=== PATIENT | male | born 1965 | race Caucasian/White ===

== ENCOUNTER → 2018-11-15 18:37 | Outpatient (CLI) | payer BC, SELFPAY ==
[2018-11-15 18:43] LABS: Adenovirus F 40/41, stool Not Detected (NotDetected); Astrovirus Not Detected (NotDetected); Campylobacter Not Detected (NotDetected); Clostridium Difficile A/B, PCR Not Detected (NotDetected); Cryptosporidium Not Detected (NotDetected); Cyclospora Cayetanesis Not Detected (NotDetected); Entamoeba histolytica Not Detected (NotDetected); Enteroaggregative E coli Not Detected (NotDetected); Enteropathogenic E coli Not Detected (NotDetected); Enterotoxigenic E coli Not Detected (NotDetected); Giardia lamblia Not Detected (NotDetected); Norovirus Not Detected (NotDetected); Plesimonas Shigalloides, PCR Not Detected (NotDetected); Rotavirus A Not Detected (NotDetected); Salmonella, PCR Not Detected (NotDetected); Sapovirus Not Detected (NotDetected); Shiga-like toxin E coli Not Detected (NotDetected); Shigella Enterovasive E coli Not Detected (NotDetected); Vibrio Cholerae Not Detected (NotDetected); Vibrio, PCR Not Detected (NotDetected); Yersinia Entercolitica, PCR Not Detected (NotDetected)
== END ==
PROVIDERS: Visit Provider Family Medicine
DX: R19.7 Diarrhea, unspecified (principal)
CPT/HCPCS: 87507

== ENCOUNTER → 2018-12-09 09:35 | Outpatient (CLI) | payer BC, SELFPAY ==
--- NOTE | 2018-12-09 09:41 | XR_ITS ---
XR chest 2V HISTORY: ITS.REASON: HIGH RISK MEDICATION THERAPHY ORDERING PHYSICIAN: Antonio Guzman MD PATIENT AGE: 53 years COMPARISON: 02/24/2011 FINDINGS: The cardiomediastinal silhouette and pulmonary vascularity are within normal limits. The lungs are clear without infiltrates, suspicious nodules, or pleural effusions. There are few calcified granulomas unchanged. No cavitating process evident. No acute bony abnormalities. IMPRESSION: No change with no acute finding
[2018-12-10 12:19] LABS: Hep Be Ag Negative (Negative)
[2018-12-10 13:50] LABS: Hep B Core Ab, Total Negative (Negative); Hepatitis B Surf Ab Quant 4.5 mIU/mL (Immunity>9.9); Hepatitis C Antibody <0.1 s/co ratio (0.0-0.9)
[2018-12-13 08:00] LABS: QuantiFERON-TB Gold Plus Negative (Negative)
== END ==
PROVIDERS: PCP Family Medicine; Visit Provider Internal Medicine Gastroenterology
DX: K50.812 Crohn's disease of both small and large intestine with intestinal obstruction (principal)
CPT/HCPCS: 36415; 71046; 86480; 86704; 86706; 87350; 87380

== ENCOUNTER → 2018-12-17 09:50 | Outpatient (POV) | payer BC, SELFPAY | PROVIDERS: Visit Provider Dermatology | DX: Z00.00 Encounter for general adult medical examination without abnormal findings (principal) ==

== ENCOUNTER 2018-12-25 10:20 | Outpatient (CLI) | payer BC, SELFPAY ==
[2018-12-25 10:59] VITALS: BP 154/78; PULSE 58; RESP 18; TEMP 36.6; O2SAT 100
[2018-12-25 11:29] VITALS: BP 151/80; PULSE 55; RESP 18; O2SAT 99
[2018-12-25 11:59] VITALS: BP 149/79; PULSE 56; RESP 18; O2SAT 98
[2018-12-25 12:10] VITALS: BP 138/72; PULSE 60; RESP 18; O2SAT 98
== END 2018-12-25 12:10 | disposition home or self-care (01) ==
LOC: INF 10:26
PROVIDERS: Visit Provider Internal Medicine Gastroenterology
DX: K50.812 Crohn's disease of both small and large intestine with intestinal obstruction (principal); R10.31 Right lower quadrant pain; R63.4 Abnormal weight loss
CPT/HCPCS: 96413; J3590

== ENCOUNTER → 2019-01-24 13:31 | Outpatient (CLI) | payer BC, SELFPAY ==
[2019-01-24 14:16] LABS: Basophils # 0.1 K/mm3 (0-0.2); Basophils % 0.4 % (0.1-2.0); Eosinophils # 0.1 K/mm3 (0.0-0.4); Eosinophils % 0.8 % (0.1-12.0); Hematocrit 42.4 % (42.0-52.0); Hemoglobin 12.2 g/dL (14.1-18.0); Lymphocytes # 3.6 K/mm3 (0.7-4.5); Mean Corpuscular HGB Conc 28.8 g/dL (31.8-35.4); Mean Corpuscular Hemoglobin 25.1 pg (27.0-31.2); Mean Corpuscular Volume 87.1 fl (80-94); Mean Platelet Volume 7.2 fl (7.4-10.4); Monocytes # 0.9 K/mm3 (0.1-1.0); Neutrophils # 8.1 K/mm3 (1.8-7.8); Neutrophils % 63.8 % (37.0-80.0); Platelet Count 297 K/mm3 (142-424); Red Blood Count 4.87 M/mm3 (4.60-6.20); Red Cell Distribution Width 19.2 % (11.5-17.5); White Blood Count 12.8 K/mm3 (4.8-10.8)
[2019-01-24 16:38] LABS: Erythrocyte Sedimentation Rate 9 mm/hr (0-20)
[2019-01-24 17:30] LABS: Alanine Aminotransferase 39 U/L (12-78); Albumin Level 3.2 gm/dL (3.4-5.0); Alkaline Phosphatase 78 U/L (46-116); Anion Gap 12.8 mEq/L (5-15); Aspartate Amino Transferase 13 U/L (15-37); Bilirubin,Total 0.3 mg/dL (0.2-1.0); Blood Urea Nitrogen 10 mg/dL (7-18); Calcium 8.8 mg/dL (8.5-10.1); Carbon Dioxide 28 mmol/L (21.0-32.0); Chloride 102 mmol/L (98-107); Creatinine,Serum 0.88 mg/dL (0.70-1.30); Estimated Glomerular Filt Rate 90 ml/min (>60); Ferritin 18 ng/mL (8-388); GFR (African American) 109 ML/MIN (>60); Globulin 3.2 gm/dl (1.3-3.2); Glucose 98 mg/dL (74-106); Potassium 3.8 mmoL/L (3.5-5.1); Sodium 139 mmol/L (136-145); Total Protein,Serum 6.4 gm/dL (6.4-8.2)
[2019-01-24 17:34] LABS: C-Reactive Protein < 0.2 mg/L (0.0-0.9)
[2019-01-26 06:40] LABS: Iron 65 ug/dL (38-169); UIBC 278 ug/dL (111-343)
[2019-01-27 03:13] LABS: Iron Saturation 19 % (15-55); Vitamin B12 278 pg/mL (232-1245)
[2019-01-29 06:22] LABS: Vitamin D 25 Hydroxy 20.9 ng/mL (30.0-100.0)
== END ==
PROVIDERS: Visit Provider Internal Medicine Gastroenterology
DX: K50.812 Crohn's disease of both small and large intestine with intestinal obstruction (principal)
CPT/HCPCS: 36415; 80053; 82607; 82652; 82728; 83540; 83550; 85025; 85651; 86140

== ENCOUNTER → 2019-02-17 12:57 | Outpatient (POV) | payer BC, SELFPAY | PROVIDERS: Visit Provider Nurse Practitioner Family | DX: Z00.00 Encounter for general adult medical examination without abnormal findings (principal) ==

== ENCOUNTER 2019-04-23 13:08 | Outpatient (CLI) | payer BC, SELFPAY ==
[2019-04-23 13:22] VITALS: BP 133/85; PULSE 75; RESP 18; TEMP 36.6; O2SAT 97
[2019-04-23 14:10] VITALS: BP 125/66; PULSE 65; RESP 20; TEMP 36.7; O2SAT 99
== END 2019-04-23 14:10 | disposition home or self-care (01) ==
LOC: INF 13:08
PROVIDERS: Visit Provider Internal Medicine Gastroenterology
DX: K50.90 Crohn's disease, unspecified, without complications (principal)
CPT/HCPCS: 96365; J1439

== ENCOUNTER 2019-04-30 12:58 | Outpatient (CLI) | payer BC, SELFPAY ==
[2019-04-30 13:18] VITALS: BP 137/75; PULSE 59; RESP 18; TEMP 36.6; O2SAT 98
[2019-04-30 13:48] VITALS: BP 149/80; PULSE 57; RESP 18; O2SAT 97
[2019-04-30 14:02] VITALS: BP 151/87; PULSE 58; RESP 18; O2SAT 98
== END 2019-04-30 14:07 | disposition home or self-care (01) ==
LOC: INF 12:58
PROVIDERS: Visit Provider Internal Medicine Gastroenterology
DX: D50.9 Iron deficiency anemia, unspecified (principal); K50.90 Crohn's disease, unspecified, without complications
CPT/HCPCS: 96365; J1439

== ENCOUNTER → 2019-05-05 10:38 | Outpatient (POV) | payer BC, SELFPAY | PROVIDERS: PCP Family Medicine; Visit Provider Nurse Practitioner Family | DX: Z00.00 Encounter for general adult medical examination without abnormal findings (principal) ==

== ENCOUNTER → 2019-06-20 14:26 | Outpatient (CLI) | payer BC, SELFPAY ==
[2019-06-20 14:52] LABS: Basophils # 0.1 K/mm3 (0-0.2); Basophils % 0.7 % (0.1-2.0); Eosinophils # 0.1 K/mm3 (0.0-0.4); Eosinophils % 1.6 % (0.1-12.0); Hematocrit 45.6 % (42.0-52.0); Hemoglobin 14.9 g/dL (14.1-18.0); Lymphocytes # 1.6 K/mm3 (0.7-4.5); Lymphocytes % 20.8 % (10-50); Mean Corpuscular HGB Conc 32.6 g/dL (31.8-35.4); Mean Corpuscular Hemoglobin 30.8 pg (27.0-31.2); Mean Corpuscular Volume 94.4 fl (80-94); Monocytes # 0.6 K/mm3 (0.1-1.0); Monocytes % 8.2 % (1.7-9.3); Neutrophils # 5.4 K/mm3 (1.8-7.8); Neutrophils % 68.7 % (37.0-80.0); Platelet Count 297 K/mm3 (142-424); Red Blood Count 4.83 M/mm3 (4.60-6.20); Red Cell Distribution Width 16.3 % (11.5-17.5); White Blood Count 7.9 K/mm3 (4.8-10.8)
[2019-06-20 17:56] LABS: Erythrocyte Sedimentation Rate 34 mm/hr (0-20)
[2019-06-20 20:49] LABS: Alanine Aminotransferase 26 U/L (12-78); Alkaline Phosphatase 75 U/L (46-116); Anion Gap 15.8 mEq/L (5-15); Aspartate Amino Transferase 12 U/L (15-37); Bilirubin,Total 0.3 mg/dL (0.2-1.0); Blood Urea Nitrogen 8 mg/dL (7-18); Calcium 9.1 mg/dL (8.5-10.1); Carbon Dioxide 28 mmol/L (21.0-32.0); Chloride 102 mmol/L (98-107); Creatinine,Serum 0.64 mg/dL (0.70-1.30); Estimated Glomerular Filt Rate 130 ml/min (>60); GFR (African American) 157 ML/MIN (>60); Globulin 3.1 gm/dl (1.3-3.2); Glucose 69 mg/dL (74-106); Potassium 3.8 mmoL/L (3.5-5.1); Sodium 142 mmol/L (136-145); Total Protein,Serum 6.1 gm/dL (6.4-8.2)
[2019-06-20 21:03] LABS: C-Reactive Protein 2.7 mg/dL (0.0-0.9)
[2019-06-21 14:31] LABS: Ferritin 310 ng/mL (8-388)
[2019-06-22 08:21] LABS: Iron 77 ug/dL (38-169); UIBC 145 ug/dL (111-343)
[2019-06-22 17:24] LABS: Iron Saturation 35 % (15-55); Vitamin B12 453 pg/mL (232-1245)
[2019-06-23 14:33] LABS: Vitamin D 25 Hydroxy 30.5 ng/mL (30.0-100.0)
== END ==
PROVIDERS: PCP Family Medicine; Visit Provider Nurse Practitioner Family
DX: K50.90 Crohn's disease, unspecified, without complications (principal); D50.9 Iron deficiency anemia, unspecified
CPT/HCPCS: 36415; 80053; 82607; 82652; 82728; 83540; 83550; 85025; 85651; 86140

== ENCOUNTER → 2019-06-23 13:57 | Outpatient (POV) | payer BC, SELFPAY | PROVIDERS: PCP Family Medicine; Visit Provider Nurse Practitioner Family | DX: Z00.00 Encounter for general adult medical examination without abnormal findings (principal) ==

== ENCOUNTER → 2019-12-20 10:25 | Outpatient (CLI) | payer BC, SELFPAY ==
[2019-12-20 10:43] LABS: Basophils # 0.1 K/mm3 (0-0.2); Basophils % 0.8 % (0.1-2.0); Eosinophils # 0.1 K/mm3 (0.0-0.4); Eosinophils % 1.6 % (0.1-12.0); Hematocrit 42.4 % (42.0-52.0); Hemoglobin 13.1 g/dL (14.1-18.0); Lymphocytes # 1.6 K/mm3 (0.7-4.5); Lymphocytes % 27.2 % (10-50); Mean Corpuscular Hemoglobin 28.4 pg (27.0-31.2); Mean Corpuscular Volume 91.5 fl (80-94); Mean Platelet Volume 7.4 fl (7.4-10.4); Monocytes # 0.5 K/mm3 (0.1-1.0); Monocytes % 7.9 % (1.7-9.3); Neutrophils # 3.7 K/mm3 (1.8-7.8); Neutrophils % 62.5 % (37.0-80.0); Platelet Count 391 K/mm3 (142-424); Red Blood Count 4.64 M/mm3 (4.60-6.20); Red Cell Distribution Width 14.1 % (11.5-17.5); White Blood Count 5.9 K/mm3 (4.8-10.8)
[2019-12-20 11:12] LABS: Erythrocyte Sedimentation Rate 28 mm/hr (0-20)
[2019-12-20 11:16] LABS: Chloride 102 mmol/L (98-107)
[2019-12-20 11:17] LABS: Potassium 4.4 mmoL/L (3.5-5.1); Sodium 137 mmol/L (136-145)
[2019-12-20 11:19] LABS: Alanine Aminotransferase 15 U/L (12-78); Alkaline Phosphatase 84 U/L (38-126); Aspartate Amino Transferase 16 U/L (17-59); Bilirubin,Total 0.3 mg/dl (0.2-1.3); Blood Urea Nitrogen 8 mg/dl (9-20); Estimated Glomerular Filt Rate 117 ml/min (>60); GFR (African American) 142 ML/MIN (>60)
[2019-12-20 11:20] LABS: Albumin Level 3.9 g/dl (3.5-5.0); Albumin/Globulin Ratio 1.4 (1.1-1.8); Anion Gap 8.4 mEq/L (5-15); Calcium 9.6 mg/dl (8.4-10.2); Carbon Dioxide 31 mmol/L (22.0-30.0); Globulin 2.8 g/dL (1.3-3.2); Glucose 98 mg/dl (74-100); Total Protein,Serum 6.7 g/dl (6.3-8.2)
[2019-12-20 11:25] LABS: C-Reactive Protein 26.3 mg/L (0-4)
[2019-12-20 11:54] LABS: Ferritin 179 ng/ml (17.9-464)
[2019-12-21 08:49] LABS: Iron 24 ug/dL (38-169); UIBC 235 ug/dL (111-343)
[2019-12-21 09:32] LABS: Iron Saturation 9 % (15-55); Vitamin B12 684 pg/mL (232-1245)
[2019-12-21 09:33] LABS: Vitamin D 25 Hydroxy 36.8 ng/mL (30.0-100.0)
== END ==
PROVIDERS: Visit Provider Internal Medicine Gastroenterology
DX: K50.012 Crohn's disease of small intestine with intestinal obstruction (principal); R10.30 Lower abdominal pain, unspecified; K59.00 Constipation, unspecified; R79.0 Abnormal level of blood mineral
CPT/HCPCS: 36415; 80053; 82607; 82652; 82728; 83540; 83550; 85025; 85651; 86140

== ENCOUNTER 2020-01-06 13:25 | Outpatient (CLI) | payer BC, SELFPAY ==
[2020-01-06 13:45] VITALS: BP 105/56; PULSE 65; RESP 18; O2SAT 97
[2020-01-06 14:26] VITALS: BP 133/67; PULSE 66; RESP 18; O2SAT 98
== END 2020-01-06 14:26 | disposition home or self-care (01) ==
LOC: INF 13:33
PROVIDERS: Visit Provider Internal Medicine Gastroenterology
DX: K50.90 Crohn's disease, unspecified, without complications (principal); D50.9 Iron deficiency anemia, unspecified
CPT/HCPCS: 96365; Q0138

== ENCOUNTER → 2020-01-08 14:19 | Outpatient (CLI) | payer BC, SELFPAY ==
[2020-01-08 15:18] LABS: Coronavirus 19 IgG Antibody Negative (Negative); Coronavirus 19 IgM Antibody Negative (Negative)
== END ==
PROVIDERS: Visit Provider Internal Medicine Gastroenterology
DX: Z01.818 Encounter for other preprocedural examination (principal)
CPT/HCPCS: 36415; 86328

== ENCOUNTER 2020-01-09 07:24 | Day surgery (SDC) | payer BC, SELFPAY ==
[2020-01-06 15:01] VITALS: BMI 20.9
--- NOTE | 2020-01-07 09:06 | SUR.PREOP ---
01/07/2020 @ 0905--PHONE CALL MADE TO PATIENT. PATIENT UNDERSTANDS THAT LAB WORK AND COVID TESTING NEEDS TO BE COMPLETED @ 0900 ON 01/08/2020. PATIENT UNDERSTANDS IF LAB WORK AND COVID-19 TESTS ARE NOT COMPLETED BY 12PM ON THAT DATE, THE SURGERY SCHEDULED WILL BE CANCELLED AND RESCHEDULED FOR ANOTHER TIME.
[2020-01-09] VITALS (7 sets, daily range): BP systolic 129–157; BP diastolic 74–86; PULSE 56–69; RESP 16–20; TEMP 36.1–36.3; O2SAT 87–98
--- NOTE | 2020-01-09 08:03 | HMH.PROC ---
[facility] Procedure Note Procedure Note:: Colonoscopy Procedure Report: Colonoscopy with cold biopsies and cold snare polypectomy Endoscopist: Antonio Guzman II, MD Referring physician: Darinel Murray MD Date of Procedure: January 09, 2020 Equipment: Olympus 180 variable stiffness pediatric colonoscope Sedation: MAC sedation Indication: Mr. Villagran is a 54-year-old gentleman with a history of Crohn's ileitis with stricturing and negative IBD serologic panel ([facility]). The patient did fail to improve with Stelara and had significant fibro-stenotic Crohn's. He had laparoscopic ileocecal resection with re-anastomosis (Meghan Byrne MD colorectal surgery [facility]) on September 04, 2019. The patient subsequently restarted Stelara on September 27, 2019 and diet was advanced. The patient has had obstipation/incomplete defecation with some intermittent rectal bleeding. He has had low energy levels. His lab work on December 20, 2019 revealed C-reactive protein 26.3 and iron deficiency (iron saturation 9% and serum iron 24). His hemoglobin and hematocrit were 13.1 and 42.4. He had normal B12 and vitamin D levels. Procedure: Prior to the procedure, a history and physical exam was performed, and patient's medications and allergies were reviewed. The risks, benefits and alternatives of the sedation and procedure were discussed with the patient. All questions were answered and informed consent was obtained. The patient was brought to the procedure room. Patient identification and proposed procedure were verified by the physician and the nurse. The patient was placed in a left lateral decubitus position and the scope was passed under direct vision. Throughout the procedure, the patient's blood pressure, pulse, and oxygen saturations were monitored continuously. The colonoscopy was accomplished without difficulty. The patient tolerated the procedure well. Findings: On digital rectal examination there was normal rectal tone. There were no external hemorrhoids. The colonoscope was introduced through the anal canal to the rectum and advanced to ileocolonic anastomosis. The scope was advanced approximately 25 cm into the ileum and there were multiple aphthous ulcerations and aphthous erosions consistent with moderately active Crohn's disease of the ileum. There was 1 area with mild stenosis but the scope could be easily advanced more proximally. Cold biopsies were taken x4 of the ileum. The scope was withdrawn and there was a side to side coloileal anastomosis. The remaining ascending and transverse colon and mucosa were grossly normal. There were scattered extensive diverticuli throughout the descending and sigmoid colon (LEFT colon). There was evidence of moderate sigmoid edema and a larger 12 mm polyp (probable inflammatory polyp/pseudopolyp). Removal was performed via piecemeal cold snare polypectomy and some cold biopsies were obtained. The remaining rectosigmoid was normal and the rectum itself was normal. Upon retroflexion within the rectum there were grade 1-2 internal hemorrhoids. The preparation was excellent throughout with [place] Preparation Score of 9. The cecal time was 15 minutes. Impression: 1. Moderately active Crohn's ileitis with extension of Crohn's to proximal of 25 cm into the neoterminal ileum (penetrating and mild stenosis) 2. Extensive left-sided diverticulosis with evidence of chronic sigmoid diverticulitis and 12 mm sigmoid pseudopolyp/inflammatory polyp 3. Grade 1-2 internal hemorrhoids Plan: Valdemar is failing in terms of maintenance of clinical colonoscopic and biochemical remission. I will follow-up the biopsies. I am going to have the patient initiate Humira. I would consider an iron infusion. I will also discuss his chronic diverticular disease and long-term fiber supplementation and dietary measures.
== END 2020-01-09 10:03 | disposition home or self-care (01) ==
LOC: OUTP 07:25
PROVIDERS: PCP Family Medicine; Visit Provider Internal Medicine Gastroenterology
PROC: 0DJD8ZZ Inspection of Lower Intestinal Tract, Via Natural or Artificial Opening Endoscopic (ICD-10-PCS; CPT 45378; principal; 2020-01-09 08:30)
DX: K50.011 Crohn's disease of small intestine with rectal bleeding (principal); K50.018 Crohn's disease of small intestine with other complication; K56.699 Other intestinal obstruction unspecified as to partial versus complete obstruction; R60.9 Edema, unspecified; K63.5 Polyp of colon; K57.32 Diverticulitis of large intestine without perforation or abscess without bleeding; K57.30 Diverticulosis of large intestine without perforation or abscess without bleeding; K64.0 First degree hemorrhoids; Z90.49 Acquired absence of other specified parts of digestive tract; I10 Essential (primary) hypertension; J44.9 Chronic obstructive pulmonary disease, unspecified; Z82.3 Family history of stroke
CPT/HCPCS: 45385; 45380; Q0138

== ENCOUNTER → 2020-01-21 12:59 | Outpatient (CLI) | payer BC, SELFPAY ==
[2020-01-21 13:26] LABS: Basophils % 0.2 % (0.1-2.0); Eosinophils % 0.3 % (0.1-12.0); Hematocrit 43.9 % (42.0-52.0); Hemoglobin 14.4 g/dL (14.1-18.0); Lymphocytes # 0.7 K/mm3 (0.7-4.5); Lymphocytes % 5.4 % (10-50); Mean Corpuscular HGB Conc 32.9 g/dL (31.8-35.4); Mean Corpuscular Hemoglobin 30.8 pg (27.0-31.2); Mean Corpuscular Volume 93.6 fl (80-94); Mean Platelet Volume 7.4 fl (7.4-10.4); Monocytes # 0.2 K/mm3 (0.1-1.0); Monocytes % 1.7 % (1.7-9.3); Neutrophils # 11.9 K/mm3 (1.8-7.8); Neutrophils % 92.4 % (37.0-80.0); Platelet Count 281 K/mm3 (142-424); Red Blood Count 4.69 M/mm3 (4.60-6.20); Red Cell Distribution Width 17.7 % (11.5-17.5); White Blood Count 12.8 K/mm3 (4.8-10.8)
[2020-01-21 13:27] LABS: MANUAL DIFFERENTIAL MANUAL DIFFERENTIAL (MANUAL DIFF)
[2020-01-21 13:59] LABS: Lymphocytes % 8 % (10-50); Neutrophils % 92 % (42-76); Platelet Estimate Normal; RBC Morphology Normal; Total Cells Counted 100
[2020-01-21 15:07] LABS: Chloride 100 mmol/L (98-107); Sodium 135 mmol/L (136-145)
[2020-01-21 15:10] LABS: Alanine Aminotransferase 25 U/L (12-78); Albumin Level 3.9 g/dl (3.5-5.0); Albumin/Globulin Ratio 1.4 (1.1-1.8); Alkaline Phosphatase 115 U/L (38-126); Aspartate Amino Transferase 18 U/L (17-59); Bilirubin,Total 0.7 mg/dl (0.2-1.3); Blood Urea Nitrogen 9 mg/dl (9-20); Carbon Dioxide 26 mmol/L (22.0-30.0); Estimated Glomerular Filt Rate 100 ml/min (>60); GFR (African American) 121 ML/MIN (>60); Globulin 2.8 g/dL (1.3-3.2); Total Protein,Serum 6.7 g/dl (6.3-8.2)
[2020-01-21 15:11] LABS: Calcium 8.8 mg/dl (8.4-10.2); Glucose 135 mg/dl (74-100)
[2020-01-27 11:54] LABS: QuantiFERON-TB Gold Plus Negative (Negative)
== END ==
PROVIDERS: Visit Provider Internal Medicine Gastroenterology
DX: K50.90 Crohn's disease, unspecified, without complications (principal)
CPT/HCPCS: 36415; 80053; 85007; 85025; 86480

== ENCOUNTER → 2020-05-04 11:21 | Outpatient (CLI) | payer BC, SELFPAY ==
[2020-05-04 12:14] LABS: Basophils # 0.1 K/mm3 (0-0.2); Basophils % 0.6 % (0.1-2.0); Eosinophils # 0.1 K/mm3 (0.0-0.4); Eosinophils % 1.1 % (0.1-12.0); Hematocrit 49.3 % (42.0-52.0); Hemoglobin 16.2 g/dL (14.1-18.0); Lymphocytes # 3.4 K/mm3 (0.7-4.5); Lymphocytes % 36.2 % (10-50); Mean Corpuscular HGB Conc 32.8 g/dL (31.8-35.4); Mean Corpuscular Volume 100.4 fl (80-94); Mean Platelet Volume 7.8 fl (7.4-10.4); Monocytes # 0.7 K/mm3 (0.1-1.0); Monocytes % 7.5 % (1.7-9.3); Neutrophils # 5.1 K/mm3 (1.8-7.8); Neutrophils % 54.7 % (37.0-80.0); Platelet Count 193 K/mm3 (142-424); Red Blood Count 4.91 M/mm3 (4.60-6.20); Red Cell Distribution Width 14.9 % (11.5-17.5); White Blood Count 9.3 K/mm3 (4.8-10.8)
[2020-05-04 13:08] LABS: Erythrocyte Sedimentation Rate 2 mm/hr (0-20)
[2020-05-04 13:37] LABS: Chloride 101 mmol/L (98-107); Potassium 4.2 mmoL/L (3.5-5.1); Sodium 137 mmol/L (136-145)
[2020-05-04 13:40] LABS: Alanine Aminotransferase 21 U/L (12-78); Alkaline Phosphatase 65 U/L (38-126); Anion Gap 10.2 mEq/L (5-15); Aspartate Amino Transferase 22 U/L (17-59); Bilirubin,Total 0.7 mg/dl (0.2-1.3); Blood Urea Nitrogen 10 mg/dl (9-20); Calcium 9.5 mg/dl (8.4-10.2); Carbon Dioxide 30 mmol/L (22.0-30.0); Estimated Glomerular Filt Rate 117 ml/min (>60); GFR (African American) 141 ML/MIN (>60); Glucose 90 mg/dl (74-100); Iron 136 ug/dL (49-181)
[2020-05-04 13:41] LABS: Albumin Level 3.8 g/dl (3.5-5.0); Albumin/Globulin Ratio 1.6 (1.1-1.8); Globulin 2.4 g/dL (1.3-3.2); Total Protein,Serum 6.2 g/dl (6.3-8.2)
[2020-05-04 13:46] LABS: C-Reactive Protein 2.5 mg/L (0-4)
[2020-05-04 13:50] LABS: Total Iron Binding Capacity 299 ug/dL (261-462)
[2020-05-04 13:58] LABS: 25-OH Vitamin D, Total 36.3 ng/mL (30-100)
[2020-05-04 14:17] LABS: Ferritin 276 ng/ml (17.9-464)
[2020-05-04 18:52] LABS: Vitamin B12 390 pg/mL (239-931)
== END ==
PROVIDERS: Visit Provider Internal Medicine Gastroenterology
DX: K50.012 Crohn's disease of small intestine with intestinal obstruction (principal); R10.30 Lower abdominal pain, unspecified; K59.00 Constipation, unspecified
CPT/HCPCS: 36415; 80053; 82306; 82607; 82728; 83540; 83550; 85025; 85651; 86140

== ENCOUNTER → 2020-06-30 12:10 | Outpatient (CLI) | payer BC, SELFPAY ==
[2020-06-30 12:35] LABS: Basophils % 0.6 % (0.1-2.0); Eosinophils # 0.1 K/mm3 (0.0-0.4); Eosinophils % 0.7 % (0.1-12.0); Hematocrit 53.5 % (42.0-52.0); Hemoglobin 17.6 g/dL (14.1-18.0); Lymphocytes # 2.5 K/mm3 (0.7-4.5); Lymphocytes % 36.8 % (10-50); Mean Corpuscular HGB Conc 32.9 g/dL (31.8-35.4); Mean Corpuscular Hemoglobin 33.1 pg (27.0-31.2); Mean Corpuscular Volume 100.5 fl (80-94); Monocytes # 0.5 K/mm3 (0.1-1.0); Monocytes % 7.5 % (1.7-9.3); Neutrophils # 3.7 K/mm3 (1.8-7.8); Neutrophils % 54.4 % (37.0-80.0); Platelet Count 214 K/mm3 (142-424); Red Blood Count 5.32 M/mm3 (4.60-6.20); Red Cell Distribution Width 14.5 % (11.5-17.5); White Blood Count 6.7 K/mm3 (4.8-10.8)
[2020-06-30 13:51] LABS: Chloride 102 mmol/L (98-107); Potassium 4.7 mmoL/L (3.5-5.1); Sodium 137 mmol/L (136-145)
[2020-06-30 13:53] LABS: Alanine Aminotransferase 25 U/L (12-78); Aspartate Amino Transferase 22 U/L (17-59); Blood Urea Nitrogen 14 mg/dl (9-20); Estimated Glomerular Filt Rate 100 ml/min (>60); GFR (African American) 121 ML/MIN (>60)
[2020-06-30 13:54] LABS: Albumin Level 4.2 g/dl (3.5-5.0); Albumin/Globulin Ratio 1.7 (1.1-1.8); Alkaline Phosphatase 57 U/L (38-126); Anion Gap 8.7 mEq/L (5-15); Bilirubin,Total 0.7 mg/dl (0.2-1.3); Calcium 9.7 mg/dl (8.4-10.2); Carbon Dioxide 31 mmol/L (22.0-30.0); Globulin 2.5 g/dL (1.3-3.2); Glucose 81 mg/dl (74-100); Total Protein,Serum 6.7 g/dl (6.3-8.2)
[2020-06-30 13:59] LABS: C-Reactive Protein 2.7 mg/L (0-4)
[2020-06-30 14:15] LABS: Erythrocyte Sedimentation Rate 5 mm/hr (0-20)
== END ==
PROVIDERS: Visit Provider Nurse Practitioner Family
DX: K50.011 Crohn's disease of small intestine with rectal bleeding (principal); K59.00 Constipation, unspecified; R10.9 Unspecified abdominal pain
CPT/HCPCS: 36415; 80053; 85025; 85651; 86140

== ENCOUNTER → 2020-07-21 12:14 | Outpatient (CLI) | payer BC, SELFPAY ==
[2020-07-21 12:37] LABS: Basophils # 0.1 K/mm3 (0-0.2); Basophils % 0.7 % (0.1-2.0); Eosinophils # 0.1 K/mm3 (0.0-0.4); Eosinophils % 1.5 % (0.1-12.0); Hematocrit 50.3 % (42.0-52.0); Hemoglobin 16.7 g/dL (14.1-18.0); Lymphocytes # 2.2 K/mm3 (0.7-4.5); Lymphocytes % 29.4 % (10-50); Mean Corpuscular HGB Conc 33.2 g/dL (31.8-35.4); Mean Corpuscular Hemoglobin 33.5 pg (27.0-31.2); Mean Corpuscular Volume 100.7 fl (80-94); Mean Platelet Volume 7.8 fl (7.4-10.4); Monocytes # 0.5 K/mm3 (0.1-1.0); Monocytes % 7.1 % (1.7-9.3); Neutrophils # 4.5 K/mm3 (1.8-7.8); Neutrophils % 61.2 % (37.0-80.0); Platelet Count 213 K/mm3 (142-424); Red Cell Distribution Width 14.2 % (11.5-17.5); White Blood Count 7.4 K/mm3 (4.8-10.8)
[2020-07-21 14:16] LABS: Chloride 103 mmol/L (98-107); Sodium 138 mmol/L (136-145)
[2020-07-21 14:17] LABS: Potassium 4.3 mmoL/L (3.5-5.1)
[2020-07-21 14:19] LABS: Alanine Aminotransferase 22 U/L (12-78); Anion Gap 9.3 mEq/L (5-15); Aspartate Amino Transferase 21 U/L (17-59); Blood Urea Nitrogen 8 mg/dl (9-20); Carbon Dioxide 30 mmol/L (22.0-30.0); Estimated Glomerular Filt Rate 100 ml/min (>60); GFR (African American) 121 ML/MIN (>60)
[2020-07-21 14:20] LABS: Albumin Level 4.2 g/dl (3.5-5.0); Albumin/Globulin Ratio 1.8 (1.1-1.8); Alkaline Phosphatase 64 U/L (38-126); Bilirubin,Total 0.4 mg/dl (0.2-1.3); Calcium 9.5 mg/dl (8.4-10.2); Globulin 2.4 g/dL (1.3-3.2); Glucose 97 mg/dl (74-100); Total Protein,Serum 6.6 g/dl (6.3-8.2)
== END ==
PROVIDERS: Visit Provider Nurse Practitioner Family
DX: R10.9 Unspecified abdominal pain (principal); K50.90 Crohn's disease, unspecified, without complications; K59.00 Constipation, unspecified
CPT/HCPCS: 36415; 80053; 85025

== ENCOUNTER → 2020-07-26 11:51 | Outpatient (CLI) | payer BC, SELFPAY ==
[2020-07-29 02:29] LABS: Calprotectin, Fecal 48 ug/g (0-120)
== END ==
PROVIDERS: Visit Provider Nurse Practitioner Family
DX: K50.90 Crohn's disease, unspecified, without complications (principal); R10.9 Unspecified abdominal pain; K59.00 Constipation, unspecified
CPT/HCPCS: 83993

== ENCOUNTER → 2020-10-18 09:25 | Outpatient (CLI) | payer BC, SELFPAY ==
--- NOTE | 2020-10-18 09:29 | XR_ITS ---
PROCEDURE: XR DEXA AXIAL SKELETON CLINICAL HISTORY: CROHN'S DISEASE OF SMALL INTESTINE W/ COMPLICATION COMPARISON: No exams were available for comparison FINDINGS: The right hip BMD is 0.626 with a T-score of -2.2. The left hip BMD is 0.670 with a T-score of -2.4. The lumbar spine BMD is 0.948 with a T-score of -1.3. IMPRESSION: This patient is considered osteopenic according to the World Health Organization criteria. Bone density is between 10 and 25 percent below young normal. Fracture risk is moderate. Treatment is advised. Based on these results a follow-up exam is recommended in 2 year. Dictated by: Roland Mcdowell MD 10/18/2020 19:33 Roland Mcdowell MD in [place] 10/19/2020 13:31
== END ==
PROVIDERS: PCP Family Medicine; Visit Provider Family Medicine
DX: K50.019 Crohn's disease of small intestine with unspecified complications (principal); M85.89 Other specified disorders of bone density and structure, multiple sites
CPT/HCPCS: 77080

== ENCOUNTER 2020-12-19 13:02 | Emergency (ER) | payer BC, SELFPAY ==
[2020-12-19 13:36] VITALS: BP 177/83; PULSE 63; RESP 17; TEMP 36.8; O2SAT 100; BMI 70.3
--- NOTE | 2020-12-19 14:04 | XR_ITS ---
PROCEDURE INFORMATION: Exam: XR Left Hand Exam date and time: 12/19/2020 2:04 PM Age: 55 years old Clinical indication: Other: Laceration; Additional info: Wood hit hand cut finger TECHNIQUE: Imaging protocol: XR Left hand. Views: 3 or more views. COMPARISON: No relevant prior studies available. FINDINGS: Bones/joints: There is no evidence of acute fracture. There is no evidence of joint malalignment or dislocation. Soft tissues: No evidence of radiopaque foreign bodies. There are no soft tissue masses or fluid collections. IMPRESSION: 1. No evidence of radiopaque foreign bodies. 2. No evidence of acute fracture. 3. No evidence of acute dislocation.
--- NOTE | 2020-12-19 14:04 | HMH.EDUTC ---
[facility] [place] Clinical Impression: Laceration Disposition: Home, Self-Care Condition on Discharge: Good Instructions: Laceration Repair, DI for Laceration Repair, Amoxicillin and Clavulanic Acid Additional Instructions: Suture instructions: You have required stitches today. Please read the following instructions so you know how to care for them: 1. Keep wound area dry for the first 24 hours. 2 May clean gently with mild soap and water, after 48 hours to prevent crusting over suture knots. 3. You may shower if your provider gives permission but do not take a bath until the skin is healed.. 4. Never leave a wet dressing or Band-Aid on your stitches as this allows bacteria to reach the area and may cause infection. Band-aids can cause the wound to sweat and not recommended to wear for long periods of time Watch for signs of infection: Increasing redness, tenderness or warmth around the suture site Unusual swelling around the site Appearance of pus around each suture or any red streaks Fever If you develop any of the above signs or symptoms of infection, Follow up with Family Physician immediately 5. Suture removal in _7-10___days 6. Return to [facility] or follow up with family doctor for removal. This can be done by any medical provider during regular hours on Sunday through Sunday, by appointment. Prescriptions: Amoxicillin/Potassium Clav [Augmentin 875-125 Tablet] 1 tab PO Q12H 5 Days #10 tab Transmission Status: Pending to [id number] - [facility] Rx Referrals: Tara Murray MD [Primary Care Provider] - As needed Time of Disposition: 15:29 Medical Decision Making - Kody Inquiry Pt receiving controlled substance: No Kody was queried for this patient: No Vital Signs: 12/19/20 13:36 Temperature 98.2 F Temperature Source Oral Pulse Rate [Left] 63 Respiratory Rate 17 Blood Pressure [Right Arm] 177/83 H Blood Pressure Mean [Right Arm] 114 02 Sat by Pulse Oximetry 100 Oxygen Delivery Method Room Air Orders (Tests/Meds): ED MEDICATIONS Discontinued Medications Generic Name Dose Route Start Last Admin Trade Name Freq PRN Reason Stop Dose Admin Lidocaine HCl 5 ml 12/19/20 14:49 12/19/20 14:51 Lidocaine 1% 5ml Pf Vial SQ 12/19/20 14:50 5 ml ONCE ONE Administration Tetanus/Reduced Diphtheria/Acell Pertussis 0.5 ml 12/19/20 14:31 12/19/20 14:52 Tet/Diphth/Pert-Adult 0.5ml Syringe IM 12/19/20 14:32 0.5 ml .ONCE ONE Administration - Radiology Data #1 Image(s): Hand Image Reviewed: Yes I reviewed the patient's radiology image Preliminary Findings: No Fracture Seen [facility] [place] HPI - General Stated complaint: Cut middle finger on left hand Time Seen by Provider: 12/19/20 14:04 Mode of Arrival: Ambulatory Source of Information: Patient Limitations: No Limitations Description of Symptoms (Recalled from Triage Doc. by RN): Laceration on left finger HEENT Symptoms (Recalled from RN notes): No Resp Symptoms (Recalled from RN notes): No Skin Symptoms (Recalled from RN notes): Yes MS Symptoms (Recalled from RN notes): No Functional Status (Recalled from RN notes): wnl - History of Present Illness Provider Complaint: Patient states that he was cutting wood on saw earlier when the wood flew up and hit him in the left middle finger causing laceration State that he immediately applied pressure and looked at the cut and noticed it looked deep so he came in State that unsure of last tetanus - Related Data Home Medications Medication Instructions Recorded Confirmed Tamsulosin HCl [Flomax 0.4mg 0.4 mg PO HS 11/27/18 09/02/20 capsule] Ustekinumab [Stelara] 45 mg SQ DAILY 01/06/20 09/02/20 adalimumab 40 mg/0.4 mL mg SQ 09/02/20 09/02/20 subcutaneous pen kit azathioprine 50 mg tablet 50 mg PO tab 09/02/20 09/02/20 prednisone 10 mg tablet 10 mg PO tab 09/02/20 09/02/20 Previous Rx's Medication Instructions Recorded ciclopirox 8 % topical solution
[2020-12-19 15:25] VITALS: BP 177/83; PULSE 63; RESP 17; TEMP 36.8; O2SAT 100
== END 2020-12-19 15:33 | disposition home or self-care (01) ==
PROVIDERS: Emergency Provider Nurse Practitioner; PCP Family Medicine
DX: S61.213A Laceration without foreign body of left middle finger without damage to nail, initial encounter (principal); W27.8XXA Contact with other nonpowered hand tool, initial encounter; Y92.018 Other place in single-family (private) house as the place of occurrence of the external cause; Z23 Encounter for immunization; K21.9 Gastro-esophageal reflux disease without esophagitis; J44.9 Chronic obstructive pulmonary disease, unspecified; I10 Essential (primary) hypertension; F17.210 Nicotine dependence, cigarettes, uncomplicated
CPT/HCPCS: 12001; 73130; 90471; 90715; 96372; 99202; G0463

== ENCOUNTER → 2021-01-21 17:30 | Outpatient (CLI) | payer BC, SELFPAY ==
[2021-01-21 17:42] LABS: Basophils # 0.1 K/mm3 (0-0.2); Eosinophils # 0.2 K/mm3 (0.0-0.4); Eosinophils % 3.5 % (0.1-12.0); Hematocrit 45.9 % (42.0-52.0); Hemoglobin 15.3 g/dL (14.1-18.0); Lymphocytes # 2.5 K/mm3 (0.7-4.5); Lymphocytes % 39.6 % (10-50); Mean Corpuscular HGB Conc 33.3 g/dL (31.8-35.4); Mean Corpuscular Hemoglobin 31.7 pg (27.0-31.2); Mean Corpuscular Volume 95.1 fl (80-94); Monocytes # 0.5 K/mm3 (0.1-1.0); Monocytes % 7.7 % (1.7-9.3); Neutrophils # 3.1 K/mm3 (1.8-7.8); Neutrophils % 48.2 % (37.0-80.0); Platelet Count 183 K/mm3 (142-424); Red Blood Count 4.83 M/mm3 (4.60-6.20); Red Cell Distribution Width 14.1 % (11.5-17.5); White Blood Count 6.4 K/mm3 (4.8-10.8)
[2021-01-21 18:08] LABS: Erythrocyte Sedimentation Rate 9 mm/hr (0-20)
[2021-01-21 18:21] LABS: Alanine Aminotransferase 16 U/L (12-78); Albumin Level 3.8 g/dl (3.5-5.0); Albumin/Globulin Ratio 1.6 (1.1-1.8); Alkaline Phosphatase 65 U/L (38-126); Anion Gap 7.2 mEq/L (5-15); Aspartate Amino Transferase 20 U/L (17-59); Bilirubin,Total 0.6 mg/dl (0.2-1.3); Blood Urea Nitrogen 10 mg/dl (9-20); Calcium 8.7 mg/dl (8.4-10.2); Carbon Dioxide 30 mmol/L (22.0-30.0); Chloride 105 mmol/L (98-107); Estimated Glomerular Filt Rate 100 ml/min (>60); GFR (African American) 121 ML/MIN (>60); Globulin 2.4 g/dL (1.3-3.2); Glucose 85 mg/dl (74-100); Potassium 4.2 mmoL/L (3.5-5.1); Sodium 138 mmol/L (136-145); Total Protein,Serum 6.2 g/dl (6.3-8.2)
[2021-01-21 18:38] LABS: 25-OH Vitamin D, Total 30.4 ng/mL (30-100)
[2021-01-21 19:11] LABS: Vitamin B12 529 pg/mL (239-931)
[2021-01-21 19:14] LABS: Iron 85 ug/dL (49-181)
[2021-01-21 19:49] LABS: Ferritin 151 ng/ml (17.9-464)
== END ==
PROVIDERS: Visit Provider Nurse Practitioner Family
DX: K50.90 Crohn's disease, unspecified, without complications (principal); R10.9 Unspecified abdominal pain; R19.4 Change in bowel habit
CPT/HCPCS: 36415; 80053; 82306; 82607; 82728; 83540; 85025; 85651; 86140

== ENCOUNTER → 2021-01-24 15:58 | Outpatient (POV) | payer BC, SELFPAY | PROVIDERS: Visit Provider Nurse Practitioner Family | DX: Z00.00 Encounter for general adult medical examination without abnormal findings (principal) ==

== ENCOUNTER → 2021-02-28 14:15 | Outpatient (CLI) | payer BC, SELFPAY ==
--- NOTE | 2021-02-28 14:20 | XR_ITS ---
PROCEDURE: XR KNEE LT 3V CLINICAL INDICATION: SPRAIN OF COLLATERAL LIGAMENT OF LT KNEE,SUBSEQUENT ENCOUNTE COMPARISON: No exams were available for comparison FINDINGS: No acute fractures or dislocations. Bone density is normal. The joint spaces are maintained. Incidental note is made of fabella. No suprapatellar joint effusion. Vascular calcification is noted. Soft tissues are otherwise IMPRESSION: No acute abnormality. Dictated by: Stacey Almazan 02/28/2021 16:10 Stacey Almazan in [place] 02/28/2021 16:10
== END ==
PROVIDERS: PCP Family Medicine; Visit Provider Family Medicine
DX: S83.402D Sprain of unspecified collateral ligament of left knee, subsequent encounter (principal)
CPT/HCPCS: 73562

== ENCOUNTER 2021-03-10 15:00 | Outpatient (RCR) | payer BC, SELFPAY ==
--- NOTE | 2021-03-03 08:50 | HMH.PTOPEV ---
PT Outpatient Evaluation Rehab PT Outpatient Evaluation Start: 03/03/21 07:57 Freq: Status: Active Protocol: Document 03/03/21 08:31 ATIF (Rec: 03/03/21 08:50 PHORMICHAEL [id number]) Electronically Signed By Orlando Monique, PT 03/03/21 08:31 Outpatient Therapy Subjective History Subjective History Pt is 56 yowm who presents with c/o L knee pain and swelling x ~ 2-3 wks. He reports, I stepped off of a trailer and twisted my knee a little. He reports he felt ok after the injury, but worse the next day. He also reports he subsequently strained his groin in the R [place] which hade his walking more difficult. He had x-rays performed without abnormalities noted. He reports PMH of crohn's disease . Chief Complaint Pain,Swelling Symptom Type Ache Symptoms Relieved By Rest/Positioning Symptoms Aggravated By Walking Prior Functional Limitations None Current Functional Limitations Walking Symptom Description Activity Dependent Level of pain today (0-10) 2 Pain scale - at its worst (0-10) 4 Hip/Knee Eval Gait Observation General Gait Pattern Observation Antalgic Gait Palpation Tenderness left Knee Palpation Finding Tenderness Knee Palpation Overall Comment popliteal space MMT Hip Flexion Strength Grade 5 Normal Hip Abduction Strength Grade 5 Normal Hip Adduction Strength Grade 5 Normal Hip Extension Strength Grade 5 Normal Knee Extension Strength Grade 5 Normal Knee Flexion Strength Grade 4 Good ROM Knee Extension Active Range of Motion ( 0 degrees) Knee Flexion Active Range of Motion ( 0-138 degrees) Special Tests Knee Anterior Drawer Test Negative Left,Negative Right Vigil 90/90 Test (PCL) Negative Left,Negative Right Knee Anterior Brody Test Negative Left,Negative Right Knee Valgus Stress Test Negative Left,Negative Right Knee Varus Stress Test Negative Left,Negative Right Knee Lucero Test Negative Left,Negative Right Outpatient Therapy Assessment Impairments Problems/Impairmments Palpation Tenderness,Impaired Strength,Impaired Gait Pattern ,Impaired Walking,Increased Edema,Subjective C/O Pain, Impaired Self Care/Self
== END 2021-03-10 15:05 | disposition home or self-care (01) ==
LOC: PT 15:00
PROVIDERS: PCP Family Medicine; Visit Provider Family Medicine
DX: S83.402D Sprain of unspecified collateral ligament of left knee, subsequent encounter (principal)
CPT/HCPCS: 97033; 97035; 97110; 97163

== ENCOUNTER → 2021-10-20 17:06 | Outpatient (CLI) | payer BC, SELFPAY ==
[2021-10-20 17:39] LABS: Basophils # 0.1 K/mm3 (0-0.2); Eosinophils # 0.2 K/mm3 (0.0-0.4); Eosinophils % 3.9 % (0.1-12.0); Hematocrit 51.3 % (42.0-52.0); Hemoglobin 16.3 g/dL (14.1-18.0); Lymphocytes % 34.2 % (10-50); Mean Corpuscular HGB Conc 31.8 g/dL (31.8-35.4); Mean Corpuscular Hemoglobin 31.6 pg (27.0-31.2); Mean Corpuscular Volume 99.4 fl (80-94); Mean Platelet Volume 8.6 fl (7.4-10.4); Monocytes # 0.4 K/mm3 (0.1-1.0); Monocytes % 6.9 % (1.7-9.3); Neutrophils % 52.9 % (37.0-80.0); Platelet Count 220 K/mm3 (142-424); Red Blood Count 5.16 M/mm3 (4.60-6.20); Red Cell Distribution Width 13.8 % (11.5-17.5); White Blood Count 5.7 K/mm3 (4.8-10.8)
[2021-10-20 17:40] LABS: Alanine Aminotransferase 31 U/L (12-78); Albumin Level 4.5 g/dl (3.5-5.0); Albumin/Globulin Ratio 1.6 (1.1-1.8); Alkaline Phosphatase 72 U/L (38-126); Anion Gap 10.5 mEq/L (5-15); Aspartate Amino Transferase 27 U/L (17-59); Bilirubin,Total 0.6 mg/dl (0.2-1.3); Blood Urea Nitrogen 11 mg/dl (9-20); Calcium 9.3 mg/dl (8.4-10.2); Carbon Dioxide 30 mmol/L (22.0-30.0); Chloride 100 mmol/L (98-107); Estimated Glomerular Filt Rate 100 ml/min (>60); GFR (African American) 121 ML/MIN (>60); Globulin 2.9 g/dL (1.3-3.2); Glucose 95 mg/dl (74-100); Potassium 4.5 mmoL/L (3.5-5.1); Sodium 136 mmol/L (136-145); Total Protein,Serum 7.4 g/dl (6.3-8.2)
[2021-10-20 17:45] LABS: C-Reactive Protein 1.1 mg/L (0-4)
[2021-10-20 18:29] LABS: Vitamin B12 379 pg/mL (239-931)
[2021-10-20 18:34] LABS: 25-OH Vitamin D, Total < 12.8 ng/mL (30-100)
[2021-10-20 18:40] LABS: Iron 87 ug/dL (49-181)
[2021-10-20 19:07] LABS: Erythrocyte Sedimentation Rate 8 mm/hr (0-20)
[2021-10-20 19:16] LABS: Ferritin 126 ng/ml (17.9-464)
[2021-10-24 16:07] LABS: Total Iron Binding Capacity 319 ug/dL (261-462)
== END ==
PROVIDERS: Visit Provider Nurse Practitioner Family
DX: R10.9 Unspecified abdominal pain (principal); R10.30 Lower abdominal pain, unspecified; R19.4 Change in bowel habit; R63.4 Abnormal weight loss; K50.812 Crohn's disease of both small and large intestine with intestinal obstruction; K59.00 Constipation, unspecified; K58.9 Irritable bowel syndrome, unspecified; E55.9 Vitamin D deficiency, unspecified
CPT/HCPCS: 36415; 80053; 82306; 82607; 82728; 83540; 83550; 85025; 85651; 86140

== ENCOUNTER → 2022-04-18 17:06 | Outpatient (CLI) | payer BC, SELFPAY ==
[2022-04-18 18:38] LABS: MANUAL DIFFERENTIAL MANUAL DIFFERENTIAL (MANUAL DIFF)
[2022-04-18 18:50] LABS: Basophils # 0.1 K/mm3 (0-0.2); Basophils % 1.7 % (0.1-2.0); Eosinophils # 0.3 K/mm3 (0.0-0.4); Hematocrit 48.8 % (42.0-52.0); Hemoglobin 15.2 g/dL (14.1-18.0); Lymphocytes % 31.5 % (10-50); Mean Corpuscular HGB Conc 31.2 g/dL (31.8-35.4); Mean Corpuscular Hemoglobin 31.6 pg (27.0-31.2); Mean Corpuscular Volume 101.3 fl (80-94); Mean Platelet Volume 9.2 fl (7.4-10.4); Monocytes # 0.5 K/mm3 (0.1-1.0); Monocytes % 7.3 % (1.7-9.3); Neutrophils # 3.5 K/mm3 (1.8-7.8); Neutrophils % 54.5 % (37.0-80.0); Platelet Count 221 K/mm3 (142-424); Red Blood Count 4.82 M/mm3 (4.60-6.20); Red Cell Distribution Width 13.3 % (11.5-17.5); White Blood Count 6.4 K/mm3 (4.8-10.8)
[2022-04-18 18:54] LABS: Alanine Aminotransferase 22 U/L (12-78); Albumin/Globulin Ratio 1.3 (1.1-1.8); Alkaline Phosphatase 82 U/L (38-126); Anion Gap 6.2 mEq/L (5-15); Aspartate Amino Transferase 27 U/L (17-59); Bilirubin,Total 0.2 mg/dl (0.2-1.3); Blood Urea Nitrogen 12 mg/dl (9-20); Calcium 9.2 mg/dl (8.4-10.2); Carbon Dioxide 30 mmol/L (22.0-30.0); Chloride 104 mmol/L (98-107); Estimated Glomerular Filt Rate 99 ml/min (>60); GFR (African American) 120 ML/MIN (>60); Glucose 86 mg/dl (74-100); Potassium 4.2 mmoL/L (3.5-5.1); Sodium 136 mmol/L (136-145)
[2022-04-18 18:59] LABS: C-Reactive Protein 3.3 mg/L (0-4)
[2022-04-18 19:12] LABS: 25-OH Vitamin D, Total 46.6 ng/mL (30-100)
[2022-04-18 19:44] LABS: Erythrocyte Sedimentation Rate 21 mm/hr (0-20); Vitamin B12 285 pg/mL (239-931)
[2022-04-18 20:02] LABS: Iron 65 ug/dL (49-181)
[2022-04-18 20:12] LABS: Total Iron Binding Capacity 257 ug/dL (261-462)
[2022-04-18 20:38] LABS: Ferritin 114 ng/ml (17.9-464)
[2022-04-19 02:43] LABS: Eosinophils % 2 % (0-3); Lymphocytes % 22 % (10-50); Monocytes % 5 % (2-9); Neutrophils % 71 % (42-76); Total Cells Counted 100
[2022-04-19 02:44] LABS: Hypochromasia 2+; Platelet Estimate Normal
== END ==
PROVIDERS: PCP Family Medicine; Visit Provider Nurse Practitioner Family
DX: K50.812 Crohn's disease of both small and large intestine with intestinal obstruction (principal); K58.9 Irritable bowel syndrome, unspecified; E55.9 Vitamin D deficiency, unspecified; Z79.899 Other long term (current) drug therapy
CPT/HCPCS: 36415; 80053; 82306; 82607; 82728; 83540; 83550; 85007; 85014; 85018; 85048; 85049; 85651; 86140

== ENCOUNTER → 2022-07-26 15:42 | Outpatient (CLI) | payer BC, SELFPAY ==
[2022-07-26 16:55] LABS: Blood Urea Nitrogen 11 mg/dl (9-20); Estimated Glomerular Filt Rate 99 ml/min (>60); GFR (African American) 120 ML/MIN (>60)
== END ==
PROVIDERS: PCP Family Medicine; Visit Provider Family Medicine
DX: R93.0 Abnormal findings on diagnostic imaging of skull and head, not elsewhere classified (principal)
CPT/HCPCS: 36415; 82565; 84520

== ENCOUNTER → 2022-07-27 12:35 | Outpatient (CLI) | payer BC, SELFPAY ==
--- NOTE | 2022-07-27 12:50 | MR_ITS ---
FINAL REPORT CLINICAL HISTORY: ABNORMAL CT SCAN. CONSTANT HEADACHE AND DIZIZNESS. BLURRED VISION. 12ML PROHANCE GIVEN. FINDINGS: Multiplanar MR imaging of the brain was performed without and with contrast. A focus of encephalomalacia is noted in the left cerebellar hemisphere likely representing sequela of a prior infarct. Mild chronic ischemic/gliotic changes are noted involving the artur. There is no evidence of intracranial hemorrhage or mass. No abnormal extra-axial fluid collection is seen. The ventricular size is within normal limits. There is no evidence of shift of the midline structures. The posterior fossa and brainstem have an unremarkable appearance. No area of abnormal restricted diffusion is identified. No abnormal contrast enhancement is seen. Normal major vessel vascular flow voids are noted. IMPRESSION: Left cerebellar focus of encephalomalacia consistent with a prior infarct. Mild chronic ischemic/gliotic changes. No acute intracranial abnormality. Authenticated and ERN
--- NOTE | 2022-07-27 14:03 | CA_ITS ---
FINAL REPORT TECHNIQUE: Color Doppler, duplex Doppler and barrera scale sonography of the bilateral neck arterial vasculature was performed. Velocities were measured in the carotid arteries. Stenosis evaluation based on the validated velocity criteria. CLINICAL HISTORY: COPD, HTN,Smoker FINDINGS: The peak systolic velocity of the right common carotid artery is 67 cm/s. The peak systolic velocity of the right internal carotid artery is 74 cm/s and end diastolic velocity 30 cm/s. The ICA/CCA ratio is 1.1. A mild amount of plaque is present. The right external carotid artery is patent. The right vertebral artery is patent with antegrade flow. The peak systolic velocity of the left common carotid artery is 75 cm/s. The peak systolic velocity of the left internal carotid artery is 81 cm/s and end diastolic velocity 32 cm/s. The ICA/CCA ratio is 1.1. A mild amount of plaque is present. The left external carotid artery is patent.The left vertebral artery is patent with antegrade flow. IMPRESSION: Less than 50% bilateral carotid stenoses. Bilateral patent vertebral arteries with antegrade flow. If indicated, CTA or MRA could further evaluate. Reviewed, Interpreted and Dictated by Jose Lui III, MD Transcribed by Serenity Mai Authenticated and [facility]
== END ==
PROVIDERS: PCP Family Medicine; Visit Provider Family Medicine
DX: R93.0 Abnormal findings on diagnostic imaging of skull and head, not elsewhere classified (principal); R51.9 Headache, unspecified
CPT/HCPCS: 70553; 93880; A9576

== ENCOUNTER → 2022-08-23 07:17 | Outpatient (CLI) | payer BC, SELFPAY ==
--- NOTE | 2022-08-23 07:17 | NM_ITS ---
APPROVED REPORT Exam: Nuclear Stress Test Indication: Abnormal EKG, Dizziness, HTN, Tobacco use, Family history Patient Location: Outpatient Stress Tech: Aislinn Ho NC Tech:Loretta Puri, ARRT, RT (R)(N) Ht: 5 ft 6 in Wt: 140 lbs HR: 60 bpm BP: 149/98 mmHg BSA: 1.72 m2 TID: 1.22 BMI: 22.5 History: Abnormal EKG, Dizziness, HTN, Tobacco use, Family history Procedure: Patient received a 0.4 mg of intravenous Lexiscan, resting heart rate 60 bpm, resting blood pressure 149/87 mmHg, with Lexiscan maximum heart rate achived was 108 bpm which is Less than 85 % of the maximum predicted heart rate and blood pressure was 167/96 mmHg. With Lexiscan, patient denied any complaint of chest pain. Electrocardiogram Resting electrocardiogram shows sinus rhythm, with Lexiscan less than 1.[address] segment depression noted from the baseline EKG. The EKG portion of the Lexiscan is nondiagnostic. Cardiac Stress and Resting SPECT Images: Cardiac Stress and Resting SPECT images were obtained using technetium 99m Myoview 32.0 mCi stress and 10.82 mCi at rest. Gated SPECT analysis of segmental wall motion and calculation of the ejection fraction also done. Prone images were also obtained. Cardiac prone images show uniform myocardial activity without segmental perfusion abnormality, computer derived ejection fraction 49% with no regional wall motion abnormality, right ventricle is normal size and contractility. Conclusion: 1. The EKG portion of the Lexiscan is nondiagnostic. 2. No scintigraphic evidence of reversible ischemia seen based on prone images, computer derived ejection fraction is 49% with no regional wall motion abnormality, right ventricle is normal size and contractility 3. Normal Lexiscan Myoview study. Electronically signed by : Claude Spangler MD 08/23/2022 11:13:50
--- NOTE | 2022-08-23 08:41 | CA_ITS ---
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 2D Dimensions LVOT 2.19 cm (M/F) 1.5-2.5 LVEF (Perkins's) 59.70 % M: 52 - 72 LV Volume 103.10 mL M: 62 - 150 LV Volume Index 58.58 mL/m2 M: 34 - 74 M-Mode Dimensions RVDd 1.57 cm (0.9-2.6) LA Diam 2.55 cm (1.9-4.0) LVDd 3.59 cm (3.5-5.7) Ao Diam 2.83 cm (2.0-3.7) LVDs 2.70 cm (3.5-5.7) IVSd 0.82 cm (0.6-1.1) PWd 0.75 cm (0.6-1.1) EF (Teich) 50.10% FS 24.80% EDV (Teich) 54.10 mL ESV (Teich) 27.00 mL LV Diastology E Decel Time 233.00 (160-240 msec) E/A Ratio 1.02 MED E' 11.00 (< 7 cm/sec) E'/MED E' Ratio 14.36 (>14) LAT E' 12.20 (<10 cm/sec) E/LAT E' Ratio 12.95 (>14) Mitral Valve MV A Velocity 155.00 (40-130 cm/s) E/A Ratio 1.02 MV Decel. Time 233.00 (160-240 ms) Left Ventricle Left atrium is normal size, left ventricle is normal size, estimated ejection fraction 55% with no regional wall motion abnormality, diastolic parameters are within normal range. Right Ventricle Right atrium and right ventricle are normal size and contractility. Aortic Valve Aortic valve is minimally thickened and fibrosed there is no aortic stenosis or aortic insufficiency. Mitral Valve Mitral valve grossly normal, there is trace mitral regurgitation. Tricuspid Valve Tricuspid valve is grossly normal, there is trace tricuspid regurgitation tricuspid regurgitation jet velocity is inadequate for calculation of the right ventricular systolic pressure. Pulmonic Valve Pulmonic valve is poorly visualized. Great Vessels Aortic root is normal size. Inferior vena cava is poorly visualized. Pericardium No significant pericardial effusion noted. Conclusion 1. Normal left ventricular size, estimated ejection fraction 55% with no regional wall motion abnormality. Diastolic parameters are within normal range for 2. Trace mitral and tricuspid regurgitation. 3. No significant pericardial effusion. 4. Inferior vena cava is poorly visualized. Electronically signed by : Claude Spangler MD 08/23/2022 14:30:58
--- NOTE | 2022-08-23 08:53 | HMH.ITSHM ---
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 []ROSUVASTATIN LISINOPRIL ASA ADALIMUMAB
--- NOTE | 2022-08-23 09:49 | CA_ITS ---
APPROVED REPORT Exam: Pharmacologic Technologist: Aislinn Ho Ht: 5 ft 6 in Wt: 147 lbs BSA: 1.75 m2 HR: 59 bpm BP: 149/87 mmHg Indications: Dyspnea , Abnormal EKG Medical History Medications: Lisinopril,,,,, Aspirin,,,,, TAMSULOSIN,,,,, Prednisone,,,,, RoSUVASTATIN,,,,, AZATHIoprine,,,,, AmOXICILLIN,,,,, ADALimumab,,,,, Ciclopirox,,,,, Ustekinumab,,,,, Stress Test Details Test: LEXISCAN Reason for pharmacologic stress test: changed from exercise stress test due to inability to reach target heart rate. HR Resting HR: 60 bpm Max Heart Rate (APMHR): 162.539209 bpm Max HR Achieved: 108 bpm Target HR (85% APMHR): 137.525123 bpm % of APMHR: 66.67 Recovery HR: 72 bpm BP Resting BP: 149.0/87.0 mmHg Max BP: 167.0/96.0 mmHg Recovery BP: 126.0/79.0 mmHg ECG Resting ECG: Normal sinus rhythm, NS ST abnormalities. Clinical Exercise duration: 04:00 min Highest Stage Achieved: Exercise capacity: 1.0 METs Stress ECG Conclusion Switched from exercise due to inadequate heart rate response. No EKG changes while walking. Symptoms: Chest heaviness, shortness of air, stomach discomfort. Arrhythmias/Ectopy: Rare PAC ST-T Changes: NS ST-T changes inferiorly and laterally. Conclusion: Non-diagnostic Lexiscan stress. Myoview images reported separately. Test Summary REST . . . . . . . Resting REST 04:13 . . 60 . 149/ 87 . . Stage 1 . . . . . . . Myoview Injected Stage 1 01:00 . . 91 . . . . Stage 2 01:00 . . 103 . 165/ 95 . . Stage 3 01:00 . . 85 . 167/ 96 . . Stage 4 . . . . . . . chest pressure Stage 4 01:00 . . 84 . 153/ 90 . Stop exercise at 04:00 RECOVERY 01:00 . . 74 . 145/ 87 . . RECOVERY 02:00 . . 73 . 145/ 87 . . RECOVERY . . . . . . . chest pressure RECOVERY 03:00 . . 74 . 145/ 87 . . RECOVERY 04:00 . . 85 . 141/ 77 . . RECOVERY 05:00 . . 73 . 126/ 79 . . RECOVERY 05:37 . . 78 . 126/ 79 . . Electronically signed by : Claude Spangler MD 08/23/2022 11:11:31
== END ==
PROVIDERS: PCP Family Medicine; Visit Provider Nurse Practitioner Family
DX: R06.00 Dyspnea, unspecified (principal); R42 Dizziness and giddiness; R94.31 Abnormal electrocardiogram [ECG] [EKG]; I65.29 Occlusion and stenosis of unspecified carotid artery; Z72.0 Tobacco use; Z86.73 Personal history of transient ischemic attack (TIA), and cerebral infarction without residual deficits
CPT/HCPCS: 78452; 93017; 93306; A9502; J2785

== ENCOUNTER → 2022-10-23 09:14 | Outpatient (CLI) | payer BC, SELFPAY ==
[2022-10-23 09:53] LABS: Basophils # 0.1 K/mm3 (0-0.2); Basophils % 1.4 % (0.1-2.0); Eosinophils # 0.4 K/mm3 (0.0-0.4); Eosinophils % 6.1 % (0.1-12.0); Hematocrit 48.5 % (42.0-52.0); Hemoglobin 15.7 g/dL (14.1-18.0); Lymphocytes # 1.9 K/mm3 (0.7-4.5); Lymphocytes % 26.6 % (10-50); Mean Corpuscular HGB Conc 32.3 g/dL (31.8-35.4); Mean Corpuscular Hemoglobin 30.4 pg (27.0-31.2); Mean Corpuscular Volume 94.2 fl (80-94); Mean Platelet Volume 8.3 fl (7.4-10.4); Monocytes # 0.4 K/mm3 (0.1-1.0); Monocytes % 6.1 % (1.7-9.3); Neutrophils # 4.3 K/mm3 (1.8-7.8); Neutrophils % 59.8 % (37.0-80.0); Platelet Count 222 K/mm3 (142-424); Red Blood Count 5.15 M/mm3 (4.60-6.20); Red Cell Distribution Width 13.6 % (11.5-17.5); White Blood Count 7.2 K/mm3 (4.8-10.8)
[2022-10-23 10:18] LABS: Alanine Aminotransferase 21 U/L (12-78); Albumin Level 4.1 g/dl (3.5-5.0); Albumin/Globulin Ratio 1.6 (1.1-1.8); Alkaline Phosphatase 76 U/L (38-126); Anion Gap 9.8 mEq/L (5-15); Aspartate Amino Transferase 24 U/L (17-59); Bilirubin,Total 0.6 mg/dl (0.2-1.3); Blood Urea Nitrogen 13 mg/dl (9-20); Calcium 8.9 mg/dl (8.4-10.2); Carbon Dioxide 27 mmol/L (22.0-30.0); Chloride 102 mmol/L (98-107); Estimated Glomerular Filt Rate 87 ml/min (>60); GFR (African American) 105 ML/MIN (>60); Globulin 2.5 g/dL (1.3-3.2); Glucose 82 mg/dl (74-100); Iron 64 ug/dL (49-181); Potassium 4.8 mmoL/L (3.5-5.1); Sodium 134 mmol/L (136-145); Total Protein,Serum 6.6 g/dl (6.3-8.2)
[2022-10-23 10:27] LABS: Total Iron Binding Capacity 306 ug/dL (261-462)
[2022-10-23 10:34] LABS: 25-OH Vitamin D, Total 27.8 ng/mL (30-100)
[2022-10-23 10:52] LABS: Erythrocyte Sedimentation Rate 9 mm/hr (0-20)
[2022-10-23 10:55] LABS: Ferritin 81.9 ng/ml (17.9-464)
[2022-10-23 11:06] LABS: Vitamin B12 279 pg/mL (239-931)
[2022-10-25 12:19] LABS: C-Reactive Protein 2.6 mg/L (0-4)
== END ==
PROVIDERS: PCP Family Medicine; Visit Provider Nurse Practitioner Family
DX: K50.90 Crohn's disease, unspecified, without complications (principal); R10.9 Unspecified abdominal pain; E55.9 Vitamin D deficiency, unspecified; R25.2 Cramp and spasm; Z79.899 Other long term (current) drug therapy
CPT/HCPCS: 36415; 80053; 82306; 82607; 82728; 83540; 83550; 85025; 85651; 86140

== ENCOUNTER → 2022-12-28 07:38 | Outpatient (CLI) | payer BC, SELFPAY ==
[2022-12-28 08:06] LABS: Basophils # 0.1 K/mm3 (0-0.2); Basophils % 1.3 % (0.1-2.0); Eosinophils # 0.4 K/mm3 (0.0-0.4); Eosinophils % 6.4 % (0.1-12.0); Hematocrit 49.6 % (42.0-52.0); Lymphocytes # 1.8 K/mm3 (0.7-4.5); Lymphocytes % 29.8 % (10-50); Mean Corpuscular HGB Conc 32.2 g/dL (31.8-35.4); Mean Corpuscular Hemoglobin 30.5 pg (27.0-31.2); Mean Corpuscular Volume 94.6 fl (80-94); Mean Platelet Volume 8.4 fl (7.4-10.4); Monocytes # 0.4 K/mm3 (0.1-1.0); Monocytes % 7.4 % (1.7-9.3); Neutrophils # 3.3 K/mm3 (1.8-7.8); Neutrophils % 55.1 % (37.0-80.0); Platelet Count 201 K/mm3 (142-424); Red Blood Count 5.24 M/mm3 (4.60-6.20); Red Cell Distribution Width 13.6 % (11.5-17.5); White Blood Count 5.9 K/mm3 (4.8-10.8)
[2022-12-28 09:06] LABS: Chloride 97 mmol/L (98-107); Potassium 4.9 mmoL/L (3.5-5.1); Sodium 138 mmol/L (136-145)
[2022-12-28 09:08] LABS: Alanine Aminotransferase 23 U/L (12-78); Aspartate Amino Transferase 26 U/L (17-59); Blood Urea Nitrogen 9 mg/dl (9-20); Estimated Glomerular Filt Rate 87 ml/min (>60); GFR (African American) 105 ML/MIN (>60)
[2022-12-28 09:09] LABS: Albumin/Globulin Ratio 1.5 (1.1-1.8); Alkaline Phosphatase 74 U/L (38-126); Anion Gap 14.9 mEq/L (5-15); Bilirubin,Total 0.5 mg/dl (0.2-1.3); Calcium 9.5 mg/dl (8.4-10.2); Carbon Dioxide 31 mmol/L (22.0-30.0); Globulin 2.7 g/dL (1.3-3.2); Glucose 86 mg/dl (74-100); Iron 69 ug/dL (49-181); Total Protein,Serum 6.7 g/dl (6.3-8.2)
[2022-12-28 09:18] LABS: Total Iron Binding Capacity 292 ug/dL (261-462)
[2022-12-28 09:45] LABS: Ferritin 97.1 ng/ml (17.9-464)
[2022-12-28 10:22] LABS: Vitamin B12 229 pg/mL (239-931)
[2022-12-28 10:54] LABS: Erythrocyte Sedimentation Rate 23 mm/hr (0-20)
== END ==
PROVIDERS: PCP Family Medicine; Visit Provider Nurse Practitioner Family
DX: K50.90 Crohn's disease, unspecified, without complications (principal); R19.4 Change in bowel habit; K59.00 Constipation, unspecified; R19.7 Diarrhea, unspecified; K58.9 Irritable bowel syndrome, unspecified; L98.9 Disorder of the skin and subcutaneous tissue, unspecified
CPT/HCPCS: 36415; 80053; 82306; 82607; 82728; 83540; 83550; 85025; 85651; 86140

== ENCOUNTER → 2023-02-07 08:25 | Outpatient (CLI) | payer BC, SELFPAY ==
--- NOTE | 2023-02-07 08:35 | CT_ITS ---
FINAL REPORT TECHNIQUE: Thin section axial CT with IV contrast supplemented with multiplanar reconstruction under CT angiogram protocol. 3-D reconstructions were performed. This study was performed with techniques to keep radiation doses as low as reasonably achievable (ALARA). Individualized dose reduction techniques using automated exposure control or adjustment of mA and/or kV according to the patient''s size were employed. CLINICAL HISTORY: H/O STROKE,HYPERLIPIDEMIA,HEADACHE COMPARISON: none FINDINGS: The distal vertebral, basilar and distal internal carotid arteries have an unremarkable appearance. No aneurysm is seen. Major intracranial vessels are patent without significant stenosis. IMPRESSION: No evidence of significant stenosis or major branch occlusion. Reviewed, Interpreted and Dictated by Jose Lui III, MD Transcribed by Baylee Knox Authenticated and . [facility]
[2023-02-07 09:25] LABS: Chloride 103 mmol/L (98-107)
[2023-02-07 09:26] LABS: Potassium 4.8 mmoL/L (3.5-5.1); Sodium 139 mmol/L (136-145)
[2023-02-07 09:28] LABS: Alanine Aminotransferase 31 U/L (12-78); Anion Gap 13.8 mEq/L (5-15); Aspartate Amino Transferase 30 U/L (17-59); Blood Urea Nitrogen 7 mg/dl (9-20); Carbon Dioxide 27 mmol/L (22.0-30.0); Estimated Glomerular Filt Rate 116 ml/min (>60); GFR (African American) 140 ML/MIN (>60)
[2023-02-07 09:29] LABS: Albumin Level 4.1 g/dl (3.5-5.0); Albumin/Globulin Ratio 1.5 (1.1-1.8); Alkaline Phosphatase 76 U/L (38-126); Bilirubin,Total 0.5 mg/dl (0.2-1.3); Cholesterol 132 mg/dl (140-200); Globulin 2.8 g/dL (1.3-3.2); Glucose 85 mg/dl (74-100); HDL Cholesterol 66 mg/dl (40-60); Total Protein,Serum 6.9 g/dl (6.3-8.2); Triglycerides 62 mg/dl (30-150); VLDL Cholesterol 12 mg/dL (0-40)
[2023-02-07 09:40] LABS: Direct LDL Cholesterol 56.29 mg/dL (100-129)
[2023-02-07 09:50] LABS: Hemoglobin A1C 5.5 % (4.0-6.0)
== END ==
PROVIDERS: PCP Family Medicine; Visit Provider Nurse Practitioner Acute Care
DX: R51.9 Headache, unspecified (principal); I10 Essential (primary) hypertension; E78.5 Hyperlipidemia, unspecified; Z86.73 Personal history of transient ischemic attack (TIA), and cerebral infarction without residual deficits
CPT/HCPCS: 36415; 70496; 80053; 80061; 83036; Q9967

== ENCOUNTER → 2023-05-18 16:48 | Outpatient (CLI) | payer BC, SELFPAY ==
[2023-05-18 17:40] LABS: Basophils # 0.1 K/mm3 (0-0.2); Basophils % 0.8 % (0.1-2.0); Eosinophils # 0.4 K/mm3 (0.0-0.4); Eosinophils % 6.1 % (0.1-12.0); Hematocrit 45.8 % (42.0-52.0); Hemoglobin 14.3 g/dL (14.1-18.0); Lymphocytes # 1.9 K/mm3 (0.7-4.5); Lymphocytes % 26.7 % (10-50); Mean Corpuscular HGB Conc 31.2 g/dL (31.8-35.4); Mean Corpuscular Volume 96.4 fl (80-94); Mean Platelet Volume 8.6 fl (7.4-10.4); Monocytes # 0.5 K/mm3 (0.1-1.0); Monocytes % 6.6 % (1.7-9.3); Neutrophils # 4.3 K/mm3 (1.8-7.8); Neutrophils % 59.8 % (37.0-80.0); Platelet Count 216 K/mm3 (142-424); Red Blood Count 4.75 M/mm3 (4.60-6.20); White Blood Count 7.2 K/mm3 (4.8-10.8)
[2023-05-18 18:47] LABS: Erythrocyte Sedimentation Rate 17 mm/hr (0-20)
[2023-05-18 19:15] LABS: Alanine Aminotransferase 28 U/L (12-78); Albumin Level 3.7 g/dl (3.5-5.0); Albumin/Globulin Ratio 1.3 (1.1-1.8); Alkaline Phosphatase 68 U/L (38-126); Anion Gap 8.4 mEq/L (5-15); Aspartate Amino Transferase 29 U/L (17-59); Bilirubin,Total 0.4 mg/dl (0.2-1.3); Blood Urea Nitrogen 10 mg/dl (9-20); Carbon Dioxide 29 mmol/L (22.0-30.0); Chloride 107 mmol/L (98-107); Estimated Glomerular Filt Rate 99 ml/min (>60); GFR (African American) 120 ML/MIN (>60); Globulin 2.9 g/dL (1.3-3.2); Glucose 95 mg/dl (74-100); Potassium 4.4 mmoL/L (3.5-5.1); Sodium 140 mmol/L (136-145); Total Protein,Serum 6.6 g/dl (6.3-8.2)
[2023-05-18 19:16] LABS: Iron 58 ug/dL (49-181)
[2023-05-18 19:35] LABS: 25-OH Vitamin D, Total 32.2 ng/mL (30-100)
[2023-05-18 19:38] LABS: Total Iron Binding Capacity 305 ug/dL (261-462)
[2023-05-18 20:04] LABS: Vitamin B12 783 pg/mL (239-931)
[2023-05-20 10:10] LABS: C-Reactive Protein 2.8 mg/L (0-4)
== END ==
PROVIDERS: PCP Family Medicine; Visit Provider Nurse Practitioner Family
DX: K50.90 Crohn's disease, unspecified, without complications (principal); E55.9 Vitamin D deficiency, unspecified; E53.8 Deficiency of other specified B group vitamins; Z79.899 Other long term (current) drug therapy; Z68.25 Body mass index [BMI] 25.0-25.9, adult
CPT/HCPCS: 36415; 80053; 82306; 82607; 82728; 83540; 83550; 85025; 85651; 86140

== ENCOUNTER 2024-06-02 08:33 | Outpatient (CLI) | payer BC, SELFPAY ==
--- NOTE | 2024-06-02 08:36 | CT_ITS ---
FINAL REPORT CLINICAL HISTORY: SCREENING CURRENT SMOKER 1.5PPD X45 YEARS COMPARISON: No prior FINDINGS: Axial images were obtained from the lung apex to the mid abdomen by computed tomography. Low-dose protocol was utilized. CTDl vol(mGy): 2.90 DLP (mGy-cm): 95.08 FINDINGS: There is no axillary adenopathy. There is no hilar or mediastinal adenopathy. Moderate coronary artery calcifications are noted. The heart size is normal. There is no pericardial or pleural effusion. There is a large, thick-walled, irregular, cavitary mass in the left upper lobe measuring 7.0 x 5.4 cm. A second lesion in the left lower lobe measures 7 mm and is well-seen on image 34 of series 3. There is a 3 mm nodule in the posterior right lower lobe on image 39 of series 3. A density in the right upper lobe measures 9 mm on image 14 of series 3. Limited images of the upper abdomen are unremarkable. IMPRESSION: Multiple bilateral pulmonary nodules with a dominant left upper lobe cavitary mass. Lung RADS category 4B. Recommend PET/CT and/or tissue sampling. Correlation with any prior imaging may be of benefit. Reviewed, Interpreted and Dictated by Rosales Carreon MD Transcribed by Dorcas York Authenticated and [facility]
== END 2024-06-02 23:59 | disposition home or self-care (01) ==
LOC: RAD 08:34
PROVIDERS: PCP Family Medicine; Visit Provider Family Medicine
DX: Z87.891 Personal history of nicotine dependence (principal)
CPT/HCPCS: 71271

== ENCOUNTER 2024-06-10 12:28 | Outpatient (CLI) | payer BC, SELFPAY ==
[2024-06-10 13:08] LABS: Basophils # 0.1 K/mm3 (0-0.2); Basophils % 1.2 % (0.1-2.0); Eosinophils # 0.3 K/mm3 (0.0-0.4); Eosinophils % 4.3 % (0.1-12.0); Hematocrit 42.6 % (42.0-52.0); Hemoglobin 14.6 g/dL (14.1-18.0); Lymphocytes # 1.9 K/mm3 (0.7-4.5); Lymphocytes % 25.3 % (10-50); Mean Corpuscular HGB Conc 34.3 g/dL (31.8-35.4); Mean Corpuscular Hemoglobin 31.2 pg (27.0-31.2); Mean Corpuscular Volume 91.1 fl (80-94); Mean Platelet Volume 7.7 fl (7.4-10.4); Monocytes # 0.4 K/mm3 (0.1-1.0); Monocytes % 5.2 % (1.7-9.3); Neutrophils # 4.8 K/mm3 (1.8-7.8); Platelet Count 233 K/mm3 (142-424); Red Blood Count 4.68 M/mm3 (4.60-6.20); Red Cell Distribution Width 13.9 % (11.5-17.5); White Blood Count 7.5 K/mm3 (4.8-10.8)
[2024-06-10 13:29] LABS: Alanine Aminotransferase 28 U/L (12-78); Albumin Level 3.9 g/dl (3.5-5.0); Alkaline Phosphatase 72 U/L (38-126); Aspartate Amino Transferase 23 U/L (17-59); Bilirubin,Direct 0.3 mg/dl (0.0-0.4); Bilirubin,Indirect 0.2 mg/dL (0.0-0.9); Bilirubin,Total 0.5 mg/dl (0.2-1.3); Bilirubin,Unconjugated 0.2 mg/dL (0.0-1.1); Chol/HDL Ratio 2.3 (1-3.5); Cholesterol 165 mg/dl (140-200); HDL Cholesterol 72 mg/dl (40-60); Total Protein,Serum 6.8 g/dl (6.3-8.2); Triglycerides 90 mg/dl (30-150); VLDL Cholesterol 18 mg/dL (0-40)
[2024-06-10 13:30] LABS: Alanine Aminotransferase 29 U/L (12-78); Albumin/Globulin Ratio 1.3 (1.1-1.8); Alkaline Phosphatase 75 U/L (38-126); Anion Gap 12.7 mEq/L (5-15); Aspartate Amino Transferase 23 U/L (17-59); Bilirubin,Total 0.5 mg/dl (0.2-1.3); Blood Urea Nitrogen 8 mg/dl (9-20); Calcium 9.5 mg/dl (8.4-10.2); Carbon Dioxide 30 mmol/L (22.0-30.0); Chloride 101 mmol/L (98-107); Estimated Glomerular Filt Rate 115 ml/min (>60); GFR (African American) 139 ML/MIN (>60); Glucose 86 mg/dl (74-100); Potassium 4.7 mmoL/L (3.5-5.1); Sodium 139 mmol/L (136-145)
[2024-06-10 13:36] LABS: C-Reactive Protein 8.7 mg/L (0-4); Erythrocyte Sedimentation Rate 21 mm/hr (0-20)
[2024-06-10 13:40] LABS: Direct LDL Cholesterol 94.01 mg/dL (100-129)
[2024-06-10 13:46] LABS: 25-OH Vitamin D, Total 29.3 ng/mL (30-100)
[2024-06-10 14:19] LABS: Vitamin B12 706 pg/mL (239-931)
[2024-06-10 18:17] LABS: Iron 48 ug/dL (49-181)
[2024-06-10 18:26] LABS: Total Iron Binding Capacity 313 ug/dL (261-462)
[2024-06-10 18:56] LABS: Ferritin 80.9 ng/ml (17.9-464)
[2024-06-12 20:06] LABS: QuantiFERON-TB Gold Plus Negative (Negative)
== END 2024-06-10 23:59 | disposition home or self-care (01) ==
PROVIDERS: Nurse Practitioner; PCP Family Medicine; Visit Provider Nurse Practitioner Family
DX: E78.5 Hyperlipidemia, unspecified (principal); K50.919 Crohn's disease, unspecified, with unspecified complications
CPT/HCPCS: 36415; 80053; 80061; 80076; 82306; 82607; 82728; 83540; 83550; 85025; 85651; 86140; 86480

== ENCOUNTER 2024-07-14 12:09 | Outpatient (CLI) | payer BC, SELFPAY ==
[2024-07-14 13:29] LABS: C-Reactive Protein 8.4 mg/L (0-4)
[2024-07-16 20:31] LABS: QuantiFERON-TB Gold Plus Negative (Negative)
[2024-07-17 11:14] LABS: Clinical Relevance Notes (.); Disclaimer Notes (.); Fungitell Value < 31.25 pg/mL (.); Interpretation Notes (.)
[2024-07-17 20:13] LABS: Aspergillus flavus Negative (Neg:<1:1); Aspergillus fumigatus Negative (Neg:<1:1); Aspergillus niger Negative (Neg:<1:1); Blastomyces Antibody Negative (Neg:<1:1)
[2024-07-18 16:13] LABS: Histoplasma Antibody Quant Negative (Neg:<1:1)
== END 2024-07-14 23:59 | disposition home or self-care (01) ==
LOC: LAB 12:10
PROVIDERS: PCP Family Medicine; Visit Provider Internal Medicine Pulmonary Disease
DX: R91.1 Solitary pulmonary nodule (principal); J18.9 Pneumonia, unspecified organism; J98.4 Other disorders of lung; R91.8 Other nonspecific abnormal finding of lung field; J84.10 Pulmonary fibrosis, unspecified; R06.09 Other forms of dyspnea; Z87.891 Personal history of nicotine dependence
CPT/HCPCS: 36415; 86140; 86480; 86606; 86612; 86698; 87449

== ENCOUNTER 2024-07-21 09:33 | Day surgery (SDC) | payer BC, SELFPAY ==
[2024-07-17 14:36] VITALS: BMI 22.5
[2024-07-21] VITALS (9 sets, daily range): BP systolic 144–182; BP diastolic 78–94; PULSE 59–66; RESP 14–18; TEMP 36.1–36.3; O2SAT 93–99
--- NOTE | 2024-07-21 10:05 | P.PNANES_ITS ---
[facility] Disclaimer: The information contained in this section may have been updated after the patient was seen, as this information can be updated by other users. Medical History Enlarged prostate Skin cancer Crohn's disease History of gastroesophageal reflux (GERD) History of anemia Lung mass Pneumonia with cavity of lung History of CVA (cerebrovascular accident) Dyspnea Tobacco use Abnormal electrocardiogram [ECG] [EKG] Stenosis of carotid artery Dizziness Surgical History History of cholecystectomy History of colon resection Family History Other Heart attack Stroke Social History Smoking Status: Former smoker tobacco type: cigarettes packs per day: 1 how long ago did patient quit smokin06/19/24 second hand exposure: No alcohol intake: never substance use type: denies use current occupational status: retired Travel in the last 8 weeks: None household members: none housing: house current occupation: [employer] caffeine: Yes [facility] Anesthesia Checklist Patient Identification Patient Identification: Arm Band and Verbal (Name & ) Structural Data Admitted From: Home Planned Operative Procedure/s: Bronch w/BX & EBUS Consent for Planned Operative Procedure(s) Verified: Yes Verified Documents: Surgical Consent and History and Physical NPO Status Verified Time NPO: 08:00 Chart Verification Results Verified: CBC, BMP, ECG and Chest Xray Additional verifications Patient : No Anesthesia Reactions: No Cardiovascular Assessment Heart Sounds: S1 & S2 Pulse Rhythm: Irregular Peripheral Edema: No Airway Assessment Mallampati Score:: Class II C-Spine Mobility Assessed: Yes (FROM demonstrated) TMJ Mobility Assessed: Yes Dentition: Good Dentition (Upper permanent Bridge in situ. Nothing loose per pt.) Neurological Assessment Level of Consciousness: Awake, Alert and Appropriate Hx Seizures: No Numbness or tingling in extremities: No Anesthesia Plan Anesthesia Risk discussed: Yes Anesthesia Plan: Verified ASA Class: III Anesthesia Type: General
[2024-07-21] MEDS: LACTATED RINGERS 1000ML 1,000 ML 25 ML IV (10:06)
--- NOTE | 2024-07-21 11:52 | XR_ITS ---
FINAL REPORT CLINICAL HISTORY: BRONCH/BIOPSY 30.88 dap 3.2 fluoro time FINDINGS: FLUOROSCOPY LESS THAN 1 HOUR HISTORY: Fluoroscopy guidance. Fluoroscopic guidance was provided for bronchoscopy/biopsy. 4 spot films were obtained. A total of 3.2 seconds of fluoroscopy time were used. Total DAP: 30.88 mGy IMPRESSION: As above. Reviewed, Interpreted and Dictated by Jose Lui III, MD Transcribed by Baylee Knox Authenticated and [facility]
--- NOTE | 2024-07-21 12:03 | P.PNANES_ITS ---
[facility] Anesthesia Record Part I Anesthesia Record I Intake, IV Amount: 1,000 Hydration: Adequate Estimated blood loss (mL): 5 Urine output (mL): 0 Blood Pressure: 157/93 SaO2: 94 Pulse Rate: 66 Airway Patency: Patent Respiratory Rate: 14 Temperature: 97.2 F Patient is:: Awake Stable to PACU at:: 12:00
--- NOTE | 2024-07-21 12:08 | XR_ITS ---
FINAL REPORT CLINICAL HISTORY: post bronch COMPARISON: None FINDINGS: A single portable view of the chest was obtained. The heart size and pulmonary vascularity are within normal limits. The mediastinum is within normal limits. Right lung opacities are worrisome for pneumonia. No pneumothorax. The bony thorax is intact. IMPRESSION: No pneumothorax post bronchoscopy. Right lung opacities worrisome for pneumonia. Reviewed, Interpreted and Dictated by Jose Lui III, MD Transcribed by Byalee Knox Authenticated and [facility]
--- NOTE | 2024-07-21 12:22 | EXP.BRONCH.N ---
Procedure: Date: 07/21/24 Patient Date of :: 1965 Procedure Performed:: Bronchoscopy airway examination bronchoalveolar lavage, transbronchial lung biopsy, endobronchial ultrasound-guided fine-needle aspiration of lymph node Indications:: Cavitary pneumonia. Lymphadenopathy. Performing Provider:: Joseph Moreno MD Referring Provider:: Dr. Murray Sedation:: General anesthesia Procedure:: Bronchoscopy airway examination, bronchoalveolar lavage and transbronchial lung biopsy, endobronchial ultrasound-guided fine-needle aspiration of lymph node: Clean EBUS bronchoscopy to advance the ET tube a lymph node surveillance was performed. Patient noted lymphadenopathy at station 7 and station 10L. A tota of six passes were performed at least lymph node station. The sample from 5 passes were sent separately in CytoLyt for cytopathologic examination. Sample from the last pass was sent labeled as lymph node for bacterial AFB fungal stain and cultures. EBUS bronchoscopy was retracted and A clean DIAGNOSTIC bronchoscopy was advanced through the ET tube and airways were examined up to subsegmental bronchi. Airways appeared grossly normal except for endobronchial lesion in the left upper lobe segmental bronchi. Three endobronchial biopsies were performed and were sent in formalin for cytological examination of this notification. No evidence of mucoid secretions, mucous plugging active bleeding/old blood clots noted. Bronchoalveolar lavage was performed in the LEFT UPPER LOBE with instillation of 60 cc normal saline with return of 30 cc back. BAL fluid was sent for cell count and differential along with bacterial fungal and AFB stain and cultures. Transbronchial biopsy was performed in the LEFT UPPER LOBE with a total of 7 biopsies performed, 5 biopsy specimens were sent in formalin for cytopathologic examination. The other 2 biopsy samples, were sent one each in two separate normal saline specimen cups for bacterial fungal and AFB stain cultures. Special request was also made for the pathologist to evaluate for AFB and fungal organisms on the cytopathologic examination. Patient tolerated the procedure with no immediate acute complications. We will follow the patient in pulmonary clinic in 7 to 10 days. Findings:: Please see the procedure note Recommendations:: Postoperative bronchoscopy instructions. Follow in pulmonary clinic in 5 to 7 days Complications:: No acute immediate complications Estimated blood obtained (mL): 15
[2024-07-21] MEDS: KETOROLAC 30MG/ML VIAL 15 MG IV (13:15)
--- NOTE | 2024-07-28 10:30 | EXP.ANES.II ---
[facility] Anesthesia Record Part II Anesthesia Record Part II Discharge Time: 12:30 Destination: Surgical Day Care (OP Surgery) PACU nurse assessment reviewed?: Yes Patient Condition:: Good Anesthesia Complications:: None Swallowing reflex intact?: Yes Airway Patency: Patent Cyanosis?: No Blood Pressure: 166/85 SaO2: 95 Respiratory Rate: 16 Pulse Rate: 62 Temperature: 97 F Mental Status: Alert & Oriented Pain level:: 0 Nausea and/or vomitting:: None Intake, IV Amount: 0 Hydration: Adequate
[2024-07-28 10:31] VITALS: BP 166/85; PULSE 62; RESP 16; TEMP 36.1; O2SAT 95
[2024-07-28 17:39] LABS: Aspergillus Antigen, BAL/Serum 0.65 Index (0.00-0.49)
[2024-07-29 13:39] LABS: PDF: SCANNED IMAGE
== END 2024-07-21 14:07 | disposition home or self-care (01) ==
PROVIDERS: PCP Family Medicine; Visit Provider Internal Medicine Pulmonary Disease
PROC: (CPT 31624; principal; 2024-07-21 10:45)
DX: J18.9 Pneumonia, unspecified organism (principal); R91.8 Other nonspecific abnormal finding of lung field; J98.4 Other disorders of lung; R59.0 Localized enlarged lymph nodes; A15.0 Tuberculosis of lung; D49.1 Neoplasm of unspecified behavior of respiratory system
CPT/HCPCS: 31624; 31628; 31652; 71045; 76000; 87070; 87102; 87116; 87186; 87205; 87206; 87305; 89051; J3490; J1100; J1885; J2250; J2405; J3010; J7120

== ENCOUNTER 2024-07-25 12:07 | Outpatient (CLI) | payer BC, SELFPAY ==
[2024-07-25 12:53] LABS: Blood Urea Nitrogen 10 mg/dl (9-20); Estimated Glomerular Filt Rate 99 ml/min (>60); GFR (African American) 119 ML/MIN (>60)
== END 2024-07-25 23:59 | disposition home or self-care (01) ==
LOC: LAB 12:07
PROVIDERS: PCP Family Medicine; Visit Provider Internal Medicine Medical Oncology
DX: C34.12 Malignant neoplasm of upper lobe, left bronchus or lung (principal)
CPT/HCPCS: 36415; 82565; 84520

== ENCOUNTER 2024-07-28 06:19 | Outpatient (CLI) | payer BC, SELFPAY ==
--- NOTE | 2024-07-28 06:39 | MR_ITS ---
FINAL REPORT TECHNIQUE: Multiplanar MR, without and with gadolinium enhancement CLINICAL HISTORY: Malignancy lung cancer x 1 week ago 13 ml prohance COMPARISON: 02/07/2023 FINDINGS: Diffusion sequences show no signal abnormality to indicate acute infarct. Cystic focus is seen in the left cerebellum without abnormal enhancement likely due to old lacunar infarct. No mass, hemorrhage or edema is seen. Ventricles are normal. Major vascular flow voids are intact. Following contrast administration, no mass or abnormal enhancement is seen. IMPRESSION: Unremarkable exam, without evidence of metastatic disease. Reviewed, Interpreted and Dictated by Tara Swain MD Transcribed by Oneida Denson Authenticated and [facility]
[2024-07-28] MEDS: SODIUM CHLORIDE 0.9% 10ML SYR (RAD ONLY) 10 ML IV (08:04)
[2024-07-28] MEDS: GADOTERIDOL INJ 20ML SYRINGE 13 ML IV (08:04)
== END 2024-07-28 23:59 | disposition home or self-care (01) ==
LOC: RAD 06:20
PROVIDERS: PCP Family Medicine; Visit Provider Internal Medicine Medical Oncology
DX: C34.92 Malignant neoplasm of unspecified part of left bronchus or lung (principal)
CPT/HCPCS: 70553; A9576

== ENCOUNTER 2024-08-20 08:29 | Outpatient (CLI) | payer BC, SELFPAY ==
[2024-08-20 08:59] LABS: Basophils # 0.1 K/mm3 (0-0.2); Basophils % 0.8 % (0.1-2.0); Eosinophils # 0.4 K/mm3 (0.0-0.4); Hematocrit 43.5 % (42.0-52.0); Hemoglobin 14.2 g/dL (14.1-18.0); Lymphocytes # 1.7 K/mm3 (0.7-4.5); Mean Corpuscular HGB Conc 32.6 g/dL (31.8-35.4); Mean Corpuscular Hemoglobin 29.3 pg (27.0-31.2); Mean Corpuscular Volume 89.9 fl (80-94); Monocytes # 0.7 K/mm3 (0.1-1.0); Monocytes % 8.3 % (1.7-9.3); Neutrophils # 5.5 K/mm3 (1.8-7.8); Neutrophils % 65.7 % (37.0-80.0); Platelet Count 222 K/mm3 (142-424); Red Blood Count 4.84 M/mm3 (4.60-6.20); Red Cell Distribution Width 12.9 % (11.5-17.5); White Blood Count 8.4 K/mm3 (4.8-10.8)
[2024-08-20 09:52] LABS: Alanine Aminotransferase 46 U/L (12-78); Albumin Level 4.3 g/dl (3.5-5.0); Albumin/Globulin Ratio 1.5 (1.1-1.8); Alkaline Phosphatase 97 U/L (38-126); Aspartate Amino Transferase 28 U/L (17-59); Bilirubin,Total 0.6 mg/dl (0.2-1.3); Blood Urea Nitrogen 13 mg/dl (9-20); Calcium 10.4 mg/dl (8.4-10.2); Carbon Dioxide 31 mmol/L (22.0-30.0); Chloride 98 mmol/L (98-107); Estimated Glomerular Filt Rate 99 ml/min (>60); GFR (African American) 119 ML/MIN (>60); Globulin 2.8 g/dL (1.3-3.2); Glucose 93 mg/dl (74-100); Sodium 135 mmol/L (136-145); Total Protein,Serum 7.1 g/dl (6.3-8.2)
[2024-08-20 09:58] LABS: C-Reactive Protein 11.1 mg/L (0-4)
[2024-08-20 10:11] LABS: Iron 79 ug/dL (49-181)
[2024-08-20 10:20] LABS: Total Iron Binding Capacity 337 ug/dL (261-462)
[2024-08-20 10:47] LABS: Ferritin 117 ng/ml (17.9-464)
[2024-08-20 10:49] LABS: Erythrocyte Sedimentation Rate 46 mm/hr (0-20)
[2024-08-22 07:10] LABS: Calprotectin, Fecal 147 ug/g (0-120)
== END 2024-08-20 23:59 | disposition home or self-care (01) ==
LOC: LAB 08:31
PROVIDERS: PCP Family Medicine; Visit Provider Internal Medicine Gastroenterology
DX: K74.69 Other cirrhosis of liver (principal); B19.20 Unspecified viral hepatitis C without hepatic coma; K50.919 Crohn's disease, unspecified, with unspecified complications
CPT/HCPCS: 36415; 80053; 82728; 83540; 83550; 83993; 85025; 85651; 86140

== ENCOUNTER 2024-09-09 08:01 | Outpatient (CLI) | payer BC, SELFPAY ==
[2024-09-09] VITALS (8 sets, daily range): BP systolic 154–174; BP diastolic 70–99; PULSE 54–68; RESP 18; TEMP 36.7; O2SAT 99; BMI 23.2
[2024-09-09 08:34] LABS: Basophils # 0.1 K/mm3 (0-0.2); Eosinophils # 0.3 K/mm3 (0.0-0.4); Eosinophils % 4.7 % (0.1-12.0); Hematocrit 38.1 % (42.0-52.0); Hemoglobin 12.8 g/dL (14.1-18.0); Lymphocytes # 1.3 K/mm3 (0.7-4.5); Lymphocytes % 18.6 % (10-50); Mean Corpuscular HGB Conc 33.6 g/dL (31.8-35.4); Mean Corpuscular Hemoglobin 29.6 pg (27.0-31.2); Mean Corpuscular Volume 88.2 fl (80-94); Monocytes # 0.7 K/mm3 (0.1-1.0); Monocytes % 10.2 % (1.7-9.3); Neutrophils # 4.6 K/mm3 (1.8-7.8); Neutrophils % 65.2 % (37.0-80.0); Platelet Count 229 K/mm3 (142-424); Red Blood Count 4.32 M/mm3 (4.60-6.20); Red Cell Distribution Width 12.8 % (11.5-17.5); White Blood Count 7.1 K/mm3 (4.8-10.8)
[2024-09-09 08:52] LABS: Alanine Aminotransferase 83 U/L (12-78); Albumin/Globulin Ratio 1.3 (1.1-1.8); Alkaline Phosphatase 96 U/L (38-126); Anion Gap 11.2 mEq/L (5-15); Aspartate Amino Transferase 47 U/L (17-59); Bilirubin,Total 0.2 mg/dl (0.2-1.3); Blood Urea Nitrogen 14 mg/dl (9-20); Calcium 9.2 mg/dl (8.4-10.2); Carbon Dioxide 30 mmol/L (22.0-30.0); Chloride 101 mmol/L (98-107); Creatinine Clearance Estimated 104 mL/min (50-200); Estimated Glomerular Filt Rate 115 ml/min (>60); GFR (African American) 139 ML/MIN (>60); Globulin 3.2 g/dL (1.3-3.2); Glucose 93 mg/dl (74-100); Potassium 4.2 mmoL/L (3.5-5.1); Sodium 138 mmol/L (136-145); Total Protein,Serum 7.2 g/dl (6.3-8.2)
[2024-09-09] MEDS: 0.9 % SODIUM CHLORIDE 50 ML 25 ML IV (09:03)
[2024-09-09] MEDS: FAMOTIDINE 20MG TABLET 20 MG (09:04)
[2024-09-09] MEDS: DEXAMETHASONE 4MG TABLET 12 MG (09:04)
[2024-09-09] MEDS: LORATADINE 10MG TABLET 10 MG PO (09:04)
[2024-09-09] MEDS: ONDANSETRON 4MG ODT 16 MG (09:04)
[2024-09-09] MEDS: WATER IV (09:27)
[2024-09-09] MEDS: DEXTROSE 5% IV (09:27)
[2024-09-09] MEDS: PACLITAXEL IV (09:27)
[2024-09-09] MEDS: CARBOPLATIN IV (10:49)
[2024-09-09] MEDS: SODIUM CHLORIDE 0.9% IV (10:49)
--- NOTE | 2024-09-09 13:07 | DIET.NUTRFU ---
This RD called patient at start of chemo, he felt like he is eating well. Reviewing wt hx he has gained weight since 02/2024 was 60.78kg now 65kg. Family was going to pickup ensure to help meet nutritional needs. Offer handouts- protein foods and milkshake recipes he declined at this time. Provided contact information for future needs
== END 2024-09-09 11:30 | disposition home or self-care (01) ==
LOC: INF 08:02
PROVIDERS: PCP Family Medicine; Visit Provider Internal Medicine Medical Oncology
DX: I65.29 Occlusion and stenosis of unspecified carotid artery (principal)
CPT/HCPCS: 80053; 85025; 96413; 96415; 96417; J7060; J8540; J9045; J9267; Q0162

== ENCOUNTER 2024-09-16 10:39 | Outpatient (CLI) | payer BC, SELFPAY ==
[2024-09-16 10:48] VITALS: BMI 22.5
[2024-09-16 11:07] LABS: Basophils # 0.1 K/mm3 (0-0.2); Basophils % 0.9 % (0.1-2.0); Eosinophils # 0.2 K/mm3 (0.0-0.4); Eosinophils % 3.6 % (0.1-12.0); Hematocrit 38.2 % (42.0-52.0); Hemoglobin 12.4 g/dL (14.1-18.0); Lymphocytes # 0.8 K/mm3 (0.7-4.5); Lymphocytes % 11.1 % (10-50); Mean Corpuscular HGB Conc 32.5 g/dL (31.8-35.4); Mean Corpuscular Hemoglobin 29.1 pg (27.0-31.2); Mean Corpuscular Volume 89.7 fl (80-94); Mean Platelet Volume 10.1 fl (7.4-10.4); Monocytes # 0.4 K/mm3 (0.1-1.0); Monocytes % 6.5 % (1.7-9.3); Neutrophils # 5.2 K/mm3 (1.8-7.8); Neutrophils % 77.2 % (37.0-80.0); Platelet Count 221 K/mm3 (142-424); Red Blood Count 4.26 M/mm3 (4.60-6.20); Red Cell Distribution Width 12.6 % (11.5-17.5); White Blood Count 6.8 K/mm3 (4.8-10.8)
[2024-09-16 11:08] LABS: Albumin Level 4.1 g/dl (3.5-5.0); Chloride 98 mmol/L (98-107); Potassium 3.9 mmoL/L (3.5-5.1); Sodium 138 mmol/L (136-145)
[2024-09-16 11:10] LABS: Blood Urea Nitrogen 17 mg/dl (9-20); Creatinine Clearance Estimated 104 mL/min (50-200); Estimated Glomerular Filt Rate 115 ml/min (>60); GFR (African American) 139 ML/MIN (>60)
[2024-09-16 11:11] LABS: Alanine Aminotransferase 68 U/L (12-78); Albumin/Globulin Ratio 1.3 (1.1-1.8); Alkaline Phosphatase 106 U/L (38-126); Anion Gap 12.9 mEq/L (5-15); Aspartate Amino Transferase 40 U/L (17-59); Bilirubin,Total 0.4 mg/dl (0.2-1.3); Calcium 9.4 mg/dl (8.4-10.2); Carbon Dioxide 31 mmol/L (22.0-30.0); Globulin 3.2 g/dL (1.3-3.2); Glucose 90 mg/dl (74-100); Total Protein,Serum 7.3 g/dl (6.3-8.2)
[2024-09-16] MEDS: ONDANSETRON 4MG ODT 16 MG (11:21)
[2024-09-16] MEDS: LORATADINE 10MG TABLET 10 MG PO (11:22)
[2024-09-16] MEDS: FAMOTIDINE 20MG TABLET 20 MG (11:22)
[2024-09-16] MEDS: DEXAMETHASONE 4MG TABLET 12 MG (11:22)
[2024-09-16] MEDS: SODIUM CHLORIDE 0.9% 50ML BAG 50 ML IV (11:25)
[2024-09-16] MEDS: PACLITAXEL IV (11:57)
[2024-09-16] MEDS: WATER IV (11:57)
[2024-09-16] MEDS: DEXTROSE 5% IV (11:57)
[2024-09-16 12:00] VITALS: BP 149/78; PULSE 66; RESP 18; O2SAT 96
[2024-09-16 12:30] VITALS: BP 168/74; PULSE 66; RESP 18; O2SAT 97
[2024-09-16] MEDS: SODIUM CHLORIDE 0.9% IV (13:08)
[2024-09-16] MEDS: CARBOPLATIN IV (13:08)
[2024-09-16 13:10] VITALS: BP 165/81; PULSE 59; RESP 18; O2SAT 96
[2024-09-16 13:53] VITALS: BP 159/83; PULSE 57; RESP 18; O2SAT 97
== END 2024-09-16 13:53 | disposition home or self-care (01) ==
LOC: INF 10:39
PROVIDERS: PCP Family Medicine; Visit Provider Internal Medicine Medical Oncology
DX: Z51.11 Encounter for antineoplastic chemotherapy (principal); Z79.899 Other long term (current) drug therapy; C34.12 Malignant neoplasm of upper lobe, left bronchus or lung
CPT/HCPCS: 80053; 85025; 96413; 96415; J7060; J8540; J9045; J9267; Q0162

== ENCOUNTER 2024-09-23 10:56 | Outpatient (CLI) | payer BC, SELFPAY ==
[2024-09-23 11:05] VITALS: BMI 24.7
[2024-09-23 11:19] LABS: Basophils # 0.1 K/mm3 (0-0.2); Eosinophils # 0.2 K/mm3 (0.0-0.4); Eosinophils % 2.4 % (0.1-12.0); Hematocrit 38.4 % (42.0-52.0); Hemoglobin 12.6 g/dL (14.1-18.0); Lymphocytes # 0.7 K/mm3 (0.7-4.5); Lymphocytes % 10.5 % (10-50); Mean Corpuscular HGB Conc 32.8 g/dL (31.8-35.4); Mean Corpuscular Hemoglobin 29.4 pg (27.0-31.2); Mean Corpuscular Volume 89.5 fl (80-94); Mean Platelet Volume 9.9 fl (7.4-10.4); Monocytes # 0.5 K/mm3 (0.1-1.0); Monocytes % 7.9 % (1.7-9.3); Neutrophils # 4.8 K/mm3 (1.8-7.8); Neutrophils % 77.6 % (37.0-80.0); Platelet Count 201 K/mm3 (142-424); Red Blood Count 4.29 M/mm3 (4.60-6.20); White Blood Count 6.2 K/mm3 (4.8-10.8)
[2024-09-23 11:24] LABS: Albumin Level 4.2 g/dl (3.5-5.0); Chloride 101 mmol/L (98-107)
[2024-09-23 11:25] LABS: Sodium 136 mmol/L (136-145)
[2024-09-23 11:27] LABS: Blood Urea Nitrogen 15 mg/dl (9-20); Creatinine Clearance Estimated 104 mL/min (50-200); Estimated Glomerular Filt Rate 115 ml/min (>60); GFR (African American) 139 ML/MIN (>60)
[2024-09-23 11:28] LABS: Alanine Aminotransferase 97 U/L (12-78); Albumin/Globulin Ratio 1.4 (1.1-1.8); Alkaline Phosphatase 102 U/L (38-126); Aspartate Amino Transferase 47 U/L (17-59); Bilirubin,Total 0.3 mg/dl (0.2-1.3); Calcium 8.8 mg/dl (8.4-10.2); Carbon Dioxide 30 mmol/L (22.0-30.0); Globulin 3.1 g/dL (1.3-3.2); Glucose 95 mg/dl (74-100); Total Protein,Serum 7.3 g/dl (6.3-8.2)
[2024-09-23] MEDS: LORATADINE 10MG TABLET 10 MG PO (11:40)
[2024-09-23] MEDS: ONDANSETRON 4MG ODT 16 MG SL (11:40)
[2024-09-23] MEDS: FAMOTIDINE 20MG TABLET 20 MG PO (11:40)
[2024-09-23] MEDS: DEXAMETHASONE 4MG TABLET 12 MG PO (11:40)
[2024-09-23] MEDS: SODIUM CHLORIDE 0.9% 50ML BAG 50 ML IV (11:41)
[2024-09-23] MEDS: DEXTROSE 5% IV (12:14)
[2024-09-23] MEDS: PACLITAXEL IV (12:14)
[2024-09-23] MEDS: WATER IV (12:14)
[2024-09-23 12:20] VITALS: BP 150/70; PULSE 57; RESP 18; TEMP 36.8; O2SAT 100
[2024-09-23 12:50] VITALS: BP 155/79; PULSE 55; RESP 18; O2SAT 100
[2024-09-23] MEDS: SODIUM CHLORIDE 0.9% IV (13:23)
[2024-09-23] MEDS: CARBOPLATIN IV (13:23)
[2024-09-23 13:30] VITALS: BP 132/79; PULSE 64; RESP 18; O2SAT 100
[2024-09-23 14:11] VITALS: BP 120/78; PULSE 61; RESP 18; O2SAT 100
== END 2024-09-23 14:11 | disposition home or self-care (01) ==
LOC: INF 10:57
PROVIDERS: PCP Family Medicine; Visit Provider Internal Medicine Medical Oncology
DX: C34.00 Malignant neoplasm of unspecified main bronchus (principal)
CPT/HCPCS: 80053; 85025; 96413; 96415; 96417; J7060; J8540; J9045; J9267; Q0162

== ENCOUNTER 2024-09-30 11:02 | Outpatient (CLI) | payer BC, SELFPAY ==
[2024-09-30 11:19] VITALS: BMI 23.2
[2024-09-30 11:36] LABS: Albumin Level 4.5 g/dl (3.5-5.0); Chloride 101 mmol/L (98-107); Sodium 138 mmol/L (136-145)
[2024-09-30 11:37] LABS: Basophils % 0.6 % (0.1-2.0); Eosinophils # 0.1 K/mm3 (0.0-0.4); Eosinophils % 1.3 % (0.1-12.0); Hematocrit 37.2 % (42.0-52.0); Hemoglobin 12.3 g/dL (14.1-18.0); Lymphocytes # 0.5 K/mm3 (0.7-4.5); Mean Corpuscular HGB Conc 33.1 g/dL (31.8-35.4); Mean Corpuscular Hemoglobin 29.7 pg (27.0-31.2); Mean Corpuscular Volume 89.9 fl (80-94); Mean Platelet Volume 9.9 fl (7.4-10.4); Monocytes # 0.4 K/mm3 (0.1-1.0); Neutrophils # 3.6 K/mm3 (1.8-7.8); Neutrophils % 77.7 % (37.0-80.0); Platelet Count 198 K/mm3 (142-424); Potassium 4.4 mmoL/L (3.5-5.1); Red Blood Count 4.14 M/mm3 (4.60-6.20); Red Cell Distribution Width 13.2 % (11.5-17.5); White Blood Count 4.7 K/mm3 (4.8-10.8)
[2024-09-30 11:39] LABS: Alanine Aminotransferase 104 U/L (12-78); Albumin/Globulin Ratio 1.4 (1.1-1.8); Alkaline Phosphatase 92 U/L (38-126); Anion Gap 11.4 mEq/L (5-15); Aspartate Amino Transferase 55 U/L (17-59); Bilirubin,Total 0.4 mg/dl (0.2-1.3); Blood Urea Nitrogen 15 mg/dl (9-20); Carbon Dioxide 30 mmol/L (22.0-30.0); Creatinine Clearance Estimated 121 mL/min (50-200); Estimated Glomerular Filt Rate 137 ml/min (>60); GFR (African American) 166 ML/MIN (>60); Globulin 3.3 g/dL (1.3-3.2); Total Protein,Serum 7.8 g/dl (6.3-8.2)
[2024-09-30 11:40] LABS: Calcium 9.5 mg/dl (8.4-10.2); Glucose 96 mg/dl (74-100)
[2024-09-30] MEDS: ONDANSETRON 4MG ODT 16 MG (12:20)
[2024-09-30] MEDS: FAMOTIDINE 20MG TABLET 20 MG (12:20)
[2024-09-30] MEDS: 0.9 % SODIUM CHLORIDE 50 ML 25 ML IV (12:20)
[2024-09-30] MEDS: LORATADINE 10MG TABLET 10 MG PO (12:20)
[2024-09-30] MEDS: DEXAMETHASONE 4MG TABLET 12 MG (12:21)
[2024-09-30] MEDS: WATER IV (12:50)
[2024-09-30] MEDS: PACLITAXEL IV (12:50)
[2024-09-30] MEDS: DEXTROSE 5% IV (12:50)
[2024-09-30 13:00] VITALS: BP 130/65; PULSE 73; RESP 18; TEMP 36.6; O2SAT 100
[2024-09-30 13:30] VITALS: BP 142/73; PULSE 76
[2024-09-30] MEDS: SODIUM CHLORIDE 0.9% IV (13:59)
[2024-09-30] MEDS: CARBOPLATIN IV (13:59)
[2024-09-30 14:00] VITALS: BP 154/65; PULSE 71
[2024-09-30 14:05] VITALS: BP 142/70; PULSE 76
[2024-09-30 14:35] VITALS: BP 136/65; PULSE 72
== END 2024-09-30 14:45 | disposition home or self-care (01) ==
LOC: INF 11:03
PROVIDERS: PCP Family Medicine; Visit Provider Internal Medicine Medical Oncology
DX: C34.12 Malignant neoplasm of upper lobe, left bronchus or lung (principal)
CPT/HCPCS: 80053; 85025; 96413; 96415; 96417; J7060; J8540; J9045; J9267; Q0162

== ENCOUNTER 2024-10-07 10:51 | Outpatient (CLI) | payer BC, SELFPAY ==
[2024-10-07 10:57] VITALS: BMI 23.2
[2024-10-07 11:13] LABS: Basophils % 0.6 % (0.1-2.0); Eosinophils # 0.1 K/mm3 (0.0-0.4); Eosinophils % 0.9 % (0.1-12.0); Hematocrit 38.7 % (42.0-52.0); Hemoglobin 12.8 g/dL (14.1-18.0); Lymphocytes # 0.4 K/mm3 (0.7-4.5); Lymphocytes % 7.9 % (10-50); Mean Corpuscular HGB Conc 33.1 g/dL (31.8-35.4); Mean Corpuscular Hemoglobin 29.9 pg (27.0-31.2); Mean Corpuscular Volume 90.4 fl (80-94); Monocytes # 0.5 K/mm3 (0.1-1.0); Monocytes % 8.9 % (1.7-9.3); Neutrophils # 4.3 K/mm3 (1.8-7.8); Neutrophils % 80.8 % (37.0-80.0); Platelet Count 181 K/mm3 (142-424); Red Blood Count 4.28 M/mm3 (4.60-6.20); Red Cell Distribution Width 14.1 % (11.5-17.5); White Blood Count 5.3 K/mm3 (4.8-10.8)
[2024-10-07 11:30] LABS: Alanine Aminotransferase 63 U/L (12-78); Albumin Level 4.2 g/dl (3.5-5.0); Albumin/Globulin Ratio 1.4 (1.1-1.8); Alkaline Phosphatase 86 U/L (38-126); Aspartate Amino Transferase 28 U/L (17-59); Bilirubin,Total 0.3 mg/dl (0.2-1.3); Blood Urea Nitrogen 13 mg/dl (9-20); Calcium 9.4 mg/dl (8.4-10.2); Carbon Dioxide 32 mmol/L (22.0-30.0); Chloride 102 mmol/L (98-107); Creatinine Clearance Estimated 104 mL/min (50-200); Estimated Glomerular Filt Rate 115 ml/min (>60); GFR (African American) 139 ML/MIN (>60); Globulin 3.1 g/dL (1.3-3.2); Glucose 87 mg/dl (74-100); Sodium 136 mmol/L (136-145); Total Protein,Serum 7.3 g/dl (6.3-8.2)
[2024-10-07] MEDS: FAMOTIDINE 20MG TABLET 20 MG (11:52)
[2024-10-07] MEDS: LORATADINE 10MG TABLET 10 MG PO (11:52)
[2024-10-07] MEDS: DEXAMETHASONE 4MG TABLET 12 MG (11:52)
[2024-10-07] MEDS: ONDANSETRON 4MG ODT 16 MG (11:53)
[2024-10-07] MEDS: WATER IV (12:19)
[2024-10-07] MEDS: PACLITAXEL IV (12:19)
[2024-10-07] MEDS: DEXTROSE 5% IV (12:19)
[2024-10-07] MEDS: SODIUM CHLORIDE 0.9% 50ML BAG 50 ML IV (12:20)
[2024-10-07 12:25] VITALS: BP 165/77; PULSE 83; RESP 18; TEMP 36.8; O2SAT 100
[2024-10-07 12:55] VITALS: BP 152/80; PULSE 64; RESP 18; O2SAT 100
[2024-10-07] MEDS: SODIUM CHLORIDE 0.9% IV (13:28)
[2024-10-07] MEDS: CARBOPLATIN IV (13:28)
[2024-10-07 13:33] VITALS: BP 160/85; PULSE 70; RESP 18; O2SAT 100
[2024-10-07 14:16] VITALS: BP 154/67; PULSE 66; RESP 18; O2SAT 100
== END 2024-10-07 14:16 ==
LOC: INF 10:52
PROVIDERS: PCP Family Medicine; Visit Provider Internal Medicine Medical Oncology
DX: C34.12 Malignant neoplasm of upper lobe, left bronchus or lung (principal)
CPT/HCPCS: 80053; 85025; 96413; 96415; 96417; J7060; J8540; J9045; J9267; Q0162

== ENCOUNTER 2024-10-14 10:50 | Outpatient (CLI) | payer BC, SELFPAY ==
[2024-10-14 10:58] VITALS: BMI 23.1
[2024-10-14 11:15] LABS: Basophils % 0.4 % (0.1-2.0); Eosinophils % 0.8 % (0.1-12.0); Hematocrit 36.1 % (42.0-52.0); Hemoglobin 11.7 g/dL (14.1-18.0); Lymphocytes # 0.4 K/mm3 (0.7-4.5); Lymphocytes % 7.8 % (10-50); Mean Corpuscular HGB Conc 32.4 g/dL (31.8-35.4); Mean Corpuscular Hemoglobin 29.6 pg (27.0-31.2); Mean Corpuscular Volume 91.4 fl (80-94); Mean Platelet Volume 9.9 fl (7.4-10.4); Monocytes # 0.5 K/mm3 (0.1-1.0); Monocytes % 9.1 % (1.7-9.3); Neutrophils # 4.2 K/mm3 (1.8-7.8); Neutrophils % 81.3 % (37.0-80.0); Platelet Count 147 K/mm3 (142-424); Red Blood Count 3.95 M/mm3 (4.60-6.20); Red Cell Distribution Width 14.5 % (11.5-17.5); White Blood Count 5.1 K/mm3 (4.8-10.8)
[2024-10-14 11:22] LABS: Albumin Level 4.1 g/dl (3.5-5.0); Chloride 103 mmol/L (98-107); Potassium 3.9 mmoL/L (3.5-5.1); Sodium 135 mmol/L (136-145)
[2024-10-14 11:25] LABS: Alanine Aminotransferase 67 U/L (12-78); Albumin/Globulin Ratio 1.5 (1.1-1.8); Alkaline Phosphatase 83 U/L (38-126); Anion Gap 6.9 mEq/L (5-15); Aspartate Amino Transferase 30 U/L (17-59); Bilirubin,Total 0.3 mg/dl (0.2-1.3); Blood Urea Nitrogen 15 mg/dl (9-20); Carbon Dioxide 29 mmol/L (22.0-30.0); Creatinine Clearance Estimated 90 mL/min (50-200); Estimated Glomerular Filt Rate 99 ml/min (>60); GFR (African American) 119 ML/MIN (>60); Globulin 2.7 g/dL (1.3-3.2); Glucose 96 mg/dl (74-100); Total Protein,Serum 6.8 g/dl (6.3-8.2)
[2024-10-14] MEDS: ONDANSETRON 4MG ODT 16 MG (11:44)
[2024-10-14] MEDS: FAMOTIDINE 20MG TABLET 20 MG (11:45)
[2024-10-14] MEDS: LORATADINE 10MG TABLET 10 MG PO (11:45)
[2024-10-14] MEDS: DEXAMETHASONE 4MG TABLET 12 MG (11:45)
[2024-10-14] MEDS: PACLITAXEL IV (12:22)
[2024-10-14] MEDS: DEXTROSE 5% IV (12:22)
[2024-10-14] MEDS: WATER IV (12:22)
[2024-10-14 12:30] VITALS: BP 142/71; PULSE 67; RESP 18; O2SAT 100
[2024-10-14 13:00] VITALS: BP 153/90; PULSE 59; RESP 18; O2SAT 100
[2024-10-14] MEDS: CARBOPLATIN IV (13:40)
[2024-10-14] MEDS: SODIUM CHLORIDE 0.9% IV (13:40)
[2024-10-14 13:45] VITALS: BP 156/76; PULSE 61; RESP 18; O2SAT 100
[2024-10-14 14:21] VITALS: BP 131/73; PULSE 60; RESP 18; O2SAT 100
== END 2024-10-14 14:21 | disposition home or self-care (01) ==
LOC: INF 10:50
PROVIDERS: PCP Family Medicine; Visit Provider Internal Medicine Medical Oncology
DX: Z51.11 Encounter for antineoplastic chemotherapy (principal); C34.12 Malignant neoplasm of upper lobe, left bronchus or lung
CPT/HCPCS: 80053; 85025; 96413; 96415; 96417; J7060; J8540; J9045; J9267; Q0162

== ENCOUNTER 2024-10-21 11:05 | Outpatient (CLI) | payer BC, SELFPAY ==
[2024-10-21 11:10] VITALS: BMI 23.1
[2024-10-21 11:21] LABS: Hematocrit 36.9 % (42.0-52.0); Hemoglobin 12.4 g/dL (14.1-18.0); Lymphocytes # 0.2 K/mm3 (0.7-4.5); Mean Corpuscular HGB Conc 33.6 g/dL (31.8-35.4); Mean Corpuscular Hemoglobin 30.5 pg (27.0-31.2); Mean Corpuscular Volume 90.9 fl (80-94); Mean Platelet Volume 10.7 fl (7.4-10.4); Monocytes # 0.2 K/mm3 (0.1-1.0); Monocytes % 6.6 % (1.7-9.3); Neutrophils # 3.2 K/mm3 (1.8-7.8); Neutrophils % 88.1 % (37.0-80.0); Platelet Count 178 K/mm3 (142-424); Red Blood Count 4.06 M/mm3 (4.60-6.20); Red Cell Distribution Width 14.6 % (11.5-17.5); White Blood Count 3.6 K/mm3 (4.8-10.8)
[2024-10-21 11:26] LABS: Albumin Level 4.3 g/dl (3.5-5.0); Chloride 103 mmol/L (98-107); Sodium 137 mmol/L (136-145)
[2024-10-21 11:29] LABS: Alanine Aminotransferase 64 U/L (12-78); Albumin/Globulin Ratio 1.4 (1.1-1.8); Alkaline Phosphatase 80 U/L (38-126); Aspartate Amino Transferase 27 U/L (17-59); Bilirubin,Total 0.3 mg/dl (0.2-1.3); Blood Urea Nitrogen 13 mg/dl (9-20); Calcium 9.3 mg/dl (8.4-10.2); Carbon Dioxide 29 mmol/L (22.0-30.0); Creatinine Clearance Estimated 103 mL/min (50-200); Estimated Glomerular Filt Rate 115 ml/min (>60); GFR (African American) 139 ML/MIN (>60); Glucose 110 mg/dl (74-100); Total Protein,Serum 7.3 g/dl (6.3-8.2)
[2024-10-21] MEDS: LORATADINE 10MG TABLET 10 MG PO (11:39)
[2024-10-21] MEDS: 0.9 % SODIUM CHLORIDE 50 ML IV (11:39)
[2024-10-21] MEDS: ONDANSETRON 4MG ODT 16 MG (11:39)
[2024-10-21] MEDS: FAMOTIDINE 20MG TABLET 20 MG (11:39)
[2024-10-21] MEDS: DEXAMETHASONE 4MG TABLET 12 MG (11:39)
[2024-10-21] MEDS: WATER IV (12:11)
[2024-10-21] MEDS: DEXTROSE 5% IV (12:11)
[2024-10-21] MEDS: PACLITAXEL IV (12:11)
[2024-10-21 12:20] VITALS: BP 132/86; PULSE 71; RESP 18; TEMP 36.7; O2SAT 98
[2024-10-21 12:50] VITALS: BP 136/79; PULSE 75
[2024-10-21] MEDS: CARBOPLATIN IV (13:19)
[2024-10-21] MEDS: SODIUM CHLORIDE 0.9% IV (13:19)
[2024-10-21 13:20] VITALS: BP 141/77; PULSE 73
[2024-10-21 13:35] VITALS: BP 155/72; PULSE 76
[2024-10-21 14:10] VITALS: BP 126/69; PULSE 75
== END 2024-10-21 14:15 | disposition home or self-care (01) ==
LOC: INF 11:05
PROVIDERS: PCP Family Medicine; Visit Provider Internal Medicine Medical Oncology
DX: Z51.11 Encounter for antineoplastic chemotherapy (principal); C34.12 Malignant neoplasm of upper lobe, left bronchus or lung
CPT/HCPCS: 80053; 85025; 96413; 96415; 96417; J7060; J8540; J9045; J9267; Q0162

== ENCOUNTER 2024-10-28 11:23 | Outpatient (CLI) | payer BC, SELFPAY ==
[2024-10-28 11:29] VITALS: BMI 23.2
--- NOTE | 2024-10-28 11:39 | PC.NURSE ---
1130 Labs obtained as ordered via venipuncture to R AC with butterfly needle x 1 stick. Patient tolerated well. Patient has appointment with Dr. Rizvi this am.
[2024-10-28 11:41] LABS: Basophils % 0.3 % (0.1-2.0); Hematocrit 34.8 % (42.0-52.0); Hemoglobin 11.6 g/dL (14.1-18.0); Lymphocytes # 0.2 K/mm3 (0.7-4.5); Lymphocytes % 6.8 % (10-50); Mean Corpuscular HGB Conc 33.3 g/dL (31.8-35.4); Mean Corpuscular Hemoglobin 30.3 pg (27.0-31.2); Mean Corpuscular Volume 90.9 fl (80-94); Monocytes # 0.3 K/mm3 (0.1-1.0); Neutrophils # 2.7 K/mm3 (1.8-7.8); Neutrophils % 83.4 % (37.0-80.0); Platelet Count 265 K/mm3 (142-424); Red Blood Count 3.83 M/mm3 (4.60-6.20); Red Cell Distribution Width 15.6 % (11.5-17.5); White Blood Count 3.3 K/mm3 (4.8-10.8)
[2024-10-28 12:05] LABS: Alanine Aminotransferase 48 U/L (12-78); Albumin Level 4.1 g/dl (3.5-5.0); Albumin/Globulin Ratio 1.5 (1.1-1.8); Alkaline Phosphatase 68 U/L (38-126); Anion Gap 11.1 mEq/L (5-15); Aspartate Amino Transferase 30 U/L (17-59); Bilirubin,Total 0.6 mg/dl (0.2-1.3); Blood Urea Nitrogen 15 mg/dl (9-20); Calcium 9.2 mg/dl (8.4-10.2); Carbon Dioxide 26 mmol/L (22.0-30.0); Chloride 102 mmol/L (98-107); Creatinine Clearance Estimated 91 mL/min (50-200); Estimated Glomerular Filt Rate 99 ml/min (>60); GFR (African American) 119 ML/MIN (>60); Globulin 2.8 g/dL (1.3-3.2); Glucose 103 mg/dl (74-100); Potassium 4.1 mmoL/L (3.5-5.1); Sodium 135 mmol/L (136-145); Total Protein,Serum 6.9 g/dl (6.3-8.2)
== END 2024-10-28 11:35 | disposition home or self-care (01) ==
LOC: INF 11:24
PROVIDERS: PCP Family Medicine; Visit Provider Internal Medicine Medical Oncology
DX: C34.12 Malignant neoplasm of upper lobe, left bronchus or lung (principal)
CPT/HCPCS: 36415; 80053; 85025

== ENCOUNTER 2024-11-11 09:16 | Outpatient (CLI) | payer BC, SELFPAY ==
--- NOTE | 2024-11-11 09:30 | CT_ITS ---
FINAL REPORT TECHNIQUE: After the administration of intravenous contrast, axial images through the chest were performed by computed tomography.This study was performed with techniques to keep radiation doses as low as reasonably achievable, (ALARA). Individualized dose reduction techniques using automated exposure control or adjustment of mA and/or kV according to the patient''s size were employed. CLINICAL HISTORY: lung cancer F/U 3 WEEKS POST CHEMO COMPARISON: 06/02/2024 FINDINGS: There is redemonstration of a cavitary mass within the left upper lobe measuring 59 x 53 mm on axial imaging. Previously this measured 69 x 60 mm. Mass is thick walled measuring up to 9 mm along the medial aspect, previously measured 15 mm. There is new airspace opacity along the superior aspect of the mass which could represent postobstructive change or tumor. Density is best seen on axial image 24. There is a lateral component of the soft tissue density measuring 30 x 21 mm. There is an 8 mm left lower lobe nodule which is unchanged. Vague airspace opacities are seen within the right lung suggestive of inflammatory etiology. No discrete left right lung nodule is identified. There is no adenopathy. A trace left pleural effusion is noted. IMPRESSION: Improvement of cavitary mass in the left upper lobe. New soft tissue density at the superior aspect of this mass which may represent posttreatment change or postobstructive pneumonia. Tumor considered less likely. Left lower lobe nodule, unchanged. Diffuse groundglass opacities throughout the right lung, favor inflammatory. Reviewed, Interpreted and Dictated by Tara Swain MD Transcribed by Oneida Denson Authenticated and [facility]
[2024-11-11] MEDS: IOPAMIDOL-370 (76%);100ML BOTTLE 75 ML IV (09:44)
[2024-11-11] MEDS: SODIUM CHLORIDE 0.9% 10ML SYR (RAD ONLY) 10 ML IV (09:45)
== END 2024-11-11 23:59 | disposition home or self-care (01) ==
LOC: RAD 09:18
PROVIDERS: PCP Family Medicine; Visit Provider Internal Medicine Medical Oncology
DX: C34.12 Malignant neoplasm of upper lobe, left bronchus or lung (principal)
CPT/HCPCS: 71260; Q9967

== ENCOUNTER 2024-11-19 12:28 | Outpatient (CLI) | payer BC, SELFPAY ==
[2024-11-19 12:46] LABS: Basophils # 0.1 K/mm3 (0-0.2); Basophils % 0.8 % (0.1-2.0); Eosinophils # 0.1 K/mm3 (0.0-0.4); Eosinophils % 1.8 % (0.1-12.0); Hematocrit 38.2 % (42.0-52.0); Hemoglobin 12.4 g/dL (14.1-18.0); Lymphocytes # 0.8 K/mm3 (0.7-4.5); Lymphocytes % 10.8 % (10-50); Mean Corpuscular HGB Conc 32.5 g/dL (31.8-35.4); Mean Corpuscular Hemoglobin 30.2 pg (27.0-31.2); Mean Corpuscular Volume 92.9 fl (80-94); Monocytes # 0.9 K/mm3 (0.1-1.0); Monocytes % 11.9 % (1.7-9.3); Neutrophils # 5.3 K/mm3 (1.8-7.8); Neutrophils % 73.7 % (37.0-80.0); Platelet Count 317 K/mm3 (142-424); Red Blood Count 4.11 M/mm3 (4.60-6.20); Red Cell Distribution Width 16.2 % (11.5-17.5); White Blood Count 7.2 K/mm3 (4.8-10.8)
[2024-11-19 12:52] LABS: Chloride 101 mmol/L (98-107)
[2024-11-19 12:53] LABS: Albumin Level 4.5 g/dl (3.5-5.0); Potassium 4.1 mmoL/L (3.5-5.1); Sodium 139 mmol/L (136-145)
[2024-11-19 12:55] LABS: Alanine Aminotransferase 86 U/L (12-78); Anion Gap 12.1 mEq/L (5-15); Aspartate Amino Transferase 47 U/L (17-59); Blood Urea Nitrogen 9 mg/dl (9-20); Carbon Dioxide 30 mmol/L (22.0-30.0); Estimated Glomerular Filt Rate 115 ml/min (>60); GFR (African American) 139 ML/MIN (>60)
[2024-11-19 12:56] LABS: Albumin/Globulin Ratio 1.1 (1.1-1.8); Alkaline Phosphatase 120 U/L (38-126); Bilirubin,Total 0.5 mg/dl (0.2-1.3); Calcium 9.7 mg/dl (8.4-10.2); Globulin 4.2 g/dL (1.3-3.2); Glucose 93 mg/dl (74-100); Total Protein,Serum 8.7 g/dl (6.3-8.2)
== END 2024-11-19 12:35 | disposition home or self-care (01) ==
LOC: INF 12:28
PROVIDERS: PCP Family Medicine; Visit Provider Internal Medicine Medical Oncology
DX: C34.12 Malignant neoplasm of upper lobe, left bronchus or lung (principal)
CPT/HCPCS: 36415; 80053; 85025

== ENCOUNTER 2024-11-24 08:53 | Outpatient (CLI) | payer BC, SELFPAY ==
[2024-11-24] VITALS (9 sets, daily range): BP systolic 109–140; BP diastolic 59–79; PULSE 70–77; RESP 18; TEMP 36.7; O2SAT 99
--- OUTSIDE RECORDS SUMMARY | 2024-11-24 08:55 | XMS_ITS | Data Portability ---
Author Organization [facility] mar[facility] [place] Address [address] [facility] [address] [place] [address] Care Team Providers Care Substation Electrician Supervisor Name Role Phone TIANA RIOJAS Heart Surgeon [phone] TESSA HORAN Primary Care Provider [phone] Assessment No assessment recorded. Plan of Treatment Reminders Order Date Submit Date Provider Last Modified By Organization Details Last Modified Time Details Appointments FOLLOW UP DAK 2024 11:30A M TIANA RIOJAS PA-C Not available Not available Not available Lab surgica l patholo gy study - R/O BCC vs Irritat ed nevus 2023 024 [facility], [address] [place] [address], [id number], 08/24/2023 16:14:58 Referral None recorde d. Procedures None recorde d. Surgeries None recorde d. Imaging None recorde d. Medication Orders None recorde d. Patient TargetsNo targets recorded. Patient InstructionsNo instructions recorded. Reason for Referral None Reported. Results Created Date Observation Date Name Description Value Unit Range Abnormal Flag Note LastModifiedBy Organization Detail LastModifiedTime Result Notes None recorded. 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 Procedures Surgical History Date Name Laterality Status Provider Name and Address Organization Details Recorded Time 11/10/2024 DAK - Cryo AK completed Mikayla Leach [facility] 11/10/2024 10:59:34 03/12/2024 DAK - Cryo AK completed Wojciech Sparks [facility] 03/12/2024 13:39:18 08/22/2023 Blade Biopsy completed Rhea Perez [facility] 08/22/2023 13:17:27 Imaging Results None recorded. Procedure Notes None recorded. Medical Equipment None Reported. Allergies No known drug allergies Medications Name Sig Start Date Stop Date Status Note LastModified by Organization Details LastModified Time cyclobenza trell 10 mg tablet TAKE 1 TABLET BY MOUTH THREE TIMES DAILY NEEDED BACK PAIN active no longer taking Not Available Not Available Not Available ondansetro n HCl 4 mg tablet TAKE 2 TABLETS BY MOUTH TWICE DAILY active Not Available Not Available No t Available prednisone 20 mg tablet TAKE 2 TABLETS BY MOUTH ONCE DAILY FOR 5 DAYS 08/22 completed Not Available Not Available Not Available fluorourac il 5 % topical cream APPLY TWICE DAILY TO SCALP, FOREHEAD , TEMPLES, AND CHEEKS FOR 2 WEEKS. WILL CAUSE SEVERE IRRITATI ON. 08/22 completed Not Available Not Available Not Available aspirin 81 mg tablet,del ayed release TAKE 1 TABLET BY MOUTH ONCE DAILY active Not Available Not Available No t Available tramadol 50 mg tablet TAKE 1 TABLET BY MOUTH THREE TIMES DAILY NEEDED active Not Available Not Available No t Available ondansetro n 8 mg disintegra ting tablet DISSOLVE 1 TABLET IN MOUTH EVERY 8 HOURS FOR CHEMOTHE RAPY. TAKE 1 TABLET TWICE DAILY FOR 2 DAYS POST CHEMOTHE RAPY. active Not Available Not Available No t Available oxycodone- acetaminop hen 5 mg-325 mg tablet TAKE 1 TO 2 TABLETS BY MOUTH EVERY 6 HOURS NEEDED FOR PAIN active Not Available Not Available No t Available tamsulosin 0.4 mg capsule TAKE 1 CAPSULE BY MOUTH AT BEDTIME active Not Available Not Available No t Available baclofen 10 mg tablet TAKE 1 TABLET BY MOUTH ONCE DAILY FOR 5 DAYS active no longer taking Not Available Not Available Not Available cyanocobal barraza (vit B-12) 1,000 mcg/mL injection solution INJECT 1 ML (CC) INTRAMUS CULARLY ONCE EVERY MONTH active Not Available Not Available No t Available tobramycin 0.3 % eye drops INSTILL 1 DROP INTO RIGHT EYE 4 TIMES DAILY FOR 7 DAYS 08/22 completed Not Available Not Available Not Available dexamethas one 4 mg tablet TAKE 1 TABLET BY MOUTH TWICE DAILY FOR 5 DAYS active no longer taking Not Available Not Available Not Available lisinopril 10 mg tablet TAKE 1 TABLET BY MOUTH ONCE DAILY active no longer taking Not Available Not Available Not Available triamcinol one acetonide 0.025 % topical ointment APPLY TWICE DAILY TO AFFECTED AREA ON SCALP, FOREHEAD ,TEMPLES , AND CHEEKS FOR 10 DAYS. 08/22 completed Not Available Not Available Not Available magnesium 500 mg (as magnesium oxide) tablet TAKE 1 TABLET BY MOUTH ONCE DAILY AT NIGHT 08/22 completed Not Available Not Available Not Available mometasone 0.1 % topical ointment APPLY OINTMENT TOPICALL Y ONCE DAILY active Not Available Not Available No t Available mupirocin 2 % topical ointment 08/22 completed Not Available Not Available Not Available methylpred nisolone 4 mg tablets in a dose pack TAKE BY MOUTH DIRECTED ON INSIDE OF PACKAGE active no longer taking Not Available Not Available Not Available albuterol sulfate HFA 90 mcg/actuat ion aerosol inhaler INHALE 2 PUFFS BY MOUTH 4 TIMES DAILY NEEDED FOR SHORTNES S OF BREATH OR WHEEZING active Not Available Not Available No t Available oxycodone 5 mg tablet TAKE 1 TABLET BY MOUTH EVERY 4 HOURS FOR 10 DAYS active Not Available Not Available No t Available rosuvastat in 10 mg tablet TAKE 1 TABLET BY MOUTH ONCE DAILY active Not Available Not Available No t Available rosuvastat in 20 mg tablet TAKE 1 TABLET BY MOUTH ONCE DAILY active Not Available Not Available No t Available cholecalci ferol (vitamin D3) 1,250 mcg (50,000 unit) capsule TAKE 1 CAPSULE BY MOUTH ONCE WEEKLY FOR 8 WEEKS. active Not Available Not Available No t Available mesalamine 400 mg capsule (with delayed release tablets inside) TAKE 2 CAPSULES BY MOUTH TWICE DAILY active Not Available Not Available No t Available Humira(CF) Pen 40 mg/0.4 mL subcutaneo us kit active no longer taking Not Available Not Available Not Available Plenvu 140 gram-9 gram-5.2 gram powder packs USE DIRECTED 08/22 completed Not Available Not Available Not Available Vitals None Recorded Social History Question Answer Notes LastModified by Organizat ion Details LastModified Time Tobacco Smoking Status Smoker, Current Status Unknown Lucina Watts [facility] 08/22/2023 13:11:09 What Is Your Level Of Alcohol Consumption? Occasional Information not available 08/22/2023 Sunscreen Use? No Informatio n not available 08/22/2023 Tanning Bed Use No Information not available 08/22/2023 What Was The Date Of Your Most Recent Tobacco Screening? 11/10/2024 [email or web address] Information not available 11/10/2024 Sex: Male Functional Status None recorded. Mental Status None recorded. Family History Relationship Description Onset Age of this Age Resolved Age Notes LastModified by Organization Details LastModified Time Father No current problems or disability [email or web address] Not available 11/10 10:51:53 Mother No current problems or disability [email or web address] Not available 11/10 10:51:53 Medical History Condition Response Skin Cancer Y Squamous Cell Carcinoma Y Past Encounters Encounter ID Performer Location Encounter Start Date Encounter Closed Date Diagnosis/Indication Diagnosis SNOMED-CT Code Diagnosis ICD10 Code Diagnosis Note [id number] [address] [address] 07/17/2023 10:19:30 07/18/2023 10:04:40 [id number] TIANA RIOJAS PA-C [address] [address] 08/22/2023 12:56:39 08/23/2023 14:33:10 Actinic keratosis 610437724 L57.0 Actinic keratoses are precancero us lesions that may progress to squamous cell carcinoma if untreated. UV light and genetics may increase risk. Pt to treat face and scalp with Efudex 5% cream - pt has Rx at home Neoplasm o f uncertain behavior of skin 92152474 D48.5 Biopsy rec'd [id number] TIANA RIOJAS PA-C [address] [address] 03/12/2024 13:04:24 03/17/2024 15:48:00 Actinic keratosis 977123133 L57.0 Actinic keratoses are precancero us lesions that may progress to squamous cell carcinoma if untreated. UV light and genetics may increase risk. Pt prescribed Efudex last visit to treat face and scalp - pt notes he did not use rx.Pt opts to treat with LN2 rather than efudex.Ez l treat the larger lesions but discussed may still need 5fu in winter to blanket treat due to so many AKs present. Plan to recheck in 6 mos and will revisit 5fu at that time. [id number] TIANA RIOJAS PA-C [address] [address] 11/10/2024 10:31:35 11/10/2024 11:03:04 Actinic keratosis 845229288 L57.0 Actinic keratoses are precancero us lesions that may progress to squamous cell carcinoma if untreated. UV light and genetics may increase risk. Treated lesions should blister, scab over, and heal within a few weeks. If treated lesion(s) does not resolve within 1-2 months, patient agrees to follow up for re-evaluat ion. Asteatosis cutis 4125349 0 L85.3 Use fragrance free/dye free soaps or non-soap cleansers. Recommend moisturizi ng cream daily. Creams are thicker than lotions. Cetaphil is a good OTC cream. Health Concerns Section Related Observation LastModified by Organization Detai ls LastModified Time None Recorded Concern Status LastModified by Organization Details LastModified Time None Recorded Advance Directives Directive None Recorded Payers Encounter Date Sequence Insurance Name Policy Number Policy Alejandre Covered Member ID Alejandre Member ID Guarantor Name 07/17/2023 1 [place] [id number] Mary Jo Villagran [id number] 08/22/2023 1 [place] [id number] Mary Jo Villagran [id number] U[address] Villagran 03/12/2024 1 [place] [id number] R Ubaldo Villagran [id number] U[address] Villagran 11/10/2024 1 [place] [employer] ([place]) [id number] R Ubaldo Villagran [id number] Altmanlins Notes Date Note Type Note Provider Name and Address Organization Details Recorded Time 08/22/2023 text/html 1. Follow up for: Actinic Keratosis - Location: Scalp. Face.- Duration: Six months.- Prior Treatments: LN2.- Reports: Pt reports that he did not use the Efudex. 2. I have a spot on my neck. - Location: Right neck.- Duration: Three months.- Prior treatments: None.- REPORTS: Raised, rough spot. TIANA RIOJAS PA-C [address] [place], [address], [facility] 08/22/2023 13:24:15 03/12/2024 text/html 1. Follow up for: Actinic Keratosis - Location: Scalp. Face.- Duration: Six months.- Prior Treatments: LN2.. 2. I have a spot on my neck. - Location: Right neck.- Duration: Three months.- Prior treatments: None.- REPORTS: Raised, rough spot. TIANA RIOJAS PA-C [address] [place], [address], [facility] 03/12/2024 13:51:23 11/10/2024 text/html Follow up for: Actinic Keratosis - Location: Scalp. Face.- Duration: 1 year- Prior Treatments: LN2. Reports: Pt noticed a new spot on left cheek Pt finished radiation treatment October 24 and is currently on chemo for lung cancer TIANA RIOJAS PA-C [address] [place], [address], [facility] 11/10/2024 12:22:15
[2024-11-24] MEDS: ONDANSETRON 4MG ODT 16 MG (09:33)
[2024-11-24] MEDS: FAMOTIDINE 20MG TABLET 20 MG (09:33)
[2024-11-24] MEDS: DEXAMETHASONE 4MG TABLET 12 MG (09:33)
[2024-11-24] MEDS: LORATADINE 10MG TABLET 10 MG PO (09:33)
[2024-11-24] MEDS: WATER IV (10:06)
[2024-11-24] MEDS: DEXTROSE 5% IV (10:06)
[2024-11-24] MEDS: PACLITAXEL IV (10:06)
[2024-11-24] MEDS: SODIUM CHLORIDE 0.9% 50ML BAG 50 ML IV (10:06)
[2024-11-24] MEDS: SODIUM CHLORIDE 0.9% IV (13:17)
[2024-11-24] MEDS: CARBOPLATIN IV (13:17)
== END 2024-11-24 14:10 | disposition home or self-care (01) ==
LOC: INF 08:53
PROVIDERS: PCP Family Medicine; Visit Provider Internal Medicine Medical Oncology
DX: C34.12 Malignant neoplasm of upper lobe, left bronchus or lung (principal)
CPT/HCPCS: 96413; 96415; 96417; J7060; J8540; J9045; J9267; Q0162

== ENCOUNTER 2024-12-16 09:12 | Outpatient (CLI) | payer BC, SELFPAY ==
[2024-12-16] VITALS (10 sets, daily range): BP systolic 116–133; BP diastolic 59–77; PULSE 65–72; RESP 18; TEMP 36.7; O2SAT 99; BMI 23.2
--- OUTSIDE RECORDS SUMMARY | 2024-12-16 09:19 | XMS_ITS | Data Portability ---
Author Organization [facility] Clinbeto marley [place] [place] [facility]OS[facility] Address [address] [facility] [place] [address] Care Team Providers Care Cutter Machine Tender Name Role Phone TIANA RIOJAS Humanities And Languages Professor [phone] TESSA HORAN Primary Care Provider [phone] Assessment No assessment recorded. Plan of Treatment Reminders Order Date Submit Date Provider Last Modified By Organization Details Last Modified Time Details Appointments FOLLOW UP DAK 2024 11:30A M TIANA RIOJAS PA-C Not available Not available Not available Lab surgica l patholo gy study - R/O BCC vs Irritat ed nevus 2023 024 [facility], [address] [place] [address], [address], 08/24/2023 16:14:58 Referral None recorde d. 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 Procedures Surgical History Date Name Laterality Status Provider Name and Address Organization Details Recorded Time 11/10/2024 DAK - Cryo AK completed Mikayla Leach [facility] 11/10/2024 10:59:34 03/12/2024 DAK - Cryo AK completed Wojciech Bridger [facility] 03/12/2024 13:39:18 08/22/2023 Blade Biopsy completed Rhea Perez [facility] 08/22/2023 13:17:27 Imaging Results None recorded. [...] Status Smoker, Current Status Unknown Lucina Watts [facility] 08/22/2023 13:11:09 What Is Your Level Of [...] SNOMED-CT Code Diagnosis ICD10 Code Diagnosis Note [id number] OLIVER EPPERSON AN, DO [address] [address] 07/17/2023 10:19:30 07/18/2023 10:04:40 [id number] TIANA RIOJAS PA-C [facility] [address] [place] [address] 08/22/2023 12:56:39 08/23/2023 14:33:10 Actinic keratosis 633743444 L57.0 Actinic keratoses are precancero us lesions that may progress to squamous cell carcinoma if untreated. UV light and genetics may increase risk. 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 [id number] TIANA RIOJAS PA-C [address] [address] 11/10/2024 10:31:35 11/10/2024 11:03:04 Actinic keratosis 418178143 L57.0 Actinic keratoses are precancero us lesions that may progress to squamous cell carcinoma if untreated. UV light and genetics may increase risk. Treated lesions should blister, scab over, and heal within a few weeks. If treated lesion(s) does not resolve within 1-2 months, patient agrees to follow up for re-evaluat ion. Asteatosis cutis 0017702 0 L85.3 Use fragrance free/dye free soaps [...] Member ID Guarantor Name 07/17/2023 1 [place] [id number] Mary Jo Villagran [id number] Ubaldo Villagran 08/22/2023 1 [place] [id number] Mary Jo Villagran [id number] Ubaldo Villagran 03/12/2024 1 [place] (PPO) [id number] R Ubaldo Villagran [id number] Ubaldo Whittens 11/10/2024 1 [place] ([place]) [id number] R Ubaldo Villagran [id number] Ubaldo Villagran Notes Date Note Type Note Provider Name [...] Raised, rough spot. TIANA RIOJAS PA-C [address] [place], [address], [facility] 08/22/2023 13:24:15 03/12/2024 text/html 1. Follow up for: Actinic Keratosis - Location: Scalp. Face.- Duration: Six months.- Prior Treatments: LN2.. 2. I have a spot on my neck. - Location: Right neck.- Duration: Three months.- Prior treatments: None.- REPORTS: Raised, rough spot. TIANA RIOJAS PA-C [address] [place], [address], [facility] 03/12/2024 13:51:23 11/10/2024 text/html Follow up for: Actinic Keratosis - Location: Scalp. Face.- Duration: 1 year- Prior Treatments: LN2. Reports: Pt noticed a new spot on left cheek Pt finished radiation treatment October 24 and is currently on chemo for lung cancer TIANA RIOJAS PA-C [address] [place], [address], [facility] 11/10/2024 12:22:15
[2024-12-16 09:29] LABS: Basophils % 0.2 % (0.1-2.0); Eosinophils % 0.6 % (0.1-12.0); Hemoglobin 10.8 g/dL (14.1-18.0); Lymphocytes % 20.6 % (10-50); Mean Corpuscular HGB Conc 32.7 g/dL (31.8-35.4); Mean Corpuscular Hemoglobin 31.6 pg (27.0-31.2); Mean Corpuscular Volume 96.5 fl (80-94); Mean Platelet Volume 10.2 fl (7.4-10.4); Monocytes # 0.5 K/mm3 (0.1-1.0); Monocytes % 11.2 % (1.7-9.3); Neutrophils # 3.1 K/mm3 (1.8-7.8); Neutrophils % 66.5 % (37.0-80.0); Nucleated Red Blood Cells # 0 10^3/uL; Nucleated Red Blood Cells % 0 %; Platelet Count 159 K/mm3 (142-424); Red Blood Count 3.42 M/mm3 (4.60-6.20); Red Cell Distribution Width 17.2 % (11.5-17.5); Red Cell Distribution Width-SD 61.1 fL; White Blood Count 4.7 K/mm3 (4.8-10.8)
[2024-12-16 09:46] LABS: Alanine Aminotransferase 47 U/L (12-78); Albumin Level 3.9 g/dl (3.5-5.0); Albumin/Globulin Ratio 1.3 (1.1-1.8); Alkaline Phosphatase 74 U/L (38-126); Anion Gap 5.6 mEq/L (5-15); Aspartate Amino Transferase 29 U/L (17-59); Bilirubin,Total 0.4 mg/dl (0.2-1.3); Blood Urea Nitrogen 15 mg/dl (9-20); Calcium 9.4 mg/dl (8.4-10.2); Carbon Dioxide 29 mmol/L (22.0-30.0); Chloride 108 mmol/L (98-107); Creatinine Clearance Estimated 104 mL/min (50-200); Estimated Glomerular Filt Rate 115 ml/min (>60); GFR (African American) 139 ML/MIN (>60); Glucose 91 mg/dl (74-100); Potassium 4.6 mmoL/L (3.5-5.1); Sodium 138 mmol/L (136-145); Total Protein,Serum 6.9 g/dl (6.3-8.2)
[2024-12-16] MEDS: ONDANSETRON 4MG ODT 16 MG (10:30)
[2024-12-16] MEDS: DEXAMETHASONE 4MG TABLET 12 MG (10:31)
[2024-12-16] MEDS: 0.9 % SODIUM CHLORIDE 50 ML 25 ML IV (10:31)
[2024-12-16] MEDS: FAMOTIDINE 20MG TABLET 20 MG (10:31)
[2024-12-16] MEDS: LORATADINE 10MG TABLET 10 MG PO (10:31)
[2024-12-16] MEDS: WATER IV (11:01)
[2024-12-16] MEDS: PACLITAXEL IV (11:01)
[2024-12-16] MEDS: DEXTROSE 5% IV (11:01)
[2024-12-16] MEDS: CARBOPLATIN IV (14:09)
[2024-12-16] MEDS: SODIUM CHLORIDE 0.9% IV (14:09)
== END 2024-12-16 15:15 | disposition home or self-care (01) ==
LOC: INF 09:13
PROVIDERS: PCP Family Medicine; Visit Provider Internal Medicine Medical Oncology
DX: C34.12 Malignant neoplasm of upper lobe, left bronchus or lung (principal)
CPT/HCPCS: 80053; 85025; 96413; 96415; 96417; J7060; J8540; J9045; J9267; Q0162

== ENCOUNTER 2025-01-06 12:53 | Outpatient (CLI) | payer BC, SELFPAY ==
--- NOTE | 2025-01-06 13:00 | CT_ITS ---
FINAL REPORT TECHNIQUE: After the administration of intravenous contrast, axial images were obtained through the abdomen and pelvis by computed tomography. The study was performed with techniques to keep radiation dose as low as reasonably achievable, (ALARA). Individual dose reduction techniques using automated exposure control or adjustment of mA and/or kV according to the patient's size were employed. CLINICAL HISTORY: Lung Cancer COMPARISON: CT chest 11/11/2024 FINDINGS: Abdomen: The liver parenchyma is homogeneous. The gallbladder is surgically absent. The spleen appears unremarkable. There is a nodule in the right adrenal gland measuring 11 mm, stable. The left adrenal gland is unremarkable. Is a corticated calcification in the superior pole of the left kidney. The aorta is normal in caliber. There is no free fluid or adenopathy. Pelvis: A large amount of stool is noted throughout the colon. There are postoperative changes of the base of the cecum. Extensive sigmoid diverticulosis is noted without evidence of diverticulitis. The urinary bladder is unremarkable. There is no free fluid or adenopathy. IMPRESSION: 11 mm right adrenal gland nodule, probable adenoma. Large amount of stool consistent with constipation. Reviewed, Interpreted and Dictated by Rosales Carreon MD Transcribed by Baylee Knox Authenticated and [facility]
--- NOTE | 2025-01-06 13:00 | CT_ITS ---
FINAL REPORT TECHNIQUE: Routine axial images were obtained from the lung apices to below the diaphragm following IV contrast administration. Individualized dose reduction techniques using automated exposure control or adjustment of the mA and/or kV according to the patient size were employed. CLINICAL HISTORY: lung cancer COMPARISON: 11/11/2024 FINDINGS: The mediastinum is adequately opacified. No mediastinal mass identified. No pleural or pericardial effusion is seen. The ascending aorta measures 3.5 cm in diameter. There is a cavitary focus in the anterior left upper lobe measuring 5.1 x 3.7 cm, slightly smaller than the previous study. Surrounding pleural thickening is noted. The previously noted soft tissue density in the superior aspect of the cavitary region is less evident and significantly smaller. There are 2 densities in the superior right upper lobe which are irregularly marginated, well seen on image 14 of series 4. Density in the posterior left lower lobe on image 34 of series 4 is stable compared to the previous exam. IMPRESSION: Cavitary lesion left upper lobe with adjacent pleural-based density, both smaller than the previous study. Stable densities right upper lobe and posterior left lower lobe. Reviewed, Interpreted and Dictated by Rosales Carreon MD Transcribed by Baylee Knox Authenticated and [facility]
[2025-01-06] MEDS: IOPAMIDOL-370 (76%);100ML BOTTLE 75 ML IV (14:09)
[2025-01-06] MEDS: SODIUM CHLORIDE 0.9% 10ML SYR (RAD ONLY) 10 ML IV (14:09)
== END 2025-01-06 23:59 | disposition home or self-care (01) ==
LOC: RAD 12:54
PROVIDERS: PCP Family Medicine; Visit Provider Internal Medicine Medical Oncology
DX: C34.12 Malignant neoplasm of upper lobe, left bronchus or lung (principal); C34.11 Malignant neoplasm of upper lobe, right bronchus or lung; C34.32 Malignant neoplasm of lower lobe, left bronchus or lung; E27.8 Other specified disorders of adrenal gland; K59.00 Constipation, unspecified
CPT/HCPCS: 71260; 74177; Q9967

== ENCOUNTER 2025-01-08 12:44 | Outpatient (CLI) | payer BC, SELFPAY ==
--- OUTSIDE RECORDS SUMMARY | 2025-01-08 12:46 | XMS_ITS | Continuity of Care Document ---
Author Organization [facility] REGINE Wang DOTHAN Address [address] [place] [address] Care Team Providers Care Software Developer Name Role Phone TIANA RIOJAS Radio Equipment Installer TESSA HORAN Primary Care Provider Assessment No assessment recorded. Plan of Treatment Reminders Order Date Submit Date Provider Last Modified By Organization Details Last Modified Time Details Appointments FOLLOW UP [facility], [facility] 2024 11:30A M TIANA RIOJAS PA-C Not available Not available Not available Lab None recorde d. Referral None recorde d. Procedures None recorde d. Surgeries None recorde d. Imaging None recorde d. Medication Orders None recorde d. Patient TargetsNo targets recorded. Patient InstructionsNo instructions recorded. Reason for Referral None Reported. Problems Name Problem SNOMED Code Status Onset Date Resolution Date Notes Provider Name and Address Organization Details Recorded Time Actinic keratosis 673511461 Active 024 Rhea Perez [facility] 4 13:16:04 Neoplasm of uncertain behavior of skin 80635254 Active 024 Rhea Perez [facility] 4 13:17:31 Malignant neoplasm of lung 631423519 Active 025 Gabriela Palomo [facility] 5 10:52:19 Problem Notes None recorded. Procedures Surgical History Date Name Laterality Status Provider Name and Address Organization Details Recorded Time 11/10/2024 DAK - Cryo AK completed Mikayla Leach [facility] 11/10/2024 10:59:34 03/12/2024 DAK - Cryo AK completed Wojciech Sparks [facility] 03/12/2024 13:39:18 08/22/2023 Blade Biopsy completed Rhea Perez [facility] 08/22/2023 13:17:27 Imaging Results None recorded. [...] Status Smoker, Current Status Unknown Lucina Watts [facility], [facility] 08/22/2023 13:11:09 Sunscreen Use? No amber Informatio n not available 08/22/2023 Tanning Bed Use No Informati on not available 08/22/2023 What Was The Date Of Your Most Recent Tobacco Screening? 11/10/2024 [email or web address] Information not available 11/10/2024 Sex: Male Functional Status Question Answer Note LastModified by Organizat ion Details LastModified Time What is your level of alcohol consumption? Occasional Information not available 08/22/2023 Mental Status None recorded. Family History Relationship [...] SNOMED-CT Code Diagnosis ICD10 Code Diagnosis Note [id number] TIANA RIOJAS PA-C [address] [address] 11/10/2024 10:31:35 11/10/2024 11:03:04 Actinic keratosis 622633340 L57.0 Actinic keratoses are precancero us lesions that may progress to squamous cell carcinoma if untreated. UV light and genetics may increase risk. Treated lesions should blister, scab over, and heal within a few weeks. If treated lesion(s) does not resolve within 1-2 months, patient agrees to follow up for re-evaluat ion. Asteatosis cutis 7501717 0 L85.3 Use fragrance free/dye free soaps or non-soap cleansers. Recommend moisturizi ng cream daily. Creams are thicker than lotions. Cetaphil is a good OTC cream. Health Concerns Section Related Observation LastModified by Organization Detai ls LastModified Time None Recorded Concern Status LastModified by Organization Details LastModified Time None Recorded Payers Encounter Date Sequence Insurance Name Policy Number Policy Alejandre Covered Member ID Alejandre Member ID Guarantor Name 11/10/2024 1 [place] [id number] R Ubaldo Villagran [id number] Ubaldo Villagran Notes Date Note Type Note Provider Name and Address Organization Details Recorded Time 11/10/2024 text/html Follow up for: Actinic Keratosis - Location: Scalp. Face.- Duration: 1 year- Prior Treatments: LN2. Reports: Pt noticed a new spot on left cheek Pt finished radiation treatment October 24 and is currently on chemo for lung cancer TIANA RIOJAS PA-C [address] [place], [address], [facility] 11/10/2024 12:22:15
--- OUTSIDE RECORDS SUMMARY | 2025-01-08 12:46 | XMS_ITS | Data Portability ---
Author Organization [facility] Clinbeto marley [facility] [place] CLOSED Address [address] [facility] [address] [place] [address] Care Team Providers Care German Professor Name Role Phone TIANA RIOJAS Order Takers Supervisor TESSA HORAN Primary Care Provider Assessment No assessment recorded. Plan of Treatment Reminders Order Date Submit Date Provider Last Modified By Organization Details Last Modified Time Details Appointments FOLLOW UP DAK 2024 11:30A M TIANA RIOJAS PA-C Not available Not available Not available Lab surgica l patholo gy study - R/O BCC vs Irritat ed nevus 2023 024 [facility], [address] [place] [address], [phone], 08/24/2023 16:14:58 Referral None recorde d. Procedures [...] Recorded Time [facility]inic [facility]atosis [facility] 13:16:04 Neoplasm of uncertain behavior of skin 49298448 Active 024 [facility] 4 13:17:31 Malignant neoplasm of lung 378499282 Active 025 Gabriela driver [facility] 10:52:19 Problem Notes None recorded. Procedures Surgical History Date Name Laterality Status Provider Name and Address Organization Details Recorded Time 11/10/2024 DAK - Cryo AK completed Mikayla Leach [facility] 11/10/2024 10:59:34 03/12/2024 DAK - Cryo AK completed Wojciech Bridger [facility] 03/12/2024 13:39:18 08/22/2023 Blade Biopsy completed Rhea Perez [facility] 08/22/2023 13:17:27 Imaging Results None recorded. [...] Smoking Status Smoker, Current Status Unknown Lucina Farmerharlan [facility] 08/22/2023 13:11:09 Sunscreen Use? No Informatio n not available [...] available 11/10 10:51:53 Medical History Condition Response Squamous Cell Carcinoma Y Skin Cancer Y Past Encounters Encounter ID Performer Location Encounter Start Date Encounter Closed Date Diagnosis/Indication Diagnosis SNOMED-CT Code Diagnosis ICD10 Code Diagnosis Note [id number] OLIVER PAINTER, [facility] [address] [place] [address] 07/17/2023 10:19:30 07/18/2023 10:04:40 [id number] TIANA RIOJAS PA-C [facility] [address] [place] [address] 08/22/2023 12:56:39 08/23/2023 14:33:10 Actinic keratosis 471087643 L57.0 Actinic keratoses are precancero us lesions that may progress to squamous cell carcinoma if untreated. UV light and genetics may increase risk. 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 [id number] TIANA RIOJAS PA-C [address] [address] 11/10/2024 10:31:35 11/10/2024 11:03:04 Actinic keratosis 050225170 L57.0 Actinic keratoses are precancero us lesions that may progress to squamous cell carcinoma if untreated. UV light and genetics may increase risk. Treated lesions should blister, scab over, and heal within a few weeks. If treated lesion(s) does not resolve within 1-2 months, patient agrees to follow up for re-evaluat ion. Asteatosis cutis 6404632 0 L85.3 Use fragrance free/dye free soaps or non-soap cleansers. Recommend moisturizi ng cream daily. Creams are thicker than lotions. Cetaphil is a good OTC cream. Health Concerns Section Related Observation LastModified by Organization Detai ls LastModified Time None Recorded Concern Status LastModified by Organization Details LastModified Time None Recorded Advance Directives Directive None Recorded Payers Insurance Date Sequence Insurance Name Policy Number Policy Alejandre Covered Member ID Alejandre Member ID Guarantor Name 11/12/2024 1 [place] [id number] R Ubaldo Villagran [id number] Ubaldo Villagran Notes Date Note Type [...] Raised, rough spot. TIANA RIOJAS PA-C [address] [place], [address], [facility] 08/22/2023 13:24:15 03/12/2024 text/html 1. Follow up for: Actinic Keratosis - Location: Scalp. Face.- Duration: Six months.- Prior Treatments: LN2.. 2. I have a spot on my neck. - Location: Right neck.- Duration: Three months.- Prior treatments: None.- REPORTS: Raised, rough spot. TIANA RIOJAS PA-C [address] [place], [address], [facility] 03/12/2024 13:51:23 11/10/2024 text/html Follow up for: Actinic Keratosis - Location: Scalp. Face.- Duration: 1 year- Prior Treatments: LN2. Reports: Pt noticed a new spot on left cheek Pt finished radiation treatment October 24 and is currently on chemo for lung cancer TIANA RIOJAS PA-C [address] [place], [address], [facility] 11/10/2024 12:22:15
--- NOTE | 2025-01-08 13:48 | PC.NURSE ---
1348-collected labs via venipuncture stick in left ac with butterfly needle;pt to oncology appt.
[2025-01-08 14:35] LABS: Basophils % 0.8 % (0.1-2.0); Eosinophils % 0.4 % (0.1-12.0); Hematocrit 31.5 % (42.0-52.0); Hemoglobin 10.1 g/dL (14.1-18.0); Immature Granulocytes # 0.05 10^3uL; Lymphocytes # 0.9 K/mm3 (0.7-4.5); Lymphocytes % 17.9 % (10-50); Mean Corpuscular HGB Conc 32.1 g/dL (31.8-35.4); Mean Corpuscular Hemoglobin 31.9 pg (27.0-31.2); Mean Corpuscular Volume 99.4 fl (80-94); Mean Platelet Volume 10.7 fl (7.4-10.4); Monocytes # 0.8 K/mm3 (0.1-1.0); Monocytes % 15.2 % (1.7-9.3); Neutrophils # 3.2 K/mm3 (1.8-7.8); Neutrophils % 64.7 % (37.0-80.0); Nucleated Red Blood Cells # 0 10^3/uL; Nucleated Red Blood Cells % 0 %; Platelet Count 257 K/mm3 (142-424); Red Blood Count 3.17 M/mm3 (4.60-6.20); Red Cell Distribution Width 16.5 % (11.5-17.5); Red Cell Distribution Width-SD 59.9 fL; White Blood Count 4.9 K/mm3 (4.8-10.8)
[2025-01-08 14:42] LABS: Alanine Aminotransferase 29 U/L (12-78); Albumin Level 4.1 g/dl (3.5-5.0); Albumin/Globulin Ratio 1.4 (1.1-1.8); Alkaline Phosphatase 69 U/L (38-126); Anion Gap 4.6 mEq/L (5-15); Aspartate Amino Transferase 24 U/L (17-59); Bilirubin,Total 0.4 mg/dl (0.2-1.3); Blood Urea Nitrogen 10 mg/dl (9-20); Calcium 8.9 mg/dl (8.4-10.2); Carbon Dioxide 29 mmol/L (22.0-30.0); Chloride 103 mmol/L (98-107); Estimated Glomerular Filt Rate 115 ml/min (>60); GFR (African American) 139 ML/MIN (>60); Glucose 78 mg/dl (74-100); Potassium 3.6 mmoL/L (3.5-5.1); Sodium 133 mmol/L (136-145); Total Protein,Serum 7.1 g/dl (6.3-8.2)
== END 2025-01-08 13:52 | disposition home or self-care (01) ==
LOC: RT 12:45 → INF 13:45
PROVIDERS: Internal Medicine Medical Oncology; PCP Family Medicine; Visit Provider Internal Medicine Pulmonary Disease
DX: C34.12 Malignant neoplasm of upper lobe, left bronchus or lung (principal)
CPT/HCPCS: 36415; 80053; 85025; 94618

== ENCOUNTER 2025-01-27 14:53 | Outpatient (CLI) | payer BC, SELFPAY ==
--- OUTSIDE RECORDS SUMMARY | 2025-01-27 14:57 | XMS_ITS | Encounter Summary ---
Author Organization Healthcare Address [address] [place] [address] Care Team Providers Care Publication Director Name Role Phone None, None Primary Care Provider Pcp, No Primary Care Provider Unavailabl e Encounter Details Date Type Department Care Team ([facility] st Contact Info) Description 02/07/2023 Orders Only External Location [address] [place] [address] Provider, External Social History Tobacco Use Types Packs/Day Years Used Date Smoking Tobacco: Every Day Alcohol Use Standard Drinks/Week Comments No 0 (1 standard drink = 0.6 oz pur e alcohol) Sex and Gender Information Value Date Recorded Sex Assigned at Male 08/11/2024 10:43 AM EST Legal Sex Male 7:39 PM EDT Gender Identity Not on file Sexual Orientation Not on file documented as of this encounter Plan of Treatment Not on file documented as of this encounter Procedures Procedure Name Priority Date/Time Associated Diagnosis Comments CT ANGIO HEAD 02/07/2023 9:40 AM EDT documented in this encounter Results * CT Angio Head (02/07/2023 9:40 AM EDT) Anatomical Region Laterality Modality [place] Computed Tomogr aphy 02/07/2023 9:40 AM EDT us External Provider IMG CT PROCEDURES Final Result documented in this encounter Visit Diagnoses Not on filedocumented in this encounter Care Teams Publication Director Relationship Specialty Start Date End Date None, None [address] [place] [address] PCP - General NONE FOUND 07/12/23 03/06/24 Pcp, [place] [address] PCP - General Family Medicine 07/13/24 documented as of this encounter
--- OUTSIDE RECORDS SUMMARY | 2025-01-27 14:57 | XMS_ITS | Encounter Summary ---
Author Organization Healthcare Address [address] [place] [address] Care Team Providers Care Mimeographer Name Role Phone None, None Primary Care Provider [phone] Pcp, No Primary Care Provider Unavailabl e Encounter Details Date Type Department Care Team (Late st Contact Info) Description 08/23/2022 Orders Only External Location [address] [place] [address] Jillian Ortiz, MEDICAL LIBRARY ASSISTANT [address] [facility] [address] [place] [address] Social History Tobacco Use Types Packs/Day Years [...] Procedure Name Priority Date/Time Associated Diagnosis Comments US OUTSIDE IMAGES 08/23/2022 8:58 AM EST documented in this encounter Results * US OUTSIDE IMAGES (08/23/2022 8:58 AM EST) Anatomical Region Laterality Modality Ultrasound 08/23/2022 8:58 AM EST us Jillian Ortiz MEDICAL LIBRARY ASSISTANT IMG US PROCEDURES Final Resu lt documented in this encounter Visit Diagnoses Not on filedocumented in this encounter Care Teams Mimeographer Relationship Specialty Start Date End Date None, None [address] [place] [address] PCP - General NONE FOUND 07/12/23 03/06/[place] [address] PCP - General Family Medicine 07/13/24 documented as of this encounter
--- OUTSIDE RECORDS SUMMARY | 2025-01-27 14:57 | XMS_ITS | Encounter Summary ---
Author Organization Healthcare Address [address] [place] [address] Care Team Providers Care Merchandise Handler Name Role Phone None, None Primary Care Provider Pcp, No Primary Care Provider Unavailabl e Encounter Details Date Type Department Care Team ([facility] st Contact Info) Description 12/19/2020 Orders Only External Location [address] [place] [address] Provider, External Social History Tobacco Use Types [...] Procedure Name Priority Date/Time Associated Diagnosis Comments XR OUTSIDE IMAGES 12/19/2020 2:01 PM EDT documented in this encounter Results * XR OUTSIDE IMAGES (12/19/2020 2:01 PM EDT) Anatomical Region Laterality Modality Radiographic Nohemy ging 12/19/2020 2:01 PM EDT us External Provider IMG XR PROCEDURES Final Result documented in this encounter Visit Diagnoses Not on filedocumented in this encounter Care Teams Merchandise Handler Relationship Specialty Start Date End Date None, None [address] [place] [address] PCP - General NONE FOUND 07/12/23 03/06/24 Pcp, No [address] [place] [address] PCP - General Family Medicine 07/13/24 documented as of this encounter
--- OUTSIDE RECORDS SUMMARY | 2025-01-27 14:57 | XMS_ITS | Encounter Summary ---
Author Organization Healthcare Address [address] [place] [address] Care Team Providers Care Social Services Specialist Name Role Phone None, None Primary Care Provider Pcp, No Primary Care Provider Unavailabl e Encounter Details Date Type Department Care Team ([facility] st Contact Info) Description 02/28/2021 Orders Only External Location [address] [place] [address] Provider, External Social History Tobacco Use Types [...] Date/Time Associated Diagnosis Comments XR OUTSIDE IMAGES 02/28/2021 2:22 PM EDT documented in this encounter Results * XR OUTSIDE IMAGES (02/28/2021 2:22 PM EDT) Anatomical Region Laterality Modality Radiographic Nohemy ging 02/28/2021 2:22 PM EDT us External Provider IMG XR PROCEDURES Final Result documented in this encounter Visit Diagnoses Not on filedocumented in this encounter Care Teams Social Services Specialist Relationship Specialty Start Date End Date None, None [address] [place] [address] PCP - General NONE FOUND 07/12/23 03/06/24 Pcp, No [address] [place] [address] PCP - General Family Medicine 07/13/24 documented as of this encounter
--- OUTSIDE RECORDS SUMMARY | 2025-01-27 14:57 | XMS_ITS | Encounter Summary ---
Author Organization Healthcare Address [address] [place] [address] Care Team Providers Care Local Tanker Truck Driver Name Role Phone None, None Primary Care Provider Pcp, No Primary Care Provider Unavailabl e Encounter Details Date Type Department Care Team ([facility] st Contact Info) Description 12/04/2016 Orders Only External Location [address] [place] [address] Provider, External Social History Tobacco Use Types Packs/Day Years Used Date Smoking Tobacco: Never Assessed Sex and Gender Information Value Date Recorded Sex Assigned at Male 08/11/2024 10:43 AM EST Legal Sex Male 7:39 PM EDT Gender Identity Not on file Sexual Orientation Not on file documented as of this encounter Plan of Treatment Not on file documented as of this encounter Procedures Procedure Name Priority Date/Time Associated Diagnosis Comments CT OUTSIDE IMAGES 12/04/2016 5:14 PM EDT documented in this encounter Results * CT OUTSIDE IMAGES (12/04/2016 5:14 PM EDT) Anatomical Region Laterality Modality Computed Tomogra phy 12/04/2016 5:14 PM EDT us External Provider IMG CT PROCEDURES Final Result documented in this encounter Visit Diagnoses Not on filedocumented in this encounter Care Teams Local Tanker Truck Driver Relationship Specialty Start Date End Date None, None [address] [place] [address] PCP - General NONE FOUND 07/12/23 03/06/24 Pcp, No [address] [place] [address] PCP - General Family Medicine 07/13/24 documented as of this encounter
--- OUTSIDE RECORDS SUMMARY | 2025-01-27 14:57 | XMS_ITS | Encounter Summary ---
Author Organization Healthcare Address [address] [place] [address] Care Team Providers Care Grease Maker Head Name Role Phone None, None Primary Care Provider Pcp, No Primary Care Provider Unavailabl e Encounter Details Date Type Department Care Team ([facility] st Contact Info) Description 07/27/2022 Orders Only External Location [address] [place] [id number] Provider, External Social History Tobacco Use Types [...] Procedure Name Priority Date/Time Associated Diagnosis Comments MR OUTSIDE IMAGES 07/27/2022 12:56 PM EST documented in this encounter Results * MR transfer of outside films (07/27/2022 12:56 PM EST) Anatomical Region Laterality Modality Magnetic Resonan ce 07/27/2022 12:5 6 PM EST us External Provider IMG MRI PROCEDURES Final Resul t documented in this encounter Visit Diagnoses Not on filedocumented in this encounter Care Teams Grease Maker Head Relationship Specialty Start Date End Date None, None [address] [place] [address] PCP - General NONE FOUND 07/12/23 03/06/24 Pcp, No [address] [place] [address] PCP - General Family Medicine 07/13/24 documented as of this encounter
--- OUTSIDE RECORDS SUMMARY | 2025-01-27 14:57 | XMS_ITS | Encounter Summary ---
Author Organization Healthcare Address [address] [place] [address] Care Team Providers Care Scleroscope Tester Name Role Phone None, None Primary Care Provider [phone] Pcp, No Primary Care Provider Unavailabl e Encounter Details Date Type Department Care Team ([facility] st Contact Info) Description 07/27/2022 Orders Only External Location [address] [place] [phone] Provider, External Social History Tobacco Use Types [...] Date/Time Associated Diagnosis Comments US OUTSIDE IMAGES 07/27/2022 2:10 PM EST documented in this encounter Results * US OUTSIDE IMAGES (07/27/2022 2:10 PM EST) Anatomical Region Laterality Modality Ultrasound 07/27/2022 2:10 PM EST us External Provider IMG US PROCEDURES Final Result documented in this encounter Visit Diagnoses Not on filedocumented in this encounter Care Teams Scleroscope Tester Relationship Specialty Start Date End Date None, None [address] [place] [address] PCP - General NONE FOUND 07/12/23 03/06/24 Pcp, No [address] [place] [address] PCP - General Family Medicine 07/13/24 documented as of this encounter
--- OUTSIDE RECORDS SUMMARY | 2025-01-27 14:57 | XMS_ITS | Encounter Summary ---
Author Organization Healthcare Address [address] [place] [address] Care Team Providers Care Endodontic Assistant Name Role Phone Pcp, No Primary Care Provider Unavailabl e Encounter Details Date Type Department Care Team (Late st Contact Info) Description 08/07/2024 Lab Requisition [facility] [address] [place] [address] Neli Ventura MD [address] [place] [address] Solitary pulmonary nodule Social History Tobacco Use Types Packs/Day Years [...] Procedure Name Priority Date/Time Associated Diagnosis Comments CYTOLOGY CONSULT 08/07/2024 11:5 4 AM EST Solitary pulmonary nodule documented in this encounter Results * Cytology Consult (08/07/2024 11:54 AM EST) Case Report Cytology Case: [id number] Authorizing Provider: Neli Ventura MD Collected: 08/07/2024 1154 Ordering Location: [facility] Received: 08/07/2024 1154 Pathologist: Anne Marie Keita MD Specimen: Lymph Node, [id number] 08/14/2024 3:30 PM EST [facility] Final Diagnosis OUTSIDE CASE: [id number] COLLECTED ON 07/21/2024: A. LYMPH NODE, STATION 7, FINE NEEDLE ASPIRATION: - LYMPHOID TISSUE, NEGATIVE FOR MALIGNANCY. B. LYMPH NODE, STATION 10L, FINE NEEDLE ASPIRATION: - RARE ATYPICAL CELLS PRESENT (SEE COMMENT). C. LUNG, LEFT UPPER LOBE, BRONCHIAL LAVAGE: - RARE ATYPICAL CELLS PRESENT. 08/14/2024 3:30 PM EST [facility] at 1530 EST Comment The atypical cells are scant and present in a background of markedly reactive bronchial epithelial cells. A more definitive diagnosis cannot be rendered on the current specimen. Dr. Dc Stephens has reviewed this case, and concurs with the diagnosis. Dr. Bryn Guerra was notified of the diagnosis by Dr. Keita via secure message on 08/14/24 at 3:30 PM. 08/14/2024 3:30 PM EST [facility] Clinical Information R91.1 - Solitary pulmonary nodule [ICD-10-CM] 08/14/2024 3:30 PM EST [facility] Gross Description A. [id number] Received along with a corresponding pathology report from [facility] are 6 slide(s) labeled outside case: [id number] collected on 07/21/2024. 08/14/2024 3:30 PM EST [facility] Fine Needle Aspirate Lymph node specimen / Unknown 08/07/2024 11:54 AM EST 08/07/2024 11:54 AM EST us Neli Ventura MD LAB PATHOLOGY ORDERABLES Final Result [facility] [address] [place] [address] documented in this encounter Visit Diagnoses Diagnosis Solitary pulmonary nodule documented in this encounter Care Teams Endodontic Assistant Relationship Specialty Start Date End Date Pcp, No [address] [place] [address] PCP - General Family Medicine 07/13/24 documented as of this encounter
--- OUTSIDE RECORDS SUMMARY | 2025-01-27 14:57 | XMS_ITS | Encounter Summary ---
Author Organization Healthcare Address [address] [place] [address] Care Team Providers Care Dental Scheduling Coordinator Name Role Phone None, None Primary Care Provider Pcp, No Primary Care Provider Unavailabl e Encounter Details Date Type Department Care Team ([facility] st Contact Info) Description 08/23/2022 Orders Only External Location [address] [place] [address] Jillian Ortiz ELECTRICAL FOREMAN [address] [facility] [address] [place] [address] Social History Tobacco Use Types [...] Procedure Name Priority Date/Time Associated Diagnosis Comments NM OUTSIDE IMAGES 08/23/2022 7:57 AM EST documented in this encounter Results * NM OUTSIDE IMAGES (08/23/2022 7:57 AM EST) Anatomical Region Laterality Modality Nuclear Medicine 08/23/2022 7:57 AM EST Jillian Ortiz ELECTRICAL FOREMAN IMG NM PROCEDURES Final Resu lt documented in this encounter Visit Diagnoses Not on filedocumented in this encounter Care Teams Dental Scheduling Coordinator Relationship Specialty Start Date End Date None, None [address] [place] [address] PCP - General NONE FOUND 07/12/23 03/06/24 [place] [address] PCP - General Family Medicine 07/13/24 documented as of this encounter
--- OUTSIDE RECORDS SUMMARY | 2025-01-27 14:57 | XMS_ITS | Clinical Summary ---
Author Organization [facility] Address [address] [place] [address] Phone [email or web address] Care Team Providers Care Provider Relations Coordinator Name Role Phone Unavailable Primary Care Provider Unavailabl e Allergies No known active allergies Medications sulfaSALAzine (AZULFIDINE) 500 MG tablet Take 500 mg by mouth twice a day. Active tamsulosin (FLOMAX) 0.4 MG 24 hr capsule Take 0.4 mg by mouth 1 (one) time each day. Active citalopram (CeleXA) 10 MG tablet Take 10 mg by mouth 1 (one) time each day. Active ferrous sulfate 325 (65 Fe) MG tablet Take 325 mg by mouth 1 (one) time each day with breakfast. Active cyanocobalamin (VITAMIN B-12) 1000 MCG tablet Take 100 mcg by mouth 1 (one) time each day. Active saccharomyces boulardii (FLORASTOR) 250 MG capsule Take 250 mg by mouth 2 (two) times a day. Active cholestyramine light 4 g packet Take 1-2 packets by mouth. 9 Active hydrocortisone (PROCTOSOL HC) 2.5 % rectal cream Apply 1 Tube topically 2 times daily as needed. 9 Active ondansetron (ZOFRAN) 4 MG tablet Take 1 tablet by mouth. 9 Active pantoprazole (PROTONIX) 40 MG EC tablet Take 1 tablet by mouth. 9 Active ustekinumab (STELARA) injection Inject 90 mg under the skin every 3 (three) months. Active hydroCHLOROthia zide (MICROZIDE) 12.5 MG capsule Take 12.5 mg by mouth 1 (one) time each day. Active Active Problems No known active problems Social History Tobacco Use Types Packs/Day Years Used Date Smoking Tobacco: Every Day Smokeless Tobacco: Never Intimate Partner Violence Answer Date R ecorded Insults You Not on file 11/23/2020 Threatens You Not on file 11/23/2020 Screams at You Not on file 11/23/2020 Physically Hurt Not on file 11/23/2020 Intimate Partner Violence Score Not on file 11/23/2020 Depression Answer Date Recorded PHQ-9 Total Score 0 10/10/2019 Stress Answer Date Recorded Stress in your Life Not on file 06/16/2024 Dealing with Stress 3 06/16/2024 Sex and Gender Information Value Date Recorded Sex Assigned at Not on file Legal Sex Male 7:30 AM CDT Gender Identity Not on file Sexual Orientation Not on file Last Filed Vital Signs Vital Sign Reading Time Taken Comments Blood Pressure 117/78 10/10/2019 3:44 PM EST Pulse 85 10/10/2019 3:44 PM EST Temperature 36.7 C (98 F) 08/04/2021 11:34 AM EST Respiratory Rate 16 10/10/2019 3:44 PM EST Oxygen Saturation 99% 10/10/2019 3:44 PM EST Inhaled Oxygen Concentration - - Weight 56.2 kg (124 lb) 11/22/2018 7:31 AM CDT Height - - Body Mass Index - - Plan of Treatment Health Maintenance Due Date Last Done Comments Dental Cleaning/Exam 1965 HIV Screening 1965 Hepatitis C Screening 1965 Annual Preventive Exam 02/10/1982 Hep B Infection Screening - Triple Screen 02/10/1982 Pneumococcal: Ped (0 to 5 Yrs) and At-Risk Member (6 to 64 Yrs) (1 of 2 - PCV) 02/10/1983 Tetanus Diphtheria and Pertussis Immunization (1 - Tdap) 02/10/1983 Colorectal Cancer Screening 02/10/1994 Zoster Immunization (1 of 2) 02/10/2014 Covid-19 Immunization (3 - season) 2024 11/09/2020, 10/19/2020 Influenza Immunization (Season Ended) 2025 07/31/2018 HIB Immunization Aged Out No longer e ligible based on patient's age to complete this topic HPV Immunization Aged Out No longer e ligible based on patient's age to complete this topic Hepatitis A Immunization Aged Out No longer eligible based on patient's age to complete this topic Hepatitis B Immunization Aged Out No longer eligible based on patient's age to complete this topic Polio Immunization Aged Out No longer eligible based on patient's age to complete this topic Insurance ANTHEM IN COPAY 5 ANTHSAMANTHA IN COPAY 5
--- OUTSIDE RECORDS SUMMARY | 2025-01-27 14:57 | XMS_ITS | Encounter Summary ---
Author Organization Healthcare Address [address] [place] [address] Care Team Providers Care Strike Plate Attacher Name Role Phone None, None Primary Care Provider [phone] Pcp, No Primary Care Provider Unavailabl e Encounter Details Date Type Department Care Team ([facility] st Contact Info) Description 10/18/2020 Orders Only External Location [address] [place] [id number] Provider, External Social History Tobacco Use Types [...] Date/Time Associated Diagnosis Comments XR OUTSIDE IMAGES 10/18/2020 10:05 AM EST documented in this encounter Results * XR OUTSIDE IMAGES (10/18/2020 10:05 AM EST) Anatomical Region Laterality Modality Radiographic Nohemy ging 10/18/2020 10:0 5 AM EST us External Provider IMG XR PROCEDURES Final Result documented in this encounter Visit Diagnoses Not on filedocumented in this encounter Care Teams Strike Plate Attacher Relationship Specialty Start Date End Date None, None [address] [place] [address] PCP - General NONE FOUND 07/12/23 03/06/24 Pcp, No [address] [place] [address] PCP - General Family Medicine 07/13/24 documented as of this encounter
--- OUTSIDE RECORDS SUMMARY | 2025-01-27 14:57 | XMS_ITS | Clinical Summary ---
Author Organization [employer] Address [address] [place] [address] Care Team Providers Care Cops Name Role Phone Unavailable Primary Care Provider Unavailabl e Social History Tobacco Use Types Packs/Day Years Used Date Smoking Tobacco: Never Assessed Sex and Gender Information Value Date Recorded Sex Assigned at Male 02/07/2022 8:30 PM CDT Legal Sex Male 8:30 PM CDT Gender Identity Male 02/07/2022 8:30 PM CDT Sexual Orientation Not on file Plan of Treatment Health Maintenance Due Date Last Done Comments CT Colonography 1964 Colonoscopy 1964 Colorectal Cancer Screening 1964 FOBT/FIT 1964 Fit-DNA (Cologuard) 1965 Sigmoidoscopy 1964 Depression Screening (12+) 1976 Tobacco Cessation Counseling and Screening (12+) 1976 HIV Screening 02/10/1979 Hepatitis C Screening 02/10/1982 Pneumococcal 50+ years (1 of 2 - PCV) 02/10/1983 Lipid Panel 02/10/1999 Shingles Vaccine (Zoster) (1 of 2) 02/10/2014 COVID-19 VACCINE ( season) 2024 09/14/2021, 11/09/2020, 10/19/2020 Influenza Vaccine (Season Ended) 2025 DTAP/TDAP/TD VACCINES (2 - T d or Tdap) 12/19/2030 12/19/2020
--- OUTSIDE RECORDS SUMMARY | 2025-01-27 14:57 | XMS_ITS | Encounter Summary ---
Author Organization Healthcare Address [address] [place] [address] Care Team Providers Care Abstract Checker Name Role Phone None, None Primary Care Provider Pcp, No Primary Care Provider Unavailabl e Encounter Details Date Type Department Care Team (Late st Contact Info) Description 12/09/2018 Orders Only External Location [address] [place] [address] Antonio Guzman MD [address] [facility] [address] [place] [address] Social History Tobacco Use Types Packs/Day Years [...] Date/Time Associated Diagnosis Comments XR OUTSIDE IMAGES 12/09/2018 10:10 AM EDT documented in this encounter Results * XR OUTSIDE IMAGES (12/09/2018 10:10 AM EDT) Anatomical Region Laterality Modality Radiographic Nohemy ging 12/09/2018 10:1 0 AM EDT Antonio INFANTEG XR PROCEDURES Final Result documented in this encounter Visit Diagnoses Not on filedocumented in this encounter Care Teams Abstract Checker Relationship Specialty Start Date End Date None, None [address] [place] [address] PCP - General NONE FOUND 07/12/23 03/06/24 Pcp, [place] [address] PCP - General Family Medicine 07/13/24 documented as of this encounter
--- OUTSIDE RECORDS SUMMARY | 2025-01-27 14:57 | XMS_ITS | Encounter Summary ---
Author Organization Healthcare Address [address] [place] [address] Care Team Providers Care Sample Book Maker Name Role Phone Pcp, No Primary Care Provider Unavailabl e Encounter Details Date Type Department Care Team ([facility] st Contact Info) Description 07/21/2024 Orders Only External Location [address] [place] [address] Provider, External Social History Tobacco Use Types [...] Date/Time Associated Diagnosis Comments XR OUTSIDE IMAGES 07/21/2024 11:52 AM EST documented in this encounter Results * XR OUTSIDE IMAGES (07/21/2024 11:52 AM EST) Anatomical Region Laterality Modality Radiographic Nohemy ging 07/21/2024 11:5 2 AM EST us External Provider IMG XR PROCEDURES Final Result documented in this encounter Visit Diagnoses Not on filedocumented in this encounter Care Teams Sample Book Maker Relationship Specialty Start Date End Date Pcp, No [address] [place] [address] PCP - General Family Medicine 07/13/24 documented as of this encounter
--- OUTSIDE RECORDS SUMMARY | 2025-01-27 14:57 | XMS_ITS | Encounter Summary ---
Author Organization Healthcare Address [address] [place] [address] Care Team Providers Care Technical Instructor Course Developer Name Role Phone Pcp, No Primary Care Provider Unavailabl e Encounter Details Date Type Department Care Team ([facility] st Contact Info) Description 07/28/2024 Orders Only External Location [address] [place] [address] Provider, External Social History Tobacco Use Types [...] Date/Time Associated Diagnosis Comments MR OUTSIDE IMAGES 07/28/2024 6:48 AM EST documented in this encounter Results * MR transfer of outside films (07/28/2024 6:48 AM EST) Anatomical Region Laterality Modality Magnetic Resonan ce 07/28/2024 6:48 AM EST us External Provider IMG MRI PROCEDURES Final Resul t documented in this encounter Visit Diagnoses Not on filedocumented in this encounter Care Teams Technical Instructor Course Developer Relationship Specialty Start Date End Date Pcp, No [address] [place] [address] PCP - General Family Medicine 07/13/24 documented as of this encounter
--- OUTSIDE RECORDS SUMMARY | 2025-01-27 14:57 | XMS_ITS | Encounter Summary ---
Author Organization Healthcare Address [address] [place] [address] Care Team Providers Care School Office Manager Name Role Phone Pcp, No Primary Care Provider Unavailabl e Encounter Details Date Type Department Care Team (Late st Contact Info) Description 08/07/2024 Lab Requisition [facility] [address] [place] [address] Neli Ventura MD [address] [place] [address] Solitary pulmonary nodule Social History Tobacco Use [...] Procedure Name Priority Date/Time Associated Diagnosis Comments SURGICAL PATHOLOGY CONSULT Routine 08/07/2024 11:26 AM EST Solitary pulmonary nodule documented in this encounter Results * Surgical Pathology Consult (08/07/2024 11:26 AM EST) Case Report Sugical Pathology Consult Case: [id number] Authorizing Provider: Neli Ventura MD Collected: 08/07/2024 1126 Ordering Location: [facility] Received: 08/07/2024 1126 Pathologist: Haroldo Laura DO Specimen: Lung, Left, [id number] 08/07/2024 2:47 PM [facility] Final Diagnosis OUTSIDE SLIDES; [id number], A-B; 07/21/2024 A. LUNG, LEFT, UPPER LOBE, ENDOBRONCHIAL BIOPSY: - POSITIVE FOR NON-SMALL CELL CARCINOMA, FAVOR SQUAMOUS CELL CARCINOMA (SEE COMMENT). B. LUNG, LEFT, UPPER LOBE, TRANSBRONCHIAL BIOPSY: - SCANT LUNG TISSUE; NEGATIVE FOR MALIGNANCY WITHIN THE BIOPSIED MATERIAL. 08/07/2024 2:47 PM [facility] at 1447 EST Comment Sections from the endobronchial biopsy show it to be involved by a malignant epithelioid tumor with solid architecture which on the provided immunostains show the tumor cells to stain diffuse and strongly positive for p40. The TTF-1 stain provided for review shows the tumor to stain weakly positive, though it is favored to represent non-specific background staining. Given only one tumor morphology is present and the strong p40 staining, the tumor is favored to represent a squamous cell carcinoma. Clinical and radiographic correlation is required to ensure this represents a pulmonary primary. 08/07/2024 2:47 PM [facility] Clinical Information R91.1 - Solitary pulmonary nodule [ICD-10-CM] 08/07/2024 2:47 PM [facility] Gross Description A. [id number] Received along with a corresponding pathology report from [facility] are 5 slide(s) labeled outside case: [id number] collected on 07/21/2024. 08/07/2024 2:47 PM [facility] Intradepartmental Consultation with Agreement Dr. Xiao (tumor classification) 08/07/2024 2:47 PM [facility] Note: A resident was involved in the service. I attest I examined the relevant preparations for the specimens and confirmed the diagnosis or interpretation. 08/07/2024 2:47 PM [facility] Tissue Left lung structure / Unknown 08/07/2024 11:26 AM EST 08/07/2024 11:26 AM EST us Neli Ventura MD LAB PATHOLOGY ORDERABLES Final Result [facility] [address] [place] [address] documented in this encounter Visit Diagnoses Diagnosis Solitary pulmonary nodule documented in this encounter Care Teams School Office Manager Relationship Specialty Start Date End Date Pcp, No [address] [place] [address] PCP - General Family Medicine 07/13/24 documented as of this encounter
--- OUTSIDE RECORDS SUMMARY | 2025-01-27 14:57 | XMS_ITS | Referral Summary ---
Author Organization [employer] Address [address] [place] [address] Care Team Providers Care Aquaculture Worker Name Role Phone Unavailable Primary Care Provider Unavailabl e Social History Tobacco Use Types Packs/Day Years Used Date Smoking Tobacco: Never Assessed Sex and Gender Information Value Date Recorded Sex Assigned at Male 02/07/2022 8:30 PM CDT Legal Sex Male 8:30 PM CDT Gender Identity Male 02/07/2022 8:30 PM CDT Sexual Orientation Not on file Plan of Treatment Not on file
--- OUTSIDE RECORDS SUMMARY | 2025-01-27 14:57 | XMS_ITS | Encounter Summary ---
Author Organization Healthcare Address [address] [place] [id number] Care Team Providers Care Front Edger Name Role Phone Pcp, No Primary Care Provider Unavailabl e Encounter Details Date Type Department Care Team ([facility] st Contact Info) Description 06/02/2024 Orders Only External Location [address] [place] [address] Provider, External Social History Tobacco Use Types [...] Date/Time Associated Diagnosis Comments CT OUTSIDE IMAGES 06/02/2024 8:36 AM EDT documented in this encounter Results * CT OUTSIDE IMAGES (06/02/2024 8:36 AM EDT) Anatomical Region Laterality Modality Computed Tomogra phy 06/02/2024 8:36 AM EDT us External Provider IMG CT PROCEDURES Final Result documented in this encounter Visit Diagnoses Not on filedocumented in this encounter Care Teams Front Edger Relationship Specialty Start Date End Date Pcp, No [address] [place] [address] PCP - General Family Medicine 07/13/24 documented as of this encounter
--- OUTSIDE RECORDS SUMMARY | 2025-01-27 14:57 | XMS_ITS | Clinical Summary ---
Author Organization Healthcare Address [address] [place] [address] Care Team Providers Care Dry Can Tender Name Role Phone Pcp, No Primary Care Provider Unavailabl e Allergies No known active allergies Medications acetaminophen (Tylenol) 325 MG tablet 0 Active albuterol 108 (90 Base) MCG/ACT inhaler INHALE 2 PUFFS BY MOUTH 4 TIMES DAILY NEEDED FOR SHORTNESS OF BREATH OR WHEEZING 4 Active aspirin 81 MG EC tablet Take 1 tablet (81 mg) by mouth Daily. Active Cholecalciferol 250 MCG (30049 UT) capsule Weekly 4 Active rosuvastatin (Crestor) 20 MG tablet 1 tablet (20 mg). 4 Active tamsulosin (Flomax) 0.4 MG 24 hr capsule TAKE 1 CAPSULE BY MOUTH AT BEDTIME FOR 90 DAYS Active traMADol (Ultram) 50 MG tablet 1 tablet as needed Orally three times a day as needed 4 Active Family History Medical History Relation Name Comments Heart attack Mother Stroke Mother Relation Name Status Comments Mother Social History Tobacco Use Types Packs/Day Years Used Date Smoking Tobacco: Former Cigarettes 1.5 45.9 S tarted: 1979 Smokeless Tobacco: Never Tobacco Cessation:Counseling Given: No Alcohol Use Standard Drinks/Week Comments No 0 (1 standard drink = 0.6 oz pur e alcohol) Sex and Gender Information Value Date Recorded Sex Assigned at Male 08/11/2024 10:43 AM EST Legal Sex Male 7:39 PM EDT Gender Identity Not on file Sexual Orientation Not on file Last Filed Vital Signs Vital Sign Reading Time Taken Comments Blood Pressure 170/83 08/11/2024 10:57 AM EST pt states he is a little light headed Pulse 51 08/11/2024 10:57 AM EST Temperature 36.4 C (97.5 F) 08/11/2024 10:57 AM EST Respiratory Rate 18 08/11/2024 10:5 7 AM EST Oxygen Saturation 98% 08/11/2024 10: 57 AM EST Inhaled Oxygen Concentration - - Weight 65.4 kg (144 lb 2.9 oz) 08/11/2024 10:57 AM EST Height 168.9 cm (5' 6.5 ) 08/11/2024 10 :57 AM EST Body Mass Index 22.92 08/11/2024 10:57 AM EST Plan of Treatment Health Maintenance Due Date Last Done Comments [facility]-Depression Screening 1964 [facility]-HIV Screening 1964 [facility]-Hepatitis C Screening 1964 [facility]-/Child/Adol SDOH Screenings 1964 [facility]- SDOH Screenings 02/10/1982 [facility]-Adult SDOH Screenings 02/10/1982 [facility]-Pneumococcal Vaccine: 50+ Years (1 of 2 - PCV) 02/10/1983 [facility]-Zoster Vaccines (1 of 2) 02/10/1983 CT Colonography 02/10/2009 Colonoscopy 02/10/2009 FIT-DNA 02/10/2009 FIT 02/10/2009 FOBT 02/10/2009 Sigmoidoscopy 02/10/2009 [facility]-Colorectal Cancer Screening 02/10/2009 [id number] Vaccine ( season) 2024 05/30/2023, 09/14/2021, 11/09/2020, Additional history exists [facility]-Influenza Vaccine (Season Ended) 2025 05/22/2022, 05/17/2021, 06/02/2019, Additional history exists [facility]-DTaP,Tdap,and Td Vaccines (2 - Td or Tdap) 12/19/2030 12/19/2020 [facility]-RSV Vaccine: 60+ Years or (1 - 1-dose 75+ series) 02/10/2039 HPV Vaccines Aged Out No longer eligi ble based on patient's age to complete this topic [facility]-HIB Vaccines Aged Out No longer e ligible based on patient's age to complete this topic [facility]-Hepatitis A Vaccines Aged Out No longer eligible based on patient's age to complete this topic [facility]-IPV Vaccines Aged Out No longer e ligible based on patient's age to complete this topic [facility]-Rotavirus Vaccines Aged Out No lo nger eligible based on patient's age to complete this topic Insurance ANTH Care Teams Dry Can Tender Relationship Specialty Start Date [place] [address] PCP - General Family Medicine 07/13/24
--- OUTSIDE RECORDS SUMMARY | 2025-01-27 14:57 | XMS_ITS | Encounter Summary ---
Author Organization Healthcare Address [address] [place] [address] Care Team Providers Care Chopped Strand Operator Name Role Phone Pcp, No Primary Care Provider Unavailabl e Encounter Details Date Type Department Care Team ([facility] st Contact Info) Description 07/21/2024 Orders Only External Location [address] [place] [address] Provider, External Social History Tobacco Use Types [...] Associated Diagnosis Comments XR OUTSIDE IMAGES 07/21/2024 12:11 PM EST documented in this encounter Results * XR OUTSIDE IMAGES (07/21/2024 12:11 PM EST) Anatomical Region Laterality Modality Radiographic Nohemy ging 07/21/2024 12:1 1 PM EST us External Provider IMG XR PROCEDURES Final Result documented in this encounter Visit Diagnoses Not on filedocumented in this encounter Care Teams Chopped Strand Operator Relationship Specialty Start Date End Date Pcp, No [address] [place] [address] PCP - General Family Medicine 07/13/24 documented as of this encounter
[2025-01-27 15:52] LABS: Iron 50 ug/dL (49-181)
[2025-01-27 16:37] LABS: Ferritin 161 ng/ml (17.9-464)
[2025-01-27 16:58] LABS: Total Iron Binding Capacity 281 ug/dL (261-462)
== END 2025-01-27 15:13 | disposition home or self-care (01) ==
LOC: LAB 14:55 → INF 14:57
PROVIDERS: PCP Family Medicine; Visit Provider Internal Medicine Medical Oncology
DX: D64.9 Anemia, unspecified (principal)
CPT/HCPCS: 36415; 82728; 83540; 83550

== ENCOUNTER 2025-02-06 09:03 | Outpatient (CLI) | payer BC, SELFPAY ==
--- OUTSIDE RECORDS SUMMARY | 2024-07-14 10:15 | XMS_ITS ---
Author Organization [place] Address 12[address] [facility] [address] [place] [phone] Care Team Providers Care Chiropractic Doctor Name Role Phone Flo Murray Primary Care Provider [phone] Allergies No Known Allergies REASON FOR VISIT [...] Encounter Location Date Provider Diagnosis [facility] [facility] [address] [place] [phone] 07/14/2024 Flo Murray Abnormal chest CT R93.89 [...] 2 Months, Reason: Provider Name:Flo Lowe er, 02/16/2025 01:45:00 PM, [address], [address], [place], [place], [id number], Progress Notes * ASHLEY CADENADOB: 4 (59 yo M)Acc No.[id number]:07/14/2024 Progress Notes Patient: ASHLEY JUNIOR Provider: Flo Murray M.D. :1965 A ge:59 Y S ex:Male Date:07/14/2024 Address:[address] [place], [place] [address] [address], [facility] Subjective: * Chief Complaints: * 1 . [...] * Medical History: D epression, 10/24/07 Adacel [facility], Diverticulitis, Crohn's disease, Pfizer Covid vaccine x2 October 2020. * Surgical History: a bnormal CT of the head , fx of heel left foot, Dr. South 05/2010, cholecystectomy 08-11-10, [facility] - colon resection 08/2019. * Hospitalization/Major Diagno stic Procedure: w ound infection 1983, Infection, Admitted at [facility] transfer to [facility] 02-28 to 03-05-10, [facility] 07/14/10 to 07/15/10, [facility] - colon [...] * Images: Billing Information: * Visit Code: 78394 Office Visit, Est Pt., Level 3. * Procedure Codes: 66513 PULSE OX. * Electronic signature of Flo Murray MD on 02/06/2025 at 09:07 AM EDT Sign off status: Pending * Provider: Flo Murray M.D. Date: 1 09/14/2023 Generated for [employer]/eTransmitting on: 0 02/06/2025 09:07 AM EDT History and Physical Notes * Examination Category [...]
--- OUTSIDE RECORDS SUMMARY | 2024-09-22 11:15 | XMS_ITS ---
Author Organization Sury Address 1210 [facility] [address] [place] [phone] Care Team Providers Care Crew Foreman Name Role Phone Flo Murray Primary Care Provider [phone] Allergies No Known Allergies REASON FOR VISIT [...] Notes Problem Malignant neoplasm of respiratory system (541978750) Carcinoma of left lung (C34.92) Active confirmed Vital Signs Blood pressure systolic 150 mm Hg 09/22/19 25 Blood pressure diastolic 80 mm Hg 025 Heart Rate 64 /min 09/22/2024 Height 66.25 in 09/22/2024 Weight 143.6 lbs 09/22/2024 BMI 23.00 kg/m2 09/22/2024 Encounters Encounter Location Date Provider Diagnosis [facility] [facility] [address] [place] [phone] 09/22/2024 Flo Murray Carcinoma of left lung [...] [address], [place], [phone], Progress Notes * CADENAASHLEYDOB: 4 (59 yo M)Acc No.[id number]:09/22/2024 Progress Notes Patient: Yamile CORDOBAELOISAASHLEY Provider: Flo Murray M.D. :1965 A ge:59 Y S ex:Male Date:09/22/2024 Address:[address] [place] [address] [address], [id number] Subjective: * Chief Complaints: * 1 . [...] Dmitri Yeboah. Also getting the radiation in [place] from Dr. Toro. Has Percocet for pain, [...] History: D epression, 10/24/07 Adacel [facility], Diverticulitis, Crohn's disease, Pfizer Covid vaccine x2 October 2020. * Surgical History: a bnormal CT of the head , fx of heel left foot, Dr. South 05/2010, cholecystectomy 08-11-10, [facility] - [facility] resection 08/2019. * Hospitalization/Major Diagno stic Procedure: w ound infection 1983, Infection, Admitted at [facility] transfer to [facility] 02-28 to 03-05-10, [facility] 07/14/10 to 07/15/10, [facility] - colon resection [...] * Images: Billing Information: * Visit Code: 79085 Office Visit, Est Pt., Level 4. * Procedure Codes: 42423 PULSE OX. 3077F SYST BP = 140 MM HG6 IT. 3079F DIAST BP 80-89 MM HG. * Electronic signature of Flo Murray MD on 02/06/2025 at 09:06 AM EDT Sign off status: Pending * Provider: Flo Murray M.D. Date: 0 09/22/2024 Generated for Corey grant/Kevin/Amandaitting on: 0 02/06/2025 09:06 AM EDT History and Physical Notes * [...]
--- OUTSIDE RECORDS SUMMARY | 2024-11-24 10:00 | XMS_ITS ---
Author Organization [facility] Address [facility] [facility] [address] [place] [phone] Care Team Providers Care Hand Bookbinder Name Role Phone Flo Murray Primary Care [...] Encounter Location Date Provider Diagnosis [place] [facility] [address] [place] [phone] 11/24/2024 Flo Murray Crohn''s disease of small [...] 3 Months, Reason: Provider Name:Flo Lowe er, 02/16/2025 01:45:00 PM, [address], [address], [place], [place], [phone], Progress Notes * ASHLEY CADENADOB: 4 (59 yo M)Acc No.[id number]:11/24/2024 Progress Notes Patient: ASHLEY JUNIOR Provider: Flo Murray M.D. :1965 A ge:59 Y S ex:Male Date:11/24/2024 Address:[address] [place] [address] , [facility] Subjective: * Chief Complaints: * 1 . [...] * Medical History: D epression, 10/24/07 Adacel [facility], Diverticulitis, Crohn's disease, Pfizer Covid vaccine x2 October 2020. * Surgical History: a bnormal CT of the head , fx of heel left foot, Dr. South 05/2010, cholecystectomy 08-11-10, [facility] - colon resection 08/2019. * Hospitalization/Major Diagno stic Procedure: w ound infection 1983, Infection, Admitted at [facility] transfer to [facility] 02-28 to 03-05-10, [facility] 07/14/10 to 07/15/10, [facility] - colon [...] H eart: R SR, S4. L ungs: clear to auscultation, breath sounds seem decreased ., [...] in remission - K50.90 5 . B [place] 23.0-23.9, adult - Z68.23 Plan: * Treatment: * Procedure Codes: 3 074F SYST BP LT 130 MM HG, 3079F DIAST BP 80-89 MM HG * Follow Up: 3 Months * Images: Billing Information: * Visit Code: 38841 Office Visit, Est Pt., Level 3. * Procedure Codes: 3074F SYST BP LT 130 MM HG. 3079F DIAST BP 80-89 MM HG. * Electronic signature of Flo Murray MD on 02/06/2025 at 09:06 AM EDT Sign off status: Pending * Provider: Flo Murray M.D. Date: 0 11/24/2024 Generated for Corey grant/Kevin/Carlysmitting on: 0 02/06/2025 09:06 AM EDT History [...]
--- OUTSIDE RECORDS SUMMARY | 2025-02-06 09:06 | XMS_ITS | Encounter Summary ---
Author Organization Healthcare Address [address] [place] [address] Care Team Providers Care Hospital Unit Coordinator Name Role Phone None, None Primary Care Provider Pcp, No Primary Care Provider Unavailabl e Encounter Details Date Type Department Care Team ([facility] st Contact Info) Description 08/23/2022 Orders Only External Location [address] [place] [address] Jillian Ortiz OUTREACH AND EDUCATION SOCIAL WORKER [address] [facility] [address] [place] [address] Social History Tobacco Use Types [...] Medicine 08/23/2022 7:57 AM EST Jillian Ortiz OUTREACH AND EDUCATION SOCIAL WORKER IMG NM PROCEDURES Final Resu lt documented in this encounter Visit Diagnoses Not on filedocumented in this encounter Care Teams Hospital Unit Coordinator Relationship Specialty Start Date End Date None, None [address] [place] [address] PCP - General NONE FOUND 07/12/23 03/06/24 [place] [address] PCP - General Family Medicine 07/13/24 documented as of this encounter
--- OUTSIDE RECORDS SUMMARY | 2025-02-06 09:06 | XMS_ITS | Encounter Summary ---
Author Organization Healthcare Address [address] [place] [address] Care Team Providers Care Armament Repairer Name Role Phone None, None Primary Care Provider [phone] Pcp, No Primary Care Provider Unavailabl e Encounter Details Date Type Department Care Team ([facility] st Contact Info) Description 07/27/2022 Orders Only External Location [address] [place] [phone] Provider, External Social History Tobacco Use Types [...] on filedocumented in this encounter Care Teams Armament Repairer Relationship Specialty Start Date End Date None, None [address] [place] [address] PCP - General NONE FOUND 07/12/23 03/06/24 Pcp, No [address] [place] [address] PCP - General Family Medicine 07/13/24 documented as of this encounter
--- OUTSIDE RECORDS SUMMARY | 2025-02-06 09:06 | XMS_ITS | Encounter Summary ---
Author Organization Healthcare Address [address] [place] [address] Care Team Providers Care Conditioning Room Worker Name Role Phone None, None Primary Care Provider [phone] Pcp, No Primary Care Provider Unavailabl e Encounter Details Date Type Department Care Team ([facility] st Contact Info) Description 12/19/2020 Orders Only External Location [address] [place] [address] Provider, External Social History Tobacco Use Types [...] on filedocumented in this encounter Care Teams Conditioning Room Worker Relationship Specialty Start Date End Date None, None [address] [place] [address] PCP - General NONE FOUND 07/12/23 03/06/24 Pcp, No [address] [place] [address] PCP - General Family Medicine 07/13/24 documented as of this encounter
--- OUTSIDE RECORDS SUMMARY | 2025-02-06 09:06 | XMS_ITS | Patient Health Record ---
[facility] Address [address] [facility] [address] [place] [id number] Care Team Providers Care Clerical Methods Analyst Name Role Phone Flo Murray Primary Care Provider Laureano García Unavailable [phone] Allergies No Known Allergies Results Component Value Reference Range Notes CT Scan : Chest, low dose Reviewed date:06/19/2024 07:43:55 AM Interpretation:Abnormal Performing Lab: Notes/Report: Abnormal P-PSA Reviewed date:05/21/2024 10:34:53 AM Interpretation:Normal Performing Lab: Notes/Report: Test performed by [facility] [address] [place], [place] [address] [address] , [address], [place] [address] Cipriano Renee MD, Technology Resource Teacher CLIA: [id number] PSA 0.36 <4.00 ng/mL Please note this is an ultrasensitive PSA assay with a lower limit of detection of 0.014 ng/mL. This test is performed by the [employer] ECLIA methodology. Values obtained with different assay methods or kits cannot be directly compared. P-Basic Metabolic Panel (BMP ) Reviewed date:05/21/2024 10:34:53 AM Interpretation:Normal Performing Lab: Notes/Report: Test performed by [facility] [facility] [address] , [address], [place] [address] Cipriano Renee MD, Technology Resource Teacher CLIA: [id number] Sodium 136 135-145 mmol/L Potassium 4.5 3.5-5.3 [...] mg/dL eGFR by Creatinine 104 >59 mL/min/1.73m2 Medications Medication SIG (Take, Route, Frequency, Duration) Notes Start Date End Date Status Tamsulosin HCl 0.4 MG 1 capsule Orally a t bedtime; Duration: 90 days Active Vitamin B-12 1000 MCG 1 tab(s) [...] times a day as needed 07/01/2024 Active Mometasone Furoate 0.1 % 1 application Externally Once a day 09/17/2023 Active Immunizations Vaccine Route Administration Date Status Comme nts COVID 19 Pfizer Unknown 10/19/2020 Administered COVID 19 Pfizer Unknown 11/09/2020 Administered Fluzone PF Quad (6-35 months) Unknown 05/22/2022 Administered Fluzone Quad (6months&older) IM Intramuscular 06/02/2019 Administered Fluzone Quad (6months&older) Unknown 05/17/2021 Administered Fluzone Quad (6months&older) IM Intramuscular 05/17/2023 Administered Fluzone Quad (6months&older) IM Intramuscular 05/19/2024 Pending Tetanus Tdap-Adacel (over 7yrs) IM Intramuscular 01/24/2019 Administered Tetanus Tdap-Adacel (over 7yrs) Unknown 12/19/2020 Administered Problems Problem Type SNOMED Code ICD Code Onset Dates Problem Status W/U Status Risk Notes Problem Mixed anxiety and depressive disorder (610682031) Depression with anxiety (300.4) Active confirmed Problem Vitamin B12 deficiency (095156717) Vitamin B12 deficiency (E53.8) Active confirmed Problem Essential hypertension (53479285) Essential hypertension (I10) Active confirmed Problem Osteopenia (675762418) Osteopenia (M85.80) Active confirmed Problem Sprain of lateral collateral ligament of knee (61942811) Sprain of lateral collateral ligament of left knee, initial encounter (S83.422A) Active confirmed Problem Colitis (44870879) Colitis (K52.9) Active confi rmed Problem Disorder of prostate (25505002) Benign prostatic disease (N42.9) Active confirmed Problem Gastroesophageal reflux disease with esophagitis (120853555) Gastroesophageal reflux disease with esophagitis (K21.0) Active confirmed Problem New daily persistent headache (145818651852949) New daily persistent headache (G44.52) Active confirmed Problem Lower abdominal pain (90266505) Lower abdominal pain (R10.30) Active confirmed Problem Multiple actinic keratoses (disorder) (894401868) Actinic keratoses (L57.0) Active confirmed Problem Iron deficiency anemia due to chronic blood loss (710524019) Iron deficiency anemia due to chronic blood loss (D50.0) Active confirmed Problem Occlusion and stenosis of multiple and bilateral cerebral arteries (850536447) Carotid stenosis, bilateral (I65.23) Active confirmed Problem Enterocolitis (16232732) Enterocolitis (K52.9) Active confirmed Problem Neoplasm of neck (314865328) Neoplasm of neck (D49.89) Active confirmed Problem Benign prostatic hypertrophy without outflow obstruction (604820519) Benign prostatic hyperplasia without lower urinary tract symptoms (N40.0) Active confirmed Problem Squamous cell carcinoma of skin (134861039) Squamous cell skin cancer (C44.92) Active confirmed Problem Malignant neoplasm of respiratory system (930011565) Carcinoma of left lung (C34.92) Active confirmed Problem Abnormal findings on diagnostic imaging of skull and head (031268800) Abnormal CT scan of head (R93.0) Active confirmed Problem 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) Active confirmed Problem Radiology result abnormal (509076410) Abnormal chest CT (R93.89) Active confirmed Problem History of excision of intestinal structure (094448157) Status post small bowel resection (Z90.49) Active confirmed Problem Crohn's disease of small intestine (07335311) Crohn''s disease of small intestine with complication (K50.019) Active confirmed Problem Sprain of collateral ligament of left knee, subsequent encounter (S83.402D) Active confirmed Problem Crohn's disease in remission (067219310) Crohn's disease in remission (K50.90) Active confirmed Vital Signs Heart Rate 80 /min 11/24/2024 Blood pressure diastolic 80 mm Hg 11/24/2024 Height 66.25 in 11/24/2024 Blood pressure systolic 124 mm Hg 11/24/2024 Weight 145.6 lbs 11/24/2024 BMI 23.32 kg/m2 11/24/2024 Encounters Encounter Location Date Provider Diagnosis [facility] 0 [facility] [address] [place] [id number] 05/19/2024 Flo Murray Essential hypertensi on I10 ; Crohn's disease in remission K50.90 ; History of tobacco use Z87.891 ; Right groin pain R10.31 ; Strain of right psoas muscle, initial encounter S76.011A ; Actinic keratosis L57.0 ; Encounter for immunization Z23 and Benign prostatic hyperplasia without lower urinary tract symptoms N40.0 [facility] [address] [facility] [address] [place] [id number] 06/27/2024 Flo Murray Actinic keratoses L5 7.[address] R93.89 [facility] [address] [facility] [address] [place] [id number] 07/14/2024 Flo Murray Abnormal chest CT R93.89 and Skin lesion of hand L98.9 [facility] [address] [place] [id number] 09/22/2024 Flo Murray Carcinoma of left ari ng C34.92 and Crohn's disease in remission K50.90 [facility] [address] [facility] [address] [place], [place] [id number] 11/24/2024 Flo Murray Crohn''s disease of small intestine with complication K50.019 ; Carcinoma of left lung C34.92 ; Status post small bowel resection Z90.49 ; Crohn's disease in remission K50.90 and BMI 23.0-23.9, adult Z68.23 [facility] [facility] [facility] [address] [place], [place] [id number] 06/19/2024 Laureano García Abnormal CT scan R93 .89 [facility] [address] [place] [id number] 06/30/2024 Flo Murray [facility] [address] [place], [place] [id number] 11/03/2024 Flo Murray Assessments Encounter Date Diagnosis (ICD Code) Assessment Notes Treatment Notes Treatment Clinical Notes Section Notes 05/19/2024 Essential hypertension (ICD-10 - I10) 05/19/2024 Crohn's disease in remission (ICD-10 - K50.90) 06/19/[address] scan (ICD-10 - R93.89) 06/27/2024 Actinic keratoses (ICD-10 - L57.0) 06/27/[address] (ICD-10 - R93.89) I spoke with Dr. Moreno who will see him soon. Will hold on CT/PET 07/14/2024 Skin lesion of hand (ICD-10 - L98.9) 07/14/[address] (ICD-10 - R93.89) continue current therapy 09/22/2024 Carcinoma of left lung (ICD-10 - C34.92) continue current therapy 09/22/2024 Crohn's disease in remission (ICD-10 - K50.90) 11/24/2024 Carcinoma of left lung (ICD-10 - C34.92) 11/24/2024 Crohn''s disease of small intestine with complication (ICD-10 - K50.019) 05/19/2024 History of tobacco use (ICD-10 - Z87.891) 11/24/2024 Status post small bowel resection (ICD-10 - Z90.49) 05/19/2024 Right groin pain (ICD-10 - R10.31) 11/24/2024 Crohn's disease in remission (ICD-10 - K50.90) 05/19/2024 Strain of right psoas muscle, initial encounter (ICD-10 - S76.011A) single daily dose of Ibuprofen 600mg recommended, unless it causes GI side effects. 11/24/2024 BMI 23.0-23.9, adult (ICD-10 - Z68.23) 05/19/2024 Actinic keratosis (ICD-10 - L57.0) 05/19/2024 Encounter for immunization (ICD-10 - Z23) 05/19/2024 Benign prostatic hyperplasia without lower urinary tract symptoms (ICD-10 - N40.0) Plan Of Treatment Pending Test Test Name Order Date PET-CT 06/19/2024 Next Appt Details Provider Name:Flo Lowe er, 02/16/2025 01:45:00 PM, [address], [address], [place], [place], [id number], Insurance Providers Payer Name Payer Address Payer Phone Subscriber Number Group Number Insured Name Patient Relationship to Insured Coverage Start Date Coverage End Date [employer] [address] [place] [address] [phone] [id number] 1ER ASHLEY CADENA Self - patient is the insured Medications Administered Medication Instructions Date of Administration Dosage Notes B-12 11/15/2018 1 mL B-12 01/03/2023 1 mL Morphine 07/14/2010 2 mg Vistaril 50 mg 01/04/2012 Medical (General) History Medical History History ICD Code depression 10/24/07 Adacel [facility] diverticulitis Crohn's disease Pfizer Covid vaccine x2 October 2020 Surgical History Surgery Date(Month/Year) abnormal CT of the head fx of heel left foot, Dr. South 05/2010 cholecystectomy 08-11-10 [facility] - colon resection 08/2019 Hospitalization History Reason Date(Month/Year) wound infection 1984 Infection, Admitted at [facility] transfer to [facility] 02-28 to 03-05-10 [facility] 07/14/10 to 07/15/10 [facility] - colon resection 09/04/2019-09/09/19 20
--- OUTSIDE RECORDS SUMMARY | 2025-02-06 09:06 | XMS_ITS | Encounter Summary ---
Author Organization Healthcare Address [address] [place] [address] Care Team Providers Care Agency Operator Name Role Phone None, None Primary Care Provider Pcp, No Primary Care Provider Unavailabl e Encounter Details Date Type Department Care Team ([facility] st Contact Info) Description 02/28/2021 Orders Only External Location [address] [place] [phone] Provider, External Social History Tobacco Use Types [...] on filedocumented in this encounter Care Teams Agency Operator Relationship Specialty Start Date End Date None, None [address] [place] [address] PCP - General NONE FOUND 07/12/23 03/06/24 Pcp, No [address] [place] [address] PCP - General Family Medicine 07/13/24 documented as of this encounter
--- OUTSIDE RECORDS SUMMARY | 2025-02-06 09:06 | XMS_ITS | Encounter Summary ---
Author Organization Healthcare Address [address] [place] [address] Care Team Providers Care Refractory Tile Helper Name Role Phone None, None Primary Care Provider [phone] Pcp, No Primary Care Provider Unavailabl e Encounter Details Date Type Department Care Team ([facility] st Contact Info) Description 07/27/2022 Orders Only External Location [address] [place] [address] Provider, External Social History Tobacco Use Types [...] on filedocumented in this encounter Care Teams Refractory Tile Helper Relationship Specialty Start Date End Date None, None [address] [place] [address] PCP - General NONE FOUND 07/12/23 03/06/24 Pcp, No [address] [place] [address] PCP - General Family Medicine 07/13/24 documented as of this encounter
--- OUTSIDE RECORDS SUMMARY | 2025-02-06 09:06 | XMS_ITS | Clinical Summary ---
Author Organization Healthcare Address [address] [place] [address] Care Team Providers Care Airport Utility Worker Name Role Phone Pcp, No Primary Care Provider Unavailabl e Allergies No known active allergies Medications acetaminophen (Tylenol) 325 MG tablet 0 Active albuterol 108 (90 Base) MCG/ACT inhaler INHALE 2 PUFFS BY MOUTH 4 TIMES DAILY NEEDED FOR SHORTNESS OF BREATH OR WHEEZING 4 Active aspirin 81 MG EC tablet Take 1 tablet (81 mg) by mouth Daily. Active Cholecalciferol 250 MCG (27348 UT) capsule Weekly 4 Active rosuvastatin (Crestor) [...] 02/10/2009 Sigmoidoscopy 02/10/2009 [facility]-Colorectal Cancer Screening 02/10/2009 [id number] Vaccine ( season) 2024 05/30/2023, 09/14/2021, 11/09/2020, [...] complete this topic Insurance ANTH Care Teams Airport Utility Worker Relationship Specialty Start [place] [address] PCP - General Family Medicine 07/13/24
--- OUTSIDE RECORDS SUMMARY | 2025-02-06 09:06 | XMS_ITS | Encounter Summary ---
Author Organization Healthcare Address [address] [place] [address] Care Team Providers Care Board Setter Name Role Phone None, None Primary Care Provider [phone] Pcp, No Primary Care Provider Unavailabl e Encounter Details Date Type Department Care Team (Late st Contact Info) Description 08/23/2022 Orders Only External Location [address] [place] [address] Jillian Ortiz, MUSIC BOX MECHANIC [address] [facility] [address] [place] [address] Social History Tobacco Use Types [...] 08/23/2022 8:58 AM EST us Jillian Ortiz MUSIC BOX MECHANIC IMG US PROCEDURES Final Resu lt documented in this encounter Visit Diagnoses Not on filedocumented in this encounter Care Teams Board Setter Relationship Specialty Start Date End Date None, None [address] [place] [address] PCP - General NONE FOUND 07/12/23 03/06/24 [place] [address] PCP - General Family Medicine 07/13/24 documented as of this encounter
--- OUTSIDE RECORDS SUMMARY | 2025-02-06 09:06 | XMS_ITS | Encounter Summary ---
Author Organization Healthcare Address [address] [place] [address] Care Team Providers Care Pre Billing Specialist Name Role Phone None, None Primary Care Provider [phone] Pcp, No Primary Care Provider Unavailabl e Encounter Details Date Type Department Care Team ([facility] st Contact Info) Description 10/18/2020 Orders Only External Location [address] [place] [id number] Provider, External Social History Tobacco Use Types [...] on filedocumented in this encounter Care Teams Pre Billing Specialist Relationship Specialty Start Date End Date None, None [address] [place] [address] PCP - General NONE FOUND 07/12/23 03/06/24 Pcp, No [address] [place] [address] PCP - General Family Medicine 07/13/24 documented as of this encounter
--- OUTSIDE RECORDS SUMMARY | 2025-02-06 09:06 | XMS_ITS | Clinical Summary ---
Author Organization [facility] Address [address] [place] [address] Phone [email or web address] Care Team Providers Care Sprayer Machine Name Role Phone Unavailable Primary Care Provider [...]
--- OUTSIDE RECORDS SUMMARY | 2025-02-06 09:07 | XMS_ITS | Referral Summary ---
Author Organization [facility] Address [address] [place] [address] Care Team Providers Care Hair Cutter Name Role Phone Unavailable Primary Care Provider [...]
--- OUTSIDE RECORDS SUMMARY | 2025-02-06 09:07 | XMS_ITS | Encounter Summary ---
Author Organization Healthcare Address [address] [place] [address] Care Team Providers Care Product Safety Coordinator Name Role Phone Pcp, No Primary Care Provider Unavailabl e Encounter Details Date Type Department Care Team ([facility] st Contact Info) Description 07/21/2024 Orders Only External Location [address] [place] [address] Provider, External Social History Tobacco Use Types [...] on filedocumented in this encounter Care Teams Product Safety Coordinator Relationship Specialty Start Date End Date Pcp, No [address] [place] [address] PCP - General Family Medicine 07/13/24 documented as of this encounter
--- OUTSIDE RECORDS SUMMARY | 2025-02-06 09:07 | XMS_ITS | Encounter Summary ---
Author Organization Healthcare Address [address] [place] [address] Care Team Providers Care Lead Process Engineer Name Role Phone Pcp, No Primary Care Provider Unavailabl e Encounter Details Date Type Department Care Team ([facility] st Contact Info) Description 07/21/2024 Orders Only External Location [address] [place] [address] Provider, External Social History Tobacco Use Types [...] on filedocumented in this encounter Care Teams Lead Process Engineer Relationship Specialty Start Date End Date Pcp, No [address] [place] [address] PCP - General Family Medicine 07/13/24 documented as of this encounter
--- OUTSIDE RECORDS SUMMARY | 2025-02-06 09:07 | XMS_ITS | Encounter Summary ---
Author Organization Healthcare Address [address] [place] [address] Care Team Providers Care Molder Foam Rubber Name Role Phone Pcp, No Primary Care Provider Unavailabl e Encounter Details Date Type Department Care Team (Late st Contact Info) Description 08/07/2024 Lab Requisition [facility] [address] [place] [address] Neli Ventura MD [address] [place] [address] Solitary pulmonary nodule Social History Tobacco Use [...] EST) Case Report Sugical Pathology Consult Case: [id number] Authorizing Provider: Neli Ventura MD Collected: 08/07/2024 1126 Ordering Location: [facility] Received: 08/07/2024 1126 Pathologist: Haroldo Laura DO Specimen: Lung, Left, [id number] 08/07/2024 2:47 PM [facility] Final Diagnosis OUTSIDE SLIDES; [id number], A-B; 07/21/2024 A. LUNG, LEFT, UPPER LOBE, ENDOBRONCHIAL BIOPSY: - POSITIVE FOR NON-SMALL CELL CARCINOMA, FAVOR SQUAMOUS CELL CARCINOMA (SEE COMMENT). B. LUNG, LEFT, UPPER LOBE, TRANSBRONCHIAL BIOPSY: - SCANT LUNG TISSUE; NEGATIVE FOR MALIGNANCY WITHIN THE BIOPSIED MATERIAL. 08/07/2024 2:47 PM [facility] at 1447 EST Comment Sections from [...] represents a pulmonary primary. 08/07/2024 2:47 PM [facility] Clinical Information R91.1 - Solitary pulmonary nodule [ICD-10-CM] 08/07/2024 2:47 PM [facility] Gross Description A. [id number] Received along with a corresponding pathology report from [facility] are 5 slide(s) labeled outside case: [id number] collected on 07/21/2024. 08/07/2024 2:47 PM [facility] Intradepartmental Consultation with Agreement Dr. Xiao (tumor classification) 08/07/2024 2:47 PM [facility] Note: A resident was involved in the service. I attest I examined the relevant preparations for the specimens and confirmed the diagnosis or interpretation. 08/07/2024 2:47 PM [facility] Tissue Left lung structure / Unknown 08/07/2024 11:26 AM EST 08/07/2024 11:26 AM EST us Neli Ventura MD LAB PATHOLOGY ORDERABLES Final Result [facility] [address] [place] [address] documented in this encounter Visit Diagnoses Diagnosis Solitary pulmonary nodule documented in this encounter Care Teams Molder Foam Rubber Relationship Specialty Start Date End Date Pcp, No [address] [place] [address] PCP - General Family Medicine 07/13/24 documented as of this encounter
--- OUTSIDE RECORDS SUMMARY | 2025-02-06 09:07 | XMS_ITS | Encounter Summary ---
Author Organization Healthcare Address [address] [place] [address] Care Team Providers Care Senior Programmer Name Role Phone None, None Primary Care Provider [phone] Pcp, No Primary Care Provider Unavailabl e Encounter Details Date Type Department Care Team ([facility] st Contact Info) Description 12/04/2016 Orders Only External Location [address] [place] [address] Provider, External Social History Tobacco Use Types [...] on filedocumented in this encounter Care Teams Senior Programmer Relationship Specialty Start Date End Date None, None [address] [place] [address] PCP - General NONE FOUND 07/12/23 03/06/24 Pcp, No [address] [place] [address] PCP - General Family Medicine 07/13/24 documented as of this encounter
--- OUTSIDE RECORDS SUMMARY | 2025-02-06 09:07 | XMS_ITS | Clinical Summary ---
Author Organization [employer] [employer] Address [address] [place] [address] Care Team Providers Care Fuels Sales Representative Name Role Phone Unavailable Primary Care Provider [...]
--- OUTSIDE RECORDS SUMMARY | 2025-02-06 09:07 | XMS_ITS | Encounter Summary ---
Author Organization Healthcare Address [address] [place] [address] Care Team Providers Care Crystalizer Name Role Phone Pcp, No Primary Care Provider Unavailabl e Encounter Details Date Type Department Care Team (Late st Contact Info) Description 08/07/2024 Lab Requisition [facility] [address] [place] [address] Neli Ventura MD [address] [place] [address] Solitary pulmonary nodule Social History Tobacco Use [...] 11:54 AM EST) Case Report Cytology Case: [id number] Authorizing Provider: Neli Ventura MD Collected: 08/07/2024 1154 Ordering Location: [facility] Received: 08/07/2024 1154 Pathologist: Anne Marie Keita MD Specimen: Lymph Node, [id number] 08/14/2024 3:30 PM EST [facility] Final Diagnosis OUTSIDE CASE: [id number] COLLECTED ON 07/21/2024: A. LYMPH NODE, STATION 7, FINE NEEDLE ASPIRATION: - LYMPHOID TISSUE, NEGATIVE FOR MALIGNANCY. B. LYMPH NODE, STATION 10L, FINE NEEDLE ASPIRATION: - RARE ATYPICAL CELLS PRESENT (SEE COMMENT). C. LUNG, LEFT UPPER LOBE, BRONCHIAL LAVAGE: - RARE ATYPICAL CELLS PRESENT. 08/14/2024 3:30 PM EST [facility] at 1530 EST Comment The atypical [...] at 3:30 PM. 08/14/2024 3:30 PM EST [facility] Clinical Information R91.1 - Solitary pulmonary nodule [ICD-10-CM] 08/14/2024 3:30 PM EST [facility] Gross Description A. [id number] Received along with a corresponding pathology report from [facility] are 6 slide(s) labeled outside case: [id number] collected on 07/21/2024. 08/14/2024 3:30 PM EST [facility] Fine Needle Aspirate Lymph node specimen / Unknown 08/07/2024 11:54 AM EST 08/07/2024 11:54 AM EST us Neli Ventura MD LAB PATHOLOGY ORDERABLES Final Result [facility] [address] [place] [address] documented in this encounter Visit Diagnoses Diagnosis Solitary pulmonary nodule documented in this encounter Care Teams Crystalizer Relationship Specialty Start Date End Date Pcp, No [address] [place] [address] PCP - General Family Medicine 07/13/24 documented as of this encounter
--- OUTSIDE RECORDS SUMMARY | 2025-02-06 09:07 | XMS_ITS | Encounter Summary ---
Author Organization Healthcare Address [address] [place] [address] Care Team Providers Care Campaign Consultant Name Role Phone None, None Primary Care Provider Pcp, No Primary Care Provider Unavailabl e Encounter Details Date Type Department Care Team ([facility] st Contact Info) Description 02/07/2023 Orders Only External Location [address] [place] [address] Provider, External Social History Tobacco Use Types [...] 9:40 AM EDT) Anatomical Region Laterality Modality [place] Computed Tomogr aphy 02/07/2023 9:40 AM EDT us External Provider IMG CT PROCEDURES Final Result documented in this encounter Visit Diagnoses Not on filedocumented in this encounter Care Teams Campaign Consultant Relationship Specialty Start Date End Date None, None [address] [place] [address] PCP - General NONE FOUND 07/12/23 03/06/24 Pcp, [place] [address] PCP - General Family Medicine 07/13/24 documented as of this encounter
--- OUTSIDE RECORDS SUMMARY | 2025-02-06 09:07 | XMS_ITS | Encounter Summary ---
Author Organization Healthcare Address [address] [place] [address] Care Team Providers Care Spectacle Truer Name Role Phone None, None Primary Care Provider [phone] Pcp, No Primary Care Provider Unavailabl e Encounter Details Date Type Department Care Team (Late st Contact Info) Description 12/09/2018 Orders Only External Location [address] [place] [address] Antonio Guzman MD [address] [facility] [address] [place] [address] Social History Tobacco Use Types Packs/Day Years [...] on filedocumented in this encounter Care Teams Spectacle Truer Relationship Specialty Start Date End Date None, None [address] [place] [address] PCP - General NONE FOUND 07/12/23 03/06/24 Pcp, [place] [address] PCP - General Family Medicine 07/13/24 documented as of this encounter
--- OUTSIDE RECORDS SUMMARY | 2025-02-06 09:07 | XMS_ITS | Encounter Summary ---
Author Organization Healthcare Address [address] [place] [id number] Care Team Providers Care Business Representative Name Role Phone Pcp, No Primary Care Provider Unavailabl e Encounter Details Date Type Department Care Team ([facility] st Contact Info) Description 06/02/2024 Orders Only External Location [address] [place] [address] Provider, External Social History Tobacco Use Types [...] on filedocumented in this encounter Care Teams Business Representative Relationship Specialty Start Date End Date Pcp, No [address] [place] [address] PCP - General Family Medicine 07/13/24 documented as of this encounter
--- OUTSIDE RECORDS SUMMARY | 2025-02-06 09:07 | XMS_ITS | Data Portability ---
Author Organization [facility] María marley [employer]OSED Address [address] [facility] [address] [place] [address] Care Team Providers Care Board Runner Name Role Phone TIANA RIOJAS Public Address System Installer TESSA HORAN Primary Care Provider [phone] Assessment No assessment recorded. Plan of Treatment Reminders Order Date Submit Date Provider Last Modified By Organization Details Last Modified Time Details Appointments FOLLOW UP DAK 2024 11:30A M TIANA RIOJAS PA-C Not available Not available Not available Lab surgica l patholo gy study - R/O BCC vs Irritat ed nevus 2023 024 [facility], [address] [place] [address], [address], 08/24/2023 16:14:58 Referral None recorde d. 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 Procedures Surgical History Date Name Laterality Status Provider Name and Address Organization Details Recorded Time 11/10/2024 DAK - Cryo AK completed Mikayla Leach [facility] 11/10/2024 10:59:34 03/12/2024 DAK - Cryo AK completed Wojciech Sparks [facility] 03/12/2024 13:39:18 08/22/2023 Blade Biopsy completed Rhea Perez [facility] 08/22/2023 13:17:27 Imaging Results None recorded. [...] Status Smoker, Current Status Unknown Lucina Farmerharlan [facility] 08/22/2023 13:11:09 Sunscreen Use? No Informatio [...] SNOMED-CT Code Diagnosis ICD10 Code Diagnosis Note [id number] OLIVER PAINTER, [facility] [address] [place] [address] 07/17/2023 10:19:30 07/18/2023 10:04:40 [id number] TIANA RIOJAS PA-C [facility] [address] [place] [address] 08/22/2023 12:56:39 08/23/2023 14:33:10 Actinic keratosis 833915055 L57.0 Actinic keratoses are precancero us lesions that may progress to squamous cell carcinoma if untreated. UV light and genetics may increase risk. 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 [id number] TIANA RIOJAS PA-C [address] [address] 11/10/2024 10:31:35 11/10/2024 11:03:04 Actinic keratosis L57.0 Actinic keratoses are precancero us lesions that may progress to squamous cell carcinoma if untreated. UV light and genetics may increase risk. Treated lesions should blister, scab over, and heal within a few weeks. If treated lesion(s) does not resolve within 1-2 months, patient agrees to follow up for re-evaluat ion. Asteatosis cutis [id number] L85.3 Use fragrance free/dye free soaps [...] ID Guarantor Name 11/12/2024 1 [place] [id number] R Ubaldo Villagran [id number] Ubaldo Villagran Notes Date Note Type [...] Raised, rough spot. TIANA RIOJAS PA-C [address] [place], [address], [facility] [place] [facility] 08/22/2023 13:24:15 03/12/2024 text/html 1. Follow up for: Actinic Keratosis - Location: Scalp. Face.- Duration: Six months.- Prior Treatments: LN2.. 2. I have a spot on my neck. - Location: Right neck.- Duration: Three months.- Prior treatments: None.- REPORTS: Raised, rough spot. TIANA RIOJAS PA-C [address] [place], [address], [facility] 03/12/2024 13:51:23 11/10/2024 text/html Follow up for: Actinic Keratosis - Location: Scalp. Face.- Duration: 1 year- Prior Treatments: LN2. Reports: Pt noticed a new spot on left cheek Pt finished radiation treatment October 24 and is currently on chemo for lung cancer TIANA RIOJAS PA-C [address] [place], [address], [facility] 11/10/2024 12:22:15
--- OUTSIDE RECORDS SUMMARY | 2025-02-06 09:07 | XMS_ITS | Encounter Summary ---
Author Organization Healthcare Address [address] [place] [address] Care Team Providers Care Marketing Secretary Name Role Phone Pcp, No Primary Care Provider Unavailabl e Encounter Details Date Type Department Care Team ([facility] st Contact Info) Description 07/28/2024 Orders Only External Location [address] [place] [address] Provider, External Social History Tobacco Use Types [...] on filedocumented in this encounter Care Teams Marketing Secretary Relationship Specialty Start Date End Date Pcp, No [address] [place] [address] PCP - General Family Medicine 07/13/24 documented as of this encounter
[2025-02-06 10:50] LABS: Vitamin B12 452 pg/mL (239-931)
== END 2025-02-06 23:59 | disposition home or self-care (01) ==
LOC: LAB 09:04
PROVIDERS: PCP Family Medicine; Visit Provider Internal Medicine Medical Oncology
DX: C34.12 Malignant neoplasm of upper lobe, left bronchus or lung (principal); D64.9 Anemia, unspecified
CPT/HCPCS: 36415; 82607; 82746

== ENCOUNTER 2025-03-20 10:51 | Outpatient (CLI) | payer BC, SELFPAY ==
--- OUTSIDE RECORDS SUMMARY | 2025-03-20 10:53 | XMS_ITS | Clinical Summary ---
Author Organization [employer] ([place], [place], [place], [place]) Address [address] [place] [address] Care Team Providers Care Sky Line Yarder Name Role Phone Unavailable Primary Care Provider [...] Shingles Vaccine (Zoster) (1 of 2) 02/10/2014 Respiratory Syncytial Virus (RSV) Adult or (1 - Risk 60-74 years 1-dose series) 2024 COVID-19 VACCINE (2023- season) 2024 09/14/2021, 11/09/2020, 10/19/2020 Influenza Vaccine (#1) 2025 DTAP/TDAP/TD VACCINES (2 - T d or Tdap) 12/19/2030 12/19/2020
--- OUTSIDE RECORDS SUMMARY | 2025-03-20 10:53 | XMS_ITS | Clinical Summary ---
Author Organization Healthcare Address [address] [place] [address] Care Team Providers Care Clinical Implementation Specialist Name Role Phone Pcp, No Primary Care Provider Unavailabl e Allergies No known active allergies Medications acetaminophen (Tylenol) 325 MG tablet 0 Active albuterol 108 (90 Base) MCG/ACT inhaler INHALE 2 PUFFS BY MOUTH 4 TIMES DAILY NEEDED FOR SHORTNESS OF BREATH OR WHEEZING 4 Active aspirin 81 MG EC tablet Take 1 tablet (81 mg) by mouth Daily. Active Cholecalciferol 250 MCG (84143 UT) capsule Weekly 4 Active rosuvastatin (Crestor) [...] [facility]-HIV Screening 1965 [facility]-Hepatitis C Screening 1965 [facility]-Infant/Child/Adol SDOH Screenings 1965 [facility]- SDOH Screenings 02/10/1982 [facility]-Adult SDOH Screenings 02/10/1982 [facility]-Pneumococcal Vaccine: 50+ Years (1 of 2 - PCV) 02/10/1983 [facility]-Zoster Vaccines (1 of 2) 02/10/1983 CT Colonography 02/10/2009 Colonoscopy 02/10/2009 FIT-DNA 02/10/2009 FIT 02/10/2009 FOBT 02/10/2009 Sigmoidoscopy 02/10/2009 [facility]-Colorectal Cancer Screening 02/10/2009 [id number] Vaccine ( season) 2024 05/30/2023, 09/14/2021, 11/09/2020, Additional history exists [facility]-Influenza Vaccine (#1) 04/13/202505/22, 05/17/2021, 06/02/2019, Additional history exists [facility]-DTaP,Tdap,and Td [...] complete this topic Insurance ANTH Care Teams Clinical Implementation Specialist Relationship Specialty Start Date [place] [address] PCP - General Family Medicine 07/13/24
--- OUTSIDE RECORDS SUMMARY | 2025-03-20 10:53 | XMS_ITS | Referral Summary ---
Author Organization [employer] ([place], [place], [place], [place]) Address [address] [place] [address] Care Team Providers Care Court Supervisor Name Role Phone Unavailable Primary Care Provider [...]
--- OUTSIDE RECORDS SUMMARY | 2025-03-20 10:53 | XMS_ITS | Encounter Summary ---
Author Organization Healthcare Address [address] [place] [address] Care Team Providers Care Conveyor Belt Installer Name Role Phone None, None Primary Care Provider [phone] Pcp, No Primary Care Provider Unavailabl e Encounter Details Date Type Department Care Team ([facility] st Contact Info) Description 07/27/2022 Orders Only External Location [address] [place] [id number] Provider, External Social History Tobacco Use Types [...] on filedocumented in this encounter Care Teams Conveyor Belt Installer Relationship Specialty Start Date End Date None, None [address] [place] [address] PCP - General NONE FOUND 07/12/23 03/06/24 Pcp, No [address] [place] [address] PCP - General Family Medicine 07/13/24 documented as of this encounter
--- OUTSIDE RECORDS SUMMARY | 2025-03-20 10:53 | XMS_ITS | Encounter Summary ---
Author Organization Healthcare Address [address] [place] [address] Care Team Providers Care General Counselor Name Role Phone None, None Primary Care Provider Pcp, No Primary Care Provider Unavailabl e Encounter Details Date Type Department Care Team ([facility] st Contact Info) Description 07/27/2022 Orders Only External Location [address] [place] [phone] Provider, External Social History Tobacco Use Types [...] on filedocumented in this encounter Care Teams General Counselor Relationship Specialty Start Date End Date None, None [address] [place] [address] PCP - General NONE FOUND 07/12/23 03/06/24 Pcp, No [address] [place] [address] PCP - General Family Medicine 07/13/24 documented as of this encounter
--- OUTSIDE RECORDS SUMMARY | 2025-03-20 10:53 | XMS_ITS | Clinical Summary ---
Author Organization [facility] Address [address] [place] [address] Phone [email or web address] Care Team Providers Care Rounder And Backer Name Role Phone Unavailable Primary Care Provider [...] Colonography 1965 Colonoscopy 1965 Colorectal Cancer Screening Combo 1965 DNA Cologuard 1965 Dental Cleaning/Exam 1965 FIT or FOBT Test 1965 HIV Screening 1965 Hepatitis C Screening 1965 Sigmoidoscopy 1965 Annual Preventive Exam 02/10/1982 Hep B Infection Screening - Triple Screen 02/10/1982 Pneumococcal: Ped (0 to 5 Yr s) and At-Risk Member (6 to 64 Yrs) (1 of 2 - PCV) 02/10/1983 Tetanus Diphtheria and Pertussis Immunization (1 - Tdap) 02/10/1983 Zoster Immunization (1 of 2) 02/10/2014 Covid-19 Immunization (3 - season) 2024 11/09/2020, 10/19/2020 Influenza Immunization (#1) 2025 07/31/2018 HIB Immunization Aged Out No [...] patient's age to complete this topic Insurance [employer] IN [place] 5 [employer] [place] 5
--- OUTSIDE RECORDS SUMMARY | 2025-03-20 10:53 | XMS_ITS | Encounter Summary ---
Author Organization Healthcare Address [address] [place] [address] Care Team Providers Care Weld Engineer Name Role Phone None, None Primary Care Provider Pcp, No Primary Care Provider Unavailabl e Encounter Details Date Type Department Care Team (Late st Contact Info) Description 08/23/2022 Orders Only External Location [address] [place] [address] Jillian Ortiz DEVELOPMENT REPRESENTATIVE [address] [facility] [address] [place] [address] Social History Tobacco Use Types [...] Medicine 08/23/2022 7:57 AM EST Jillian Ortiz DEVELOPMENT REPRESENTATIVE IMG NM PROCEDURES Final Resu lt documented in this encounter Visit Diagnoses Not on filedocumented in this encounter Care Teams Weld Engineer Relationship Specialty Start Date End Date None, None [address] [place] [address] PCP - General NONE FOUND 07/12/23 03/06/24 [place] [address] PCP - General Family Medicine 07/13/24 documented as of this encounter
--- OUTSIDE RECORDS SUMMARY | 2025-03-20 10:54 | XMS_ITS | Encounter Summary ---
Author Organization Healthcare Address [address] [place] [address] Care Team Providers Care Laborer Wharf Name Role Phone None, None Primary Care Provider Pcp, No Primary Care Provider Unavailabl e Encounter Details Date Type Department Care Team ([facility] st Contact Info) Description 12/19/2020 Orders Only External Location [address] [place] [phone] Provider, External Social History Tobacco Use Types [...] on filedocumented in this encounter Care Teams Laborer Wharf Relationship Specialty Start Date End Date None, None [address] [place] [address] PCP - General NONE FOUND 07/12/23 03/06/24 Pcp, No [address] [place] [address] PCP - General Family Medicine 07/13/24 documented as of this encounter
--- OUTSIDE RECORDS SUMMARY | 2025-03-20 10:54 | XMS_ITS | Encounter Summary ---
Author Organization Healthcare Address [address] [place] [address] Care Team Providers Care Baggage Handler Name Role Phone Pcp, No Primary Care Provider Unavailabl e Encounter Details Date Type Department Care Team ([facility] st Contact Info) Description 07/28/2024 Orders Only External Location [address] [place] [address] Provider, External Social History Tobacco Use Types [...] on filedocumented in this encounter Care Teams Baggage Handler Relationship Specialty Start Date End Date Pcp, No [address] [place] [address] PCP - General Family Medicine 07/13/24 documented as of this encounter
--- OUTSIDE RECORDS SUMMARY | 2025-03-20 10:54 | XMS_ITS | Encounter Summary ---
Author Organization Healthcare Address [address] [place] [address] Care Team Providers Care Snowsport Instructor Name Role Phone None, None Primary Care Provider [phone] Pcp, No Primary Care Provider Unavailabl e Encounter Details Date Type Department Care Team ([facility] st Contact Info) Description 10/18/2020 Orders Only External Location [address] [place] [address] Provider, External Social History Tobacco Use Types [...] on filedocumented in this encounter Care Teams Snowsport Instructor Relationship Specialty Start Date End Date None, None [address] [place] [address] PCP - General NONE FOUND 07/12/23 03/06/24 Pcp, No [address] [place] [address] PCP - General Family Medicine 07/13/24 documented as of this encounter
--- OUTSIDE RECORDS SUMMARY | 2025-03-20 10:54 | XMS_ITS | Clinical Summary ---
Author Organization [facility] Address [address] [place] [address] Care Team Providers Care Automation Qtp Tester Name Role Phone Skip Murray MD Primary Care Provider [phone] Allergies No known active allergies Medications Humira Pen 40 MG/0.4ML Pen-injector Kit 3 Active Aspirin Low Dose 81 MG EC tablet Take 1 tablet by mouth Daily. 3 Active rosuvastatin (CRESTOR) 10 MG tablet Take 1 tablet by mouth Daily. 3 Active tamsulosin (FLOMAX) 0.4 MG capsule 24 hr capsule Take 1 capsule by mouth every night at bedtime. 3 Active Cholecalciferol (Vitamin D3) 1.25 MG (58700 UT) capsule 3 Active cyanocobalamin 1000 MCG/ML injection 3 Active Magnesium 500 MG tabletIndication s:Nonintractable headache, unspecified chronicity pattern, unspecified headache type Take 1 tablet by mouth Every Night. 30 tablet 3 3 Active fluorouracil (EFUDEX) 5 % cream Apply 1 application topically to the appropriate area as directed Daily. 3 Active triamcinolone (KENALOG) 0.025 % ointment Apply 1 application topically to the appropriate area as directed 2 (Two) Times a Day. 3 Active Active Problems Problem Noted Date Diagnosed Date History of stroke, left cerebellar 01/12/2023 Essential hypertension 01/12/2023 Hyperlipidemia LDL goal <70 01/12/2023 Tobacco abuse 01/12/2023 Mild recurrent major depression 01/12/2023 Nonintractable headache 01/12/2023 Immunizations Immunization Administration Dates Next Due COVID-19 (PFIZER) Purple Cap Monovalent 11/10/19 21,10/19/2020 Family History Medical History Relation Name Comments Stroke Mother Terri Mayer Relation Name Status Comments Mother Terri Mayer Social History Tobacco Use Types Packs/Day Years Used Date Smoking Tobacco: Every Day Cigarettes 1 43.1 Started: 02/10/1982 Passive Smoke Exposure: Current Smokeless Tobacco: Never Tobacco Cessation:Ready to Q uit: No; Counseling Given: No Comments:Daily smoker Alcohol Use Standard Drinks/Week Comments Not Currently 0 (1 standard drink = 0.6 oz pure alcohol) Quit drinking 2017 due to onset of crohns PHQ-2 Answer Date Recorded Retired PHQ-9: Brief Depression Severity Measure Score 0 04/20/2023 Abuse Screen Answer Date Recorded Unsafe at Home or Work/School Not on file Feels Threatened by Someone? Not on file 11/2023 Does Anyone Keep You from Co ntacting Others or Doint Things Outside the Home? Not on file 11/15/2023 Physical Sign of Abuse Present Not on file 0 11/15/2023 Housing Stability Answer Date Recorded Current Living Arrangements Not on file 04/2023 Potentially Unsafe Housing Conditions Not on milagros e 05/21/2023 Family and Community Support Answer Curt e Recorded Help with Day-to-Day Activities Not on file 05/21/2023 Lonely or Isolated Not on file 05/21/2023 Employment Answer Date Recorded Do you want help finding or keeping work or a gifty b? Not on file 05/21/2023 Disabilities Answer Date Recorded Concentrating, Remembering, or Making Decisions Difficulty Not on file 05/21/2023 Doing Errands Independently Difficulty Not on fi le 05/21/2023 Education Answer Date Recorded Help with school or training? Not on file Preferred Language Not on file 05/21/2023 PHQ-2 Answer Date Recorded Retired PHQ-9: Brief Depression Severity Measure Score 0 04/20/2023 Sex and Gender Information Value Date Recorded Sex Assigned at Not on file Legal Sex Male 12:14 PM EDT Gender Identity Not on file Sexual Orientation Not on file Last Filed Vital Signs Vital Sign Reading Time Taken Comments Blood Pressure 134/72 04/20/2023 1:17 PM EDT Pulse 56 04/20/2023 1:17 PM EDT Temperature 36.5 C (97.7 F) 04/20/2023 1:17 PM EDT Respiratory Rate 18 11/11/2022 10:54 AM EDT Oxygen Saturation 98% 04/20/2023 1:17 PM EDT Inhaled Oxygen Concentration - - Weight 63.5 kg (140 lb) 04/20/2023 1:17 PM EDT Height 167 cm (5' 5.75 ) 04/20/2023 1:17 PM EDT Body Mass Index 22.77 04/20/2023 1:17 PM EDT Plan of Treatment Health Maintenance Due Date Last Done Comments LIPID PANEL 1965 Pneumococcal Vaccine 50+ (1 of 2 - PCV) 02/10/1983 COLOGUARD 02/10/2009 COLON CANCER SCREENING 5 YEA R SIGMOIDOSCOPY 02/10/2009 CT COLONOGRAPHY 02/10/2009 FECAL OCCULT BLOOD TEST 02/10/2009 FIT Testing (1 year) 02/10/2009 ZOSTER VACCINE (1 of 2) 02/10/2014 ANNUAL PHYSICAL 11/07/2022 HEPATITIS C SCREENING 11/07/2022 COVID-19 Vaccine (4 - 2023-2 5 season) 2024 09/14/2021, 11/09/2020, 10/19/2020 INFLUENZA VACCINE 05/13/2025 05/22/2022, , 06/02/2019, Additional history exists COLONOSCOPY 10/28/2028 10/28/2018 COLORECTAL CANCER SCREENING 10/28/2028 TDAP/TD VACCINES (2 - Td or Tdap) 12/19/2030 021 Insurance REINA [facility] PPO Care Teams Automation Qtp Tester Relationship Specialty Start Date End Date Skip Murray MD [address] [facility] [address] [place] [address] PCP - General Family Medicine 11/08/22
--- OUTSIDE RECORDS SUMMARY | 2025-03-20 10:54 | XMS_ITS | Encounter Summary ---
Author Organization Healthcare Address [address] [place] [address] Care Team Providers Care Negative Turner Name Role Phone Pcp, No Primary Care Provider Unavailabl e Encounter Details Date Type Department Care Team (Late st Contact Info) Description 08/07/2024 Lab Requisition [facility] [address] [place] [address] Neli Ventura MD [address] [place] [address] Solitary pulmonary nodule Social History Tobacco Use [...] 11:54 AM EST) Case Report Cytology Case: [id number] Authorizing Provider: Neli Ventura MD Collected: 08/07/2024 1154 Ordering Location: [facility] Received: 08/07/2024 1154 Pathologist: Anne Marie Keita MD Specimen: Lymph Node, [id number] 08/14/2024 3:30 PM EST [facility] Final Diagnosis OUTSIDE CASE: [id number] COLLECTED ON 07/21/2024: A. LYMPH NODE, STATION 7, FINE NEEDLE ASPIRATION: - LYMPHOID TISSUE, NEGATIVE FOR MALIGNANCY. B. LYMPH NODE, STATION 10L, FINE NEEDLE ASPIRATION: - RARE ATYPICAL CELLS PRESENT (SEE COMMENT). C. LUNG, LEFT UPPER LOBE, BRONCHIAL LAVAGE: - RARE ATYPICAL CELLS PRESENT. 08/14/2024 3:30 PM EST [facility] at 1530 EST Comment The [...] at 3:30 PM. 08/14/2024 3:30 PM EST [facility] Clinical Information R91.1 - Solitary pulmonary nodule [ICD-10-CM] 08/14/2024 3:30 PM EST [facility] Gross Description A. [id number] Received along with a corresponding pathology report from [facility] Laboratory are 6 slide(s) labeled outside case: [id number] collected on 07/21/2024. 08/14/2024 3:30 PM EST [facility] Fine Needle Aspirate Lymph node specimen / Unknown 08/07/2024 11:54 AM EST 08/07/2024 11:54 AM EST us Neli Ventura MD LAB PATHOLOGY ORDERABLES Final Result [facility] [address] [place] [address] documented in this encounter Visit Diagnoses Diagnosis Solitary pulmonary nodule documented in this encounter Care Teams Negative Turner Relationship Specialty Start Date End Date Pcp, No [address] [place] [address] PCP - General Family Medicine 07/13/24 documented as of this encounter
--- OUTSIDE RECORDS SUMMARY | 2025-03-20 10:54 | XMS_ITS | Encounter Summary ---
Author Organization Healthcare Address [address] [place] [address] Care Team Providers Care Model Maker Name Role Phone Pcp, No Primary Care Provider Unavailabl e Encounter Details Date Type Department Care Team ([facility] st Contact Info) Description 07/21/2024 Orders Only External Location [address] [place] [address] Provider, External Social History Tobacco Use Types [...] on filedocumented in this encounter Care Teams Model Maker Relationship Specialty Start Date End Date Pcp, No [address] [place] [address] PCP - General Family Medicine 07/13/24 documented as of this encounter
--- OUTSIDE RECORDS SUMMARY | 2025-03-20 10:54 | XMS_ITS | Encounter Summary ---
Author Organization Healthcare Address [address] [place] [address] Care Team Providers Care Mill Hand Plate Mill Name Role Phone None, None Primary Care Provider Pcp, No Primary Care Provider Unavailabl e Encounter Details Date Type Department Care Team ([facility] st Contact Info) Description 02/28/2021 Orders Only External Location [address] [place] [address] Provider, External Social History Tobacco Use Types [...] on filedocumented in this encounter Care Teams Mill Hand Plate Mill Relationship Specialty Start Date End Date None, None [address] [place] [address] PCP - General NONE FOUND 07/12/23 03/06/24 Pcp, No [address] [place] [address] PCP - General Family Medicine 07/13/24 documented as of this encounter
--- OUTSIDE RECORDS SUMMARY | 2025-03-20 10:54 | XMS_ITS | Encounter Summary ---
Author Organization Healthcare Address [address] [place] [address] Care Team Providers Care Insurance Claims Assistant Name Role Phone Pcp, No Primary Care Provider Unavailabl e Encounter Details Date Type Department Care Team ([facility] st Contact Info) Description 07/21/2024 Orders Only External Location [address] [place] [address] Provider, External Social History Tobacco Use Types [...] on filedocumented in this encounter Care Teams Insurance Claims Assistant Relationship Specialty Start Date End Date Pcp, No [address] [place] [address] PCP - General Family Medicine 07/13/24 documented as of this encounter
--- OUTSIDE RECORDS SUMMARY | 2025-03-20 10:54 | XMS_ITS | Encounter Summary ---
Author Organization Healthcare Address [address] [place] [id number] Care Team Providers Care Substitute Bus Driver Name Role Phone Pcp, No Primary Care Provider Unavailabl e Encounter Details Date Type Department Care Team ([facility] st Contact Info) Description 06/02/2024 Orders Only External Location [address] [place] [address] Provider, External Social History Tobacco Use Types [...] on filedocumented in this encounter Care Teams Substitute Bus Driver Relationship Specialty Start Date End Date Pcp, No [address] [place] [address] PCP - General Family Medicine 07/13/24 documented as of this encounter
--- OUTSIDE RECORDS SUMMARY | 2025-03-20 10:54 | XMS_ITS | Encounter Summary ---
Author Organization Healthcare Address [address] [place] [address] Care Team Providers Care Eradicator Name Role Phone None, None Primary Care Provider Pcp, No Primary Care Provider Unavailabl e Encounter Details Date Type Department Care Team (Late st Contact Info) Description 12/09/2018 Orders Only External Location [address] [place] [address] Antonio Guzman MD [facility] [facility] [address] [place] [address] Social History Tobacco Use Types Packs/Day Years [...] on filedocumented in this encounter Care Teams Eradicator Relationship Specialty Start Date End Date None, None [address] [place] [address] PCP - General NONE FOUND 07/12/23 03/06/24 Pcp, [place] [address] PCP - General Family Medicine 07/13/24 documented as of this encounter
--- OUTSIDE RECORDS SUMMARY | 2025-03-20 10:54 | XMS_ITS | Encounter Summary ---
Author Organization Healthcare Address [address] [place] [address] Care Team Providers Care Progressive Assembler And Fitter Name Role Phone None, None Primary Care Provider [phone] Pcp, No Primary Care Provider Unavailabl e Encounter Details Date Type Department Care Team ([facility] st Contact Info) Description 12/04/2016 Orders Only External Location [address] [place] [address] Provider, External Social History Tobacco Use Types [...] on filedocumented in this encounter Care Teams Progressive Assembler And Fitter Relationship Specialty Start Date End Date None, None [address] [place] [address] PCP - General NONE FOUND 07/12/23 03/06/24 Pcp, No [address] [place] [address] PCP - General Family Medicine 07/13/24 documented as of this encounter
--- OUTSIDE RECORDS SUMMARY | 2025-03-20 10:54 | XMS_ITS | Encounter Summary ---
Author Organization Healthcare Address [address] [place] [address] Care Team Providers Care Sales Lead Name Role Phone None, None Primary Care Provider Pcp, No Primary Care Provider Unavailabl e Encounter Details Date Type Department Care Team ([facility] st Contact Info) Description 02/07/2023 Orders Only External Location [address] [place] [address] Provider, External Social History Tobacco Use Types [...] 9:40 AM EDT) Anatomical Region Laterality Modality [place] [facility] [place] Computed Tomogr aphy 02/07/2023 9:40 AM EDT us External Provider IMG CT PROCEDURES Final Result documented in this encounter Visit Diagnoses Not on filedocumented in this encounter Care Teams Sales Lead Relationship Specialty Start Date End Date None, None [address] [place] [address] PCP - General NONE FOUND 07/12/23 03/06/24 Pcp, [place] [address] PCP - General Family Medicine 07/13/24 documented as of this encounter
--- OUTSIDE RECORDS SUMMARY | 2025-03-20 10:54 | XMS_ITS | Encounter Summary ---
Author Organization Healthcare Address [address] [place] [address] Care Team Providers Care Bark Scaler Name Role Phone Pcp, No Primary Care Provider Unavailabl e Encounter Details Date Type Department Care Team (Late st Contact Info) Description 08/07/2024 Lab Requisition [facility] [address] [place] [address] Neli Ventura MD [address] [place] [address] Solitary pulmonary nodule Social History Tobacco Use [...] EST) Case Report Sugical Pathology Consult Case: [id number] Authorizing Provider: Neli Ventura MD Collected: 08/07/2024 1126 Ordering Location: [facility] Received: 08/07/2024 1126 Pathologist: Haroldo Laura DO Specimen: Lung, Left, [id number] 08/07/2024 2:47 PM [facility] Final Diagnosis OUTSIDE SLIDES; [id number], A-B; 07/21/2024 A. LUNG, LEFT, UPPER LOBE, ENDOBRONCHIAL BIOPSY: - POSITIVE FOR NON-SMALL CELL CARCINOMA, FAVOR SQUAMOUS CELL CARCINOMA (SEE COMMENT). B. LUNG, LEFT, UPPER LOBE, TRANSBRONCHIAL BIOPSY: - SCANT LUNG TISSUE; NEGATIVE FOR MALIGNANCY WITHIN THE BIOPSIED MATERIAL. 08/07/2024 2:[address] [facility] at 1447 EST Comment Sections [...] represents a pulmonary primary. 08/07/2024 2:47 PM [facility] Clinical Information R91.1 - Solitary pulmonary nodule [ICD-10-CM] 08/07/2024 2:47 PM [facility] Gross Description A. [id number] Received along with a corresponding pathology report from [facility] are 5 slide(s) labeled outside case: [id number] collected on 07/21/2024. 08/07/2024 2:47 PM [facility] Intradepartmental Consultation with Agreement Dr. Xiao (tumor classification) 08/07/2024 2:47 PM [facility] Note: A resident was involved in the service. I attest I examined the relevant preparations for the specimens and confirmed the diagnosis or interpretation. 08/07/2024 2:47 PM [facility] Tissue Left lung structure / Unknown 08/07/2024 11:26 AM EST 08/07/2024 11:26 AM EST us Neli Ventura MD LAB PATHOLOGY ORDERABLES Final Result [facility] [address] [place] [address] documented in this encounter Visit Diagnoses Diagnosis Solitary pulmonary nodule documented in this encounter Care Teams Bark Scaler Relationship Specialty Start Date End Date Pcp, No [address] [place] [address] PCP - General Family Medicine 07/13/24 documented as of this encounter
--- OUTSIDE RECORDS SUMMARY | 2025-03-20 10:54 | XMS_ITS | Encounter Summary ---
Author Organization Healthcare Address [address] [place] [address] Care Team Providers Care Purchasing And Claims Supervisor Name Role Phone None, None Primary Care Provider Pcp, No Primary Care Provider Unavailabl e Encounter Details Date Type Department Care Team (Late st Contact Info) Description 08/23/2022 Orders Only External Location [address] [place] [address] Jillian Ortiz, PLANNING SUPERVISOR [address] [facility] [address] [place] [address] Social History Tobacco Use Types [...] 08/23/2022 8:58 AM EST us Jillian Ortiz PLANNING SUPERVISOR IMG US PROCEDURES Final Resu lt documented in this encounter Visit Diagnoses Not on filedocumented in this encounter Care Teams Purchasing And Claims Supervisor Relationship Specialty Start Date End Date None, None [address] [place] [address] PCP - General NONE FOUND 07/12/23 03/06/24 [place] [address] PCP - General Family Medicine 07/13/24 documented as of this encounter
--- NOTE | 2025-03-20 11:00 | CT_ITS ---
FINAL REPORT TECHNIQUE: Routine axial images were obtained from the lung apices to below the diaphragm following IV contrast administration. Individualized dose reduction techniques using automated exposure control or adjustment of the mA and/or kV according to the patient size were employed. CLINICAL HISTORY: new symptoms, lung caner, swelling of the left chest COMPARISON: 01/06/2025 FINDINGS: Mediastinal vasculature is well opacified. No mediastinal mass or adenopathy. There is volume loss in the left hemithorax with shift of the mediastinal structures to the left. No pleural or pericardial effusion is seen. Cavitary focus in the left upper lobe is stable. There is circumferential pleural thickening. Densities of the right lung apex measure up to 6 mm on image 11 of series 2. These densities are stable. Small densities in the posterior left lower lobe measuring up to 10 mm also appear stable, well seen on image 29 of series 2. Limited images of the upper abdomen demonstrate the gallbladder is surgically absent. IMPRESSION: Large cavitary focus left upper lobe with associated volume loss. Stable densities right upper lobe and left lower lobe are indeterminate and may be postinflammatory versus neoplastic. Continued surveillance recommended.. Reviewed, Interpreted and Dictated by Rosales Carreon MD Transcribed by Baylee Knox Authenticated and [facility]
[2025-03-20 11:46] LABS: Hematocrit 36.1 % (42.0-52.0); Hemoglobin 11.5 g/dL (14.1-18.0); Immature Granulocytes % 0.4 %; Mean Corpuscular HGB Conc 31.9 g/dL (31.8-35.4); Mean Corpuscular Hemoglobin 29.6 pg (27.0-31.2); Mean Corpuscular Volume 92.8 fl (80-94); Nucleated Red Blood Cells % 0 %; Platelet Count 251 K/mm3 (142-424); Red Blood Count 3.89 M/mm3 (4.60-6.20); Red Cell Distribution Width-SD 47.4 fL; White Blood Count 4.7 K/mm3 (4.8-10.8)
[2025-03-20 12:04] LABS: Albumin Level 3.9 g/dl (3.5-5.0); Chloride 101 mmol/L (98-107); Sodium 135 mmol/L (136-145)
[2025-03-20 12:05] LABS: Potassium 4.4 mmoL/L (3.5-5.1)
[2025-03-20 12:07] LABS: Alanine Aminotransferase 40 U/L (12-78); Albumin/Globulin Ratio 1.3 (1.1-1.8); Alkaline Phosphatase 87 U/L (38-126); Anion Gap 7.4 mEq/L (5-15); Aspartate Amino Transferase 28 U/L (17-59); Bilirubin,Total 0.4 mg/dl (0.2-1.3); Blood Urea Nitrogen 11 mg/dl (9-20); Carbon Dioxide 31 mmol/L (22.0-30.0); Creatinine,Serum 0.60 mg/dl (0.66-1.25); Estimated Glomerular Filt Rate 137 ml/min (>60); GFR (African American) 166 ML/MIN (>60); Globulin 3.0 g/dL (1.3-3.2); Total Protein,Serum 6.9 g/dl (6.3-8.2)
[2025-03-20 12:08] LABS: Calcium 9.3 mg/dl (8.4-10.2); Glucose 93 mg/dl (74-100)
[2025-03-20] MEDS: SODIUM CHLORIDE 0.9% 10ML SYR (RAD ONLY) 10 ML IV (12:29)
[2025-03-20] MEDS: IOPAMIDOL-370 (76%);100ML BOTTLE 75 ML IV (12:29)
== END 2025-03-20 11:40 | disposition home or self-care (01) ==
LOC: INF 10:52
PROVIDERS: PCP Family Medicine; Visit Provider Internal Medicine Medical Oncology
DX: C34.12 Malignant neoplasm of upper lobe, left bronchus or lung (principal)
CPT/HCPCS: 36415; 71260; 80053; 85025; Q9967

== ENCOUNTER 2025-04-10 07:58 | Outpatient (CLI) | payer BC, SELFPAY ==
--- OUTSIDE RECORDS SUMMARY | 2024-07-14 10:15 | XMS_ITS ---
Author Organization [place] Address 1210 [facility] [address] [place] [phone] Care Team Providers Care Geothermal Operations Engineer Name Role Phone Flo Murray Primary Care [...] Encounter Location Date Provider Diagnosis [facility] [address] [place] [phone] 07/14/2024 Flo Murray Abnormal chest CT R93.89 [...] 2 Months, Reason: Provider Name:Flo Lowe er, 04/20/2025 11:45:00 AM, [address], [address], [place], [place], [id number], Progress Notes * ASHLEY CADENADOB: 4 (60 yo M)Acc No.[id number]:07/14/2024 Progress Notes Patient: ASHLEY JUNIOR Provider: Flo Murray M.D. :1965 A ge:59 Y S ex:Male Date:07/14/2024 Address:[address] [place] [address] [address] [facility] Subjective: * Chief Complaints: * 1 . [...] History: D epression, 10/24/07 Adacel [facility], Diverticulitis, Crohn's disease, Pfizer Covid vaccine x2 October 2020. * Surgical History: a bnormal CT of the head , fx of heel left foot, Dr. South 05/2010, cholecystectomy 08-11-10, [facility] - [facility] resection 08/2019. * Hospitalization/Major Diagno stic Procedure: w ound infection 1983, Infection, Admitted at [facility] transfer to [facility] 02-28 to 03-05-10, [facility] 07/14/10 to 07/15/10, [facility] - colon [...] * Images: Billing Information: * Visit Code: 04872 Office Visit, Est Pt., Level 3. * Procedure Codes: 23483 PULSE OX. * Electronic signature of Flo Murray MD on 04/10/2025 at 08:02 AM EDT Sign off status: Pending * Provider: Flo Murray M.D. Date: 09/14/2023 Generated for Printi ng/Faveronicag/eTransmitting on: 0 04/10/2025 08:02 AM EDT History and Physical Notes * [...]
--- OUTSIDE RECORDS SUMMARY | 2024-09-22 11:15 | XMS_ITS ---
Author Organization Sury Address 1210 [facility] [address] [place] [phone] Care Team Providers Care Proposal Consultant Name Role Phone Flo Murray Primary Care Provider [phone] Allergies No Known Allergies REASON FOR VISIT [...] Notes Problem Malignant neoplasm of respiratory system (671226087) Carcinoma of left lung (C34.92) Active confirmed Vital Signs Blood pressure systolic 150 mm Hg 09/22/19 25 Blood pressure diastolic 80 mm Hg 025 Heart Rate 64 /min 09/22/2024 Height 66.25 in 09/22/2024 Weight 143.6 lbs 09/22/2024 BMI 23.00 kg/m2 09/22/2024 Encounters Encounter Location Date Provider Diagnosis [place] [facility] 36 [facility] [address] [place] [phone] 09/22/2024 Flo Murray Carcinoma of left lung [...] [address], [place], [phone], Progress Notes * ASHLEY CADENADOB: 4 (60 yo M)Acc No.[id number]:09/22/2024 Progress Notes Patient: Yamile DRIVERASHLEY Provider: Flo Murray M.D. :1965 A ge:59 Y S ex:Male Date:09/22/2024 Address:[address] [place], [place] [address] [address], [id number] Subjective: * Chief Complaints: * 1 . [...] Dmitri Yeboah. Also getting the radiation in [place] from Dr. Toro. Has Percocet for pain, [...] * Medical History: D epression, 10/24/07 Adacel [facility], Diverticulitis, Crohn's disease, Pfizer Covid vaccine x2 October 2020. * Surgical History: a bnormal CT of the head , fx of heel left foot, Dr. South 05/2010, cholecystectomy 08-11-10, [facility] - [facility] resection 08/2019. * Hospitalization/Major Diagno stic Procedure: w ound infection 1983, Infection, Admitted at [facility] transfer to [facility] 02-28 to 03-05-10, [facility] 07/14/10 to 07/15/10, [facility] - colon resection [...] * Images: Billing Information: * Visit Code: 84234 Office Visit, Est Pt., Level 4. * Procedure Codes: 82596 PULSE OX. 3077F SYST BP = 140 MM HG6 IT. 3079F DIAST BP 80-89 MM HG. * Electronic signature of Flo Murray MD on 04/10/2025 at 08:01 AM EDT Sign off status: Pending * Provider: Flo Murray M.D. Date: 0 09/22/2024 Generated for Corey grant/Kevin/Amandaitting on: 0 04/10/2025 08:01 AM EDT History and Physical Notes * [...]
--- OUTSIDE RECORDS SUMMARY | 2024-11-24 10:00 | XMS_ITS ---
Author Organization [facility] Address [facility] [facility] [address] [place] [phone] Care Team Providers Care Senior Accounting Associate Name Role Phone Flo Murray Primary Care [...] Location Date Provider Diagnosis [place] [facility] [address] [place] [phone] 11/24/2024 Flo Murray Crohn''s disease of small [...] 3 Months, Reason: Provider Name:Flo Lowe er, 04/20/2025 11:45:00 AM, [address], [address], [place], [place], [id number], Progress Notes * ASHLEY CADENADOB: 4 (60 yo M)Acc No.[id number]:11/24/2024 Progress Notes Patient: ASHLEY JUNIOR Provider: Flo Murray M.D. :1965 A ge:59 Y S ex:Male Date:11/24/2024 Address:[address] [place] [address] [address], [facility] Subjective: * Chief Complaints: * 1 . [...] epression, 10/24/[address] [facility], Diverticulitis, Crohn's disease, Pfizer Covid vaccine x2 October 2020. * Surgical History: a bnormal CT of the head , fx of heel left foot, Dr. South 05/2010, cholecystectomy 08-11-10, [facility] - [facility] resection 08/2019. * Hospitalization/Major Diagno stic Procedure: w ound infection 1983, Infection, Admitted at [facility] transfer to [facility] 02-28 to 03-05-10, [facility] 07/14/10 to 07/15/10, [facility] - [...] in remission - K50.90 5 . B [place] 23.0-23.9, adult - Z68.23 Plan: * Treatment: * Procedure Codes: 3 074F SYST BP LT 130 MM HG, 3079F DIAST BP 80-89 MM HG * Follow Up: 3 Months * Images: Billing Information: * Visit Code: 83367 Office Visit, Est Pt., Level 3. * Procedure Codes: 3074F SYST BP LT 130 MM HG. 3079F DIAST BP 80-89 MM HG. * Electronic signature of Flo Murray MD on 04/10/2025 at 08:02 AM EDT Sign off status: Pending * Provider: Flo Murray M.D. Date: 0 11/24/2024 Generated for Corey grant/Kevin/Carlysmitting on: 0 04/10/2025 08:02 AM EDT History [...]
--- OUTSIDE RECORDS SUMMARY | 2025-02-16 09:45 | XMS_ITS ---
Author [facility] Address [address] [facility] [address] [place] [id number] Care Team Providers Care Audiology Doctor Name Role Phone Flo Murray Primary [...] Status W/U Status Risk Notes Problem Anxiety with depression (F41.8) Active confirmed Vital Signs Blood pressure systolic 120 mm Hg 07/07/20 25 Blood pressure diastolic 80 mm Hg 025 Heart Rate 71 /min 02/16/2025 Height 66.25 in 02/16/2025 Weight 145.2 lbs 02/16/2025 BMI 23.26 kg/m2 02/16/2025 Encounters Encounter Location Date Provider Diagnosis [place] [address] [facility] [address] [facility] [address] [place], [place] [id number] 02/16/2025 Flo Murray Carcinoma of left ari [...] Name:Flo Lowe er, 04/20/2025 11:45:00 AM, [address] [facility] [address] [facility], [address], [place], [place], [id number], Progress Notes * ASHLEY CADENADOB: 4 (60 yo M)Acc No.[id number]:02/16/2025 Progress Notes Patient: ASHLEY JUNIOR Provider: Flo Murray M.D. :1965 A ge:60 Y S ex:Male Date:02/16/2025 Address:[address] [place] [address], [place] [id number] Subjective: * Chief Complaints: * 1 . [...] * Medical History: D epression, 10/24/07 Adacel [facility], Diverticulitis, Crohn's disease, Pfizer Covid vaccine x2 October 2020. * Surgical History: a bnormal CT of the head , fx of heel left foot, Dr. South 05/2010, cholecystectomy 08-11-10, [place] - colon resection 08/2019. * Hospitalization/Major Diagno stic Procedure: w ound infection 1983, Infection, Admitted at [facility] transfer to [facility] 02-28 to 03-05-10, [facility] 07/14/10 to 07/15/10, - colon resection [...] with depression - F41.8 4 . B LA 23.0-23.9, adult - Z68.23 Plan: * Treatment: [...] * Images: Billing Information: * Visit Code: 86474 Office Visit, Est Pt., Level 4. * Procedure Codes: G8420 BMI<30 AND >=22 CALC & DOCU. G8783 BP SCR PRFRM RCMDD DEFIND SCR INTVL. G8752 MOST RECENT SYSTOLIC BP < 140MM HG. G8754 MOST RECENT DIASTOLIC BP < 90MM HG. * Electronic signature of Flo Murray MD on 04/10/2025 at 08:01 AM EDT Sign off status: Pending * Provider: Flo Murray M.D. Date: 02/16/2025 Generated for Corey grant/Kevin/eTransmitting on: 04/10/2025 08:01 AM EDT History and Physical [...]
--- NOTE | 2025-04-10 08:00 | NM_ITS ---
FINAL REPORT CLINICAL HISTORY: lung cancer back pain 8:20 am 24.9 [facility] mdp COMPARISON: CT of the chest 03/20/2025 FINDINGS: EXISTING RELEVANT IMAGING STUDIES: TECHNIQUE: The patient was injected with 24.9 mCi of technetium 99-MDP. 3 hour delayed images were obtained. FINDINGS: Soft tissue uptake is unremarkable. There is radiotracer uptake in the posterior left 10th rib. On CT there is a small lucent lesion with a thin sclerotic margin. No other abnormal tracer activity is identified to suggest occult fracture or metastatic disease. IMPRESSION: There is a small focus of radiotracer uptake in the posterior left 10th rib with a small lucent lesion seen on CT comparison. There is a lack of additional uptake elsewhere in the bony skeleton, which decreases the probability that this represents a metastatic lesion. Reviewed, Interpreted and Dictated by Alice Riojas MD Transcribed by Lizeth Malave Authenticated and [facility]
--- OUTSIDE RECORDS SUMMARY | 2025-04-10 08:01 | XMS_ITS | Patient Health Record ---
Author Organization [facility] Address [address] [place] [id number] Care Team Providers Care Order Puller Name Role Phone Flo Murray Primary Care Provider [phone] Laureano García Unavailable [phone] Allergies No Known Allergies Results Component Value Reference Range Notes P-Basic Metabolic Panel (BMP ) Reviewed date:05/21/2024 10:34:53 AM Interpretation:Normal Performing Lab: Notes/Report: CLIA: [id number] Cipriano Renee MD, Early Childhood Associate [address] [place] [address] , [address], [place] [address] Test performed by [facility] Sodium 136 135-145 mmol/L Potassium 4.5 3.5-5.3 [...] Interpretation:Normal Performing Lab: Notes/Report: Test performed by [facility] [address] [place], [place] [address], [address], [place] [address] Cipriano Renee MD, Early Childhood Associate CLIA: [id number] PSA 0.36 <4.00 ng/mL Please note this is an ultrasensitive PSA assay with a lower limit of detection of 0.014 ng/mL. This test is performed by the [employer] ECLIA methodology. Values obtained with different assay methods or kits cannot be directly compared. CT Scan : Chest, low dose Reviewed date:06/19/2024 07:43:55 AM Interpretation:Abnormal Performing Lab: Notes/Report: Abnormal Medications Medication SIG (Take, Route, Frequency, Duration) Notes Start Date End Date Status Humira Pen 40 MG/0.4ML as directed subcutaneously every other week Not-Taking Tamsulosin HCl 0.4 MG 1 capsule Orally a t bedtime; Duration: 90 days Active Mometasone Furoate 0.1 % 1 application Externally Once a day 09/17/2023 Not-Taking diazePAM 5 MG 1 tablet as needed O rally 3 times a day prn; Duration: 30 days 02/20/2025 Active Rosuvastatin Calcium 10 MG 1 tablet Orally Once a day; Duration: 30 day(s) Active Aspirin Low Dose 81 MG 1 tab(s) orally o nce a day; Duration: 30 day(s) Active Medrol 4 MG as directed Orally; Duration: 6 days 02/16/2025 Active Vitamin B-12 1000 MCG 1 tab(s) orally on ce a day; Duration: 30 day(s) 01/03/2023 Active traMADol HCl 50 MG 1 tablet as needed O rally three times a day as needed 07/01/2024 Active Escitalopram Oxalate 10 MG 1 tablet Orally Once a day; Duration: 30 days 02/16/2025 Active Percocet 5-325 MG 1 tablet as needed O rally hs Active Mesalamine 400 MG 2 capsule Orally twi ce a day Active Immunizations Vaccine Route Administration Date Status Comme nts Tetanus Tdap-Adacel (over 7yrs) IM Intramuscular 01/24/2019 Administered Tetanus Tdap-Adacel (over 7yrs) Unknown 12/19/2020 Administered Fluzone Quad (6months&older) IM Intramuscular 06/02/2019 Administered Fluzone Quad (6months&older) Unknown 05/17/2021 Administered Fluzone Quad (6months&older) IM Intramuscular 05/17/2023 Administered Fluzone Quad (6months&older) IM Intramuscular 05/19/2024 Pending Fluzone PF Quad (6-35 months) Unknown 05/22/2022 Administered COVID 19 Pfizer Unknown 10/19/2020 Administered COVID 19 Pfizer Unknown 11/09/2020 Administered Problems Problem Type SNOMED Code ICD Code Onset Dates Problem Status W/U Status Risk Notes Problem Mixed anxiety and depressive disorder (128696365) Depression with anxiety (300.4) Active confirmed Problem Vitamin B12 deficiency (544207102) Vitamin B12 deficiency (E53.8) Active confirmed Problem Essential hypertension (93508683) Essential hypertension (I10) Active confirmed Problem Osteopenia (248426544) Osteopenia (M85.80) Active confirmed Problem Sprain of lateral collateral ligament of knee (36162586) Sprain of lateral collateral ligament of left knee, initial encounter (S83.422A) Active confirmed Problem Colitis (16288816) Colitis (K52.9) Active confi rmed Problem Disorder of prostate (47846002) Benign prostatic disease (N42.9) Active confirmed Problem Gastroesophageal reflux disease with esophagitis (197829579) Gastroesophageal reflux disease with esophagitis (K21.0) Active confirmed Problem New daily persistent headache (996604858719245) New daily persistent headache (G44.52) Active confirmed Problem Lower abdominal pain (61334411) Lower abdominal pain (R10.30) Active confirmed Problem Multiple actinic keratoses (disorder) (830778982) Actinic keratoses (L57.0) Active confirmed Problem Iron deficiency anemia due to chronic blood loss (285944308) Iron deficiency anemia due to chronic blood loss (D50.0) Active confirmed Problem Occlusion and stenosis of multiple and bilateral cerebral arteries (479562708) Carotid stenosis, bilateral (I65.23) Active confirmed Problem Enterocolitis (10976766) Enterocolitis (K52.9) Active confirmed Problem Neoplasm of neck (412918094) Neoplasm of neck (D49.89) Active confirmed Problem Benign prostatic hypertrophy without outflow obstruction (430949427) Benign prostatic hyperplasia without lower urinary tract symptoms (N40.0) Active confirmed Problem Squamous cell carcinoma of skin (835252749) Squamous cell skin cancer (C44.92) Active confirmed Problem Anxiety depression (367921325) Anxiety with depression (F41.8) Active confirmed Problem Malignant neoplasm of respiratory system (112105386) Carcinoma of left lung (C34.92) Active confirmed Problem Abnormal findings on diagnostic imaging of skull and head (024806218) Abnormal CT scan of head (R93.0) Active confirmed Problem 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) Active confirmed Problem Radiology result abnormal (174500008) Abnormal chest CT (R93.89) Active confirmed Problem History of excision of intestinal structure (001173239) Status post small bowel resection (Z90.49) Active confirmed Problem Crohn's disease of small intestine (68093819) Crohn''s disease of small intestine with complication (K50.019) Active confirmed Problem Sprain of collateral ligament of left knee, subsequent encounter (S83.402D) Active confirmed Problem Crohn's disease in remission (598050462) Crohn's disease in remission (K50.90) Active confirmed Vital Signs Heart Rate 71 /min 02/16/2025 Blood pressure diastolic 80 mm Hg 02/16/2025 Height 66.25 in 02/16/2025 Blood pressure systolic 120 mm Hg 02/16/2025 Weight 145.2 lbs 02/16/2025 BMI 23.26 kg/m2 02/16/2025 Encounters Encounter Location Date Provider Diagnosis [facility] [place] [facility] [address] [id number] 05/19/2024 Flo Murray Essential hypertensi on I10 ; Crohn's disease in remission K50.90 ; History of tobacco use Z87.891 ; Right groin pain R10.31 ; Strain of right psoas muscle, initial encounter S76.011A ; Actinic keratosis L57.0 ; Encounter for immunization Z23 and Benign prostatic hyperplasia without lower urinary tract symptoms N40.0 [facility] [address] [facility] [address] [id number] 06/27/2024 Flo Murray Actinic keratoses L5 7.[address] R93.89 [facility] [place] [facility] [address] [id number] 07/14/2024 Flo Murray Abnormal chest CT R93.89 and Skin lesion of hand L98.9 [facility] [address] [place] [id number] 09/22/2024 Flo Murray Carcinoma of left ari ng C34.92 and Crohn's disease in remission K50.90 [facility] [address] [facility] [address] [place], [place] [id number] 11/24/2024 Flo Murray Crohn''s disease of small intestine with complication K50.019 ; Carcinoma of left lung C34.92 ; Status post small bowel resection Z90.49 ; Crohn's disease in remission K50.90 and BMI 23.0-23.9, adult Z68.23 [facility] [address] [place] [id number] 02/16/2025 Flo Murray Carcinoma of left ari ng C34.92 ; Crohn's disease in remission K50.90 ; Anxiety with depression F41.8 and BMI 23.0-23.9, adult Z68.23 [facility] [address] [place] [id number] 06/19/[address] [place] [place] scan R93 .89 [facility] [address] [facility] [address] [place] [id number] 06/30/2024 Flo Murray [facility] [address] [facility] [address] [place] [id number] 11/03/2024 Flo Murray [facility] [address] [facility] [address] [place] [id number] 02/18/2025 Flo Murray Anxiety with depress ion F41.8 [facility] [address] [facility] [address] [place] [id number] 03/02/2025 Flo Murray Assessments Encounter Date Diagnosis (ICD [...] small intestine with complication (ICD-10 - K50.019) 02/16/2025 Carcinoma of left lung (ICD-10 - C34.92) 02/16/2025 Crohn's disease in remission (ICD-10 - K50.90) 02/18/2025 Anxiety with depression (ICD-10 - F41.8) 02/16/2025 Anxiety with depression (ICD-10 - F41.8) 05/19/2024 History of tobacco use (ICD-10 - Z87.891) 11/24/2024 Status post small bowel resection (ICD-10 - Z90.49) 05/19/2024 Right groin pain (ICD-10 - R10.31) 02/16/2025 BMI 23.0-23.9, adult (ICD-10 - Z68.23) 11/24/2024 Crohn's disease in remission (ICD-10 - [...] 06/19/2024 Next Appt Details Provider Name:Flo Lowe , 04/20/2025 11:45:00 AM, [address], [place], [id number], Insurance Providers Payer Name Payer Address Payer Phone Subscriber Number Group Number Insured Name Patient Relationship to Insured Coverage Start Date Coverage End Date REINA MAYER [facility] [address] [place] [address] [id number] 1ER ASHLEY CADENA Self - patient is the insured Medications Administered Medication Instructions Date of Administration Dosage Notes B-12 11/15/2018 1 mL B-12 01/03/2023 1 mL Morphine 07/14/2010 2 mg Vistaril 50 mg 01/04/2012 Medical (General) History Medical History History ICD Code depression 10/24/[address] [facility] diverticulitis Crohn's disease Pfizer Covid vaccine x2 October 2020 Surgical History Surgery Date(Month/Year) abnormal CT of the head fx of heel left foot, Dr. South 05/2010 cholecystectomy 08-11-10 - colon resection 08/2019 Hospitalization History Reason Date(Month/Year) - colon resection 09/04/2019-09/09/[address] [facility] 07/14/10 to 07/15/10 [address], Admitted at [facility] transfer to [facility] 02-28 to 03-05-10 wound infection 1984
--- OUTSIDE RECORDS SUMMARY | 2025-04-10 08:01 | XMS_ITS | Clinical Summary ---
Author Organization Healthcare Address [address] [place] [address] Care Team Providers Care Clinical Practice Consultant Name Role Phone Pcp, No Primary Care Provider Unavailabl e Allergies No known active allergies Medications acetaminophen (Tylenol) 325 MG tablet 0 Active albuterol 108 (90 Base) MCG/ACT inhaler INHALE 2 PUFFS BY MOUTH 4 TIMES DAILY NEEDED FOR SHORTNESS OF BREATH OR WHEEZING 4 Active aspirin 81 MG EC tablet Take 1 tablet (81 mg) by mouth Daily. Active Cholecalciferol 250 MCG (32254 UT) capsule Weekly 4 Active rosuvastatin (Crestor) [...] 02/10/2009 Sigmoidoscopy 02/10/2009 [facility]-Colorectal Cancer Screening 02/10/2009 [id number] Vaccine ( season) 2024 05/30/2023, 09/14/2021, 11/09/2020, [...] this topic Insurance ANTH Care Teams Clinical Practice Consultant Relationship Specialty Start [place] [address] PCP - General Family Medicine 07/13/24
--- OUTSIDE RECORDS SUMMARY | 2025-04-10 08:01 | XMS_ITS | Referral Summary ---
Author Organization [employer] ([place], [place], [place], [place]) Address [address] [place] [address] Care Team Providers Care Architectural Design Professor Name Role Phone Unavailable Primary Care Provider [...]
--- OUTSIDE RECORDS SUMMARY | 2025-04-10 08:02 | XMS_ITS | Encounter Summary ---
Author Organization Healthcare Address [address] [place] [address] Care Team Providers Care Hot Mill Tin Roller Name Role Phone None, None Primary Care Provider [phone] Pcp, No Primary Care Provider Unavailabl e Encounter Details Date Type Department Care Team ([facility] st Contact Info) Description 07/27/2022 Orders Only External Location [address] [place] [address] Provider, External Social History Tobacco Use Types [...] on filedocumented in this encounter Care Teams Hot Mill Tin Roller Relationship Specialty Start Date End Date None, None [address] [place] [address] PCP - General NONE FOUND 07/12/23 03/06/24 Pcp, No [address] [place] [address] PCP - General Family Medicine 07/13/24 documented as of this encounter
--- OUTSIDE RECORDS SUMMARY | 2025-04-10 08:02 | XMS_ITS | Encounter Summary ---
Author Organization Healthcare Address [address] [place] [address] Care Team Providers Care Press Breaker Name Role Phone None, None Primary Care Provider [phone] Pcp, No Primary Care Provider Unavailabl e Encounter Details Date Type Department Care Team (Late st Contact Info) Description 08/23/2022 Orders Only External Location [address] [place] [address] Jillian Ortiz CAMPUS REP [address] [facility] [address] [place] [address] Social History Tobacco Use Types [...] Medicine 08/23/2022 7:57 AM EST Jillian Ortiz CAMP[facility] REP IMG NM PROCEDURES Final Resu lt documented in this encounter Visit Diagnoses Not on filedocumented in this encounter Care Teams Press Breaker Relationship Specialty Start Date End Date None, None [address] [place] [address] PCP - General NONE FOUND 07/12/23 03/06/24 [place] [address] PCP - General Family Medicine 07/13/24 documented as of this encounter
--- OUTSIDE RECORDS SUMMARY | 2025-04-10 08:02 | XMS_ITS | Encounter Summary ---
Author Organization Healthcare Address [address] [place] [address] Care Team Providers Care Cap Parts Cutter Name Role Phone None, None Primary Care Provider Pcp, No Primary Care Provider Unavailabl e Encounter Details Date Type Department Care Team ([facility] st Contact Info) Description 02/07/2023 Orders Only External Location [address] [place] [address] Provider, External Social History Tobacco Use Types [...] 9:40 AM EDT) Anatomical Region Laterality Modality [place] [facility] [place] Computed Tomogr aphy 02/07/2023 9:40 AM EDT us External Provider IMG CT PROCEDURES Final Result documented in this encounter Visit Diagnoses Not on filedocumented in this encounter Care Teams Cap Parts Cutter Relationship Specialty Start Date End Date None, None [address] [place] [address] PCP - General NONE FOUND 07/12/23 03/06/24 Pcp, [place] [address] PCP - General Family Medicine 07/13/24 documented as of this encounter
--- OUTSIDE RECORDS SUMMARY | 2025-04-10 08:02 | XMS_ITS | Encounter Summary ---
Author Organization Healthcare Address [address] [place] [address] Care Team Providers Care Electrician Helper Powerhouse Name Role Phone None, None Primary Care Provider [phone] Pcp, No Primary Care Provider Unavailabl e Encounter Details Date Type Department Care Team (Late st Contact Info) Description 08/23/2022 Orders Only External Location [address] [place] [address] Jillian Ortiz, MEDICAL RECORD TECHNICIAN [address] [facility] [address] [place] [address] Social History Tobacco Use Types [...] 8:58 AM EST us Jillian Ortiz MEDICAL RECORD TECHNICIAN IMG US PROCEDURES Final Resu lt documented in this encounter Visit Diagnoses Not on filedocumented in this encounter Care Teams Electrician Helper Powerhouse Relationship Specialty Start Date End Date None, None [address] [place] [address] PCP - General NONE FOUND 07/12/23 03/06/24 [place] [address] PCP - General Family Medicine 07/13/24 documented as of this encounter
--- OUTSIDE RECORDS SUMMARY | 2025-04-10 08:02 | XMS_ITS | Encounter Summary ---
Author Organization Healthcare Address [address] [place] [address] Care Team Providers Care Before School Name Role Phone Pcp, No Primary Care Provider Unavailabl e Encounter Details Date Type Department Care Team (Late st Contact Info) Description 08/07/2024 Lab Requisition [facility] [address] [place] [address] Neli Ventura MD [address] [place] [address] Solitary pulmonary nodule Social History Tobacco Use [...] 11:54 AM EST) Case Report Cytology Case: [id number] Authorizing Provider: Neli Ventura MD Collected: 08/07/2024 1154 Ordering Location: [facility] Received: 08/07/2024 1154 Pathologist: Anne Marie Keita MD Specimen: Lymph Node, [id number] 08/14/2024 3:30 PM EST [facility] Final Diagnosis OUTSIDE CASE: [id number] COLLECTED ON 07/21/2024: A. LYMPH NODE, STATION 7, FINE NEEDLE ASPIRATION: - LYMPHOID TISSUE, NEGATIVE FOR MALIGNANCY. B. LYMPH NODE, STATION 10L, FINE NEEDLE ASPIRATION: - RARE ATYPICAL CELLS PRESENT (SEE COMMENT). C. LUNG, LEFT UPPER LOBE, BRONCHIAL LAVAGE: - RARE ATYPICAL CELLS PRESENT. 08/14/2024 3:30 PM EST [facility] at 1530 EST Comment The atypical [...] at 3:30 PM. 08/14/2024 3:30 PM EST [facility] Clinical Information R91.1 - Solitary pulmonary nodule [ICD-10-CM] 08/14/2024 3:30 PM EST [facility] Gross Description A. [id number] Received along with a corresponding pathology report from [facility] Laboratory are 6 slide(s) labeled outside case: [id number] collected on 07/21/2024. 08/14/2024 3:30 PM EST [facility] Fine Needle Aspirate Lymph node specimen / Unknown 08/07/2024 11:54 AM EST 08/07/2024 11:54 AM EST us Neli Ventura MD LAB PATHOLOGY ORDERABLES Final Result [facility] [address] [place] [address] documented in this encounter Visit Diagnoses Diagnosis Solitary pulmonary nodule documented in this encounter Care Teams Before School Relationship Specialty Start Date End Date Pcp, No [address] [place] [address] PCP - General Family Medicine 07/13/24 documented as of this encounter
--- OUTSIDE RECORDS SUMMARY | 2025-04-10 08:02 | XMS_ITS | Encounter Summary ---
Author Organization Healthcare Address [address] [place] [address] Care Team Providers Care Property Staff Accountant Name Role Phone Pcp, No Primary Care Provider Unavailabl e Encounter Details Date Type Department Care Team ([facility] st Contact Info) Description 07/21/2024 Orders Only External Location [address] [place] [address] Provider, External Social History Tobacco Use Types [...] on filedocumented in this encounter Care Teams Property Staff Accountant Relationship Specialty Start Date End Date Pcp, No [address] [place] [address] PCP - General Family Medicine 07/13/24 documented as of this encounter
--- OUTSIDE RECORDS SUMMARY | 2025-04-10 08:02 | XMS_ITS | Encounter Summary ---
Author Organization Healthcare Address [address] [place] [address] Care Team Providers Care Wellness Guide Name Role Phone Pcp, No Primary Care Provider Unavailabl e Encounter Details Date Type Department Care Team ([facility] st Contact Info) Description 07/21/2024 Orders Only External Location [address] [place] [address] Provider, External Social History Tobacco Use Types [...] on filedocumented in this encounter Care Teams Wellness Guide Relationship Specialty Start Date End Date Pcp, No [address] [place] [address] PCP - General Family Medicine 07/13/24 documented as of this encounter
--- OUTSIDE RECORDS SUMMARY | 2025-04-10 08:02 | XMS_ITS | Encounter Summary ---
Author Organization Healthcare Address [address] [place] [address] Care Team Providers Care Campus Security Director Name Role Phone None, None Primary Care Provider [phone] Pcp, No Primary Care Provider Unavailabl e Encounter Details Date Type Department Care Team ([facility] st Contact Info) Description 12/04/2016 Orders Only External Location [address] [place] [address] Provider, External Social History Tobacco Use Types [...] on filedocumented in this encounter Care Teams Campus Security Director Relationship Specialty Start Date End Date None, None [address] [place] [address] PCP - General NONE FOUND 07/12/23 03/06/24 Pcp, No [address] [place] [address] PCP - General Family Medicine 07/13/24 documented as of this encounter
--- OUTSIDE RECORDS SUMMARY | 2025-04-10 08:02 | XMS_ITS | Encounter Summary ---
Author Organization Healthcare Address [address] [place] [address] Care Team Providers Care Whizzer Hand Name Role Phone None, None Primary Care Provider [phone] Pcp, No Primary Care Provider Unavailabl e Encounter Details Date Type Department Care Team ([facility] st Contact Info) Description 10/18/2020 Orders Only External Location [address] [place] [address] Provider, External Social History Tobacco Use Types [...] on filedocumented in this encounter Care Teams Whizzer Hand Relationship Specialty Start Date End Date None, None [address] [place] [address] PCP - General NONE FOUND 07/12/23 03/06/24 Pcp, No [address] [place] [address] PCP - General Family Medicine 07/13/24 documented as of this encounter
--- OUTSIDE RECORDS SUMMARY | 2025-04-10 08:02 | XMS_ITS | Encounter Summary ---
Author Organization Healthcare Address [address] [place] [address] Care Team Providers Care Supervisor Pipe Joints Name Role Phone None, None Primary Care Provider [phone] Pcp, No Primary Care Provider Unavailabl e Encounter Details Date Type Department Care Team ([facility] st Contact Info) Description 12/19/2020 Orders Only External Location [address] [place] [address] Provider, External Social History Tobacco Use Types [...] on filedocumented in this encounter Care Teams Supervisor Pipe Joints Relationship Specialty Start Date End Date None, None [address] [place] [address] PCP - General NONE FOUND 07/12/23 03/06/24 Pcp, No [address] [place] [address] PCP - General Family Medicine 07/13/24 documented as of this encounter
--- OUTSIDE RECORDS SUMMARY | 2025-04-10 08:02 | XMS_ITS | Encounter Summary ---
Author Organization Healthcare Address [address] [place] [id number] Care Team Providers Care Thermite Bomb Loader Name Role Phone Pcp, No Primary Care Provider Unavailabl e Encounter Details Date Type Department Care Team ([facility] st Contact Info) Description 06/02/2024 Orders Only External Location [address] [place] [address] Provider, External Social History Tobacco Use Types [...] on filedocumented in this encounter Care Teams Thermite Bomb Loader Relationship Specialty Start Date End Date Pcp, No [address] [place] [address] PCP - General Family Medicine 07/13/24 documented as of this encounter
--- OUTSIDE RECORDS SUMMARY | 2025-04-10 08:02 | XMS_ITS | Encounter Summary ---
Author Organization Healthcare Address [address] [place] [address] Care Team Providers Care Investments Manager Name Role Phone None, None Primary Care Provider Pcp, No Primary Care Provider Unavailabl e Encounter Details Date Type Department Care Team (Late st Contact Info) Description 12/09/2018 Orders Only External Location [address] [place] [address] Antonio Guzman MD [address] [facility] [address] [place] [address] Social History Tobacco Use Types Packs/Day Years [...] on filedocumented in this encounter Care Teams Investments Manager Relationship Specialty Start Date End Date None, None [address] [place] [address] PCP - General NONE FOUND 07/12/23 03/06/24 Pcp, [place] [address] PCP - General Family Medicine 07/13/24 documented as of this encounter
--- OUTSIDE RECORDS SUMMARY | 2025-04-10 08:02 | XMS_ITS | Clinical Summary ---
Author Organization [facility] Address [address] [place] [address] Phone [email or web address] Care Team Providers Care Grey Percher Name Role Phone Unavailable Primary Care Provider [...]
--- OUTSIDE RECORDS SUMMARY | 2025-04-10 08:02 | XMS_ITS | Clinical Summary ---
Author Organization [employer] ([place], [place], [place], [place]) Address [address] [place] [address] Care Team Providers Care Retail Analytics Manager Name Role Phone Unavailable Primary Care Provider [...]
--- OUTSIDE RECORDS SUMMARY | 2025-04-10 08:02 | XMS_ITS | Encounter Summary ---
Author Organization Healthcare Address [address] [place] [address] Care Team Providers Care Senior Courtroom Clerk Name Role Phone None, None Primary Care Provider Pcp, No Primary Care Provider Unavailabl e Encounter Details Date Type Department Care Team ([facility] st Contact Info) Description 07/27/2022 Orders Only External Location [address] [place] [address] Provider, External Social History Tobacco Use Types [...] filedocumented in this encounter Care Teams Senior Courtroom Clerk Relationship Specialty Start Date End Date None, None [address] [place] [address] PCP - General NONE FOUND 07/12/23 03/06/24 Pcp, No [address] [place] [address] PCP - General Family Medicine 07/13/24 documented as of this encounter
--- OUTSIDE RECORDS SUMMARY | 2025-04-10 08:02 | XMS_ITS | Encounter Summary ---
Author Organization Healthcare Address [address] [place] [address] Care Team Providers Care Getter Operator Name Role Phone Pcp, No Primary Care Provider Unavailabl e Encounter Details Date Type Department Care Team (Late st Contact Info) Description 08/07/2024 Lab Requisition [facility] [address] [place] [address] Neli Ventura MD [address] [place] [address] Solitary pulmonary nodule Social History Tobacco Use [...] EST) Case Report Sugical Pathology Consult Case: [id number] Authorizing Provider: Neli Ventura MD Collected: 08/07/2024 1126 Ordering Location: [facility] Received: 08/07/2024 1126 Pathologist: Haroldo Laura DO Specimen: Lung, Left, [id number] 08/07/2024 2:47 PM [facility] Final Diagnosis OUTSIDE SLIDES; [id number], A-B; 07/21/2024 A. LUNG, LEFT, UPPER LOBE, [...] represents a pulmonary primary. 08/07/2024 2:47 PM [facility] Clinical Information R91.1 - Solitary pulmonary nodule [ICD-10-CM] 08/07/2024 2:47 PM [facility] Gross Description A. [id number] Received along with a corresponding pathology report from [facility] are 5 slide(s) labeled outside case: [id number] collected on 07/21/2024. 08/07/2024 2:47 PM [facility] Intradepartmental Consultation with Agreement Dr. Xiao (tumor classification) 08/07/2024 2:47 PM [facility] Note: A resident was involved in the service. I attest I examined the relevant preparations for the specimens and confirmed the diagnosis or interpretation. 08/07/2024 2:47 PM [facility] Tissue Left lung structure / Unknown 08/07/2024 11:26 AM EST 08/07/2024 11:26 AM EST us Neli Ventura MD LAB PATHOLOGY ORDERABLES Final Result [facility] [address] [place] [address] documented in this encounter Visit Diagnoses Diagnosis Solitary pulmonary nodule documented in this encounter Care Teams Getter Operator Relationship Specialty Start Date End Date Pcp, No [address] [place] [address] PCP - General Family Medicine 07/13/24 documented as of this encounter
--- OUTSIDE RECORDS SUMMARY | 2025-04-10 08:02 | XMS_ITS | Clinical Summary ---
Author Organization [facility] Address [address] [place] [address] Care Team Providers Care Neonatal Intensive Care Nurse Name Role Phone Skip Murray MD Primary Care Provider [phone] Allergies No known active allergies Medications Humira [...] 3 Active Cholecalciferol (Vitamin D3) 1.25 MG (45729 UT) capsule 3 Active cyanocobalamin 1000 MCG/ML [...] Mayer Relation Name Status Comments Mother Terri aMyer Social History Tobacco Use Types Packs/Day Years Used Date Smoking Tobacco: Every Day Cigarettes 1 43.2 Started: 02/10/1982 Passive Smoke Exposure: Current Smokeless [...] 04/2023 Potentially Unsafe Housing Conditions Not on milargos e 05/21/2023 Family and Community Support Answer [...] Td or Tdap) 12/19/2030 021 Insurance [facility] PPO Care Teams Neonatal Intensive Care Nurse Relationship Specialty Start Date End Date Skip Murray MD [address] [facility] [address] [place] [address] PCP - General Family Medicine 11/08/22
--- OUTSIDE RECORDS SUMMARY | 2025-04-10 08:02 | XMS_ITS | Encounter Summary ---
Author Organization Healthcare Address [address] [place] [address] Care Team Providers Care Freelance Web Designer Name Role Phone None, None Primary Care Provider Pcp, No Primary Care Provider Unavailabl e Encounter Details Date Type Department Care Team ([facility] st Contact Info) Description 02/28/2021 Orders Only External Location [address] [place] [address] Provider, External Social History Tobacco Use Types [...] on filedocumented in this encounter Care Teams Freelance Web Designer Relationship Specialty Start Date End Date None, None [address] [place] [address] PCP - General NONE FOUND 07/12/23 03/06/24 Pcp, No [address] [place] [address] PCP - General Family Medicine 07/13/24 documented as of this encounter
--- OUTSIDE RECORDS SUMMARY | 2025-04-10 08:02 | XMS_ITS | Encounter Summary ---
Author Organization Healthcare Address [address] [place] [address] Care Team Providers Care Marketing And Promotions Manager Name Role Phone Pcp, No Primary Care Provider Unavailabl e Encounter Details Date Type Department Care Team ([facility] st Contact Info) Description 07/28/2024 Orders Only External Location [address] [place] [address] Provider, External Social History Tobacco Use Types [...] filedocumented in this encounter Care Teams Marketing And Promotions Manager Relationship Specialty Start Date End Date Pcp, No [address] [place] [address] PCP - General Family Medicine 07/13/24 documented as of this encounter
[2025-04-10] MEDS: SODIUM CHLORIDE 0.9% 10ML SYR (RAD ONLY) 10 ML IV (08:34)
[2025-04-10] MEDS: ISOTOPE MDP (BONE);1 DOSE VIAL IV (08:34)
== END 2025-04-10 23:59 | disposition home or self-care (01) ==
LOC: RAD 07:59
PROVIDERS: PCP Psychiatry & Neurology Psychiatry; Visit Provider Internal Medicine Medical Oncology
DX: C34.12 Malignant neoplasm of upper lobe, left bronchus or lung (principal); M54.9 Dorsalgia, unspecified
CPT/HCPCS: 78306; A9503

== ENCOUNTER 2025-04-21 10:06 | Outpatient (CLI) | payer BC, SELFPAY ==
--- OUTSIDE RECORDS SUMMARY | 2025-04-21 10:16 | XMS_ITS | Encounter Summary ---
Author Organization Healthcare Address [address] [place] [address] Care Team Providers Care Afloat Cryptologic Manager Name Role Phone None, None Primary Care Provider Pcp, No Primary Care Provider Unavailabl e Encounter Details Date Type Department Care Team ([facility] st Contact Info) Description 02/28/2021 Orders Only External Location [address] [place] [phone] Provider, External Social History Tobacco Use Types [...] on filedocumented in this encounter Care Teams Afloat Cryptologic Manager Relationship Specialty Start Date End Date None, None [address] [place] [address] PCP - General NONE FOUND 07/12/23 03/06/24 Pcp, No [address] [place] [address] PCP - General Family Medicine 07/13/24 documented as of this encounter
--- OUTSIDE RECORDS SUMMARY | 2025-04-21 10:16 | XMS_ITS | Encounter Summary ---
Author Organization Healthcare Address [address] [place] [address] Care Team Providers Care Change Lead Name Role Phone None, None Primary Care Provider Pcp, No Primary Care Provider Unavailabl e Encounter Details Date Type Department Care Team ([facility] st Contact Info) Description 07/27/2022 Orders Only External Location [address] [place] [phone] Provider, External Social History Tobacco Use Types [...] on filedocumented in this encounter Care Teams Change Lead Relationship Specialty Start Date End Date None, None [address] [place] [address] PCP - General NONE FOUND 07/12/23 03/06/24 Pcp, No [address] [place] [address] PCP - General Family Medicine 07/13/24 documented as of this encounter
--- OUTSIDE RECORDS SUMMARY | 2025-04-21 10:16 | XMS_ITS | Encounter Summary ---
Author Organization Healthcare Address [address] [place] [address] Care Team Providers Care Pharmacy Picking Tech Name Role Phone None, None Primary Care Provider [phone] Pcp, No Primary Care Provider Unavailabl e Encounter Details Date Type Department Care Team ([facility] st Contact Info) Description 12/04/2016 Orders Only External Location [address] [place] [address] Provider, External Social History Tobacco Use Types [...] on filedocumented in this encounter Care Teams Pharmacy Picking Tech Relationship Specialty Start Date End Date None, None [address] [place] [address] PCP - General NONE FOUND 07/12/23 03/06/24 Pcp, No [address] [place] [address] PCP - General Family Medicine 07/13/24 documented as of this encounter
--- OUTSIDE RECORDS SUMMARY | 2025-04-21 10:16 | XMS_ITS | Encounter Summary ---
Author Organization Healthcare Address [address] [place] [address] Care Team Providers Care Lining Repairer Name Role Phone Pcp, No Primary Care Provider Unavailabl e Encounter Details Date Type Department Care Team (Late st Contact Info) Description 08/07/2024 Lab Requisition [facility] [address] [place] [address] Neli Ventura MD [address] [place] [address] Solitary pulmonary nodule Social History Tobacco Use [...] EST) Case Report Sugical Pathology Consult Case: [id number] Authorizing Provider: Neli Ventura MD Collected: 08/07/2024 1126 Ordering Location: [facility] Received: 08/07/2024 1126 Pathologist: Haroldo Laura DO Specimen: Lung, Left, [id number] 08/07/2024 2:47 PM [facility] Final Diagnosis OUTSIDE SLIDES; [id number], A-B; 07/21/2024 A. LUNG, LEFT, UPPER LOBE, ENDOBRONCHIAL BIOPSY: - POSITIVE FOR NON-SMALL CELL CARCINOMA, FAVOR SQUAMOUS CELL CARCINOMA (SEE COMMENT). B. LUNG, LEFT, UPPER LOBE, TRANSBRONCHIAL BIOPSY: - SCANT LUNG TISSUE; NEGATIVE FOR MALIGNANCY WITHIN THE BIOPSIED MATERIAL. 08/07/2024 2:47 PM [facility] at 1447 EST Comment Sections from [...] represents a pulmonary primary. 08/07/2024 2:47 PM [facility] Clinical Information R91.1 - Solitary pulmonary nodule [ICD-10-CM] 08/07/2024 2:47 PM [facility] Gross Description A. [id number] Received along with a corresponding pathology report from [facility] are 5 slide(s) labeled outside case: [id number] collected on 07/21/2024. 08/07/2024 2:47 PM [facility] Intradepartmental Consultation with Agreement Dr. Xiao (tumor classification) 08/07/2024 2:47 PM [facility] Note: A resident was involved in the service. I attest I examined the relevant preparations for the specimens and confirmed the diagnosis or interpretation. 08/07/2024 2:47 PM [facility] Tissue Left lung structure / Unknown 08/07/2024 11:26 AM EST 08/07/2024 11:26 AM EST us Neli Ventura MD LAB PATHOLOGY ORDERABLES Final Result [facility] [address] [place] [address] documented in this encounter Visit Diagnoses Diagnosis Solitary pulmonary nodule documented in this encounter Care Teams Lining Repairer Relationship Specialty Start Date End Date Pcp, No [address] [place] [address] PCP - General Family Medicine 07/13/24 documented as of this encounter
--- OUTSIDE RECORDS SUMMARY | 2025-04-21 10:16 | XMS_ITS | Encounter Summary ---
Author Organization Healthcare Address [address] [place] [address] Care Team Providers Care School Custodian Name Role Phone None, None Primary Care Provider [phone] Pcp, No Primary Care Provider Unavailabl e Encounter Details Date Type Department Care Team (Late st Contact Info) Description 08/23/2022 Orders Only External Location [address] [place] [address] Jillian Ortiz CIRCULAR STUFFER [address] [facility] [address] [place] [address] Social History Tobacco Use Types [...] Medicine 08/23/2022 7:57 AM EST Jillian Ortiz CIRCULAR STUFFER IMG NM PROCEDURES Final Resu lt documented in this encounter Visit Diagnoses Not on filedocumented in this encounter Care Teams School Custodian Relationship Specialty Start Date End Date None, None [address] [place] [address] PCP - General NONE FOUND 07/12/23 03/06/24 [place] [address] PCP - General Family Medicine 07/13/24 documented as of this encounter
--- OUTSIDE RECORDS SUMMARY | 2025-04-21 10:16 | XMS_ITS | Encounter Summary ---
Author Organization Healthcare Address [address] [place] [address] Care Team Providers Care Corsage Maker Name Role Phone Pcp, No Primary Care Provider Unavailabl e Encounter Details Date Type Department Care Team ([facility] st Contact Info) Description 07/28/2024 Orders Only External Location [address] [place] [address] Provider, External Social History Tobacco Use Types [...] on filedocumented in this encounter Care Teams Corsage Maker Relationship Specialty Start Date End Date Pcp, No [address] [place] [address] PCP - General Family Medicine 07/13/24 documented as of this encounter
--- OUTSIDE RECORDS SUMMARY | 2025-04-21 10:16 | XMS_ITS | Encounter Summary ---
Author Organization Healthcare Address [address] [place] [address] Care Team Providers Care Bladder Cleaner Name Role Phone None, None Primary Care Provider [phone] Pcp, No Primary Care Provider Unavailabl e Encounter Details Date Type Department Care Team ([facility] st Contact Info) Description 10/18/2020 Orders Only External Location [address] [place] [address] Provider, External Social History Tobacco Use Types [...] on filedocumented in this encounter Care Teams Bladder Cleaner Relationship Specialty Start Date End Date None, None [address] [place] [address] PCP - General NONE FOUND 07/12/23 03/06/24 Pcp, No [address] [place] [address] PCP - General Family Medicine 07/13/24 documented as of this encounter
--- OUTSIDE RECORDS SUMMARY | 2025-04-21 10:16 | XMS_ITS | Encounter Summary ---
Author Organization Healthcare Address [address] [place] [address] Care Team Providers Care Paint Supervisor Name Role Phone None, None Primary Care Provider [phone] Pcp, No Primary Care Provider Unavailabl e Encounter Details Date Type Department Care Team ([facility] st Contact Info) Description 02/07/2023 Orders Only External Location [address] [place] [address] Provider, External Social History Tobacco Use Types [...] 9:40 AM EDT) Anatomical Region Laterality Modality [place] [facility] [place] Computed Tomogr aphy 02/07/2023 9:40 AM EDT us External Provider IMG CT PROCEDURES Final Result documented in this encounter Visit Diagnoses Not on filedocumented in this encounter Care Teams Paint Supervisor Relationship Specialty Start Date End Date None, None [address] [place] [address] PCP - General NONE FOUND 07/12/23 03/06/24 Pcp, [place] [address] PCP - General Family Medicine 07/13/24 documented as of this encounter
--- OUTSIDE RECORDS SUMMARY | 2025-04-21 10:16 | XMS_ITS | Encounter Summary ---
Author Organization Healthcare Address [address] [place] [address] Care Team Providers Care Domestic Violence Advocate Name Role Phone None, None Primary Care Provider [phone] Pcp, No Primary Care Provider Unavailabl e Encounter Details Date Type Department Care Team ([facility] st Contact Info) Description 07/27/2022 Orders Only External Location [address] [place] [address] Provider, External Social History Tobacco Use Types [...] on filedocumented in this encounter Care Teams Domestic Violence Advocate Relationship Specialty Start Date End Date None, None [address] [place] [address] PCP - General NONE FOUND 07/12/23 03/06/24 Pcp, No [address] [place] [address] PCP - General Family Medicine 07/13/24 documented as of this encounter
--- OUTSIDE RECORDS SUMMARY | 2025-04-21 10:16 | XMS_ITS | Clinical Summary ---
Author Organization Healthcare Address [address] [place] [address] Care Team Providers Care Granite Installer Name Role Phone Pcp, No Primary Care Provider Unavailabl e Allergies No known active allergies Medications acetaminophen (Tylenol) 325 MG tablet 0 Active albuterol 108 (90 Base) MCG/ACT inhaler INHALE 2 PUFFS BY MOUTH 4 TIMES DAILY NEEDED FOR SHORTNESS OF BREATH OR WHEEZING 4 Active aspirin 81 MG EC tablet Take 1 tablet (81 mg) by mouth Daily. Active Cholecalciferol 250 MCG (37031 UT) capsule Weekly 4 Active rosuvastatin (Crestor) [...] 02/10/2009 Sigmoidoscopy 02/10/2009 [facility]-Colorectal Cancer Screening 02/10/2009 [id number] Vaccine ( season) 2025 05/30/2023, 09/14/2021, 11/09/2020, Additional history exists [facility]-Influenza [...] complete this topic Insurance ANTH Care Teams Granite Installer Relationship Specialty Start [place] [address] PCP - General Family Medicine 07/13/24
--- OUTSIDE RECORDS SUMMARY | 2025-04-21 10:16 | XMS_ITS | Encounter Summary ---
Author Organization Healthcare Address [address] [place] [address] Care Team Providers Care Assistant Grocery Store Manager Name Role Phone None, None Primary Care Provider Pcp, No Primary Care Provider Unavailabl e Encounter Details Date Type Department Care Team (Late st Contact Info) Description 12/09/2018 Orders Only External Location [address] [place] [address] Antonio Guzman MD [facility] [address] [place] [address] Social History Tobacco Use Types Packs/Day Years [...] on filedocumented in this encounter Care Teams Assistant Grocery Store Manager Relationship Specialty Start Date End Date None, None [address] [place] [address] PCP - General NONE FOUND 07/12/23 03/06/24 Pcp, [place] [address] PCP - General Family Medicine 07/13/24 documented as of this encounter
--- OUTSIDE RECORDS SUMMARY | 2025-04-21 10:16 | XMS_ITS | Encounter Summary ---
Author Organization Healthcare Address [address] [place] [id number] Care Team Providers Care Greenhouse Or Nursery Transplanter Name Role Phone Pcp, No Primary Care Provider Unavailabl e Encounter Details Date Type Department Care Team ([facility] st Contact Info) Description 06/02/2024 Orders Only External Location [address] [place] [address] Provider, External Social History Tobacco Use Types [...] on filedocumented in this encounter Care Teams Greenhouse Or Nursery Transplanter Relationship Specialty Start Date End Date Pcp, No [address] [place] [address] PCP - General Family Medicine 07/13/24 documented as of this encounter
--- OUTSIDE RECORDS SUMMARY | 2025-04-21 10:16 | XMS_ITS | Clinical Summary ---
Author Organization [facility] Address [address] [place] [address] Phone [email or web address] Care Team Providers Care Machine Scallop Cutter Name Role Phone Unavailable Primary Care [...] 2) 02/10/2014 Covid-19 Immunization (3 - season) 2025 11/09/2020, 10/19/2020 Influenza Immunization (#1) 2025 07/31/2018 [...]
--- OUTSIDE RECORDS SUMMARY | 2025-04-21 10:16 | XMS_ITS | Encounter Summary ---
Author Organization Healthcare Address [address] [place] [address] Care Team Providers Care Hand Shaper Name Role Phone Pcp, No Primary Care Provider Unavailabl e Encounter Details Date Type Department Care Team ([facility] st Contact Info) Description 07/21/2024 Orders Only External Location [address] [place] [address] Provider, External Social History Tobacco Use Types [...] on filedocumented in this encounter Care Teams Hand Shaper Relationship Specialty Start Date End Date Pcp, No [address] [place] [address] PCP - General Family Medicine 07/13/24 documented as of this encounter
--- OUTSIDE RECORDS SUMMARY | 2025-04-21 10:16 | XMS_ITS | Encounter Summary ---
Author Organization Healthcare Address [address] [place] [address] Care Team Providers Care Automotive Heavy Mechanic Name Role Phone Pcp, No Primary Care Provider Unavailabl e Encounter Details Date Type Department Care Team (Late st Contact Info) Description 08/07/2024 Lab Requisition [facility] [address] [place] [address] Neli Ventura MD [address] [place] [address] Solitary pulmonary nodule Social History Tobacco Use [...] 11:54 AM EST) Case Report Cytology Case: [id number] Authorizing Provider: Neli Ventura MD Collected: 08/07/2024 1154 Ordering Location: [facility] Received: 08/07/2024 1154 Pathologist: Anne Marie Keita MD Specimen: Lymph Node, [id number] 08/14/2024 3:30 PM EST [facility] Final Diagnosis OUTSIDE CASE: [id number] COLLECTED ON 07/21/2024: A. LYMPH NODE, STATION [...] at 3:30 PM. 08/14/2024 3:30 PM EST [facility] Clinical Information R91.1 - Solitary pulmonary nodule [ICD-10-CM] 08/14/2024 3:30 PM EST [facility] Gross Description A. [id number] Received along with a corresponding pathology report from [facility] are 6 slide(s) labeled outside case: [id number] collected on 07/21/2024. 08/14/2024 3:30 PM EST [facility] Fine Needle Aspirate Lymph node specimen / Unknown 08/07/2024 11:54 AM EST 08/07/2024 11:54 AM EST us Neli Ventura MD LAB PATHOLOGY ORDERABLES Final Result [facility] [address] [place] [address] documented in this encounter Visit Diagnoses Diagnosis Solitary pulmonary nodule documented in this encounter Care Teams Automotive Heavy Mechanic Relationship Specialty Start Date End Date Pcp, No [address] [place] [address] PCP - General Family Medicine 07/13/24 documented as of this encounter
--- OUTSIDE RECORDS SUMMARY | 2025-04-21 10:16 | XMS_ITS | Encounter Summary ---
Author Organization Healthcare Address [address] [place] [address] Care Team Providers Care Company Accountant Name Role Phone Pcp, No Primary Care Provider Unavailabl e Encounter Details Date Type Department Care Team ([facility] st Contact Info) Description 07/21/2024 Orders Only External Location [address] [place] [address] Provider, External Social History Tobacco Use Types [...] on filedocumented in this encounter Care Teams Company Accountant Relationship Specialty Start Date End Date Pcp, No [address] [place] [address] PCP - General Family Medicine 07/13/24 documented as of this encounter
--- OUTSIDE RECORDS SUMMARY | 2025-04-21 10:16 | XMS_ITS | Clinical Summary ---
Author Organization [facility] Address [address] [place] [address] Care Team Providers Care Steam Fitter Helper Name Role Phone Skip Murray MD Primary Care Provider [phone] Allergies No known active allergies Medications Humira [...] 3 Active Cholecalciferol (Vitamin D3) 1.25 MG (71999 UT) capsule 3 Active cyanocobalamin 1000 MCG/ML [...] C SCREENING 11/07/2022 COVID-19 Vaccine (4 - 2024-2 6 season) 2025 09/14/2021, 11/09/2020, 10/19/2020 INFLUENZA VACCINE 05/13/2025 05/22/2022, , 06/02/2019, Additional history exists COLONOSCOPY 10/28/2028 10/28/2018 COLORECTAL CANCER SCREENING 10/28/2028 TDAP/TD VACCINES (2 - Td or Tdap) 12/19/2030 021 Insurance [facility] PPO Care Teams Steam Fitter Helper Relationship Specialty Start Date End Date Skip Murray MD [address] [facility] [address] [place] [address] PCP - General Family Medicine 11/08/22
--- OUTSIDE RECORDS SUMMARY | 2025-04-21 10:16 | XMS_ITS | Encounter Summary ---
Author Organization Healthcare Address [address] [place] [address] Care Team Providers Care Store Clerk Name Role Phone None, None Primary Care Provider Pcp, No Primary Care Provider Unavailabl e Encounter Details Date Type Department Care Team ([facility] st Contact Info) Description 12/19/2020 Orders Only External Location [address] [place] [address] Provider, External Social History Tobacco Use Types [...] on filedocumented in this encounter Care Teams Store Clerk Relationship Specialty Start Date End Date None, None [address] [place] [address] PCP - General NONE FOUND 07/12/23 03/06/24 Pcp, No [address] [place] [address] PCP - General Family Medicine 07/13/24 documented as of this encounter
--- OUTSIDE RECORDS SUMMARY | 2025-04-21 10:16 | XMS_ITS | Encounter Summary ---
Author Organization Healthcare Address [address] [place] [address] Care Team Providers Care Coat Examiner Name Role Phone None, None Primary Care Provider [phone] Pcp, No Primary Care Provider Unavailabl e Encounter Details Date Type Department Care Team (Late st Contact Info) Description 08/23/2022 Orders Only External Location [address] [place] [address] Jillian Ortiz, [employer] [address] [facility] [address] [place] [address] Social History Tobacco Use Types [...] 08/23/2022 8:58 AM EST us Jillian Ortiz [employer] IMG US PROCEDURES Final Resu lt documented in this encounter Visit Diagnoses Not on filedocumented in this encounter Care Teams Coat Examiner Relationship Specialty Start Date End Date None, None [address] [place] [address] PCP - General NONE FOUND 07/12/23 03/06/24 [place] [address] PCP - General Family Medicine 07/13/24 documented as of this encounter
[2025-04-21 11:47] LABS: C-Reactive Protein 34.6 mg/L (0-4)
== END 2025-04-21 23:59 | disposition home or self-care (01) ==
LOC: LAB 10:07
PROVIDERS: PCP Family Medicine; Visit Provider Internal Medicine Gastroenterology
DX: K50.00 Crohn's disease of small intestine without complications (principal)
CPT/HCPCS: 36415; 86140; 86480

== ENCOUNTER 2025-04-22 09:49 | Outpatient (CLI) | payer BC, SELFPAY ==
--- OUTSIDE RECORDS SUMMARY | 2024-07-14 10:15 | XMS_ITS ---
Author Organization [place] Address 1210 [facility] [address] [place] [id number] Care Team Providers Care Watch Engine Operator Name Role Phone Flo Murray Primary Care Provider Allergies No Known Allergies REASON FOR VISIT [...] Encounter Location Date Provider Diagnosis [facility] [address] [place] [phone] 07/14/2024 Flo Murray Abnormal chest CT R93.89 [...] [address], [address], [place], [place], [id number], Progress Notes * ASHLEY CADENADOB: 4 (60 yo M)Acc No.[id number]:07/14/2024 Progress Notes Patient: ASHLEY JUNIOR Provider: Flo Murray M.D. :1965 A ge:59 Y S ex:Male Date:07/14/2024 Address:[address] [place] [address] [address], [facility] Subjective: * Chief Complaints: * 1 . [...] * Medical History: D epression, 10/24/07 Adacel [facility], Diverticulitis, Crohn's disease, Pfizer Covid vaccine x2 October 2020. * Surgical History: a bnormal CT of the head , fx of heel left foot, Dr. South 05/2010, cholecystectomy 08-11-10, [facility] - [facility] resection 08/2019. * Hospitalization/Major Diagno stic Procedure: w ound infection 1983, Infection, Admitted at [facility] transfer to [facility] 02-28 to 03-05-10, [facility] 07/14/10 to 07/15/10, [facility] - colon resection [...] * Images: Billing Information: * Visit Code: 78530 Office Visit, Est Pt., Level 3. * Procedure Codes: 54375 PULSE OX. * Electronic signature of Flo Murray MD on 04/22/2025 at 09:55 AM EDT Sign off status: Pending * Provider: Flo Murray M.D. Date: 1 09/14/2023 Generated for Printi ng/Faxing/eTransmitting on: 0 04/22/2025 09:55 AM EDT History and Physical Notes * [...]
--- OUTSIDE RECORDS SUMMARY | 2024-09-22 11:15 | XMS_ITS ---
Author Organization Sury Address 1210 [facility] [address] [place] [phone] Care Team Providers Care Rug Cleaner Name Role Phone Flo Murray Primary Care [...] Notes Problem Malignant neoplasm of respiratory system (571585749) Carcinoma of left lung (C34.92) Active confirmed Vital Signs Blood pressure systolic 150 mm Hg 09/22/19 25 Blood pressure diastolic 80 mm Hg 025 Heart Rate 64 /min 09/22/2024 Height 66.25 in 09/22/2024 Weight 143.6 lbs 09/22/2024 BMI 23.00 kg/m2 09/22/2024 Encounters Encounter Location Date Provider Diagnosis [place] [facility] 36 [facility] [address] [place] [phone] 09/22/2024 Flo Murray Carcinoma of left lung [...] [address], [place], [phone], Progress Notes * ASHLEY CADENADOB: 4 (60 yo M)Acc No.[id number]:09/22/2024 Progress Notes Patient: Yamile DRIVERASHLEY Provider: Flo Murray M.D. :1965 A ge:59 Y S ex:Male Date:09/22/2024 Address:[address] [place], [place] [address] [address], [id number] Subjective: * Chief Complaints: * 1 . [...] Dmitri Yeboah. Also getting the radiation in [place] from Dr. Toro. Has Percocet for pain, [...] * Medical History: D epression, 10/24/[address] [facility], Diverticulitis, Crohn's disease, Pfizer Covid vaccine x2 October 2020. * Surgical History: a bnormal CT of the head , fx of heel left foot, Dr. South 05/2010, cholecystectomy 08-11-10, [facility] - colon resection 08/2019. * Hospitalization/Major Diagno stic Procedure: w ound infection 1983, Infection, Admitted at [facility] transfer to [facility] 02-28 to 03-05-10, [facility] 07/14/10 to 07/15/10, [facility] - colon resection [...] * Images: Billing Information: * Visit Code: 86722 Office Visit, Est Pt., Level 4. * Procedure Codes: 79352 PULSE OX. 3077F SYST BP = 140 MM HG6 IT. 3079F DIAST BP 80-89 MM HG. * Electronic signature of Flo Murray MD on 04/22/2025 at 09:54 AM EDT Sign off status: Pending * Provider: Flo Murray M.D. Date: 0 09/22/2024 Generated for Elizabethi rudy/Kevin/Amandaitting on: 0 04/22/2025 09:54 AM EDT History and Physical Notes * HPI (History [...]
--- OUTSIDE RECORDS SUMMARY | 2024-11-24 10:00 | XMS_ITS ---
Author Organization [facility] Address [facility] [facility] [address] [place] [phone] Care Team Providers Care Reconcilement Clerk Name Role Phone Flo Murray Primary Care Provider [phone] Allergies No Known Allergies REASON FOR VISIT [...] Encounter Location Date Provider Diagnosis [place] [facility] [address] [place] [phone] 11/24/2024 Flo Murray Crohn''s disease of small [...] [address], [place], [place], [phone], Progress Notes * ASHLEY CADENADOB: 4 (60 yo M)Acc No.[id number]:11/24/2024 Progress Notes Patient: ASHLEY JUNIOR Provider: Flo Murray M.D. :1965 A ge:59 Y S ex:Male Date:11/24/2024 Address:[address] [place] [address] , [facility] Subjective: * Chief Complaints: * 1 . [...] chemistry. Finishing a Medrol pack, per Dr. Rzivi. 59 year old male presents with c/o [...] * Medical History: D epression, 10/24/07 Adacel [facility], Diverticulitis, Crohn's disease, Pfizer Covid vaccine x2 October 2020. * Surgical History: a bnormal CT of the head , fx of heel left foot, Dr. South 05/2010, cholecystectomy 08-11-10, [facility] - [facility] resection 08/2019. * Hospitalization/Major Diagno stic Procedure: w ound infection 1983, Infection, Admitted at [facility] transfer to [facility] 02-28 to 03-05-10, [facility] 07/14/10 to 07/15/10, [facility] - colon [...] in remission - K50.90 5 . B [place] 23.0-23.9, adult - Z68.23 Plan: * Treatment: * Procedure Codes: 3 074F SYST BP LT 130 MM HG, 3079F DIAST BP 80-89 MM HG * Follow Up: 3 Months * Images: Billing Information: * Visit Code: 10762 Office Visit, Est Pt., Level 3. * Procedure Codes: 3074F SYST BP LT 130 MM HG. 3079F DIAST BP 80-89 MM HG. * Electronic signature of Flo Murray MD on 04/22/2025 at 09:54 AM EDT Sign off status: Pending * Provider: Flo Murray M.D. Date: 0 11/24/2024 Generated for Corey grant/Kevin/Carlysmitting on: 0 04/22/2025 09:54 AM EDT History [...]
--- OUTSIDE RECORDS SUMMARY | 2025-02-16 09:45 | XMS_ITS ---
[facility] Address [address] [facility] [address] [id number] Care Team Providers Care Civil Draftsman Name Role Phone Flo Murray Primary Care [...] W/U Status Risk Notes Problem Anxiety depression ([id number]) Anxiety with depression (F41.8) Active confirmed Vital Signs Blood pressure systolic 120 mm Hg 02/17/20 25 Blood pressure diastolic 80 mm Hg 025 Heart Rate 71 /min 02/16/2025 Height 66.25 in 02/16/2025 Weight 145.2 lbs 02/16/2025 BMI 23.26 kg/m2 02/16/2025 Encounters Encounter Location Date Provider Diagnosis [facility] [address] [facility] [address] [facility] [address] [place] [id number] 02/16/2025 Flo Murray Carcinoma of left ari [...] Name:Flo Lowe , 06/26/2025 11:15:00 AM, [address] [facility] [address] [facility], [address], [place] [id number], Progress Notes * ASHLEY CADENADOB: 4 (60 yo M)Acc No.[id number]:02/16/2025 Progress Notes Patient: ASHLEY JUNIOR Provider: Flo Murray M.D. :1965 A ge:60 Y S ex:Male Date:02/16/2025 Address:[address] [place] [address] [address] , [facility] Subjective: * Chief Complaints: * 1 . [...] Medical History: D epression, 10/24/[address] [facility], Diverticulitis, Crohn's disease, Pfizer Covid vaccine x2 October 2020. * Surgical History: a bnormal CT of the head , fx of heel left foot, Dr. South 05/2010, cholecystectomy 08-11-10, [facility] - colon resection 08/2019. * Hospitalization/Major Diagno stic Procedure: w ound infection 1983, Infection, Admitted at [facility] transfer to [facility] 02-28 to 03-05-10, [facility] 07/14/10 to 07/15/10, - colon resection [...] with depression - F41.8 4 . B OR 23.0-23.9, adult - Z68.23 Plan: * Treatment: [...] * Images: Billing Information: * Visit Code: 06061 Office Visit, Est Pt., Level 4. * [...] M.D. Date: 0 02/16/2025 Generated for Corey grant/Faveronicag/eTransmitting on: 0 04/22/2025 09:54 AM EDT History [...]
--- OUTSIDE RECORDS SUMMARY | 2025-04-20 07:45 | XMS_ITS ---
Author [facility] Address [address] [place] [id number] Care Team Providers Care Assistant Hall Director Name Role Phone Flo Murray Primary Care Provider [phone] Allergies No Known Allergies REASON FOR VISIT [...] Encounter Location Date Provider Diagnosis [facility] [facility] [address] [place] [id number] 04/20/2025 Flo Murray Plan Of Treatment Next Appt Details Follow Up: 2 M, Reason: Provider Name:Flo Lowe er, 06/26/2025 11:15:00 AM, [address], [place], [id number], Progress Notes * ASHLEY CADENADOB: 4 (60 yo M)Acc No.[id number]:04/20/2025 Progress Notes Patient: ASHLEY JUNIOR Provider: Flo Murray M.D. :1965 A ge:60 Y S ex:Male Date:04/20/2025 Address:[address] [place] [address] [address] [facility] [id number] Subjective: * Chief Complaints: * 1 . [...] * Medical History: D epression, 10/24/07 Adacel [facility], Diverticulitis, Crohn's disease, Pfizer Covid vaccine x2 October 2020. * Surgical History: a bnormal CT of the head , fx of heel left foot, Dr. South 05/2010, cholecystectomy 08-11-10, [facility] - colon resection 08/2019. * Hospitalization/Major Diagno stic Procedure: w ound infection 1983, Infection, Admitted at [facility] transfer to [facility] 02-28 to 03-05-10, [facility] 07/14/10 to 07/15/10, [facility] - colon resection [...] xtremities: n o leg edema. ? Assessment: Plan: * Treatment: * Follow Up: 2 M * Images: Billing Information: * Visit Code: * Procedure Codes: * Electronic signature of Flo Murray MD on 04/22/2025 at 09:55 AM EDT Sign off status: Pending * Provider: Flo Murray M.D. Date: 0 04/20/2025 Generated for Elizabethi rudy/Kevin/eTransmitting on: 0 04/22/2025 09:55 AM EDT History [...]
--- OUTSIDE RECORDS SUMMARY | 2025-04-22 09:54 | XMS_ITS | Clinical Summary ---
Author Organization Healthcare Address [address] [place] [address] Care Team Providers Care Technical Applications Specialist Name Role Phone Pcp, No Primary [...] by mouth Daily. Active Cholecalciferol 250 MCG (68321 UT) capsule Weekly 4 Active rosuvastatin (Crestor) [...] 02/10/2009 Sigmoidoscopy 02/10/2009 [facility]-Colorectal Cancer Screening 02/10/2009 [id number] Vaccine ( season) 2025 05/30/2023, 09/14/2021, 11/09/2020, [...] complete this topic Insurance ANTH Care Teams Technical Applications Specialist Relationship Specialty Start Date [place] [address] PCP - General Family Medicine 07/13/24
--- OUTSIDE RECORDS SUMMARY | 2025-04-22 09:54 | XMS_ITS | Patient Health Record ---
Author Organization [facility] Address [address] [place] [id number] Care Team Providers Care Wall Man Name Role Phone Flo Murray Primary Care Provider [phone] Laureano García Unavailable [phone] Allergies No Known Allergies Results Component Value Reference Range Notes P-Basic Metabolic Panel (BMP ) Reviewed date:05/21/2024 10:34:53 AM Interpretation:Normal Performing Lab: Notes/Report: Test performed by [facility] , [address], [place] [address] Cipriano Renee MD, Transmission Technician CLIA: [id number] Sodium 136 135-145 mmol/L Potassium 4.5 3.5-5.3 [...] Interpretation:Normal Performing Lab: Notes/Report: Test performed by [facility] , [address], [place] [address] Cipriano Renee MD, Transmission Technician CLIA: [id number] PSA 0.36 <4.00 ng/mL Please note this [...] times a day as needed 07/01/2024 Active diazePAM 5 MG 1 tablet as needed O rally 3 times a day prn; Duration: 30 days 02/20/2025 Active Mometasone Furoate 0.1 % 1 application Externally Once a day 09/17/2023 Not-Taking Percocet 5-325 MG 1 tablet as needed O rally hs Active Humira Pen 40 MG/0.4ML as directed subcutaneously every other week Not-Taking Mesalamine 400 MG 2 capsule Orally twi ce a day Active Tamsulosin HCl 0.4 MG 1 capsule Orally a t bedtime; Duration: 90 days Active Escitalopram Oxalate 10 MG 1 tablet Orally Once a day; Duration: 30 days 02/16/2025 Active Medrol 4 MG as directed Orally; Duration: 6 days 02/16/2025 Not-Taking Immunizations Vaccine Route Administration Date Status Comme [...] Notes Problem Mixed anxiety and depressive disorder (896396470) Depression with anxiety (300.4) Active confirmed Problem Vitamin B12 deficiency (019091478) Vitamin B12 deficiency (E53.8) Active confirmed Problem Essential hypertension (02618961) Essential hypertension (I10) Active confirmed Problem Osteopenia (263336885) Osteopenia (M85.80) Active confirmed Problem Sprain of lateral collateral ligament of knee (19658964) Sprain of lateral collateral ligament of left knee, initial encounter (S83.422A) Active confirmed Problem Colitis (39402676) Colitis (K52.9) Active confi rmed Problem Disorder of prostate (53796898) Benign prostatic disease (N42.9) Active confirmed Problem Gastroesophageal reflux disease with esophagitis (154282714) Gastroesophageal reflux disease with esophagitis (K21.0) Active confirmed Problem New daily persistent headache (419005295118720) New daily persistent headache (G44.52) Active confirmed Problem Lower abdominal pain (07962711) Lower abdominal pain (R10.30) Active confirmed Problem Multiple actinic keratoses (disorder) (143745354) Actinic keratoses (L57.0) Active confirmed Problem Iron deficiency anemia due to chronic blood loss (611704330) Iron deficiency anemia due to chronic blood loss (D50.0) Active confirmed Problem Occlusion and stenosis of multiple and bilateral cerebral arteries (867718758) Carotid stenosis, bilateral (I65.23) Active confirmed Problem Enterocolitis (39931177) Enterocolitis (K52.9) Active confirmed Problem Neoplasm of neck (688740475) Neoplasm of neck (D49.89) Active confirmed Problem Benign prostatic hypertrophy without outflow obstruction (107253056) Benign prostatic hyperplasia without lower urinary tract symptoms (N40.0) Active confirmed Problem Squamous cell carcinoma of skin (321483191) Squamous cell skin cancer (C44.92) Active confirmed Problem Anxiety depression (235633520) Anxiety with depression (F41.8) Active confirmed Problem Malignant neoplasm of respiratory system (432077835) Carcinoma of left lung (C34.92) Active confirmed Problem Abnormal findings on diagnostic imaging of skull and head (707321580) Abnormal CT scan of head (R93.0) Active confirmed Problem 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) Active confirmed Problem Radiology result abnormal (070670098) Abnormal chest CT (R93.89) Active confirmed Problem History of excision of intestinal structure (675463214) Status post small bowel resection (Z90.49) Active confirmed Problem Crohn's disease of small intestine (56770511) Crohn''s disease of small intestine with complication (K50.019) Active confirmed Problem Sprain of collateral ligament of left knee, subsequent encounter (S83.402D) Active confirmed Problem Crohn's disease in remission (076813311) Crohn's disease in remission (K50.90) Active confirmed Vital Signs Heart Rate 55 /min 04/20/2025 Blood pressure diastolic 80 mm Hg 04/20/2025 Height 66.25 in 04/20/2025 Blood pressure systolic 140 mm Hg 04/20/2025 Weight 146.6 lbs 04/20/2025 BMI 23.48 kg/m2 04/20/2025 Encounters Encounter Location Date Provider Diagnosis [facility] [facility] [facility] [address] [id number] 05/19/2024 Flo Murray Essential hypertensi on I10 ; Crohn's disease in remission K50.90 ; History of tobacco use Z87.891 ; Right groin pain R10.31 ; Strain of right psoas muscle, initial encounter S76.011A ; Actinic keratosis L57.0 ; Encounter for immunization Z23 and Benign prostatic hyperplasia without lower urinary tract symptoms N40.0 [facility] [address] [facility] [address], [place] [id number] 06/27/2024 Flo Murray Actinic keratoses L5 7.[address] R93.89 [facility] [address], [place] [id number] 07/14/2024 Flo Murray Abnormal chest CT R93.89 and Skin lesion of hand L98.9 [facility] 121 [facility] [address], [place] [id number] 09/22/2024 Flo Murray Carcinoma of left ari ng C34.92 and Crohn's disease in remission K50.90 [facility] [address] [place], [place] [id number] 11/24/2024 Flo Murray Crohn''s disease of small intestine with complication K50.019 ; Carcinoma of left lung C34.92 ; Status post small bowel resection Z90.49 ; Crohn's disease in remission K50.90 and BMI 23.0-23.9, adult Z68.23 [facility] [address] [place], [place] [id number] 02/16/2025 Flo Murray Carcinoma of left ari ng C34.92 ; Crohn's disease in remission K50.90 ; Anxiety with depression F41.8 and BMI 23.0-23.9, adult Z68.23 [facility] [address] [place] [id number] 04/20/2025 Flo Murray [facility] [address] [facility] [address] [place], [place] [id number] 06/19/2024 Laureano García Abnormal CT scan R93 .89 [facility] [address] [facility] [address] [place] [id number] 06/30/2024 Flo Murray [facility] [address] [facility] [address] [place], [place] [id number] 11/03/2024 Flo Murray [facility] [address] [facility] [address] [place] [id number] 02/18/2025 Flo Murray Anxiety with depress ion F41.8 [facility] [address] [facility] [address] [place] [id number] 03/02/2025 Flo Murray Assessments Encounter Date Diagnosis (ICD Code) Assessment Notes Treatment Notes Treatment Clinical Notes Section Notes 05/19/2024 Essential hypertension (ICD-10 - I10) 05/19/2024 Crohn's disease in remission (ICD-10 - K50.90) 06/27/2024 Actinic keratoses (ICD-10 - L57.0) 06/27/2024 [...] 02/18/2025 Anxiety with depression (ICD-10 - F41.8) 06/19/[address] scan (ICD-10 - R93.89) 02/16/2025 Anxiety with depression (ICD-10 - F41.8) [...] Next Appt Details Provider Name:Flo Lowe er, 06/26/2025 11:15:00 AM, [address], [address], [place], [id number], Insurance Providers Payer Name Payer Address Payer Phone Subscriber Number Group Number Insured Name Patient Relationship to Insured Coverage Start Date Coverage End Date [employer] [address] [place] [address] [id number] 1ER ASHLEY CADENA Self - patient is the insured Medications Administered Medication Instructions Date of Administration Dosage Notes B-12 11/15/2018 1 mL B-12 01/03/2023 1 mL Morphine 07/14/2010 2 mg Vistaril 50 mg 01/04/2012 Medical (General) History Medical History History ICD Code depression 10/24/07 Adacel [facility] diverticulitis Crohn's disease Pfizer Covid vaccine x2 October 2020 Surgical History Surgery Date(Month/Year) abnormal CT of the head fx of heel left foot, Dr. South 05/2010 cholecystectomy 08-11-10 - colon resection 08/2019 Hospitalization History Reason Date(Month/Year) [facility] - colon resection 09/04/2019-09/09/19 20 [facility] 07/14/10 to 07/15/10 Infection, Admitted at [facility] transfer to [facility] 02-28 to 03-05-10 wound infection 1983
--- OUTSIDE RECORDS SUMMARY | 2025-04-22 09:55 | XMS_ITS | Encounter Summary ---
Author Organization Healthcare Address [address] [place] [address] Care Team Providers Care Distribution Systems Serviceperson Name Role Phone Pcp, No Primary Care Provider Unavailabl e Encounter Details Date Type Department Care Team (Late st Contact Info) Description 08/07/2024 Lab Requisition [facility] [address] [place] [address] Neli Ventura MD [address] [place] [address] Solitary pulmonary nodule Social History Tobacco Use [...] EST) Case Report Sugical Pathology Consult Case: [id number] Authorizing Provider: Neli Ventura MD Collected: 08/07/2024 1126 Ordering Location: [facility] Received: 08/07/2024 1126 Pathologist: Haroldo Laura DO Specimen: Lung, Left, [id number] 08/07/2024 2:47 PM [facility] Final Diagnosis OUTSIDE SLIDES; [id number], A-B; 07/21/2024 A. LUNG, LEFT, UPPER LOBE, ENDOBRONCHIAL BIOPSY: - POSITIVE FOR NON-SMALL CELL CARCINOMA, FAVOR SQUAMOUS CELL CARCINOMA (SEE COMMENT). B. LUNG, LEFT, UPPER LOBE, TRANSBRONCHIAL BIOPSY: - SCANT LUNG TISSUE; NEGATIVE FOR MALIGNANCY WITHIN THE BIOPSIED MATERIAL. 08/07/2024 2:47 PM [facility] at 1447 EST Comment Sections from [...] represents a pulmonary primary. 08/07/2024 2:47 PM [facility] Clinical Information R91.1 - Solitary pulmonary nodule [ICD-10-CM] 08/07/2024 2:47 PM [facility] Gross Description A. [id number] Received along with a corresponding pathology report from [facility] are 5 slide(s) labeled outside case: [id number] collected on 07/21/2024. 08/07/2024 2:47 PM [facility] Intradepartmental Consultation with Agreement Dr. Xiao (tumor classification) 08/07/2024 2:47 PM [facility] Note: A resident was involved in the service. I attest I examined the relevant preparations for the specimens and confirmed the diagnosis or interpretation. 08/07/2024 2:47 PM [facility] Tissue Left lung structure / Unknown 08/07/2024 11:26 AM EST 08/07/2024 11:26 AM EST us Neli Ventura MD LAB PATHOLOGY ORDERABLES Final Result [facility] [address] [place] [address] documented in this encounter Visit Diagnoses Diagnosis Solitary pulmonary nodule documented in this encounter Care Teams Distribution Systems Serviceperson Relationship Specialty Start Date End Date Pcp, No [address] [place] [address] PCP - General Family Medicine 07/13/24 documented as of this encounter
--- OUTSIDE RECORDS SUMMARY | 2025-04-22 09:55 | XMS_ITS | Encounter Summary ---
Author Organization Healthcare Address [address] [id number] Care Team Providers Care Printer Slotter Feeder Name Role Phone Pcp, No Primary Care Provider Unavailabl e Encounter Details Date Type Department Care Team ([facility] st Contact Info) Description 06/02/2024 Orders Only External Location [address] [place] [address] Provider, External Social History Tobacco Use Types [...] on filedocumented in this encounter Care Teams Printer Slotter Feeder Relationship Specialty Start Date End Date Pcp, No [address] [place] [address] PCP - General Family Medicine 07/13/24 documented as of this encounter
--- OUTSIDE RECORDS SUMMARY | 2025-04-22 09:55 | XMS_ITS | Encounter Summary ---
Author Organization Healthcare Address [address] [place] [address] Care Team Providers Care Employee Relations Consultant Name Role Phone None, None Primary Care Provider [phone] Pcp, No Primary Care Provider Unavailabl e Encounter Details Date Type Department Care Team ([facility] st Contact Info) Description 07/27/2022 Orders Only External Location [address] [place] [address] Provider, External Social History Tobacco Use Types [...] on filedocumented in this encounter Care Teams Employee Relations Consultant Relationship Specialty Start Date End Date None, None [address] [place] [address] PCP - General NONE FOUND 07/12/23 03/06/24 Pcp, No [address] [place] [address] PCP - General Family Medicine 07/13/24 documented as of this encounter
--- OUTSIDE RECORDS SUMMARY | 2025-04-22 09:55 | XMS_ITS | Encounter Summary ---
Author Organization Healthcare Address [address] [place] [address] Care Team Providers Care Folding Machine Feeder Name Role Phone None, None Primary Care Provider [phone] Pcp, No Primary Care Provider Unavailabl e Encounter Details Date Type Department Care Team (Late st Contact Info) Description 12/09/2018 Orders Only External Location [address] [place] [address] Antonio Guzman MD [facility] [address] [place] [address] Social History Tobacco Use Types Packs/Day Years [...] on filedocumented in this encounter Care Teams Folding Machine Feeder Relationship Specialty Start Date End Date None, None [address] [place] [address] PCP - General NONE FOUND 07/12/23 03/06/24 Pcp, [place] [address] PCP - General Family Medicine 07/13/24 documented as of this encounter
--- OUTSIDE RECORDS SUMMARY | 2025-04-22 09:55 | XMS_ITS | Encounter Summary ---
Author Organization Healthcare Address [address] [place] [address] Care Team Providers Care Human Factors Specialist Name Role Phone None, None Primary Care Provider [phone] Pcp, No Primary Care Provider Unavailabl e Encounter Details Date Type Department Care Team ([facility] st Contact Info) Description 10/18/2020 Orders Only External Location [address] [place] [address] Provider, External Social History Tobacco Use Types [...] on filedocumented in this encounter Care Teams Human Factors Specialist Relationship Specialty Start Date End Date None, None [address] [place] [address] PCP - General NONE FOUND 07/12/23 03/06/24 Pcp, No [address] [place] [address] PCP - General Family Medicine 07/13/24 documented as of this encounter
--- OUTSIDE RECORDS SUMMARY | 2025-04-22 09:55 | XMS_ITS | Clinical Summary ---
Author Organization [facility] Address [address] [place] [address] Phone [email or web address] Care Team Providers Care Law Professor Name Role Phone Unavailable Primary Care [...]
--- OUTSIDE RECORDS SUMMARY | 2025-04-22 09:55 | XMS_ITS | Encounter Summary ---
Author Organization Healthcare Address [address] [place] [address] Care Team Providers Care Finish Production Manager Name Role Phone None, None Primary Care Provider [phone] Pcp, No Primary Care Provider Unavailabl e Encounter Details Date Type Department Care Team ([facility] st Contact Info) Description 07/27/2022 Orders Only External Location [address] [place] [address] Provider, External Social History Tobacco Use Types [...] on filedocumented in this encounter Care Teams Finish Production Manager Relationship Specialty Start Date End Date None, None [address] [place] [address] PCP - General NONE FOUND 07/12/23 03/06/24 Pcp, No [address] [place] [address] PCP - General Family Medicine 07/13/24 documented as of this encounter
--- OUTSIDE RECORDS SUMMARY | 2025-04-22 09:55 | XMS_ITS | Encounter Summary ---
Author Organization Healthcare Address [address] [place] [address] Care Team Providers Care Home Security Alarm Installer Name Role Phone None, None Primary Care Provider Pcp, No Primary Care Provider Unavailabl e Encounter Details Date Type Department Care Team ([facility] st Contact Info) Description 08/23/2022 Orders Only External Location [address] [place] [address] Jillian Ortiz CONCRETE FOREMAN [address] [facility] [address] [place] [address] Social History Tobacco Use Types [...] Medicine 08/23/2022 7:57 AM EST Jillian Ortiz CONCRETE FOREMAN IMG NM PROCEDURES Final Resu lt documented in this encounter Visit Diagnoses Not on filedocumented in this encounter Care Teams Home Security Alarm Installer Relationship Specialty Start Date End Date None, None [address] [place] [address] PCP - General NONE FOUND 07/12/23 03/06/24 [place] [address] PCP - General Family Medicine 07/13/24 documented as of this encounter
--- OUTSIDE RECORDS SUMMARY | 2025-04-22 09:55 | XMS_ITS | Encounter Summary ---
Author Organization Healthcare Address [address] [place] [address] Care Team Providers Care Stud Master/Mistress Name Role Phone None, None Primary Care Provider Pcp, No Primary Care Provider Unavailabl e Encounter Details Date Type Department Care Team (Late st Contact Info) Description 08/23/2022 Orders Only External Location [address] [place] [address] Jillian Ortiz, CRANE HOOKER [address] [facility] [address] [place] [address] Social History Tobacco Use Types [...] 08/23/2022 8:58 AM EST us Jillian Ortiz CRANE HOOKER IMG US PROCEDURES Final Resu lt documented in this encounter Visit Diagnoses Not on filedocumented in this encounter Care Teams Stud Master/Mistress Relationship Specialty Start Date End Date None, None [address] [place] [address] PCP - General NONE FOUND 07/12/23 03/06/24 [place] [address] PCP - General Family Medicine 07/13/24 documented as of this encounter
--- OUTSIDE RECORDS SUMMARY | 2025-04-22 09:55 | XMS_ITS | Encounter Summary ---
Author Organization Healthcare Address [address] [place] [address] Care Team Providers Care Impregnator Carbon Products Name Role Phone None, None Primary Care Provider Pcp, No Primary Care Provider Unavailabl e Encounter Details Date Type Department Care Team ([facility] st Contact Info) Description 12/04/2016 Orders Only External Location [address] [place] [address] Provider, External Social History Tobacco Use Types [...] on filedocumented in this encounter Care Teams Impregnator Carbon Products Relationship Specialty Start Date End Date None, None [address] [place] [address] PCP - General NONE FOUND 07/12/23 03/06/24 Pcp, No [address] [place] [address] PCP - General Family Medicine 07/13/24 documented as of this encounter
--- OUTSIDE RECORDS SUMMARY | 2025-04-22 09:55 | XMS_ITS | Encounter Summary ---
Author Organization Healthcare Address [address] [place] [address] Care Team Providers Care Mothercraft Nurse Name Role Phone Pcp, No Primary Care Provider Unavailabl e Encounter Details Date Type Department Care Team ([facility] st Contact Info) Description 07/28/2024 Orders Only External Location [address] [place] [address] Provider, External Social History Tobacco Use Types [...] on filedocumented in this encounter Care Teams Mothercraft Nurse Relationship Specialty Start Date End Date Pcp, No [address] [place] [address] PCP - General Family Medicine 07/13/24 documented as of this encounter
--- OUTSIDE RECORDS SUMMARY | 2025-04-22 09:55 | XMS_ITS | Encounter Summary ---
Author Organization Healthcare Address [address] [place] [address] Care Team Providers Care Cook Dessert Name Role Phone None, None Primary Care Provider Pcp, No Primary Care Provider Unavailabl e Encounter Details Date Type Department Care Team ([facility] st Contact Info) Description 12/19/2020 Orders Only External Location [address] [place] [address] Provider, External Social History Tobacco Use Types [...] on filedocumented in this encounter Care Teams Cook Dessert Relationship Specialty Start Date End Date None, None [address] [place] [address] PCP - General NONE FOUND 07/12/23 03/06/24 Pcp, No [address] [place] [address] PCP - General Family Medicine 07/13/24 documented as of this encounter
--- OUTSIDE RECORDS SUMMARY | 2025-04-22 09:55 | XMS_ITS | Encounter Summary ---
Author Organization Healthcare Address [address] [place] [address] Care Team Providers Care Gospel Singer Name Role Phone Pcp, No Primary Care Provider Unavailabl e Encounter Details Date Type Department Care Team (Late st Contact Info) Description 08/07/2024 Lab Requisition [facility] [address] [place] [address] Neli Ventura MD [address] [place] [address] Solitary pulmonary nodule Social History Tobacco Use [...] 11:54 AM EST) Case Report Cytology Case: [id number] Authorizing Provider: Neli Ventura MD Collected: 08/07/2024 1154 Ordering Location: [facility] Received: 08/07/2024 1154 Pathologist: Anne Marie Keita MD Specimen: Lymph Node, [id number] 08/14/2024 3:[address] [facility] Final Diagnosis OUTSIDE CASE: [id number] COLLECTED ON 07/21/2024: A. LYMPH NODE, STATION 7, FINE NEEDLE ASPIRATION: - LYMPHOID TISSUE, NEGATIVE FOR MALIGNANCY. B. LYMPH NODE, STATION 10L, FINE NEEDLE ASPIRATION: - RARE ATYPICAL CELLS PRESENT (SEE COMMENT). C. LUNG, LEFT UPPER LOBE, BRONCHIAL LAVAGE: - RARE ATYPICAL CELLS PRESENT. 08/14/2024 3:30 PM EST [facility] at 1530 EST Comment The [...] at 3:30 PM. 08/14/2024 3:[address] [facility] Clinical Information R91.1 - Solitary pulmonary nodule [ICD-10-CM] 08/14/2024 3:30 PM EST [facility] Gross Description A. [id number] Received along with a corresponding pathology report from [facility] are 6 slide(s) labeled outside case: [id number] collected on 07/21/2024. 08/14/2024 3:[address] [facility] Fine Needle Aspirate Lymph node specimen / Unknown 08/07/2024 11:54 AM EST 08/07/2024 11:54 AM EST us Neli Ventura MD LAB PATHOLOGY ORDERABLES Final Result [facility] [address] [place] [address] documented in this encounter Visit Diagnoses Diagnosis Solitary pulmonary nodule documented in this encounter Care Teams Gospel Singer Relationship Specialty Start Date End Date Pcp, No [address] [place] [address] PCP - General Family Medicine 07/13/24 documented as of this encounter
--- OUTSIDE RECORDS SUMMARY | 2025-04-22 09:55 | XMS_ITS | Encounter Summary ---
Author Organization Healthcare Address [address] [place] [address] Care Team Providers Care Manager Philosophy Name Role Phone Pcp, No Primary Care Provider Unavailabl e Encounter Details Date Type Department Care Team ([facility] st Contact Info) Description 07/21/2024 Orders Only External Location [address] [place] [address] Provider, External Social History Tobacco Use Types [...] on filedocumented in this encounter Care Teams Manager Philosophy Relationship Specialty Start Date End Date Pcp, No [address] [place] [address] PCP - General Family Medicine 07/13/24 documented as of this encounter
--- OUTSIDE RECORDS SUMMARY | 2025-04-22 09:55 | XMS_ITS | Clinical Summary ---
Author Organization [facility] Address [address] [place] [address] Care Team Providers Care Gluer Machine Operator Name Role Phone Skip Murray MD Primary Care Provider [phone] Allergies No known active allergies Medications Humira [...] 3 Active Cholecalciferol (Vitamin D3) 1.25 MG (17089 UT) capsule 3 Active cyanocobalamin 1000 MCG/ML [...] Td or Tdap) 12/19/2030 021 Insurance [employer]INA [facility] PPO Care Teams Gluer Machine Operator Relationship Specialty Start Date End Date Skip Murray MD [address] [place] [facility] [address] [place] [address] PCP - General Family Medicine 11/08/22
--- OUTSIDE RECORDS SUMMARY | 2025-04-22 09:55 | XMS_ITS | Encounter Summary ---
Author Organization Healthcare Address [address] [place] [address] Care Team Providers Care Cover Inspector Name Role Phone Pcp, No Primary Care Provider Unavailabl e Encounter Details Date Type Department Care Team ([facility] st Contact Info) Description 07/21/2024 Orders Only External Location [address] [place] [address] Provider, External Social History Tobacco Use Types [...] on filedocumented in this encounter Care Teams Cover Inspector Relationship Specialty Start Date End Date Pcp, No [address] [place] [address] PCP - General Family Medicine 07/13/24 documented as of this encounter
--- OUTSIDE RECORDS SUMMARY | 2025-04-22 09:55 | XMS_ITS | Encounter Summary ---
Author Organization Healthcare Address [address] [place] [address] Care Team Providers Care Lime Mixer Name Role Phone None, None Primary Care Provider Pcp, No Primary Care Provider Unavailabl e Encounter Details Date Type Department Care Team ([facility] st Contact Info) Description 02/07/2023 Orders Only External Location [address] [place] [address] Provider, External Social History Tobacco Use Types [...] 9:40 AM EDT) Anatomical Region Laterality Modality [place] Computed Tomogr aphy 02/07/2023 9:40 AM EDT us External Provider IMG CT PROCEDURES Final Result documented in this encounter Visit Diagnoses Not on filedocumented in this encounter Care Teams Lime Mixer Relationship Specialty Start Date End Date None, None [address] [place] [address] PCP - General NONE FOUND 07/12/23 03/06/24 Pcp, [place] [address] PCP - General Family Medicine 07/13/24 documented as of this encounter
--- OUTSIDE RECORDS SUMMARY | 2025-04-22 09:55 | XMS_ITS | Encounter Summary ---
Author Organization Healthcare Address [address] [place] [address] Care Team Providers Care Embossing Clerk Name Role Phone None, None Primary Care Provider [phone] Pcp, No Primary Care Provider Unavailabl e Encounter Details Date Type Department Care Team ([facility] st Contact Info) Description 02/28/2021 Orders Only External Location [address] [place] [address] Provider, External Social History Tobacco Use Types [...] on filedocumented in this encounter Care Teams Embossing Clerk Relationship Specialty Start Date End Date None, None [address] [place] [address] PCP - General NONE FOUND 07/12/23 03/06/24 Pcp, No [address] [place] [address] PCP - General Family Medicine 07/13/24 documented as of this encounter
[2025-04-25 13:19] LABS: Calprotectin, Fecal 57 ug/g (0-120)
== END 2025-04-22 23:59 | disposition home or self-care (01) ==
LOC: LAB.DROPOF 09:50
PROVIDERS: PCP Family Medicine; Visit Provider Internal Medicine Gastroenterology
DX: K50.919 Crohn's disease, unspecified, with unspecified complications (principal)
CPT/HCPCS: 83993

== ENCOUNTER 2025-06-24 08:27 | Outpatient (CLI) | payer BC, SELFPAY ==
--- OUTSIDE RECORDS SUMMARY | 2024-01-14 06:30 | XMS_ITS ---
Author Organization [facility] Address [address] [place] [id number] Care Team Providers Care [employer]ent [employer]quisition Lead Name Role Phone Flo Murray Primary Care Provider Allergies No Known Allergies Results Component Value Reference Range Notes CBC Venipuncture (in house) Reviewed date:01/14/2024 02:21:46 PM Interpretation: Performing Lab: Notes/Report: wbc 7.2 3.5 - 10 lymph 26.4 15 - 50 mid 6.6 2 - 15 gran 67.0 35 - 80 rbc 4.74 3.5 - 5.5 hgb 14.3 11.5 - 16.5 hct 45.1 35 - 55 mcv 95.1 75 - 100 mch 30.2 25 - 35 mchc 31.7 31 - 38 platlet 221 100 - 400 P-Comprehensive Metabolic Pa ed (CMP) Reviewed date:01/15/2024 09:37:35 AM Interpretation:creat 0.69 Performing Lab: Notes/Report: Test performed by [employer] [address] [place] [address] , [address], [place] [address] Cipriano Renee MD, Banquet Chef CLIA: [id number] Sodium 138 135-145 mEq/L Potassium 4.6 3.5-5.3 mEq/L Chloride 105 97-108 mEq/L CO2 26 22-32 mEq/L Glucose 96 65-99 mg/dL BUN 7 6-20 mg/dL Creatinine 0.69 0.70-1.30 mg/dL Calcium 9.3 8.6-10.4 mg/dL eGFR by Creatinine 106 >59 mL/min/1.73m2 Protein 6.2 6.0-8.3 g/dL Albumin 4.0 3.5-5.3 g/dL Alkaline Phosphatase 71 40-129 IU/L ALT (SGPT) 21 <5-55 IU/L AST (SGOT) 24 <5-46 IU/L Bilirubin, Total 0.4 <0.2-1.2 mg/dL A/G Ratio 1.8 1.1-2.5 mg/dL REASON FOR VISIT 4 months, Needs labs, low dose chest CT, & shingles vaccine Medications Medication SIG (Take, Route, Frequency, Duration) Notes Start Date End Date Status Tamsulosin HCl 0.4 MG 1 cap(s) orally At Bed Time Active Mometasone Furoate 0.1 % 1 application E xternally Once a day 09/17/2023 Active Vitamin B-12 1000 MCG 1 tab(s) orally on ce a day; Duration: 30 day(s) 01/03/2023 Active Humira Pen 40 MG/0.4ML as directed subcu taneously every other week Active Aspirin Low Dose 81 MG 1 tab(s) orally o nce a day; Duration: 30 day(s) Active Rosuvastatin Calcium 10 MG 1 tablet Orally Once a day; Duration: 30 day(s) Active Vital Signs Blood pressure systolic 140 mm Hg 01/14/20 24 Blood pressure diastolic 90 mm Hg 024 Heart Rate 56 /min 01/14/2024 Height 66.25 in 01/14/2024 Weight 140.0 lbs 01/14/2024 BMI 22.42 kg/m2 01/14/2024 Encounters Encounter Location Date Provider Diagnosis [facility] [address] [facility] [address] [facility] [address] [place] [id number] 01/14/2024 Flo Murray Crohn's disease in remission K50.90 ; Status post small bowel resection Z90.49 and Callus of foot L84 Assessments Encounter Date Diagnosis (ICD Code) Assessment Notes Treatment Notes Treatment Clinical Notes Section Notes 01/14/2024 Crohn's disease in remission (ICD-10 - K50.90) 01/14/2024 Status post small bowel resection (ICD-10 - Z90.49) 01/14/2024 Callus of foot (ICD-10 - L84) Plan Of Treatment Next Appt Details Follow Up: 4 Months, Reason: Provider Name:Flo Lowe er, 06/26/2025 11:15:00 AM, [address], [address], [place], [id number], Progress Notes * ASHLEY CADENADOB: 4 (60 yo M)Acc No.[id number]:01/14/2024 Progress Notes Patient: ASHLEY JUNIOR Provider: Flo Murray M.D. :1965 A ge:58 Y S ex:Male Date:01/14/2024 Address:[address] [place] [address] [address], [place] , [id number] Subjective: * Chief Complaints: * 1 . 4 months. 2. Needs labs, low dose chest CT, & shingles vaccine. * HPI: C ardiology: The patient is here for a check up on Hypertension. Pt states he does not check his BP at home. Pt states he is doing good except for a spot on the left foot he would like checked out. Pt is not fasting. Denies : Chest Pain. D enies : Short of Breath. D enies : Dizziness. D enies : Palpitations. * ROS: D ERMATOLOGY: no R arabella. n o H ron. G ASTROENTEROLOGY: no N ausea. n o V omiting. n o D iarrhea.? U ROLOGY: no D ifficulty urinating. n o B lood in urine. * Medical History: D epression, 10/24/07 Adacel [facility], Diverticulitis, Crohn's disease, Pfizer Covid vaccine x2 October 2020. * Surgical History: a bnormal CT of the head , fx of heel left foot, Dr. South 05/2010, cholecystectomy 08-11-10, [facility] - colon resection 08/2019. * Hospitalization/Major Diagno stic Procedure: w ound infection 1983, Infection, Admitted at [facility] transfer to [facility] 02-28 to 03-05-10, [facility] 07/14/10 to 07/15/10, [facility] - colon resection 09/04/2019-09/09/2019. * Family History: F ather: . M other: alive 84 yrs. 1 brother(s) , 1 sister(s) - healthy. 2 daughter(s) - healthy. . * Social History: C URRENT TOBACCO USE S moking Status: Patient does smoke, packs per day: 1, number of cigarettes per day: 20, Since age of: 14, Smoking preference: cigarettes. C affeine: yes, frequency:daily. Exercise: yes. Home smoke detector use: yes. Marital Status: . Past smoking status: yes, Smoking status: Patient does smoke, Packs per day: 1, Since age of: 14, Smoking preference: cigarettes. Recreational drug use: no. Alcohol: socially, Type: , Frequency: ,Years: , Determination:. * Medications: T aking Rosuvastatin Calcium 10 MG Tablet 1 tablet Orally Once a day , Taking Aspirin Low Dose 81 MG Tablet Delayed Release 1 tab(s) orally once a day , Taking Humira Pen 40 MG/0.4ML Pen-injector Kit as directed subcutaneously every other week , Taking Vitamin B-12 1000 MCG Tablet 1 tab(s) orally once a day , Taking Mometasone Furoate 0.1 % Ointment 1 application Externally Once a day , Taking Tamsulosin HCl 0.4 MG Capsule 1 cap(s) orally At Bed Time , Discontinued Dicyclomine HCl 10 MG Capsule 2 cap(s) orally 4 times a day , Discontinued azaTHIOprine 50 MG Tablet TAKE 1 TABLET BY MOUTH TWICE DAILY , Discontinued Citracal +D3 250-107-500 MG-MG-UNIT Tablet Chewable 2 tab(s) chewed 2 times a day (with meals) , Discontinued Cyanocobalamin 1000 MCG/ML Solution INJECT 1 ML INTRAMUSCULARLY ONCE EVERY MONTH , Medication List reviewed and reconciled with the patient * Allergies: N .K.D.A. Objective: * Vitals: W t:140.0, Temp:98.1, BP:140/90, HR:56, Nurse:VAIBHAV, Ht: 66.25, BMI:22.42. * Examination: G eneral Examination: General Appearance: N AD. H EENT: u nremarkable.?Oral cavity: n o lesions, mucosa moist and WNL, no erythema. N jayda: s upple, no lymphadenopathy. C hest: n ormal shape and expansion. H eart: R SR. L ungs: c lear to auscultation. A bdomen: soft and nontender, no organomegaly or masses. N eurologic Exam: I ntact, gait normal. S kin: c allus of the 5th MP area, lateral aspect of the left foot. P eripheral pulses: n ormal (2+) bilaterally. B ack: decreased lumbar lordosis. E xtremities: n o leg edema. Assessment: * Assessment: 1. C rohn's disease in remission - K50.90 2 . S tatus post small bowel resection - Z90.49 3 . C allus of foot - L84 Plan: * Treatment: Value Reference Range A /G Ratio 1.8 1.1-2.5 - mg/dL * A lbumin 4.0 3.5-5.3 - g/dL * A lkaline Phosphatase 71 40-129 - IU/L * A LT (SGPT) 21 <5-55 - IU/L * A ST (SGOT) 24 <5-46 - IU/L * B ilirubin, Total 0.4 <0.2-1.2 - mg/dL * B UN 7 6-20 - mg/dL * C alcium 9.3 8.6-10.4 - mg/dL * C hloride 105 97-108 - mEq/L * C O2 26 22-32 - mEq/L * C reatinine 0.69 L 0.70-1.30 - mg/dL * G lucose 96 65-99 - mg/dL * P otassium 4.6 3.5-5.3 - mEq/L * S odium 138 135-145 - mEq/L * P rotein 6.2 6.0-8.3 - g/dL * e GFR by Creatinine 106 >59 - mL/min/1.73m2 * Bertha Kendall 01/15/2024 9:35: 07 AM >See phone encounter ?LAB: CBC Venipuncture (in house) (Collection Date & Time - 01/14/2024)* Value Reference Range w bc 7.2 3.5 - 10 * l ymph 26.4 15 - 50 * m id 6.6 2 - 15 * g ran 67.0 35 - 80 * r bc 4.74 3.5 - 5.5 * h gb 14.3 11.5 - 16.5 * h ct 45.1 35 - 55 * m cv 95.1 75 - 100 * m ch 30.2 25 - 35 * m chc 31.7 31 - 38 * p latlet 221 100 - 400 * Ellie Hernandez 01/14/2024 12:56 :12 PM > * Procedure Codes: 1 1042 DEBRIDE SKIN/TISSUE, 37898 CBC WITH AUTO DIFF, 49951 VENIPUNCT, ROUTINE* * Follow Up: 4 Months * Images: Billing Information: * Visit Code: 07527 Office Visit, Est Pt., Level 3. * Procedure Codes: 60656 DEBRIDE SKIN/TISSUE. 66572 CBC WITH AUTO DIFF. 21026 VENIPUNCT, ROUTINE*. * Electronic signature of Flo Murray MD on 06/24/2025 at 08:36 AM EST Sign off status: Pending * Provider: Flo Murray M.D. Date: 0 01/14/2024 Generated for Elizabethi ng/Kirtg/eTransmitting on: 1 08/24/2024 08:36 AM EST History and Physical Notes * HPI (History of Present Illness) Category Sub-Category Detail Notes Category Not es Cardiology Short of Breath Chest Pain Palpitations Dizziness Examination Category Sub-Category Detail Notes Category Not es General Examination HEENT: unremarkable Heart: RSR Lungs: clear to auscultatio n Abdomen: soft and nontender, no organomegaly or masses Extremities: no leg edema General Appearance: NAD Skin: callus of the 5th MP area, lateral aspect of the left foot Neurologic Exam: Intact, gait normal Neck: supple, no lymphaden opathy Oral cavity: no lesions, mucosa m oist and WNL, no erythema Peripheral pulses: normal (2+) bilatera lly Back: decreased lumbar nohelia dosis Chest: normal shape and exp ansion
--- OUTSIDE RECORDS SUMMARY | 2024-05-19 06:00 | XMS_ITS ---
Author Organization [facility] Address [address] [place] [id number] Care Team Providers Care Senior Sql Dba Name Role Phone Trevor Flo Herve Primary Care Provider [phone] Allergies No Known Allergies Results Component Value Reference Range Notes P-Basic Metabolic Panel (BMP ) Reviewed date:05/21/2024 10:34:53 AM Interpretation:Normal Performing Lab: Notes/Report: Test performed by [employer] [address] [place], [place] [address], [place] [address] Cipriano Renee MD, Recreation Aide CLIA: [id number] Sodium 136 135-145 mmol/L Potassium 4.5 3.5-5.3 mmol/L Specimen received partially spun. Potassium may be falsely elevated - Glucose may be falsely decreased. Correlate results with clinical history. Chloride 100 97-108 mmol/L CO2 23 22-32 mmol/L Glucose 83 65-99 mg/dL Specimen received partially spun. Potassium may be falsely elevated - Glucose may be falsely decreased. Correlate results with clinical history. BUN 9 8-23 mg/dL Creatinine 0.74 0.70-1.30 mg/dL Calcium 8.9 8.6-10.4 mg/dL eGFR by Creatinine 104 >59 mL/min/1.73m2 P-PSA Reviewed date:05/21/2024 10:34:53 AM Interpretation:Normal Performing Lab: Notes/Report: Test performed by [employer] [address], [place] [address] Cipriano Renee MD, Recreation Aide CLIA: [id number] PSA 0.36 <4.00 ng/mL Please note this is an ultrasensitive PSA assay with a lower limit of detection of 0.014 ng/mL. This test is performed by the [employer] ECLIA methodology. Values obtained with different assay methods or kits cannot be directly compared. CT Scan : Chest, low dose Reviewed date:06/19/2024 07:43:55 AM Interpretation:Abnormal Performing Lab: Notes/Report: Abnormal Reason For Referral Reason follow-up on Crohns Diagnosis 1 Crohn's disease in r emission (K50.90) [facility]erring Provider First Name Flo Edgar Referring Provider Last Name Trevor Referring Provider Speciality Family Pra ctice Referred Provider ROSIO GUZMAN Referred Provider Specialty Gastroentero logy General Notes Melly Addison 05/19/20 24 12:20:49 PM > faxed referral to Dr. Guzman office Referral Priority Routine REASON FOR VISIT 4 MOS CHECKUP, Needs labs with PSA, low dose chest CT, shingles, & flu vaccines Medications Medication SIG (Take, Route, Frequency, Duration) Notes Start Date End Date Status Tamsulosin HCl 0.4 MG 1 cap(s) orally At Bed Time; Duration: 90 days Active Mometasone Furoate 0.1 % 1 application [...] Once a day; Duration: 30 day(s) Active Immunizations Vaccine Route Administration Date Status Comme nts Fluzone Quad (6months&older) IM Intramuscular 05/19/2024 P ending Vital Signs Blood pressure systolic 134 mm Hg 05/19/20 24 Blood pressure diastolic 80 mm Hg 024 Heart Rate 68 /min 05/19/2024 Height 66.25 in 05/19/2024 Weight 138.4 lbs 05/19/2024 BMI 22.17 kg/m2 05/19/2024 Encounters Encounter Location Date [facility] [address] [place] [phone] 05/19/2024 Flo Murray Essential hypertensi on I10 ; Crohn's disease in remission K50.90 ; History of tobacco use Z87.891 ; Right groin pain R10.31 ; Strain of right psoas muscle, initial encounter S76.011A ; Actinic keratosis L57.0 ; Encounter for immunization Z23 and Benign prostatic hyperplasia without lower urinary tract symptoms N40.0 Assessments Encounter Date Diagnosis (ICD Code) Assessment Notes Treatment Notes Treatment Clinical Notes Section Notes 05/19/2024 Essential hypertension (ICD-10 - I10) 05/19/2024 Crohn's disease in remission (ICD-10 - K50.90) 05/19/2024 History of tobacco use (ICD-10 - Z87.891) 05/19/2024 Right groin pain (ICD-10 - R10.31) 05/19/2024 Strain of right psoas muscle, initial encounter (ICD-10 - S76.011A) single daily dose of Ibuprofen 600mg recommended, unless it causes GI side effects. 05/19/2024 Actinic keratosis (ICD-10 - L57.0) 05/19/2024 Encounter for immunization (ICD-10 - Z23) 05/19/2024 Benign prostatic hyperplasia without lower urinary tract symptoms (ICD-10 - N40.0) Plan Of Treatment Treatment Notes Assessment Notes Strain of right psoas muscle , initial encounter single daily dose of Ibuprofen 600mg recommended, unless it causes GI side effects. Referrals Referral Date Details 05/19/2024 05/19/2024, follow-u p on Leticia ROSIO SELFBINS Next Appt Details Follow Up: Office surgery-sh ave excision, Reason: Provider Name:Flo Lowe , 06/26/2025 11:15:00 AM, [address] [facility], [address], [place], [place], [phone], Progress Notes * ASHLEY CADENADOB: [birth year] (60 yo M)Acc No.[id number]:05/19/2024 Progress Notes Patient: ASHLEY JUNIOR Provider: Flo Murray M.D. :1965 A ge:59 Y S ex:Male Date:05/19/2024 Address:[address] [place] [address] [address], [place] , [id number] Subjective: * Chief Complaints: * 1 . 4 MOS CHECKUP. 2. Needs labs with PSA, low dose chest CT, shingles, & flu vaccines. * HPI: C ardiology: The patient is here for a check up on Hypertension. Pt states he have groin pain. Pt states he pulled a muscle in his groin and he rates the pain about 3-4/10 with walking. Pt is not fasting. Denies : Chest [...] * Medical History: D epression, 10/24/07 Adacel [facility], Diverticulitis, Crohn's disease, Pfizer Covid vaccine x2 October 2020. * Surgical History: a bnormal CT of the head , fx of heel left foot, Dr. South 05/2010, cholecystectomy 08-11-10, [facility] - colon resection 08/2019. * Hospitalization/Major Diagno stic Procedure: w ound infection 1983, Infection, Admitted at [facility] [place] transfer to [facility] 02-28 to 03-05-10, [facility] [place] 07/14/10 to 07/15/10, - colon resection 09/04/2019-09/09/2019. * Family History: [...] 1 cap(s) orally At Bed Time , Medication List reviewed and reconciled with the patient * Allergies: N .K.D.A. Objective: * Vitals: W t:138.4, Temp:98.0, BP:134/80, HR:68, Nurse:VAIBHAV, Ht: 66.25, BMI:22.17. * Examination: G eneral Examination: General Appearance: N AD. H EENT: u nremarkable.?Oral cavity: n o lesions, mucosa moist and WNL, no erythema. N jayda: s upple, no lymphadenopathy. C hest: n ormal shape and expansion. H eart: R SR. L ungs: c lear to auscultation, breath sounds seem decreased right compared to left. A bdomen: s oft and nontender, no organomegaly or masses. No localized tenderness, but he cannot straight leg raise due to pain. N eurologic Exam: I ntact, gait normal. S kin: k eratotic lesion of dorsum of the right hand. P eripheral pulses: n ormal . B ack: decreased lumbar lordosis. E xtremities: n o leg edema. Assessment: * Assessment: 1. E ssential hypertension - I10 (Primary) 2 . C rohn's disease in remission - K50.90 3 . H istory of tobacco use - Z87.891 4 . R ight groin pain - R10.31 5 . S train of right psoas muscle, initial encounter - S76.011A 6 . A ctinic keratosis - L57.0 7 . E ncounter for immunization - Z23 8 . B enign prostatic hyperplasia without lower urinary tract symptoms - N40.0 Plan: * Treatment: Value Reference Range B UN 9 8-23 - mg/dL * C alcium 8.9 8.6-10.4 - mg/dL * C hloride 100 97-108 - mmol/L * C O2 23 22-32 - mmol/L * C reatinine 0.74 0.70-1.30 - mg/dL * G lucose 83 65-99 - mg/dL * P otassium 4.5 3.5-5.3 - mmol/L * S odium 136 135-145 - mmol/L * e GFR by Creatinine 104 >59 - mL/min/1.73m2 * Charley Valle 05/21/2024 10: 34:38 AM >Patient informed of normal results. 2.?Crohn's disease in remission? Referral To:ROSIO GUZMAN??Gastroenterology ?Reason:follow-up on Crohns 3.?History of tobacco use?Imaging: CT Scan : Chest, low dose (Performed Date - 06/02/2024)?Abnormal* Melly Addison 05/19/2024 12:13 :29 PM > auth#[id number]; valid 05/19/2024 through 06/17/2024; CPT code 41663; faxed to [facility] [place] Erin Rodrigez 06/19/2024 7:40:31 AM > , See phone encounter 4.?Strain of right psoas muscle, initial encounter? Notes: single daily dose of Ibuprofen 600mg recommended, unless it causes GI side effects.? 5.?Benign prostatic hyperplasia without lower urinary tract symptoms?LAB: P-PSA (Collection Date & Time - 05/19/2024 11:30 AM)?Normal* Value Reference Range P SA 0.36 <4.00 - ng/mL * Charley Valle 05/21/2024 10: 34:38 AM >Patient informed of normal results. * Immunizations: Fluzone Quad (6months&older) : 0.5 mL (Route: Intramuscular) on Right Deltoid (Pending) (Encounter for immunization) * Follow Up: O ffice surgery-shave excision * Images: Billing Information: * Visit Code: 78519 Office Visit, Est Pt., Level 4. * Procedure Codes: * Electronic signature of Flo Murray MD on 06/24/2025 at 08:35 AM EST Sign off status: Pending * Provider: Flo Murray M.D. Date: Generated for Printi ng/Faxing/eTransmitting on: 08/24/2024 08:35 AM EST History and Physical Notes * HPI (History of Present Illness) Category Sub-Category Detail Notes Category Not es Cardiology Short of Breath Chest Pain Palpitations Dizziness Examination Category Sub-Category Detail Notes Category Not es General Examination HEENT: unremarkable Heart: RSR Lungs: clear to auscultatio n, breath sounds seem decreased right compared to left Abdomen: soft and nontender, no organomegaly or masses. No localized tenderness, but he cannot straight leg raise due to pain Extremities: no leg edema General Appearance: NAD Skin: keratotic lesion of dorsum of the right hand Neurologic Exam: Intact, gait normal Neck: supple, no lymphaden opathy Oral cavity: no lesions, mucosa m oist and WNL, no erythema Peripheral pulses: normal Back: decreased lumbar nohelia dosis Chest: normal shape and exp ansion Consultation Request Notes Referral Date Referring Provider Referred Provider Not es 05/19/2024 Flo Murray EARL follow-up on Crohns
--- OUTSIDE RECORDS SUMMARY | 2024-06-27 03:00 | XMS_ITS ---
[facility] [address] [place] [id number] Care Team Providers Care Astrophysics Professor Name Role Phone Flo Murray Primary Care Provider Allergies No Known Allergies Reason For Referral Reason abnormal chest CT Diagnosis [address] (R 93.89) [facility] Referring Provider First Name Flo Edgar Referring Provider Last Name Trevor Referring Provider Speciality Family Pra ctice Referred Provider Joseph Moreno Referred Provider Specialty Pulmonary Di seases General Notes Melly Addison 024 9:53:09 AM > patient needs to be seen CHARISSE; Dr. Murray spoke with Dr. Moreno about patient, CynMelly 06/27/2024 10:04:46 AM > faxed referral to Dr. Moreno's office Referral Priority Routine REASON FOR VISIT shave excision Medications Medication SIG (Take, Route, Frequency, Duration) Notes Start Date End Date Status Vitamin B-12 1000 MCG 1 tab(s) orally on ce a day; Duration: 30 day(s) 01/03/2023 Active Humira Pen 40 MG/0.4ML as directed subcu taneously every other week Active Aspirin Low Dose 81 MG 1 tab(s) orally o nce a day; Duration: 30 day(s) Active Tamsulosin HCl 0.4 MG 1 cap(s) orally At Bed Time; Duration: 90 days Active Mometasone Furoate 0.1 % 1 application E xternally Once a day 09/17/2023 Active Rosuvastatin Calcium 10 MG 1 tablet Orally Once a day; Duration: 30 day(s) Active Problems Problem Type SNOMED Code ICD Code Onset Dates Problem Status W/U Status Risk Notes Problem Radiology result abnormal ([id number]) Abnormal chest CT (R93.89) Active confirmed Vital Signs Blood pressure systolic 142 mm Hg 06/27/20 24 Blood pressure diastolic 80 mm Hg 024 Heart Rate 67 /min 06/27/2024 Height 66.25 in 06/27/2024 Weight 141.6 lbs 06/27/2024 BMI 22.68 kg/m2 06/27/2024 Encounters Encounter Location Date Provider Diagnosis [facility] [facility] 36 [facility] [address] [place] [id number] 06/27/2024 Flo Murray Actinic keratoses L57.[address] R93.89 Assessments Encounter Date Diagnosis (ICD Code) Assessment Notes Treatment Notes Treatment Clinical Notes Section Notes 06/27/2024 Actinic keratoses (ICD-10 - L57.0) 06/27/[address] (ICD-10 - R93.89) I spoke with Dr. Moreno who will see him soon. Will hold on CT/PET Plan Of Treatment Treatment Notes Assessment Notes Abnormal chest CT I spoke with Dr. Michelle escobar who will see him soon. Will hold on CT/PET Referrals Referral Date Details 06/27/2024 06/27/2024, abnormal chest CT, Joseph Moreno Next Appt Details Follow Up: 2 Weeks, Reason: Provider Name:Flo Lowe er, 06/26/2025 11:15:00 AM, [address] [facility] 36 [facility], [address], [place], [id number], Procedure Notes * Category Sub-Category Detail Notes Cryotherapy Actinic Keratosis Number of lesions treated: 1 Method: Julio Cesar LL-100 used to freeze and refreeze the lesions, The patient tolerated the procedure well. Post Op instruction: Wash with vinegar w ater twice a day, Apply Vaseline twice a day Progress Notes * ASHLEY CADENADOB: 4 (60 yo M)Acc No.[id number]:06/27/2024 Progress Notes Patient: ASHLEY JUNIOR Provider: Flo Murray M.D. :1965 A ge:59 Y S ex:Male Date:06/27/2024 Address:[address] [place] [address] [address], [place] , [id number] Subjective: * Chief Complaints: * 1 . Shave excision. * HPI: D ermatology: The patient is here today for minor surgery to remove a suspicious skin lesion of the right hand. Pt states the spot is not as big as it was at his last appointment. Pt states he has an appointment in August with Dermatology. 59 year old male presents with c/o skin lesion. E NT/respiratory: Follow-up on abnormal CT of chest. Cavitary lesion and nodules. Has not had CT/PET. * ROS: C ARDIOLOGY: no C hest pain. n o S hortness of breath. ? G ASTROENTEROLOGY: no N ausea. n o V omiting. n o D iarrhea.? U ROLOGY: no D ifficulty urinating. n o B lood in urine. * Medical History: D epression, 10/24/07 Adacel [facility], Diverticulitis, Crohn's disease, Pfizer Covid vaccine x2 October 2020. * Surgical History: a bnormal CT of the head , fx of heel left foot, Dr. South 05/2010, cholecystectomy 08-11-10, [facility] - colon resection 08/2019. * Hospitalization/Major Diagno stic Procedure: w ound infection 1983, Infection, Admitted at [facility] transfer to [facility] 02-28 to 03-05-10, [facility] 07/14/10 to 07/15/10, - colon resection 09/04/2019-09/09/2019. [...] Allergies: N .K.D.A. Objective: * Vitals: W t:141.6, Temp:98.0, BP:142/80, HR:67, Nurse:VAIBHAV, Ht: 66.25, BMI:22.68. * Examination: G eneral Examination: General Appearance: N AD. H EENT: u nremarkable.?Oral cavity: n o lesions, mucosa moist and WNL, no erythema. N jayda: s upple, no lymphadenopathy. C hest: n ormal shape and expansion. H eart: R SR. L ungs: c lear to auscultation, breath sounds seem decreased ., no wheezes or rales. A bdomen: s oft and nontender, no organomegaly or masses. No localized tenderness, but he cannot straight leg raise due to pain. N eurologic Exam: I ntact, gait normal. S kin: k eratotic lesion of dorsum of the right hand, which actually appears more subtle at this time. P eripheral pulses:?normal . B ack: decreased lumbar lordosis. E xtremities: n o leg edema. & #160; * Physical Examination: Drawing:[id number] Assessment: * Assessment: 1. A ctinic keratoses - L57.0 (Primary) [address] chest [address] - R93.89? Plan: * Treatment: * Procedures: C ryotherapy Actinic Keratosis: Number of lesions treated: 1 . M ethod: W allach LL-100 used to freeze and refreeze the lesions, The patient tolerated the procedure well.. P ost Op instruction: W arabella with vinegar water twice a day, Apply Vaseline twice a day. ? * Procedure Codes: 1 7000 DESTRUCTION BENIGN LESION, CRYOSURGERY,ELECTROSURGERY FIRST LESION * Follow Up: 2 Weeks * Images: Billing Information: * Visit Code: 07972 Office Visit, Est Pt., Level 3. Modifiers: 25 * Procedure Codes: 38398 DESTRUCTION BENIGN LESION, CRYOSURGERY,ELECTROSURGERY FIRST LESION. * Electronic signature of Flo Murray MD on 06/24/2025 at 08:35 AM EST Sign off status: Pending * Provider: Flo Murray M.D. Date: 08/27/2023 Generated for [employer] rudy/Kevin/eTransmitting on: 08/24/2024 08:35 AM EST History and Physical Notes * HPI (History of Present Illness) Category Sub-Category Detail Notes Category Not es Dermatology skin lesion Examination Category Sub-Category Detail Notes Category Not es General Examination HEENT: unremarkable Heart: RSR Lungs: clear to auscultatio n, breath sounds seem decreased ., no wheezes or rales Abdomen: soft and nontender, no organomegaly or masses. No localized tenderness, but he cannot straight leg raise due to pain Extremities: no leg edema General Appearance: NAD Skin: keratotic lesion of dorsum of the right hand, which actually appears more subtle at this time Neurologic Exam: Intact, gait normal Neck: supple, no lymphaden opathy Oral cavity: no lesions, mucosa m oist and WNL, no erythema Peripheral pulses: normal Back: decreased lumbar nohelia dosis Chest: normal shape and exp ansion Consultation Request Notes Referral Date Referring Provider Referred Provider Not es 06/27/2024 Flo Murray Srinadh abnorm al chest CT
--- OUTSIDE RECORDS SUMMARY | 2024-07-14 09:15 | XMS_ITS ---
Author Organization [place] Address [address] [facility] [address] [place] [id number] Care Team Providers Care Television Cabinet Finisher Name Role Phone Flo Murray Primary Care Provider [phone] Allergies No Known Allergies REASON FOR VISIT 2 week f/u Medications Medication SIG (Take, Route, Frequency, Duration) Notes Start Date End Date Status traMADol HCl 50 MG 1 tablet as needed O rally three times a day as needed 07/01/2024 Acti ve Tamsulosin HCl 0.4 MG 1 cap(s) orally At Bed Time; Duration: 90 days Active Humira Pen 40 MG/0.4ML as directed subcu taneously every other week Active Mometasone Furoate 0.1 % 1 application E xternally Once a day 09/17/2023 Active Vitamin B-12 1000 MCG 1 tab(s) orally on ce a day; Duration: 30 day(s) 01/03/2023 Active Rosuvastatin Calcium 10 MG 1 tablet Orally Once a day; Duration: 30 day(s) Active Aspirin Low Dose 81 MG 1 tab(s) orally o nce a day; Duration: 30 day(s) Active Vital Signs Blood pressure systolic 130 mm Hg 07/14/20 24 Blood pressure diastolic 70 mm Hg 024 Heart Rate 68 /min 07/14/2024 Height 66.25 in 07/14/2024 Weight 142.4 lbs 07/14/2024 BMI 22.81 kg/m2 07/14/2024 Encounters Encounter Location Date Provider Diagnosis [facility] [address] [place] [phone] 07/14/2024 Flo Murray Abnormal chest CT R93.89 and Skin lesion of hand L98.9 Assessments Encounter Date Diagnosis (ICD Code) Assessment Notes Treatment Notes Treatment Clinical Notes Section Notes 07/14/[address] (ICD-10 - R93.89) continue current therapy 07/14/2024 Skin lesion of hand (ICD-10 - L98.9) Plan Of Treatment Treatment Notes Assessment Notes Abnormal chest CT continue current the rapy Next Appt Details Follow Up: 2 Months, Reason: Provider Name:Flo Lowe er, 06/26/2025 11:15:00 AM, [address], [address], [place], [place], [phone], Progress Notes * ASHLEY CADENADOB: 4 (60 yo M)Acc No.[id number]:07/14/2024 Progress Notes Patient: ASHLEY JUNIOR Provider: Flo Murray M.D. :1965 A ge:59 Y S ex:Male Date:07/14/2024 Address:[address] [place] [address] [address] [facility] Subjective: * Chief Complaints: * 1 . 2 week f/u. * HPI: D ermatology: The pt is here for a follow up on right hand cryotherapy. Pt states it is healing well. Pt states he had an abnormal CT of the chest and did see pulmonology (Dr. Moreno) today. Pt states he is to be scheduled for a bronchoscopy 07/21/24. * ROS: C ARDIOLOGY: no C hest pain. n o S hortness of breath. ? G ASTROENTEROLOGY: no N ausea. n o V omiting. n o D iarrhea.? U ROLOGY: no D ifficulty urinating. n o B lood in urine. * Medical History: D epression, 10/24/07 Adacel [facility], Diverticulitis, Crohn's disease, Pfizer Covid vaccine x2 October 2020. * Surgical History: a bnormal CT of the head , fx of heel left foot, Dr. South 05/2010, cholecystectomy 08-11-10, [facility] - colon resection 08/2019. * Hospitalization/Major Diagno stic Procedure: w ound infection 1983, Infection, Admitted at [facility] transfer to [facility] 02-28 to 03-05-10, [facility] 07/14/10 to 07/15/10, [facility] - colon resection [...] 1 cap(s) orally At Bed Time , Taking traMADol HCl 50 MG Tablet 1 tablet as needed Orally three times a day as needed , Medication List reviewed and reconciled with the patient * Allergies: N .K.D.A. Objective: * Vitals: W t:142.4, Temp:97.8, BP:130/70, HR:68, O2 Sat:98% on RA, Nurse:VAIBHAV, Ht: 66.25, BMI:22.81. * Examination: G eneral Examination: General Appearance: [...] oft and nontender, no organomegaly or masses. . N eurologic Exam: I ntact, gait normal. S kin: k eratotic lesion of dorsum of the right hand. P eripheral pulses: n ormal . B ack: decreased lumbar lordosis. E xtremities: n o leg edema. Assessment: * Assessment: 1. A bnormal chest CT - R93.89 (Primary) 2 . S kin lesion of hand - L98.9? Plan: * Treatment: * Procedure Codes: 9 4760 PULSE OX * Follow Up: 2 Months * Images: Billing Information: * Visit Code: 90107 Office Visit, Est Pt., Level 3. * Procedure Codes: 84352 PULSE OX. * Electronic signature of Flo Murray MD on 06/24/2025 at 08:37 AM EST Sign off status: Pending * Provider: Flo Murray M.D. Date: 09/14/2023 Generated for [employer] rudy/Kevin/eTransmitting on: 08/24/2024 08:37 AM EST History and Physical Notes * Examination Category Sub-Category Detail Notes Category Not es General Examination HEENT: unremarkable Heart: RSR Lungs: clear to auscultatio n, breath sounds seem decreased ., no wheezes or rales Abdomen: soft and nontender, no organomegaly or masses. Extremities: no leg edema General Appearance: NAD Skin: keratotic lesion of dorsum of the right hand Neurologic Exam: Intact, gait normal Neck: supple, no lymphaden opathy Oral cavity: no lesions, mucosa m oist and WNL, no erythema Peripheral pulses: normal Back: decreased lumbar nohelia dosis Chest: normal shape and exp ansion
--- OUTSIDE RECORDS SUMMARY | 2024-09-22 10:15 | XMS_ITS ---
Author Organization Sury Address 12[address] [facility] [address] [place] [id number] Care Team Providers Care Microsoft Bi Consultant Name Role Phone Flo Murray Primary Care Provider Allergies No Known Allergies REASON FOR VISIT 2 month ckup Medications Medication SIG (Take, Route, Frequency, Duration) [...] Once a day; Duration: 30 day(s) Active Mometasone Furoate 0.1 % 1 application E xternally Once a day 09/17/2023 Active Vitamin B-12 1000 MCG 1 tab(s) orally on ce a day; Duration: 30 day(s) 01/03/2023 Active Problems Problem Type SNOMED Code ICD Code Onset Dates Problem Status W/U Status Risk Notes Problem Malignant neoplasm of respiratory system (885562489) Carcinoma of left lung (C34.92) Active confirmed Vital Signs Blood pressure systolic 150 mm Hg 09/22/19 25 Blood pressure diastolic 80 mm Hg 025 Heart Rate 64 /min 09/22/2024 Height 66.25 in 09/22/2024 Weight 143.6 lbs 09/22/2024 BMI 23.00 kg/m2 09/22/2024 Encounters Encounter Location Date Provider Diagnosis [place] [facility] 36 [facility] [address] [place] [phone] 09/22/2024 Flo Murray Carcinoma of left lung C34.92 and Crohn's disease in remission K50.90 Assessments Encounter Date Diagnosis (ICD Code) Assessment Notes Treatment Notes Treatment Clinical Notes Section Notes 09/22/2024 Carcinoma of left lung (ICD-10 - C34.92) continue current therapy 09/22/2024 Crohn's disease in remission (ICD-10 - K50.90) Plan Of Treatment Treatment Notes Assessment Notes Carcinoma of left lung continue current therapy Next Appt Details Follow Up: 2 Months, Reason: Provider Name:Flo Lowe er, 06/26/2025 11:15:00 AM, [address], [place], [phone], Progress Notes * ASHLEY CADENADOB: 4 (60 yo M)Acc No.[id number]:09/22/2024 Progress Notes Patient: Yamile DRIVERASHLEY Provider: Flo Murray M.D. :1965 A ge:59 Y S ex:Male Date:09/22/2024 Address:[address] [place], [place] [address] [address], [id number] Subjective: * Chief Complaints: * 1 . 2 month ckup. * HPI: C ardiology: The pt is here today for a check up. Pt states he started chemo and radiation for left lung cancer about 2 weeks ago. Pt is not fasting. 59 year old male presents with c/o Chest Pain. c/o Short of Breath. Denies : Dizziness. D enies : Palpitations. E NT/respiratory: Bronchoscopy and biopsy revealed Stage IIIA non small cell lung cancer, likely squamous. Chemo and radiation. See reports from Dmitri Yeboah. Also getting the radiation in [place] from Dr. Toro. Has Percocet for pain, using at nighttime to rest. Still has back pain that will hopefully improve with treatment of lesion. * ROS: D ERMATOLOGY: no R arabella. n o H ron. G ASTROENTEROLOGY: no N ausea. n o V omiting. n o D iarrhea.? U ROLOGY: no D ifficulty urinating. n o B lood in urine. * Medical History: D epression, 10/24/07 Adacel [facility], Diverticulitis, Crohn's disease, Pfizer Covid vaccine x2 October 2020. * Surgical History: a bnormal CT of the head , fx of heel left foot, Dr. South 05/2010, cholecystectomy 08-11-10, [facility] - colon resection 08/2019. * Hospitalization/Major Diagno stic Procedure: w ound infection 1983, Infection, Admitted at [facility] transfer to [facility] 02-28 to 03-05-10, [facility] 07/14/10 to 07/15/10, [facility] - colon resection 09/04/2019-09/09/2019. * Family History: F ather: . M other: alive 85 yrs. 1 brother(s) , 1 sister(s) - [...] Allergies: N .K.D.A. Objective: * Vitals: W t:143.6, Temp:98.3, BP:150/80, HR:64, O2 Sat:98% on RA, Nurse:VAIBHAV, Ht: 66.25, BMI:23.00. * Examination: G eneral Examination: General Appearance: N AD. H EENT: u nremarkable.?Oral cavity: n o lesions, mucosa moist and WNL, no erythema. N jayda: s upple, no lymphadenopathy. C hest: n ormal shape and expansion. H eart: R SR, S4. L ungs: c lear to auscultation, breath sounds seem decreased ., no wheezes or rales. A bdomen: s oft and nontender, no organomegaly or masses. . N eurologic Exam: I ntact, gait normal. Skin: d orsum of the right hand has healed well. P eripheral pulses: n ormal . B ack: decreased lumbar lordosis. E xtremities: n o leg edema. Assessment: * Assessment: 1. C arcinoma of left lung - C34.92 (Primary) 2 . C rohn's disease in remission - K50.90 Plan: * Treatment: * Procedure Codes: 9 4760 PULSE OX, 3077F SYST BP = 140 MM HG6 IT, 3079F DIAST BP 80-89 MM HG * Follow Up: 2 Months * Images: Billing Information: * Visit Code: 30423 Office Visit, Est Pt., Level 4. * Procedure Codes: 52850 PULSE OX. 3077F SYST BP = 140 MM HG6 IT. 3079F DIAST BP 80-89 MM HG. * Electronic signature of Flo Murray MD on 06/24/2025 at 08:35 AM EST Sign off status: Pending * Provider: Flo Murray M.D. Date: 0 09/22/2024 Generated for Corey grant/Kevin/Amandaitting on: 1 08/24/2024 08:35 AM EST History and Physical Notes * HPI (History of Present Illness) Category Sub-Category Detail Notes Category Not es Cardiology Short of Breath Chest Pain Palpitations Dizziness Examination Category Sub-Category Detail Notes Category Not es General Examination HEENT: unremarkable Heart: RSR, S4 Lungs: clear to auscultatio n, breath sounds seem decreased ., no wheezes or rales Abdomen: soft and nontender, no organomegaly or masses. Extremities: no leg edema General Appearance: NAD Skin: dorsum of the right hand has healed well Neurologic Exam: Intact, gait normal Neck: supple, no lymphaden opathy Oral cavity: no lesions, mucosa m oist and WNL, no erythema Peripheral pulses: normal Back: decreased lumbar nohelia dosis Chest: normal shape and exp ansion
--- OUTSIDE RECORDS SUMMARY | 2024-11-24 09:00 | XMS_ITS ---
Author Organization [facility] Address [address] [facility] [address] [place] [phone] Care Team Providers Care Occupational Therapist Home Based Name Role Phone Flo Murray Primary Care Provider Allergies No Known Allergies REASON FOR VISIT 2 month ckup, Needs labs & shingles vaccine Medications Medication SIG (Take, Route, Frequency, Duration) Notes Start Date End Date Status Tamsulosin HCl 0.4 MG TAKE 1 CAPSULE BY MOUTH AT BEDTIME FOR 90 DAYS; Duration: 90 Active Humira Pen 40 MG/0.4ML as directed subcutaneously every other week Not-Taking Aspirin Low Dose 81 MG 1 tab(s) orally o nce a day; Duration: 30 day(s) Active Rosuvastatin Calcium 10 MG 1 tablet Orally Once a day; Duration: 30 day(s) Active traMADol HCl 50 MG 1 tablet as needed O rally three times a day as needed 07/01/2024 Active Vitamin B-12 1000 MCG 1 tab(s) orally on ce a day; Duration: 30 day(s) 01/03/2023 Active Mometasone Furoate 0.1 % 1 application Externally Once a day 09/17/2023 Active Vital Signs Blood pressure systolic 124 mm Hg 11/25/19 25 Blood pressure diastolic 80 mm Hg 025 Heart Rate 80 /min 11/24/2024 Height 66.25 in 11/24/2024 Weight 145.6 lbs 11/24/2024 BMI 23.32 kg/m2 11/24/2024 Encounters Encounter Location Date Provider Diagnosis [place] [facility] [address] [place] [id number] 11/24/2024 Flo Murray Crohn''s disease of small intestine with complication K50.019 ; Carcinoma of left lung C34.92 ; Status post small bowel resection Z90.49 ; Crohn's disease in remission K50.90 and BMI 23.0-23.9, adult Z68.23 Assessments Encounter Date Diagnosis (ICD Code) Assessment Notes Treatment Notes Treatment Clinical Notes Section Notes 11/24/2024 Crohn''s disease of small intestine with complication (ICD-10 - K50.019) 11/24/2024 Carcinoma of left lung (ICD-10 - C34.92) 11/24/2024 Status post small bowel resection (ICD-10 - Z90.49) 11/24/2024 Crohn's disease in remission (ICD-10 - K50.90) 11/24/2024 BMI 23.0-23.9, adult (ICD-10 - Z68.23) Plan Of Treatment Next Appt Details Follow Up: 3 Months, Reason: Provider Name:Flo Lowe er, 06/26/2025 11:15:00 AM, [address], [address], [place], [place], [phone], Progress Notes * ASHLEY CADENADOB: 4 (60 yo M)Acc No.[id number]:11/24/2024 Progress Notes Patient: ASHLEY JUNIOR Provider: Flo Murray M.D. :1965 A ge:59 Y S ex:Male Date:11/24/2024 Address:[address] [place] [address] , [facility] Subjective: * Chief Complaints: * 1 . 2 month ckup. 2. Needs labs & shingles vaccine. * HPI: H PI: Still receiving chemo for his lung cancer. Got a dose today. Radiation is apparently complete at this time. Has had 7 low doses of chemo. Has additional doses of chemo planned. with Carboplatin/Taxol See 11/11/24 CT of the chest. See 11/18/[address] Guzman. See 11/19/[address] Rizvi. See 11/19/24 blood chemistry. Finishing a Medrol pack, per Dr. Rizvi. 59 year old male presents with c/o Patient is here today for?Pt is here today for a 2 month check up. Pt sts he is doing well and has no concerns at this time. * ROS: D ERMATOLOGY: no R arabella. n o H ron. G ASTROENTEROLOGY: no N ausea. n o V omiting. n o D iarrhea.? U ROLOGY: no D ifficulty urinating. n o B lood in urine. * Medical History: D epression, 10/24/07 Adacel [facility], Diverticulitis, Crohn's disease, Pfizer Covid vaccine x2 October 2020. * Surgical History: a bnormal CT of the head , fx of heel left foot, Dr. South 05/2010, cholecystectomy 08-11-10, [facility] - colon resection 08/2019. * Hospitalization/Major Diagno stic Procedure: w ound infection 1983, Infection, Admitted at [facility] transfer to [facility] 02-28 to 03-05-10, [facility] 07/14/10 to 07/15/10, [facility] - [...] tab(s) orally once a day , Taking Vitamin B-12 1000 MCG Tablet 1 tab(s) orally once a day , Taking Mometasone Furoate 0.1 % Ointment 1 application Externally Once a day , Taking traMADol HCl 50 MG Tablet 1 tablet as needed Orally three times a day as needed , Taking Tamsulosin HCl 0.4 MG Capsule TAKE 1 CAPSULE BY MOUTH AT BEDTIME FOR 90 DAYS , Not-Taking Humira Pen 40 MG/0.4ML Pen-injector Kit as directed subcutaneously every other week , Medication List reviewed and reconciled with the patient * Allergies: N .K.D.A. Objective: * Vitals: W t: 145.6, Temp: 97.7, BP: 124/80, HR: 80, O2 Sat: 96% on RA, Nurse: albaro, Ht: 66.25, BMI:23.32. * Examination: G eneral Examination: General Appearance: [...] lung - C34.92 (Primary) 2 . C rohn''s disease of small intestine with complication - K50.019 3 . S tatus post small bowel resection - Z90.49 4 . C rohn's disease in remission - K50.90 5 . B SC 23.0-23.9, adult - Z68.23 Plan: * Treatment: * Procedure Codes: 3 074F SYST BP LT 130 MM HG, 3079F DIAST BP 80-89 MM HG * Follow Up: 3 Months * Images: Billing Information: * Visit Code: 61957 Office Visit, Est Pt., Level 3. * Procedure Codes: 3074F SYST BP LT 130 MM HG. 3079F DIAST BP 80-89 MM HG. * Electronic signature of Flo Murray MD on 06/24/2025 at 08:35 AM EST Sign off status: Pending * Provider: Flo Murray M.D. Date: 0 11/24/2024 Generated for Corey grant/Kevin/Carlysmitting on: 1 08/24/2024 08:35 AM EST History and Physical Notes * HPI (History of Present Illness) Category Sub-Category Detail Notes Category Not es HPI Patient is here today for Pt is here today for a 2 month check up. Pt sts he is doing well and has no concerns at this time Examination Category Sub-Category Detail Notes Category Not [...]
--- OUTSIDE RECORDS SUMMARY | 2025-02-16 08:45 | XMS_ITS ---
Author Organization [facility] Address [address] [facility] [address] [id number] Care Team Providers Care Rag Cutting Machine Operator Name Role Phone Flo Murray Primary Care Provider [phone] Allergies No Known Allergies REASON FOR VISIT 3 months, Needs labs & shingles vaccine Medications Medication SIG (Take, Route, Frequency, Duration) Notes Start Date End Date Status Humira Pen 40 MG/0.4ML as directed subcutaneously every other week Not-Taking Mometasone Furoate 0.1 % 1 application Externally Once a day 09/17/2023 Not-Taking Medrol 4 MG as directed Orally; Duration: 6 days 02/16/2025 Active Escitalopram Oxalate 10 MG 1 tablet Orally Once a day; Duration: 30 days 02/16/2025 Active Oxazepam 10 MG 1 capsule as needed Orally Three times a day as needed 02/16/2025 Active Tamsulosin HCl 0.4 MG 1 capsule Orally a t bedtime; Duration: 90 days Active Rosuvastatin Calcium 10 MG 1 tablet Orally Once a day; Duration: 30 day(s) Active Aspirin Low Dose 81 MG 1 tab(s) orally o nce a day; Duration: 30 day(s) Active Vitamin B-12 1000 MCG 1 tab(s) orally on ce a day; Duration: 30 day(s) 01/03/2023 Active traMADol HCl 50 MG 1 tablet as needed O rally three times a day as needed 07/01/2024 Active Percocet 5-325 MG 1 tablet as needed O rally hs Active Mesalamine 400 MG 2 capsule Orally twi ce a day Active Problems Problem Type SNOMED Code ICD Code Onset Dates Problem Status W/U Status Risk Notes Problem Anxiety depression (621395857) Anxiety with depression (F41.8) Active confirmed Vital Signs Blood pressure systolic 120 mm Hg 02/17/20 25 Blood pressure diastolic 80 mm Hg 025 Heart Rate 71 /min 02/16/2025 Height 66.25 in 02/16/2025 Weight 145.2 lbs 02/16/2025 BMI 23.26 kg/m2 02/16/2025 Encounters Encounter Location Date Provider Diagnosis [facility] [address] [facility] [address] [facility] [address] [place] [id number] 02/16/2025 Flo Murray Carcinoma of left ari ng C34.92 ; Crohn's disease in remission K50.90 ; Anxiety with depression F41.8 and BMI 23.0-23.9, adult Z68.23 Assessments Encounter Date Diagnosis (ICD Code) Assessment Notes Treatment Notes Treatment Clinical Notes Section Notes 02/16/2025 Carcinoma of left lung (ICD-10 - C34.92) 02/16/2025 Crohn's disease in remission (ICD-10 - K50.90) 02/16/2025 Anxiety with depression (ICD-10 - F41.8) 02/16/2025 BMI 23.0-23.9, adult (ICD-10 - Z68.23) Plan Of Treatment Medication Medication Name Sig Start Date Stop Date Notes Medrol 4 MG as directed Orally; Duration: 6 days 02/16/2025 Escitalopram Oxalate 10 MG 1 tablet Oral ly Once a day; Duration: 30 days 02/16/2025 Oxazepam 10 MG 1 capsule as needed Orally Three times a day as needed 02/16/2025 Next Appt Details Follow Up: 2 Months, Reason: Provider Name:Flo Lowe , 06/26/2025 11:15:00 AM, [address] [facility] [address] [facility], [address], [place], [id number], Progress Notes * ASHLEY CADENADOB: 4 (60 yo M)Acc No.[id number]:02/16/2025 Progress Notes Patient: ASHLEY JUNIOR Provider: Flo Murray M.D. :1965 A ge:60 Y S ex:Male Date:02/16/2025 Address:[address] [place] [address] [address] , [facility] Subjective: * Chief Complaints: * 1 . 3 months. 2. Needs labs & shingles vaccine. * HPI: C ardiology: The patient is here today for a check-up. Pt states he is doing good and denies any new concerns today. Pt states he saw Oncology the last part of December. Last chemo was mid-December. CT 01/06/25 showed the lesions to be smaller. Pt states he has a follow-up latter March. Pt states he is not currently doing radiation or chemo. Some current gut issues: pain, urgency. Mesalamine 1600gm daily. Off and on steroids in past, none at present. Denies : Chest Pain. D enies : Short of Breath. D enies : Dizziness. D enies : Palpitations. P sychology: C/o increased anxiety. Gets agitated easily. * ROS: D ERMATOLOGY: no R arabella. n o H ron. G ASTROENTEROLOGY: no N ausea. n o V omiting. n o D iarrhea.? U ROLOGY: no D ifficulty urinating. n o B lood in urine. * Medical History: D epression, 10/24/07 Adacel [facility], Diverticulitis, Crohn's disease, Pfizer Covid vaccine x2 October 2020. * Surgical History: a bnormal CT of the head , fx of heel left foot, Dr. South 05/2010, cholecystectomy 08-11-10, [facility] - colon resection 08/2019. * Hospitalization/Major Diagno stic Procedure: w ound infection 1983, Infection, Admitted at [facility] transfer to [facility] 02-28 to 03-05-10, [facility] 07/14/10 to 07/15/10, - colon resection [...] ,Years: , Determination:. * Medications: T aking Percocet 5-325 MG Tablet 1 tablet as needed Orally hs , Taking Mesalamine 400 MG Capsule Delayed Release 2 capsule Orally twice a day , Taking Rosuvastatin Calcium 10 MG Tablet 1 tablet Orally Once a day , Taking Aspirin Low Dose 81 MG Tablet Delayed Release 1 tab(s) orally once a day , Taking Vitamin B-12 1000 MCG Tablet 1 tab(s) orally once a day , Taking traMADol HCl 50 MG Tablet 1 tablet as needed Orally three times a day as needed , Taking Tamsulosin HCl 0.4 MG Capsule 1 capsule Orally at bedtime , Not-Taking Mometasone Furoate 0.1 % Ointment 1 application Externally Once a day , Not-Taking Humira Pen 40 MG/0.4ML Pen-injector Kit as directed subcutaneously every other week , Medication List reviewed and reconciled with the patient * Allergies: N .K.D.A. Objective: * Vitals: W t: 145.2, Temp: 98.1, BP: 120/80, HR: 71, O2 Sat: 99% on RA, Nurse: VAIBHAV, Ht: 66.25, BMI:23.26. * Examination: G eneral Examination: General Appearance: N AD. H EENT: u nremarkable.?Oral cavity: n o lesions, mucosa moist and WNL, no erythema. N jayda: s upple, no lymphadenopathy. C hest: n ormal shape and expansion. H eart: R SR, S4. L ungs: c lear to auscultation, somewhat bronchial ARIANA. A bdomen: s oft and nontender, no organomegaly or masses. . N eurologic Exam: I ntact, gait normal. S kin: d orsum of the right hand has healed well. P eripheral pulses: n ormal . B ack: decreased lumbar lordosis. E xtremities: n o leg edema. Assessment: * Assessment: 1. C arcinoma of left lung - C34.92 (Primary) 2 . C rohn's disease in remission - K50.90 3 . A nxiety with depression - F41.8 4 . B MT 23.0-23.9, adult - Z68.23 Plan: * Treatment: 2. A nxiety with depression Start Escitalopram Oxalate Tablet, 10 MG, 1 tablet, Orally, Once a day, 30 days, 30, Refills 3;?Start Oxazepam Capsule, 10 MG, 1 capsule as needed, Orally, Three times a day as needed, 60, Refills 1. * Procedure Codes: G 8420 BMI<30 AND >=22 CALC & DOCU, G8783 BP SCR PRFRM RCMDD DEFIND SCR INTVL, G8752 MOST RECENT SYSTOLIC BP < 140MM HG, G8754 MOST RECENT DIASTOLIC BP < 90MM HG * Follow Up: 2 Months * Images: Billing Information: * Visit Code: 12377 Office Visit, Est Pt., Level 4. * Procedure Codes: G8420 BMI<30 AND >=22 CALC & DOCU. G8783 BP SCR PRFRM RCMDD DEFIND SCR INTVL. G8752 MOST RECENT SYSTOLIC BP < 140MM HG. G8754 MOST RECENT DIASTOLIC BP < 90MM HG. * Electronic signature of Flo Murray MD on 06/24/2025 at 08:35 AM EST Sign off status: Pending * Provider: Flo Murray M.D. Date: 0 02/16/2025 Generated for Corey grant/Kevin/eTransmitting on: 1 08/24/2024 08:35 AM EST History and Physical Notes * HPI (History of Present Illness) Category Sub-Category Detail Notes Category Not es Cardiology Short of Breath Chest Pain Palpitations Dizziness Psychology C/o increased a nxiety. Gets agitated easily. Examination Category Sub-Category Detail Notes Category Not es General Examination HEENT: unremarkable Heart: RSR, S4 Lungs: clear to auscultatio n, somewhat bronchial ARIANA Abdomen: soft and nontender, no organomegaly or [...]
--- OUTSIDE RECORDS SUMMARY | 2025-04-20 06:45 | XMS_ITS ---
[facility] [address] [place] [id number] Care Team Providers Care Sack Filler Name Role Phone Flo Murray Primary Care Provider [phone] Allergies No Known Allergies REASON FOR VISIT 2 months, Needs labs & shingles vaccine Medications Medication SIG (Take, Route, Frequency, Duration) Notes Start Date End Date Status Rosuvastatin Calcium 10 MG 1 tablet Orally [...] times a day as needed 07/01/2024 Active Mesalamine 400 MG 2 capsule Orally twi ce a day Active diazePAM 5 MG 1 tablet as needed O rally 3 times a day prn; Duration: 30 days 02/20/2025 Active Mometasone Furoate 0.1 % 1 application Externally Once a day 09/17/2023 Not-Taking Percocet 5-325 MG 1 tablet as needed O rally hs Active Humira Pen 40 MG/0.4ML as directed subcutaneously every other week Not-Taking Medrol 4 MG as directed Orally; Duration: 6 days 02/16/2025 Not-Taking Tamsulosin HCl 0.4 MG 1 capsule Orally a t bedtime; Duration: 90 days Active Escitalopram Oxalate 10 MG 1 tablet Orally Once a day; Duration: 30 days 02/16/2025 Active Vital Signs Blood pressure systolic 140 mm Hg 04/20/20 25 Blood pressure diastolic 80 mm Hg 025 Heart Rate 55 /min 04/20/2025 Height 66.25 in 04/20/2025 Weight 146.6 lbs 04/20/2025 BMI 23.48 kg/m2 04/20/2025 Encounters Encounter Location Date Provider Diagnosis [facility] [address] [facility] [address] [facility] [address] [place] [id number] 04/20/2025 Flo Murray Carcinoma of left ari ng C34.92 ; Anxiety with depression F41.8 ; Crohn's disease in remission K50.90 and Carotid stenosis, bilateral I65.23 Assessments Encounter Date Diagnosis (ICD Code) Assessment Notes Treatment Notes Treatment Clinical Notes Section Notes 04/20/2025 Carcinoma of left lung (ICD-10 - C34.92) Follow-ups as scheduled 04/20/2025 Anxiety with depression (ICD-10 - F41.8) 04/20/2025 Crohn's disease in remission (ICD-10 - K50.90) Continue present care 04/20/2025 Carotid stenosis, bilateral (ICD-10 - I65.23) Plan Of Treatment Treatment Notes Assessment Notes Carcinoma of left lung Follow-ups as yin eduled Crohn's disease in remission Continue pr esent care Next Appt Details Follow Up: 2 M, Reason: Provider Name:Flo Lowe er, 06/26/2025 11:15:00 AM, [address] [facility] [address] [facility], [address], [place], [id number], Progress Notes * ASHLEY CADENADOB: [birth year] (60 yo M)Acc No.[id number]:04/20/2025 Progress Notes Patient: ASHLEY JUNIOR Provider: Flo Murray M.D. :1965 A ge:60 Y S ex:Male Date:04/20/2025 Address:[address] [place] [address] [address] [id number] Subjective: * Chief Complaints: * 1 . 2 months. 2. Needs labs & shingles vaccine. * HPI: H PI: 60 year old male presents with c/o Patient is here today for?Pt is here today for a 2 month check up. Recent left upper chest and back discomfort. Started on Gabapentin for discomfort but he did not start it. Taking Tylenol and Ibuprofen. ? Recent bone scan was good. Pt sts he is doing well otherwise. Saw radiation Oncologist 04/16 in follow-up.. * ROS: D ERMATOLOGY: no R arabella. n o H ron. G ASTROENTEROLOGY: no N ausea. n o V omiting. n o D iarrhea.? U ROLOGY: no D ifficulty urinating. n o B lood in urine. * Medical History: D epression, 10/24/07 Adacel [facility], Diverticulitis, Crohn's disease, Pfizer Covid vaccine x2 October 2020. * Surgical History: a bnormal CT of the head , fx of heel left foot, Dr. South 05/2010, cholecystectomy 08-11-10, [facility] - colon resection 08/2019. * Hospitalization/Major Diagno stic Procedure: w ound infection 1983, Infection, Admitted at [facility] transfer to [facility] 02-28 to 03-05-10, [facility] 07/14/10 to 07/15/10, - colon resection 09/04/2019-09/09/2019. [...] Capsule 1 capsule Orally at bedtime , Taking Escitalopram Oxalate 10 MG Tablet 1 tablet Orally Once a day , Taking diazePAM 5 MG Tablet 1 tablet as needed Orally 3 times a day prn , Not- Taking Medrol 4 MG Tablet Therapy Pack as directed Orally , Not-Taking Mometasone Furoate 0.1 % Ointment 1 application Externally Once a day , Not-Taking Humira Pen 40 MG/0.4ML Pen-injector Kit as directed subcutaneously every other week , Medication List reviewed and reconciled with the patient * Allergies: N .K.D.A. Objective: * Vitals: W t: 146.6, Temp: 98.2, BP: 140/80, HR: 55, O2 Sat: 96% on RA, Nurse: albaro, Ht: 66.25, BMI:23.48. * Examination: G eneral Examination: General Appearance: N AD. H EENT: u nremarkable.?Oral cavity: n o lesions, mucosa moist and WNL, no erythema. N jayda: s upple, no lymphadenopathy. C hest: n ormal shape and expansion. H eart: R SR. L ungs: c lear to auscultation. N eurologic Exam: I ntact, gait normal. S kin: n ormal, no rash.?Peripheral pulses: n ormal (2+) bilaterally. E xtremities: n o leg edema. ? Assessment: * Assessment: 1. C arcinoma of left lung - C34.92 (Primary) 2 . A nxiety with depression - F41.8 3 . C rohn's disease in remission - K50.90 4 . C arotid stenosis, bilateral - I65.23 Plan: * Treatment: 2. C rohn's disease in remission Notes: Continue present care * Follow Up: 2 M * Images: Billing Information: * Visit Code: 57004 Office Visit, Est Pt., Level 3. * Procedure Codes: * Electronic signature of Flo Murray MD on 06/24/2025 at 08:36 AM EST Sign off status: Pending * Provider: Flo Murray M.D. Date: 0 04/20/2025 Generated for Corey Mooney/Amandaitting on: 1 08/24/2024 08:36 AM EST History and Physical Notes * HPI (History of Present Illness) Category Sub-Category Detail Notes Category Not es HPI Patient is here today for Pt is here today for a 2 month check up. Recent left upper chest and back discomfort. Started on Gabapentin for discomfort but he did not start it. Taking Tylenol and Ibuprofen. Recent bone scan was good. Pt sts he is doing well otherwise. Saw radiation Oncologist 04/16 in follow-up. Examination Category Sub-Category Detail Notes Category Not es General Examination HEENT: unremarkable Heart: RSR Lungs: clear to auscultatio n Extremities: no leg edema General Appearance: NAD Skin: normal, no rash Neurologic Exam: Intact, gait normal Neck: supple, no lymphaden opathy Oral cavity: no lesions, mucosa m oist and WNL, no erythema Peripheral pulses: normal (2+) bilatera lly Chest: normal shape and exp ansion
[2025-06-24 08:29] VITALS: BMI 51.5
--- OUTSIDE RECORDS SUMMARY | 2025-06-24 08:35 | XMS_ITS | Patient Health Record ---
Author Organization [facility] Address [address] [facility] [address] [id number] Care Team Providers Care Thread Drawer Name Role Phone Flo Murray Primary Care Provider Allergies No Known Allergies Medications Medication SIG (Take, Route, Frequency, Duration) [...] day prn; Duration: 30 days 02/20/2025 Active Escitalopram Oxalate 10 MG 1 tablet Orally Once a day; Duration: 30 days 02/16/2025 Active Mometasone Furoate 0.1 % 1 application Externally Once a day 09/17/2023 Not-Taking Tamsulosin HCl 0.4 MG 1 capsule Orally a t bedtime; Duration: 90 days Active Percocet 5-325 MG 1 tablet as needed O rally hs Active Humira Pen 40 MG/0.4ML as directed subcutaneously every other week Not-Taking Mesalamine 400 MG 2 capsule Orally twi ce a day Active Medrol 4 MG as directed Orally; [...] Notes Problem Mixed anxiety and depressive disorder (224382205) Depression with anxiety (300.4) Active confirmed Problem Vitamin B12 deficiency (069383809) Vitamin B12 deficiency (E53.8) Active confirmed Problem Essential hypertension (63624572) Essential hypertension (I10) Active confirmed Problem Osteopenia (657125973) Osteopenia (M85.80) Active confirmed Problem Sprain of lateral collateral ligament of knee (53598249) Sprain of lateral collateral ligament of left knee, initial encounter (S83.422A) Active confirmed Problem Colitis (03377928) Colitis (K52.9) Active confi rmed Problem Disorder of prostate (45028244) Benign prostatic disease (N42.9) Active confirmed Problem Gastroesophageal reflux disease with esophagitis (532083530) Gastroesophageal reflux disease with esophagitis (K21.0) Active confirmed Problem New daily persistent headache (788139003308690) New daily persistent headache (G44.52) Active confirmed Problem Lower abdominal pain (89847306) Lower abdominal pain (R10.30) Active confirmed Problem Multiple actinic keratoses (disorder) (386530711) Actinic keratoses (L57.0) Active confirmed Problem Iron deficiency anemia due to chronic blood loss (849302929) Iron deficiency anemia due to chronic blood loss (D50.0) Active confirmed Problem Occlusion and stenosis of multiple and bilateral cerebral arteries (282536515) Carotid stenosis, bilateral (I65.23) Active confirmed Problem Enterocolitis (80583454) Enterocolitis (K52.9) Active confirmed Problem Neoplasm of neck (161088686) Neoplasm of neck (D49.89) Active confirmed Problem Benign prostatic hypertrophy without outflow obstruction (112748723) Benign prostatic hyperplasia without lower urinary tract symptoms (N40.0) Active confirmed Problem Squamous cell carcinoma of skin (622056138) Squamous cell skin cancer (C44.92) Active confirmed Problem Anxiety depression (156043114) Anxiety with depression (F41.8) Active confirmed Problem Malignant neoplasm of respiratory system (503903057) Carcinoma of left lung (C34.92) Active confirmed Problem Abnormal findings on diagnostic imaging of skull and head (029505457) Abnormal CT scan of head (R93.0) Active confirmed Problem 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) Active confirmed Problem Radiology result abnormal (805847014) Abnormal chest CT (R93.89) Active confirmed Problem History of excision of intestinal structure (798503958) Status post small bowel resection (Z90.49) Active confirmed Problem Crohn's disease of small intestine (08329991) Crohn''s disease of small intestine with complication (K50.019) Active confirmed Problem Sprain of collateral ligament of left knee, subsequent encounter (S83.402D) Active confirmed Problem Crohn's disease in remission (465584717) Crohn's disease in remission (K50.90) Active confirmed Vital Signs Heart Rate 55 /min 04/20/2025 Blood pressure diastolic 80 mm Hg 04/20/2025 Height 66.25 in 04/20/2025 Blood pressure systolic 140 mm Hg 04/20/2025 Weight 146.6 lbs 04/20/2025 BMI 23.48 kg/m2 04/20/2025 Encounters Encounter Location Date Provider Diagnosis [facility] [address] [facility] [address] [place] [id number] 06/27/2024 Flo Murray Actinic keratoses L5 7.[address] R93.89 [facility] [address] [facility] [address] [place], [place] [id number] 07/14/2024 Flo Murray Abnormal chest CT R93.89 and Skin lesion of hand L98.9 [facility] [address] [facility] [address] [place], [place] [id number] 09/22/2024 Flo Murray Carcinoma of left ari ng C34.92 and Crohn's disease in remission K50.90 [facility] [address] [facility] [address] [place], [place] [id number] 11/24/2024 J Herve Murray Crohn''s disease of small intestine with complication K50.019 ; Carcinoma of left lung C34.92 ; Status post small bowel resection Z90.49 ; Crohn's disease in remission K50.90 and BMI 23.0-23.9, adult Z68.23 [facility] [address] [facility] [address] [place], [place] [id number] 02/16/2025 J Herve Trevor Carcinoma of left ari ng C34.92 ; Crohn's disease in remission K50.90 ; Anxiety with depression F41.8 and BMI 23.0-23.9, adult Z68.23 [facility] [address] [facility] [address] [place], [place] [id number] 04/20/2025 J Hervemihai Murray Carcinoma of left ari ng C34.92 ; Anxiety with depression F41.8 ; Crohn's disease in remission K50.90 and Carotid stenosis, bilateral I65.23 [facility] [address] [facility] [address] [place] [id number] 06/30/2024 J Herve Murary [facility] [address] [facility] [address] [place], [place] [id number] 11/03/2024 J Herve Murray [facility] [address] [facility] [address] [place] [id number] 02/18/2025 J Herve Murray Anxiety with depress ion F41.8 [facility] [address] [facility] [address] [place], [place] [id number] 03/02/2025 J Herve Murray [facility] [address] [facility] [address] [place] [id number] 06/04/2025 J Herve Murray Anxiety with depress ion F41.8 Assessments Encounter Date Diagnosis (ICD Code) Assessment [...] 02/18/2025 Anxiety with depression (ICD-10 - F41.8) 04/20/2025 Carcinoma of left lung (ICD-10 - C34.92) Follow-ups as scheduled 06/04/2025 Anxiety with depression (ICD-10 - F41.8) 04/20/2025 Anxiety with depression (ICD-10 - F41.8) 11/24/2024 Status post small bowel resection (ICD-10 - Z90.49) 02/16/2025 Anxiety with depression (ICD-10 - F41.8) 11/24/2024 Crohn's disease in remission (ICD-10 - K50.90) 02/16/2025 BMI 23.0-23.9, adult (ICD-10 - Z68.23) 04/20/2025 Crohn's disease in remission (ICD-10 - K50.90) Continue present care 04/20/2025 Carotid stenosis, bilateral (ICD-10 - I65.23) 11/24/2024 BMI 23.0-23.9, adult (ICD-10 - Z68.23) Plan Of Treatment Pending Test Test Name Order Date PET-CT 06/19/2024 Next Appt Details Provider Name:Flo Lowe er, 06/26/2025 11:15:00 AM, [address], [address], [place], [place], [id number], Insurance Providers Payer Name Payer Address Payer Phone Subscriber Number Group Number Insured Name Patient Relationship to Insured Coverage Start Date Coverage End Date [facility] [address] [place] [address] [id number] 1ER ASHLEY CADENA Self - patient is the insured Medications Administered Medication Instructions Date of Administration Dosage Notes B-12 11/15/2018 1 mL B-12 01/03/2023 1 mL Morphine 07/14/2010 2 mg Vistaril 50 mg 01/04/2012 Medical (General) History Medical History History ICD Code depression 10/24/07 Adacel [facility] diverticulitis Crohn's disease Pfizer Covid vaccine x2 October 2020 Surgical History Surgery Date(Month/Year) abnormal CT of the head fx of heel left foot, Dr. South 05/2010 cholecystectomy 08-11-10 - colon resection 08/2019 Hospitalization History Reason Date(Month/Year) [facility] - colon resection 09/04/2019-09/09/19 20 [facility] 07/14/10 to 07/15/10 Infection, Admitted at [facility] transfer to [facility] 02-28 to 03-05-10 wound infection 1984
--- OUTSIDE RECORDS SUMMARY | 2025-06-24 08:35 | XMS_ITS | Clinical Summary ---
Author Organization Healthcare Address [address] [place] [address] Care Team Providers Care Mobile Application Engineer Name Role Phone Pcp, No Primary [...] by mouth Daily. Active Cholecalciferol 250 MCG (91759 UT) capsule Weekly 4 Active rosuvastatin (Crestor) [...] 02/10/2009 Sigmoidoscopy 02/10/2009 [facility]-Colorectal Cancer Screening 02/10/2009 [facility]-RSV Vaccine: 60+ Years or (1 - Risk 60-74 years 1-dose series) 2024 [id number] Vaccine ( season) 2025 05/30/2023, 09/14/2021, 11/09/2020, Additional history exists [facility]-Influenza Vaccine (#1) 04/13/202505/22, 05/17/2021, 06/02/2019, Additional history exists [facility]-DTaP,Tdap,and Td Vaccines (2 - Td or Tdap) 12/19/2030 12/19/2020 HPV Vaccines Aged Out No longer eligi [...] complete this topic Insurance ANTH Care Teams Mobile Application Engineer Relationship Specialty Start Date [place] [address] PCP - General Family Medicine 07/13/24
--- OUTSIDE RECORDS SUMMARY | 2025-06-24 08:36 | XMS_ITS | Encounter Summary ---
Author Organization Healthcare Address [address] [place] [address] Care Team Providers Care Commercial Carpet Installer Name Role Phone Pcp, No Primary Care Provider Unavailabl e Encounter Details Date Type Department Care Team ([facility] st Contact Info) Description 10/18/2020 Orders Only External Location [address] [place] [address] Provider, External Social History Tobacco Use Types [...] on filedocumented in this encounter Care Teams Commercial Carpet Installer Relationship Specialty Start Date End Date Pcp, No [address] [place] [address] PCP - General Family Medicine 07/13/24 documented as of this encounter
--- OUTSIDE RECORDS SUMMARY | 2025-06-24 08:36 | XMS_ITS | Encounter Summary ---
Author Organization Healthcare Address [address] [place] [id number] Care Team Providers Care Cota Name Role Phone Pcp, No Primary Care Provider Unavailabl e Encounter Details Date Type Department Care Team ([facility] st Contact Info) Description 07/27/2022 Orders Only External Location [address] [place] [address] Provider, External Social History Tobacco Use Types [...] on filedocumented in this encounter Care Teams Cota Relationship Specialty Start Date End Date Pcp, No [address] [place] [address] PCP - General Family Medicine 07/13/24 documented as of this encounter
--- OUTSIDE RECORDS SUMMARY | 2025-06-24 08:36 | XMS_ITS | Encounter Summary ---
Author Organization Healthcare Address [address] [place] [address] Care Team Providers Care Art Sales Consultant Name Role Phone Pcp, No Primary Care Provider Unavailabl e Encounter Details Date Type Department Care Team (Late st Contact Info) Description 08/23/2022 Orders Only External Location [address] [place] [address] Jillian Ortiz, GEOTHERMAL HVAC TECHNICIAN [address] [facility] [address] [id number] Social History Tobacco Use Types Packs/Day Years [...] 08/23/2022 8:58 AM EST us Jillian Ortiz GEOTHERMAL HVAC TECHNICIAN IMG US PROCEDURES Final Resu lt documented in this encounter Visit Diagnoses Not on filedocumented in this encounter Care Teams Art Sales Consultant Relationship Specialty Start Date End Date Pcp, No [address] [place] [address] PCP - General Family Medicine 07/13/24 documented as of this encounter
--- OUTSIDE RECORDS SUMMARY | 2025-06-24 08:36 | XMS_ITS | Encounter Summary ---
Author Organization Healthcare Address [address] [place] [address] Care Team Providers Care Filter Plant Operator Name Role Phone Pcp, No Primary Care Provider Unavailabl e Encounter Details Date Type Department Care Team (Late st Contact Info) Description 08/23/2022 Orders Only External Location [address] [place] [address] Jillian Ortiz, HARDBOARD FACTORY WORKER [address] [facility] [address] [id number] Social History Tobacco Use Types Packs/Day Years [...] Modality Nuclear Medicine 08/23/2022 7:57 AM EST us Jillian Ortiz HARDBOARD FACTORY WORKER IMG NM PROCEDURES Final Resu lt documented in this encounter Visit Diagnoses Not on filedocumented in this encounter Care Teams Filter Plant Operator Relationship Specialty Start Date End Date Pcp, No [address] [place] [address] PCP - General Family Medicine 07/13/24 documented as of this encounter
--- OUTSIDE RECORDS SUMMARY | 2025-06-24 08:36 | XMS_ITS | Encounter Summary ---
Author Organization Healthcare Address [address] [place] [id number] Care Team Providers Care Lead Etl Developer Name Role Phone Pcp, No Primary Care Provider Unavailabl e Encounter Details Date Type Department Care Team ([facility] st Contact Info) Description 07/27/2022 Orders Only External Location [address] [place] [address] Provider, External Social History Tobacco Use Types [...] filedocumented in this encounter Care Teams Lead Etl Developer Relationship Specialty Start Date End Date Pcp, No [address] [place] [address] PCP - General Family Medicine 07/13/24 documented as of this encounter
--- OUTSIDE RECORDS SUMMARY | 2025-06-24 08:37 | XMS_ITS | Encounter Summary ---
Author Organization Healthcare Address [address] [place] [id number] Care Team Providers Care Database Developer Name Role Phone Pcp, No Primary Care Provider Unavailabl e Encounter Details Date Type Department Care Team ([facility] st Contact Info) Description 06/02/2024 Orders Only External Location [address] [place] [address] Provider, External Social History Tobacco Use Types [...] on filedocumented in this encounter Care Teams Database Developer Relationship Specialty Start Date End Date Pcp, No [address] [place] [address] PCP - General Family Medicine 07/13/24 documented as of this encounter
--- OUTSIDE RECORDS SUMMARY | 2025-06-24 08:37 | XMS_ITS | Encounter Summary ---
Author Organization Healthcare Address [address] [place] [address] Care Team Providers Care Drill Sharpener Name Role Phone Pcp, No Primary Care Provider Unavailabl e Encounter Details Date Type Department Care Team ([facility] st Contact Info) Description 07/21/2024 Orders Only External Location [address] [place] [address] Provider, External Social History Tobacco Use Types [...] on filedocumented in this encounter Care Teams Drill Sharpener Relationship Specialty Start Date End Date Pcp, No [address] [place] [address] PCP - General Family Medicine 07/13/24 documented as of this encounter
--- OUTSIDE RECORDS SUMMARY | 2025-06-24 08:37 | XMS_ITS | Encounter Summary ---
Author Organization Healthcare Address [address] [place] [address] Care Team Providers Care Proteomics Scientist Name Role Phone Pcp, No Primary Care Provider Unavailabl e Encounter Details Date Type Department Care Team ([facility] st Contact Info) Description 12/19/2020 Orders Only External Location [address] [place] [address] Provider, External Social History Tobacco Use Types [...] on filedocumented in this encounter Care Teams Proteomics Scientist Relationship Specialty Start Date End Date Pcp, No [address] [place] [address] PCP - General Family Medicine 07/13/24 documented as of this encounter
--- OUTSIDE RECORDS SUMMARY | 2025-06-24 08:37 | XMS_ITS | Encounter Summary ---
Author Organization Healthcare Address [address] [place] [address] Care Team Providers Care Cloth Carrier Name Role Phone Pcp, No Primary Care Provider Unavailabl e Encounter Details Date Type Department Care Team ([facility] st Contact Info) Description 07/28/2024 Orders Only External Location [address] [place] [address] Provider, External Social History Tobacco Use Types [...] on filedocumented in this encounter Care Teams Cloth Carrier Relationship Specialty Start Date End Date Pcp, No [address] [place] [address] PCP - General Family Medicine 07/13/24 documented as of this encounter
--- OUTSIDE RECORDS SUMMARY | 2025-06-24 08:37 | XMS_ITS | Encounter Summary ---
Author Organization Healthcare Address [address] [place] [address] Care Team Providers Care Registered Respiratory Technician Name Role Phone Pcp, No Primary Care Provider Unavailabl e Encounter Details Date Type Department Care Team (Late st Contact Info) Description 08/07/2024 Lab Requisition [facility] [address] [place] [address] Neli Ventura MD [address] [place] [address] Solitary pulmonary nodule Social History Tobacco Use [...] EST) Case Report Sugical Pathology Consult Case: [id number] Authorizing Provider: Neli Ventura MD Collected: 08/07/2024 1126 Ordering Location: [facility] Received: 08/07/2024 1126 Pathologist: Haroldo Laura DO Specimen: Lung, Left, [id number] 08/07/2024 2:47 PM [facility] Final Diagnosis OUTSIDE SLIDES; [id number], A-B; 07/21/2024 A. LUNG, LEFT, UPPER LOBE, ENDOBRONCHIAL BIOPSY: - POSITIVE FOR NON-SMALL CELL CARCINOMA, FAVOR SQUAMOUS CELL CARCINOMA (SEE COMMENT). B. LUNG, LEFT, UPPER LOBE, TRANSBRONCHIAL BIOPSY: - SCANT LUNG TISSUE; NEGATIVE FOR MALIGNANCY WITHIN THE BIOPSIED MATERIAL. 08/07/2024 2:47 PM [facility] at 1447 EST Comment Sections [...] represents a pulmonary primary. 08/07/2024 2:47 PM [facility] Clinical Information R91.1 - Solitary pulmonary nodule [ICD-10-CM] 08/07/2024 2:47 PM [facility] Gross Description A. [id number] Received along with a corresponding pathology report from [facility] are 5 slide(s) labeled outside case: [id number] collected on 07/21/2024. 08/07/2024 2:47 PM [facility] Intradepartmental Consultation with Agreement Dr. Xiao (tumor classification) 08/07/2024 2:47 PM [facility] Note: A resident was involved in the service. I attest I examined the relevant preparations for the specimens and confirmed the diagnosis or interpretation. 08/07/2024 2:47 PM [facility] Tissue Left lung structure / Unknown 08/07/2024 11:26 AM EST 08/07/2024 11:26 AM EST us Neli Ventura MD LAB PATHOLOGY ORDERABLES Final Result [facility] [address] [place] [address] documented in this encounter Visit Diagnoses Diagnosis Solitary pulmonary nodule documented in this encounter Care Teams Registered Respiratory Technician Relationship Specialty Start Date End Date Pcp, No [address] [place] [address] PCP - General Family Medicine 07/13/24 documented as of this encounter
--- OUTSIDE RECORDS SUMMARY | 2025-06-24 08:37 | XMS_ITS | Clinical Summary ---
Author Organization [facility] Address [address] [place] [address] Care Team Providers Care Non Acoustic Operator Name Role Phone Skip Murray MD Primary Care Provider [phone] Allergies No known active allergies Medications Humira [...] 3 Active Cholecalciferol (Vitamin D3) 1.25 MG (50717 UT) capsule 3 Active cyanocobalamin 1000 MCG/ML [...] Date Smoking Tobacco: Every Day Cigarettes 1 43.4 Started: 02/10/1982 Passive Smoke Exposure: Current Smokeless [...] ANNUAL PHYSICAL 11/07/2022 HEPATITIS C SCREENING 11/07/2022 INFLUENZA VACCINE 03/13/2025 05/22/2022, , 06/02/2019, Additional history exists COLONOSCOPY 10/28/2028 10/28/2018 COLORECTAL CANCER SCREENING 10/28/2028 TDAP/TD VACCINES (2 - Td or Tdap) 12/19/2030 021 Insurance [facility] PPO Care Teams Non Acoustic Operator Relationship Specialty Start Date End Date Skip Murray MD [address] [facility] [address] [facility] [address] [place] [address] PCP - General Family Medicine 11/08/22
--- OUTSIDE RECORDS SUMMARY | 2025-06-24 08:37 | XMS_ITS | Encounter Summary ---
Author Organization Healthcare Address [address] [place] [address] Care Team Providers Care Marketing Development Representative Name Role Phone Pcp, No Primary Care Provider Unavailabl e Encounter Details Date Type Department Care Team ([facility] st Contact Info) Description 07/21/2024 Orders Only External Location [address] [place] [address] Provider, External Social History Tobacco Use Types [...] filedocumented in this encounter Care Teams Marketing Development Representative Relationship Specialty Start Date End Date Pcp, No [address] [place] [address] PCP - General Family Medicine 07/13/24 documented as of this encounter
--- OUTSIDE RECORDS SUMMARY | 2025-06-24 08:37 | XMS_ITS | Encounter Summary ---
Author Organization Healthcare Address [address] [place] [address] Care Team Providers Care Orderly Name Role Phone Pcp, No Primary Care Provider Unavailabl e Encounter Details Date Type Department Care Team (Late st Contact Info) Description 08/07/2024 Lab Requisition [facility] [address] [place] [address] Neli Ventura MD [address] [place] [address] Solitary pulmonary nodule Social History Tobacco Use [...] 11:54 AM EST) Case Report Cytology Case: [id number] Authorizing Provider: Neli Ventura MD Collected: 08/07/2024 1154 Ordering Location: [facility] Received: 08/07/2024 1154 Pathologist: Anne Marie Keita MD Specimen: Lymph Node, [id number] 08/14/2024 3:30 PM EST [facility] Final Diagnosis OUTSIDE CASE: [id number] COLLECTED ON 07/21/2024: A. LYMPH NODE, STATION 7, FINE NEEDLE ASPIRATION: - LYMPHOID TISSUE, NEGATIVE FOR MALIGNANCY. B. LYMPH NODE, STATION 10L, FINE NEEDLE ASPIRATION: - RARE ATYPICAL CELLS PRESENT (SEE COMMENT). C. LUNG, LEFT UPPER LOBE, BRONCHIAL LAVAGE: - RARE ATYPICAL CELLS PRESENT. 08/14/2024 3:30 PM EST [facility] at 1530 EST Comment The [...] at 3:30 PM. 08/14/2024 3:30 PM EST [facility] Clinical Information R91.1 - Solitary pulmonary nodule [ICD-10-CM] 08/14/2024 3:30 PM EST [facility] Gross Description A. [id number] Received along with a corresponding pathology report from [facility] are 6 slide(s) labeled outside case: [id number] collected on 07/21/2024. 08/14/2024 3:30 PM EST [facility] Fine Needle Aspirate Lymph node specimen / Unknown 08/07/2024 11:54 AM EST 08/07/2024 11:54 AM EST us Neli Ventura MD LAB PATHOLOGY ORDERABLES Final Result [facility] [address] [place] [address] documented in this encounter Visit Diagnoses Diagnosis Solitary pulmonary nodule documented in this encounter Care Teams Orderly Relationship Specialty Start Date End Date Pcp, No [address] [place] [address] PCP - General Family Medicine 07/13/24 documented as of this encounter
--- OUTSIDE RECORDS SUMMARY | 2025-06-24 08:37 | XMS_ITS | Encounter Summary ---
Author Organization Healthcare Address [address] [place] [address] Care Team Providers Care Wine Bottle Inspector Name Role Phone Pcp, No Primary Care Provider Unavailabl e Encounter Details Date Type Department Care Team ([facility] st Contact Info) Description 12/09/2018 Orders Only External Location [address] [place] [address] Antonio Guzman MD [address] [place] [address] [place] [address] Social History Tobacco Use Types Packs/Day [...] on filedocumented in this encounter Care Teams Wine Bottle Inspector Relationship Specialty Start Date End Date Pcp, No [address] [place] [address] PCP - General Family Medicine 07/13/24 documented as of this encounter
--- OUTSIDE RECORDS SUMMARY | 2025-06-24 08:37 | XMS_ITS | Encounter Summary ---
Author Organization Healthcare Address [address] [place] [address] Care Team Providers Care Oracle R12 Developer Name Role Phone Pcp, No Primary Care Provider Unavailabl e Encounter Details Date Type Department Care Team ([facility] st Contact Info) Description 12/04/2016 Orders Only External Location [address] [place] [address] Provider, External Social History Tobacco Use Types [...] on filedocumented in this encounter Care Teams Oracle R12 Developer Relationship Specialty Start Date End Date Pcp, No [address] [place] [address] PCP - General Family Medicine 07/13/24 documented as of this encounter
--- OUTSIDE RECORDS SUMMARY | 2025-06-24 08:37 | XMS_ITS | Encounter Summary ---
Author Organization Healthcare Address [address] [place] [address] Care Team Providers Care Special Service Representative Name Role Phone Pcp, No Primary Care Provider Unavailabl e Encounter Details Date Type Department Care Team ([facility] st Contact Info) Description 02/28/2021 Orders Only External Location [address] [place] [address] Provider, External Social History Tobacco Use Types [...] on filedocumented in this encounter Care Teams Special Service Representative Relationship Specialty Start Date End Date Pcp, No [address] [place] [address] PCP - General Family Medicine 07/13/24 documented as of this encounter
--- OUTSIDE RECORDS SUMMARY | 2025-06-24 08:37 | XMS_ITS | Encounter Summary ---
Author Organization Healthcare Address [address] [place] [id number] Care Team Providers Care Dry Heat Room Attendant Name Role Phone Pcp, No Primary Care Provider Unavailabl e Encounter Details Date Type Department Care Team ([facility] st Contact Info) Description 02/07/2023 Orders Only External Location [address] [place] [address] Provider, External Social History Tobacco Use Types [...] 9:40 AM EDT) Anatomical Region Laterality Modality [place] [facility] [place] Computed Tomogr aphy 02/07/2023 9:40 AM EDT us External Provider IMG CT PROCEDURES Final Result documented in this encounter Visit Diagnoses Not on filedocumented in this encounter Care Teams Dry Heat Room Attendant Relationship Specialty Start Date End Date Pcp, No [address] [place] [address] PCP - General Family Medicine 07/13/24 documented as of this encounter
--- NOTE | 2025-06-24 09:00 | CT_ITS ---
FINAL REPORT TECHNIQUE: Axial CT with contrast with 3-D MIP reconstruction This study was performed with techniques to keep radiation doses as low as reasonably achievable, (ALARA). Individualized dose reduction techniques using automated exposure control or adjustment of mA and/or kV according to the patient's size were employed. CLINICAL HISTORY: lung cancer COMPARISON: 03/20/2025 FINDINGS: CT CHEST WITH CONTRAST: There is left upper lobe collapse, with a thick-walled cavitary process again noted, which is stable since the prior exam. This could be neoplastic or infectious in nature. There is a bilobed nodule in the left lower lobe seen on image #31 of series 2, which measures 10 mm, unchanged. There are small right apical nodules, which are also stable. There is a new ill-defined patchy nodularity in the posterior segment of the right upper lobe, consistent with bronchopneumonia. A small left pleural effusion is present, and a small left-sided pericardial effusion. No adenopathy is noted. IMPRESSION: 1. Interval development of bronchopneumonia in the right upper lobe. 2. Other previously described lung nodules are stable, along with the cavitary process in the left upper lobe. Reviewed, Interpreted and Dictated by Tara Swain MD Transcribed by Lizeth Malave Authenticated and [facility]
[2025-06-24 09:10] LABS: Blood Urea Nitrogen 10 mg/dl (9-20); Creatinine Clearance Estimated 70 mL/min (50-200); Creatinine,Serum 0.90 mg/dl (0.66-1.25); Estimated Glomerular Filt Rate 86 ml/min (>60); GFR (African American) 104 ML/MIN (>60)
[2025-06-24] MEDS: SODIUM CHLORIDE 0.9% 10ML SYR (RAD ONLY) 10 ML IV (09:30)
[2025-06-24] MEDS: IOPAMIDOL-370 (76%);100ML BOTTLE 75 ML IV (09:31)
== END 2025-06-24 23:59 | disposition home or self-care (01) ==
LOC: INF 08:28 → RAD 08:55
PROVIDERS: PCP Family Medicine; Visit Provider Internal Medicine Medical Oncology
DX: C34.12 Malignant neoplasm of upper lobe, left bronchus or lung (principal); J18.0 Bronchopneumonia, unspecified organism; R91.8 Other nonspecific abnormal finding of lung field
CPT/HCPCS: 36415; 71260; 82565; 84520; Q9967

== ENCOUNTER 2025-06-30 11:11 | Outpatient (CLI) | payer BC, SELFPAY ==
[2025-06-30 13:05] LABS: C-Reactive Protein 40.6 mg/L (0-4)
== END 2025-06-30 23:59 | disposition home or self-care (01) ==
LOC: LAB 11:11
PROVIDERS: PCP Family Medicine; Visit Provider Internal Medicine Gastroenterology
DX: K50.00 Crohn's disease of small intestine without complications (principal)
CPT/HCPCS: 36415; 85651; 86140

== ENCOUNTER 2025-07-14 11:25 | Outpatient (CLI) | payer BC, SELFPAY ==
--- OUTSIDE RECORDS SUMMARY | 2025-07-14 11:27 | XMS_ITS | Clinical Summary ---
Author Organization [employer] ([place], [place], [place], [place], [place]) Address [address] [place] [address] Care Team Providers Care Purchasing Expeditor Name Role Phone Unavailable Primary Care Provider [...] 60-74 years 1-dose series) 2024 COVID-19 VACCINE ( - 2024- season) 2025 09/14/2021, 11/09/2020, 10/19/2020 Influenza Vaccine (#1) 2025 DTAP/TDAP/TD VACCINES (2 - T d or Tdap) 12/19/2030 12/19/2020
--- OUTSIDE RECORDS SUMMARY | 2025-07-14 11:27 | XMS_ITS | Referral Summary ---
Author Organization [employer] ([place], [place], [place], [place], [place]) Address [address] [place] [address] Care Team Providers Care Intel Recruiter Name Role Phone Unavailable Primary Care Provider [...]
--- OUTSIDE RECORDS SUMMARY | 2025-07-14 11:27 | XMS_ITS | Clinical Summary ---
Author Organization Healthcare Address [address] [place] [address] Care Team Providers Care Naval Engineer Name Role Phone Pcp, No Primary [...] by mouth Daily. Active Cholecalciferol 250 MCG (10659 UT) capsule Weekly 4 Active rosuvastatin (Crestor) [...] - Risk 60-74 years 1-dose series) 2024 [id number] Vaccine ( season) 2025 05/30/2023, 09/14/2021, 11/09/2020, [...] complete this topic Insurance ANTH Care Teams Naval Engineer Relationship Specialty Start [place] [address] PCP - General Family Medicine 07/13/24
--- NOTE | 2025-07-14 11:28 | XR_ITS ---
FINAL REPORT CLINICAL HISTORY: sob. Hx of lung cancer. Recent pneumonia. COMPARISON: CT of the chest 06/24/2025 FINDINGS: PA and lateral views of the chest were obtained. No prior chest x-rays are available for comparison purposes. The cardiac silhouette is within normal limits. There is an abnormal contour of the left hilum, with volume loss in the left upper lobe which could be related to treatment for known lung cancer. There are a few subtle nodular opacities in the right upper lobe. The lungs are otherwise clear. There is no pleural effusion or pneumothorax. No acute osseous abnormality is identified. IMPRESSION: Abnormal contour of the left hilum, with volume loss in the left upper lobe, which could be related to treatment for the known lung cancer. Reviewed, Interpreted and Dictated by Alice Riojas MD Transcribed by Lizeth Malave Authenticated and [facility]
--- OUTSIDE RECORDS SUMMARY | 2025-07-14 11:28 | XMS_ITS | Encounter Summary ---
Author Organization Healthcare Address [address] [place] [address] Care Team Providers Care Agriculture Laborer Name Role Phone Pcp, No Primary Care Provider Unavailabl e Encounter Details Date Type Department Care Team ([facility] st Contact Info) Description 12/04/2016 Orders Only External Location [address] [place] [address] Provider, External Social History Tobacco Use Types [...] on filedocumented in this encounter Care Teams Agriculture Laborer Relationship Specialty Start Date End Date Pcp, No [address] [place] [address] PCP - General Family Medicine 07/13/24 documented as of this encounter
--- OUTSIDE RECORDS SUMMARY | 2025-07-14 11:28 | XMS_ITS | Encounter Summary ---
Author Organization Healthcare Address [address] [place] [address] Care Team Providers Care Bracelet And Brooch Maker Name Role Phone Pcp, No Primary Care Provider Unavailabl e Encounter Details Date Type Department Care Team ([facility] st Contact Info) Description 02/28/2021 Orders Only External Location [address] [place] [address] Provider, External Social History Tobacco Use Types [...] on filedocumented in this encounter Care Teams Bracelet And Brooch Maker Relationship Specialty Start Date End Date Pcp, No [address] [place] [address] PCP - General Family Medicine 07/13/24 documented as of this encounter
--- OUTSIDE RECORDS SUMMARY | 2025-07-14 11:28 | XMS_ITS | Encounter Summary ---
Author Organization Healthcare Address [address] [place] [address] Care Team Providers Care Sap Business Analyst Name Role Phone Pcp, No Primary Care Provider Unavailabl e Encounter Details Date Type Department Care Team (Late st Contact Info) Description 08/07/2024 Lab Requisition [facility] [address] [address] Neli Ventura MD [address] [place] [address] Solitary pulmonary nodule Social History Tobacco Use [...] 11:54 AM EST) Case Report Cytology Case: [id number] Authorizing Provider: Neli Ventura MD Collected: 08/07/2024 1154 Ordering Location: [facility] Received: 08/07/2024 1154 Pathologist: Anne Marie Keita MD Specimen: Lymph Node, [id number] 08/14/2024 3:[address] [facility] Final Diagnosis OUTSIDE CASE: [id number] COLLECTED ON 07/21/2024: A. LYMPH NODE, STATION 7, FINE NEEDLE ASPIRATION: - LYMPHOID TISSUE, NEGATIVE FOR MALIGNANCY. B. LYMPH NODE, STATION 10L, FINE NEEDLE ASPIRATION: - RARE ATYPICAL CELLS PRESENT (SEE COMMENT). C. LUNG, LEFT UPPER LOBE, BRONCHIAL LAVAGE: - RARE ATYPICAL CELLS PRESENT. 08/14/2024 3:30 PM EST [facility] at 1530 EST Comment [...] 3:30 PM. 08/14/2024 3:[address] [facility] Clinical Information R91.1 - Solitary pulmonary nodule [ICD-10-CM] 08/14/2024 3:30 PM EST [facility] Gross Description A. [id number] Received along with a corresponding pathology report from [facility] are 6 slide(s) labeled outside case: [id number] collected on 07/21/2024. 08/14/2024 3:[address] [facility] Fine Needle Aspirate Lymph node specimen / Unknown 08/07/2024 11:54 AM EST 08/07/2024 11:54 AM EST us Neli Ventura MD LAB PATHOLOGY ORDERABLES Final Result [facility] [address] [place] [address] documented in this encounter Visit Diagnoses Diagnosis Solitary pulmonary nodule documented in this encounter Care Teams Sap Business Analyst Relationship Specialty Start Date End Date Pcp, No [address] [place] [address] PCP - General Family Medicine 07/13/24 documented as of this encounter
--- OUTSIDE RECORDS SUMMARY | 2025-07-14 11:28 | XMS_ITS | Encounter Summary ---
Author Organization Healthcare Address [address] [place] [id number] Care Team Providers Care Store Sales Consultant Name Role Phone Pcp, No Primary Care Provider Unavailabl e Encounter Details Date Type Department Care Team ([facility] st Contact Info) Description 07/27/2022 Orders Only External Location [address] [place] [address] Provider, External Social History Tobacco Use Types [...] filedocumented in this encounter Care Teams Store Sales Consultant Relationship Specialty Start Date End Date Pcp, No [address] [place] [address] PCP - General Family Medicine 07/13/24 documented as of this encounter
--- OUTSIDE RECORDS SUMMARY | 2025-07-14 11:28 | XMS_ITS | Encounter Summary ---
Author Organization Healthcare Address [address] [place] [address] Care Team Providers Care Thread Winder Automatic Name Role Phone Pcp, No Primary Care Provider Unavailabl e Encounter Details Date Type Department Care Team ([facility] st Contact Info) Description 10/18/2020 Orders Only External Location [address] [place] [address] Provider, External Social History Tobacco Use Types [...] on filedocumented in this encounter Care Teams Thread Winder Automatic Relationship Specialty Start Date End Date Pcp, No [address] [place] [address] PCP - General Family Medicine 07/13/24 documented as of this encounter
--- OUTSIDE RECORDS SUMMARY | 2025-07-14 11:28 | XMS_ITS | Encounter Summary ---
Author Organization Healthcare Address [address] [place] [address] Care Team Providers Care Shell Molding Roller Blast Operator Name Role Phone Pcp, No Primary Care Provider Unavailabl e Encounter Details Date Type Department Care Team ([facility] st Contact Info) Description 08/23/2022 Orders Only External Location [address] [place] [address] Jillian Ortiz, LIQUID FLAVOR COMPOUNDER [address] [facility] [address] [id number] Social History Tobacco Use Types Packs/Day Years [...] 08/23/2022 7:57 AM EST us Jillian Ortiz LIQUID FLAVOR COMPOUNDER IMG NM PROCEDURES Final Resu lt documented in this encounter Visit Diagnoses Not on filedocumented in this encounter Care Teams Shell Molding Roller Blast Operator Relationship Specialty Start Date End Date Pcp, No [address] [place] [address] PCP - General Family Medicine 07/13/24 documented as of this encounter
--- OUTSIDE RECORDS SUMMARY | 2025-07-14 11:28 | XMS_ITS | Encounter Summary ---
Author Organization Healthcare Address [address] [place] [address] Care Team Providers Care Lower In Supervisor Name Role Phone Pcp, No Primary Care Provider Unavailabl e Encounter Details Date Type Department Care Team ([facility] st Contact Info) Description 12/19/2020 Orders Only External Location [address] [place] [address] Provider, External Social History Tobacco Use Types [...] on filedocumented in this encounter Care Teams Lower In Supervisor Relationship Specialty Start Date End Date Pcp, No [address] [place], [place] PCP - General Family Medicine 07/13/24 documented as of this encounter
--- OUTSIDE RECORDS SUMMARY | 2025-07-14 11:28 | XMS_ITS | Encounter Summary ---
Author Organization Healthcare Address [address] [place] [address] Care Team Providers Care Crystal Finisher Name Role Phone Pcp, No Primary Care Provider Unavailabl e Encounter Details Date Type Department Care Team ([facility] st Contact Info) Description 12/09/2018 Orders Only External Location [address] [place] [address] Antonio Guzman MD [address] [place] [address] [place] [address] Social History Tobacco Use Types Packs/Day [...] Nohemy ging 12/09/2018 10:1 0 AM EDT nAtonio INFANTEG XR PROCEDURES Final Result documented in this encounter Visit Diagnoses Not on filedocumented in this encounter Care Teams Crystal Finisher Relationship Specialty Start Date End Date Pcp, No [address] [place] [address] PCP - General Family Medicine 07/13/24 documented as of this encounter
--- OUTSIDE RECORDS SUMMARY | 2025-07-14 11:28 | XMS_ITS | Encounter Summary ---
Author Organization Healthcare Address [address] [place] [address] Care Team Providers Care Computer Information Systems Instructor Name Role Phone Pcp, No Primary Care Provider Unavailabl e Encounter Details Date Type Department Care Team ([facility] st Contact Info) Description 07/21/2024 Orders Only External Location [address] [place] [address] Provider, External Social History Tobacco Use Types [...] on filedocumented in this encounter Care Teams Computer Information Systems Instructor Relationship Specialty Start Date End Date Pcp, No [address] [place] [address] PCP - General Family Medicine 07/13/24 documented as of this encounter
--- OUTSIDE RECORDS SUMMARY | 2025-07-14 11:28 | XMS_ITS | Data Portability ---
Author Organization [facility] María marley CKS MARLOW CLOSED Address [address] [facility] [address] [place] [address] Care Team Providers Care Electronic Installer Name Role Phone TIANA RIOJAS Government Service Executive TESSA HORAN Primary Care Provider Assessment No assessment recorded. Plan of Treatment Reminders Order Date Submit Date Provider Last Modified By Organization Details Last Modified Time Details Appointments FOLLOW UP DAK 2025 11:00A M TIANA RIOJAS PA-C Not available Not available Not available Lab surgica l patholo gy study - R/O BCC vs Irritat ed nevus 2023 024 [facility], [facility], [place], [address], 08/24/2023 16:14:58 Referral None recorde d. Procedures None recorde d. Surgeries None recorde d. Imaging None recorde d. Medication Orders Efudex 5 % topical cream [address] [facility], [address] [place] [address], [place], [address], 02/17/2025 14:32:34 Patient TargetsNo targets recorded. Patient InstructionsNo instructions recorded. Reason for Referral None Reported. Results Created Date Observation Date Name Description Value Unit Range Abnormal Flag Note LastModifiedBy Organization Detail LastModifiedTime Result Notes None recorded. Problems Name Problem SNOMED Code Status Onset Date Resolution Date Notes Provider Name and Address Organization Details Recorded Time [facility] ker[facility] 13:16[facility]04 Neoplasm of uncertain behavior of skin 38189118 [facility] 0[facility] 13:17:31 Malignant neoplasm of lung 007452976 Active 025 Gabriela Palomo [facility] 5 10:52:19 Problem Notes None recorded. Procedures Surgical History Date Name Laterality Status Provider Name and Address Organization Details Recorded Time 11/10/2024 DAK - Cryo AK completed Mikayla Leach [facility] 11/10/2024 10:59:34 03/12/2024 DAK - Cryo AK completed Wojciechanitra Tonyony [facility] 03/12/2024 13:39:18 08/22/2023 Blade Biopsy completed Rhea Perez [facility] 08/22/2023 13:17:27 Imaging Results None recorded. Procedure Notes None recorded. Medical Equipment None Reported. Allergies No known drug allergies Medications Name Sig Start Date Stop Date Status Note LastModified by Organization Details LastModified Time cyclobenza trell 10 mg tablet TAKE 1 TABLET BY MOUTH THREE TIMES DAILY NEEDED BACK PAIN active no longer taking Not Available Not Available Not Available prednisone 10 mg tablet TAKE 2 TABS BY MOUTH ONCE DAILY FOR 7 DAYS, THEN TAKE 1 TAB BY MOUTH ONCE DAILY FOR 7 DAYS, THEN TAKE 1 TAB BY MOUTH EVERY OTHER DAY FOR 7 DAYS. active Not Available Not Available No t Available ondansetro n HCl 4 mg tablet [...] Not Available Not Available No t Available Efudex 5 % topical cream Apply to scalp, forehead , cheeks and temples bid x 5 days 2024 active Not Available Not Available Not Avai lable oxycodone- acetaminop hen 5 mg-325 mg tablet TAKE 1 TO 2 TABLETS BY MOUTH EVERY 6 HOURS NEEDED FOR PAIN active Not Available Not Available No t Available tamsulosin 0.4 mg capsule TAKE 1 CAPSULE BY MOUTH ONCE DAILY AT BEDTIME active Not Available Not Available [...] MOUTH DIRECTED ON INSIDE OF PACKAGE active Not Available Not Available No t Available albuterol sulfate HFA 90 mcg/actuat ion aerosol inhaler INHALE 2 PUFFS BY MOUTH 4 TIMES DAILY NEEDED FOR SHORTNES S OF BREATH OR WHEEZING active Not Available Not Available No t Available diazepam 5 mg tablet TAKE 1 TABLET BY MOUTH THREE TIMES DAILY NEEDED active Not Available Not Available No t Available oxycodone 5 mg tablet TAKE 1 TABLET BY MOUTH EVERY 4 HOURS FOR 10 DAYS active Not Available Not Available No t Available escitalopr am 10 mg tablet TAKE 1 TABLET BY [...] Status Smoker, Current Status Unknown Lucina Watts [facility] 08/22/2023 13:11:09 Sunscreen Use? No Informatio n [...] Diagnosis SNOMED-CT Code Diagnosis ICD10 Code Diagnosis IMO Codes Diagnosis Note [id number] OLIVER MORELOS-TOY AN, DO [facility] [address] [place] [address] 07/17/2023 10:19:30 07/18/2023 10:04:40 [id number] TIANA RIOJAS PA-C [address] [address] 08/22/2023 12:56:39 08/23/2023 14:33:10 Actinic keratosis 751205304 L57.0 Actinic keratoses are precancero us lesions that may progress to squamous cell carcinoma if untreated. UV light and genetics may increase risk. Pt to treat face and scalp with Efudex 5% cream - pt has Rx at home Neoplasm o f uncertain behavior of skin 70029216 D48.5 Biopsy rec'd [id number] TAINA RIOJAS PA-C [address] [address] 03/12/2024 13:04:24 03/17/2024 15:48:00 Actinic keratosis [id number] L57.0 Actinic keratoses are precancero us lesions [...] and will revisit 5fu at that time. [id number] TIANA RIOJAS PA-C [address] [address] 11/10/2024 10:31:35 11/10/2024 11:03:04 Actinic keratosis 631005211 L57.0 Actinic keratoses are precancero us lesions that may progress to squamous cell carcinoma if untreated. UV light and genetics may increase risk. Treated lesions should blister, scab over, and heal within a few weeks. If treated lesion(s) does not resolve within 1-2 months, patient agrees to follow up for re-evaluat ion. Asteatosis cutis 3746300 0 L85.3 Use fragrance free/dye free soaps or non-soap cleansers. Recommend moisturizi ng cream daily. Creams are thicker than lotions. Cetaphil is a good OTC cream. [id number] TIANA RIOJAS PA-C [facility] [address] [place] [address] 02/17/2025 11:30:43 02/17/2025 11:53:01 Actinic keratosis 550652440 L57.0 [address]5818 Actinic keratoses are precancero us lesions that may progress to squamous cell carcinoma if untreated. UV light and genetics may increase risk.Recom mend topical treatment Efudex-keena cipotriene , apply to scalp bid x 5 days- SE reviewed, expect redness, inflammati on, irritation etc. Keep away from petsDiscus sed treating scalp, forehead, cheeks and temples. Advised to avoid direct sunlight while [facility], they will call or text for payment and deliveryRe commend discuss timing of topical treatment with oncologist - not to interfere with lung cancer txFup in 6m or sooner with change or concerns Health Concerns Section Related Observation LastModified by Organization Detai ls LastModified Time None Recorded Concern Status LastModified by Organization Details LastModified Time None Recorded Advance Directives Directive None Recorded Payers Insurance Date Sequence Insurance Name Policy Number Policy Alejandre Covered Member ID Alejandre Member ID Guarantor Name 02/14/2025 1 [facility] (PPO) [id number] Ubaldo Villagran [id number] Ubaldo Villagran Notes Date Note Type [...] REPORTS: Raised, rough spot. TIANA RIOJAS PA-C [facility] [place], [address], [facility] 08/22/2023 13:24:15 03/12/2024 text/html 1. Follow up for: Actinic Keratosis - Location: Scalp. Face.- Duration: Six months.- Prior Treatments: LN2.. 2. I have a spot on my neck. - Location: Right neck.- Duration: Three months.- Prior treatments: None.- REPORTS: Raised, rough spot. TIANA RIOJAS PA-C [address] [place] [place], [address], [facility] 03/12/2024 13:51:23 11/10/2024 text/html Follow up for: Actinic Keratosis - Location: Scalp. Face.- Duration: 1 year- Prior Treatments: LN2. Reports: Pt noticed a new spot on left cheek Pt finished radiation treatment October 24 and is currently on chemo for lung cancer TIANA RIOJAS PA-C [address] [place] [place], [address], [facility] 11/10/2024 12:22:15 02/17/2025 text/html Follow up for: Actinic Keratosis - Location: Scalp. Face.- Duration: 1 year- Prior Treatments: LN2. Previously noted pt finished radiation treatment October 24 and is currently on chemo for lung cancer TIANA RIOJAS PA-C [address] [place] [place], [address], [facility] 02/22/2025 14:00:08
--- OUTSIDE RECORDS SUMMARY | 2025-07-14 11:28 | XMS_ITS | Encounter Summary ---
Author Organization Healthcare Address [address] [place] [address] Care Team Providers Care Cdl Flatbed Truck Driver Name Role Phone Pcp, No Primary Care Provider Unavailabl e Encounter Details Date Type Department Care Team ([facility] st Contact Info) Description 07/28/2024 Orders Only External Location [address] [place] [address] Provider, External Social History Tobacco Use Types [...] on filedocumented in this encounter Care Teams Cdl Flatbed Truck Driver Relationship Specialty Start Date End Date Pcp, No [address] [place] [address] PCP - General Family Medicine 07/13/24 documented as of this encounter
--- OUTSIDE RECORDS SUMMARY | 2025-07-14 11:28 | XMS_ITS | Clinical Summary ---
Author Organization [facility] Address [address] [place] [address] Care Team Providers Care Heel Breaster Name Role Phone Skip Murray MD Primary Care Provider [phone] Allergies No known active allergies Medications Humira [...] 3 Active Cholecalciferol (Vitamin D3) 1.25 MG (74890 UT) capsule 3 Active cyanocobalamin 1000 MCG/ML [...] [facility] PPO Care Teams Heel Breaster Relationship Specialty Start Date End Date Skip Murray MD [address] [facility] [address] [facility] [address] [place] [address] PCP - General Family Medicine 11/08/22
--- OUTSIDE RECORDS SUMMARY | 2025-07-14 11:28 | XMS_ITS | Encounter Summary ---
Author Organization Healthcare Address [address] [place] [id number] Care Team Providers Care Prop Drawer Name Role Phone Pcp, No Primary Care Provider Unavailabl e Encounter Details Date Type Department Care Team ([facility] st Contact Info) Description 06/02/2024 Orders Only External Location [address] [place] [address] Provider, External Social History Tobacco Use Types [...] on filedocumented in this encounter Care Teams Prop Drawer Relationship Specialty Start Date End Date Pcp, No [address] [place] [address] PCP - General Family Medicine 07/13/24 documented as of this encounter
--- OUTSIDE RECORDS SUMMARY | 2025-07-14 11:28 | XMS_ITS | Encounter Summary ---
Author Organization Healthcare Address [address] [place] [address] Care Team Providers Care Dish Maker Name Role Phone Pcp, No Primary Care Provider Unavailabl e Encounter Details Date Type Department Care Team ([facility] st Contact Info) Description 07/21/2024 Orders Only External Location [address] [place] [address] Provider, External Social History Tobacco Use Types [...] on filedocumented in this encounter Care Teams Dish Maker Relationship Specialty Start Date End Date Pcp, No [address] [place] [address] PCP - General Family Medicine 07/13/24 documented as of this encounter
--- OUTSIDE RECORDS SUMMARY | 2025-07-14 11:28 | XMS_ITS | Encounter Summary ---
Author Organization Healthcare Address [address] [place] [id number] Care Team Providers Care Blasting Gang Miner Name Role Phone Pcp, No Primary Care Provider Unavailabl e Encounter Details Date Type Department Care Team ([facility] st Contact Info) Description 02/07/2023 Orders Only External Location [address] [place] [address] Provider, External Social History Tobacco Use Types [...] 9:40 AM EDT) Anatomical Region Laterality Modality [place] [facility] [place] Computed Tomogr aphy 02/07/2023 9:40 AM EDT us External Provider IMG CT PROCEDURES Final Result documented in this encounter Visit Diagnoses Not on filedocumented in this encounter Care Teams Blasting Gang Miner Relationship Specialty Start Date End Date Pcp, No [address] [place] [address] PCP - General Family Medicine 07/13/24 documented as of this encounter
--- OUTSIDE RECORDS SUMMARY | 2025-07-14 11:28 | XMS_ITS | Encounter Summary ---
Author Organization Healthcare Address [address] [place] [address] Care Team Providers Care Special Forces Weapons Sergeant Name Role Phone Pcp, No Primary Care Provider Unavailabl e Encounter Details Date Type Department Care Team (Late st Contact Info) Description 08/07/2024 Lab Requisition [facility] [address] [place] [address] Neli Ventura MD [address] [place] [address] Solitary pulmonary nodule Social History Tobacco Use [...] EST) Case Report Sugical Pathology Consult Case: [id number] Authorizing Provider: Neli Ventura MD Collected: 08/07/2024 1126 Ordering Location: [facility] Received: 08/07/2024 1126 Pathologist: Haroldo Laura DO Specimen: Lung, Left, [id number] 08/07/2024 2:47 PM [facility] Final Diagnosis OUTSIDE SLIDES; [id number], A-B; 07/21/2024 A. LUNG, LEFT, UPPER LOBE, [...] represents a pulmonary primary. 08/07/2024 2:47 PM [facility] Clinical Information R91.1 - Solitary pulmonary nodule [ICD-10-CM] 08/07/2024 2:47 PM [facility] Gross Description A. [id number] Received along with a corresponding pathology report from [facility] are 5 slide(s) labeled outside case: [id number] collected on 07/21/2024. 08/07/2024 2:47 PM [facility] Intradepartmental Consultation with Agreement Dr. Xiao (tumor classification) 08/07/2024 2:47 PM [facility] Note: A resident was involved in the service. I attest I examined the relevant preparations for the specimens and confirmed the diagnosis or interpretation. 08/07/2024 2:47 PM [facility] Tissue Left lung structure / Unknown 08/07/2024 11:26 AM EST 08/07/2024 11:26 AM EST us Neli Ventura MD LAB PATHOLOGY ORDERABLES Final Result [facility] [address] [place] [address] documented in this encounter Visit Diagnoses Diagnosis Solitary pulmonary nodule documented in this encounter Care Teams [employer] Weapons Sergeant Relationship Specialty Start Date End Date Pcp, No [address] [place] [address] PCP - General Family Medicine 07/13/24 documented as of this encounter
--- OUTSIDE RECORDS SUMMARY | 2025-07-14 11:28 | XMS_ITS | Clinical Summary ---
Author Organization [facility] Address [address] [place] [address] Phone CareEverywhereSuppor Care Team Providers Care Instructional Resource Teacher Name Role Phone Unavailable Primary Care Provider [...] Infection Screening - Triple Screen 02/10/1982 Pneumococcal: 50+ Years (1 o f 2 - PCV) 02/10/1983 Tetanus Diphtheria and [...]
--- OUTSIDE RECORDS SUMMARY | 2025-07-14 11:28 | XMS_ITS | Encounter Summary ---
Author Organization Healthcare Address [address] [place] [address] Care Team Providers Care Insulation Board Calender Operator Name Role Phone Pcp, No Primary Care Provider Unavailabl e Encounter Details Date Type Department Care Team (Late st Contact Info) Description 08/23/2022 Orders Only External Location [address] [place] [address] Jillian Ortiz, [employer] [address] [facility] [address] [id number] Social History Tobacco Use Types Packs/Day Years [...] 08/23/2022 8:58 AM EST us Jillian Ortiz [employer] IMG US PROCEDURES Final Resu lt documented in this encounter Visit Diagnoses Not on filedocumented in this encounter Care Teams Insulation Board Calender Operator Relationship Specialty Start Date End Date Pcp, No [address] [place] [address] PCP - General Family Medicine 07/13/24 documented as of this encounter
--- OUTSIDE RECORDS SUMMARY | 2025-07-14 11:28 | XMS_ITS | Encounter Summary ---
Author Organization Healthcare Address [address] [address] Care Team Providers Care Airplane Inspector Name Role Phone Pcp, No Primary Care Provider Unavailabl e Encounter Details Date Type Department Care Team ([facility] st Contact Info) Description 07/27/2022 Orders Only External Location [address] [place] [address] Provider, External Social History Tobacco Use Types [...] on filedocumented in this encounter Care Teams Airplane Inspector Relationship Specialty Start Date End Date Pcp, No [address] [place] [address] PCP - General Family Medicine 07/13/24 documented as of this encounter
== END 2025-07-14 23:59 ==
LOC: RAD 11:26
PROVIDERS: PCP Family Medicine; Visit Provider Internal Medicine Pulmonary Disease
DX: R06.02 Shortness of breath (principal); R91.8 Other nonspecific abnormal finding of lung field; Z85.118 Personal history of other malignant neoplasm of bronchus and lung; Z87.01 Personal history of pneumonia (recurrent)
CPT/HCPCS: 71046